=== PATIENT | female | born 1990 | race Caucasian/White ===

== ENCOUNTER 2019-09-22 15:37 | Outpatient (CLI) | payer MEDICARE, MEDICAID, SELFPAY ==
--- NOTE | ~2019-09-22 | XR_ITS ---
XR lumbar spine 2-3V, XR sacrum coccyx 1V 09/22/2019 16:30 (accession [id number]), 09/22/2019 16:29 (accession [id number]) Indication: Low back pain. History of epilepsy. Procedure: 5 views of the lumbar spine and 3 views of the sacrum/coccyx Comparison: No prior studies for comparison. Findings: There are bilateral renal stones. Lumbar vertebral heights are maintained. No fracture or t raumatic malalignment. No significant disc narrowing. Sacral foramen are symmetric. There is an IUD p resent. No acute abnormality of the sacrum/coccyx. Impression: 1: No acute abnormality of the lumbar spine or sacrum/coccyx. 2: Bilateral nephrolithiasis. Reviewed, dictated and finalized at location A. N RESOURCES OPERATIONS DIRECTOR Impression: 1: No acute abnormality of the lumbar spine or sacrum/coccyx. 2: Bilateral nephrolithiasis. Impression: 1: No acute abnormality of the lumbar spine or sacrum/coccyx. 2: Bilateral nephrolithiasis.
--- NOTE | ~2019-09-22 | XR_ITS ---
XR_CERV2-3V_CR, XR thoracic spine 2V 09/22/2019 16:30 Indication: Neck pain. Seizures. Procedure: 4 view cervical spine and 2 views thoracic spine Comparison: No prior studies for comparison. Findings: There are age-indeterminate superior endplate compression fractures of T2, T3 and T4. Mild levocurvature of the thoracic spine. Small bone island in L1. No prevertebral soft tissue swelling. C ervical spine alignment is normal. Odontoid process is normal. Lung apices are normal. Impression: 1: Age-indeterminate superior endplate compression fractures of T2, T3 and T4. Reviewed, dictated and finalized at location A. CRITICAL CARE Impression: 1: Age-indeterminate superior endplate compression fractures of T2, T3 and T4. Impression: 1: Age-indeterminate superior endplate compression fractures of T2, T3 and T4.
== END 2019-09-22 15:38 | disposition home or self-care (01) ==
LOC: ANHIMG 15:41
PROVIDERS: PCP Internal Medicine; Visit Provider Nurse Practitioner
DX: M54.9 Dorsalgia, unspecified (principal); N20.0 Calculus of kidney; M48.54XA Collapsed vertebra, not elsewhere classified, thoracic region, initial encounter for fracture
CPT/HCPCS: 72040; 72070; 72100; 72220

== ENCOUNTER 2019-10-12 12:48 | Outpatient (CLI) | payer MEDICARE, MEDICAID, SELFPAY ==
--- NOTE | ~2019-10-12 | MR_ITS ---
EXAMINATION: MR thoracic spine wo con EXAM DATE: 10/12/2019 13:35 INDICATION: Abnormal x-ray, superior endplate compression fractures T2, T3, T4. Age indeterminate. TECHNIQUE: Multi-sequential, multiplanar MR images of the thoracic spine were obtained without contra st. Sagittal T1, T2, T2 fat saturation, axial T2 weighted images reviewed. Correlation is made to 09/22/2019. FINDINGS: There are multiple mild to moderate chronic compression fractures extending from T2-T6. Mor e specifically, mild to moderate loss of height at T2 and T3, moderate at C4, mild at T5 and T6. This is causing some thoracic kyphosis. Several small endplate Schmorl's nodes. There is mild thoracic di sc disease. The spinal cord signal intensity and intrinsic morphology is normal. The vertebral bodies are aligned in the AP dimension. Thoracic neural foramina and central canal widely patent. Minimal t horacic facet arthropathy. IMPRESSION: 1. Chronic upper thoracic compression fractures. 2. Mild spondylosis. Reviewed, dictated and finalized at location B. T CARE PROVIDER
== END 2019-10-12 12:49 | disposition home or self-care (01) ==
PROVIDERS: PCP Internal Medicine; Visit Provider Nurse Practitioner Adult Health
DX: S22.029A Unspecified fracture of second thoracic vertebra, initial encounter for closed fracture (principal); S22.039A Unspecified fracture of third thoracic vertebra, initial encounter for closed fracture; S22.049A Unspecified fracture of fourth thoracic vertebra, initial encounter for closed fracture; W19.XXXA Unspecified fall, initial encounter; M47.814 Spondylosis without myelopathy or radiculopathy, thoracic region
CPT/HCPCS: 72146

== ENCOUNTER 2020-03-30 10:00 | Outpatient (CLI) | payer MEDICARE, MEDICAID, SELFPAY ==
--- NOTE | 2020-04-03 11:11 | WPDHOLTEREM ---
Holter/Event Monitor Holter/Event Monitor Date of procedure: 03/30/20 Procedure Type: 48 hour holter monitor Indications: Syncope Conclusion: 1. 48 hour holter monitor on 03/30/20. 2. Underlying rhythm is sinus rhythm. HR range 52-136 bpm; average HR 70 bpm. 3. There are 5 premature supraventricular complexes. No supraventricular tachycardia. 4. No premature ventricular complex. No ventricular tachycardia. 5. No sinoatrial or atrioventricular blocks. No significant pauses greater than 2 seconds. 6. Patient reports falling on floor and falling backwards which demonstrate sinus rhythm, HR range 75-105 bpm.
== END 2020-03-30 10:01 | disposition home or self-care (01) ==
PROVIDERS: PCP Internal Medicine; Visit Provider Nurse Practitioner
DX: R55 Syncope and collapse (principal)
CPT/HCPCS: 93225; 93226

== ENCOUNTER 2020-04-13 15:05 | Emergency (ER) | payer MEDICARE, MEDICAID, SELFPAY ==
--- NOTE | ~2020-04-13 | CT_ITS ---
EXAMINATION: CT brain wo con DATE: 04/13/2020 15:58 INDICATION: Seizure. Head injury. TECHNIQUE: Computed tomography (CT) of the head was performed without intravenous contrast. The mA wa s adjusted according to patient size. Iterative reconstruction technique was employed. The dose-lengt h product was 605.33 mGy-cm. COMPARISON: Head CT 11/10/2014 FINDINGS: There is no intracranial hemorrhage, acute infarction, or abnormal intracranial mass lesion . The ventricles are normal in size. There is mucosal thickening in the right ethmoid sinuses. The or bits are normal. There are changes of right mastoidectomy. IMPRESSION: 1. Normal brain. Reviewed, dictated and finalized at location A. IMPRESSION: 1. Normal brain.
--- NOTE | 2020-04-13 15:10 | ECG_ITS ---
Measurements Intervals [place] Rate: 76 P: 26 AL: 176 QRS: 76 QRSD: 80 T: 52 QT: 384 QTc: 433 Interpretive Statements SINUS RHYTHM MINIMAL Q WAVES- INFERIOR LEADS NONSPECIFIC T-WAVE ABNORMALITY- ANTERIOR LEADS BASELINE ARTIFACT- I, AVR, V4-V5 BORDERLINE ECG Electronically Signed On 04-13-2020 16:33:52 CDT by Reymundo Martínez D.O.
[2020-04-13 15:13] VITALS: BP 116/73; PULSE 75; RESP 17; TEMP 36.8; O2SAT 100
[2020-04-13 15:17] VITALS: PULSE 79
[2020-04-13 15:39] LABS: Basophils Percent Auto 0.7 % (0.2-1.2); Eosinophils Absolute Auto 0.1 K/mm3 (0-0.3); Eosinophils Percent Auto 1.7 % (0-4.4); Hemoglobin 12.5 g/dL (12.0-15.0); Immature Granulocyte Absolute 0.02 K/mm3 (0.00-0.031); Immature Granulocyte Percent A 0.3 % (0-0.5); Lymphocytes Absolute Auto 2.06 K/mm3 (0.9-3.2); Lymphocytes Percent Auto 34.6 % (18.3-44.2); Mean Corpuscular HGB Conc 33.8 g/dl (32-36); Mean Corpuscular Hemoglobin 32.1 pg (26-34); Mean Corpuscular Volume 94.9 fl (80-100); Monocytes Absolute Auto 0.5 K/mm3 (0.1-0.6); Monocytes Percent Auto 8.2 % (2.6-8.5); Neutrophils Absolute Auto 3.3 K/mm3 (1.3-6.7); Neutrophils Percent Auto 54.5 % (45.5-73.1); Platelet Count Result 290 k/mm3 (150-375); Red Cell Distribution Width 11.5 % (11.5-14.5)
[2020-04-13 15:46] VITALS: BP 102/64; PULSE 84; RESP 17; O2SAT 98
[2020-04-13 15:50] LABS: Alanine Aminotransferase 126 U/L (4-35); Albumin Level 4.4 g/dL (3.5-5.1); Alkaline Phosphatase 171 U/L (38-126); Anion Gap 11.6 mmol/L (7-16); Aspartate Amino Transferase 67 U/L (14-36); Bilirubin,Total 0.4 mg/dL (0.2-1.3); Blood Urea Nitrogen 12 mg/dL (7-17); Carbon Dioxide 23 mmol/L (22-30); Chloride 110 mmol/L (98-107); Estimated CRCL calculation 102 ml/min; Estimated Glomerular Filt Rate > 60; Glucose 94 mg/dL (65-105); Potassium 3.6 mmol/L (3.4-5.0); Sodium 141 mmol/L (137-145)
[2020-04-13 16:29] VITALS: BP 107/77; PULSE 77; RESP 17; O2SAT 98
[2020-04-13] MEDS: levETIRAcetam 1000MG/NACL100ML 1,000 MG/100 ML BAG 400 MG IVPB (17:08)
--- NOTE | 2020-04-13 17:18 | ED.GENADULT ---
HPI - General Adult General Chief complaint: Seizure Stated complaint: seizure, hit head Time Seen by Provider: 04/13/20 16:57 Source: patient and family History of Present Illness HPI narrative: Patient reported a seizure like activity, similar to her previous seizure, unwitnessed lasted for 1 to 2 seconds at home. Afternoon had another 1, dropped her phone on the floor then went down on the ground for 1 to 2-second. Hit her head on the ground. Patient denies any loss of consciousness, report having similar symptoms for the last months, was evaluated at [facility], currently on Topamax 300 mg every morning, 400 mg every afternoon. Patient also on Keppra 1500 twice daily. Currently patient complaining of headache, no other injuries MD complaint: Seizure Related Data Home Medications Medication Instructions Recorded Confirmed buspirone 30 mg tablet 30 mg PO DAILY tablet 09/21/19 09/22/19 levetiracetam 1,000 mg tablet 1,000 mg PO Q12H 09/21/19 09/22/19 levetiracetam 750 mg tablet 750 mg PO Q12H 09/21/19 09/22/19 naproxen sodium 220 mg capsule 440 mg PO BID PRN cap 09/21/19 09/22/19 olanzapine 15 mg tablet 5 mg PO DAILY tablet 03/23/20 topiramate 100 mg tablet 300 mg PO BID tablet 03/23/20 Allergies Allergy/AdvReac Type Severity Reaction Status Date / Time No Known Allergies Allergy Verified 04/13/20 15:19 Review of Systems Review of Systems: Narrative: CONSTITUTIONAL: Denies fever, chills, or sweats. EYES: Denies visual changes, redness, or discharge. ENT: Denies rhinorrhea, congestion, sore throat, or otalgia. CARDIOVASCULAR: Denies chest pain, palpitations, or edema. RESPIRATORY: Denies cough or dyspnea. GASTROINTESTINAL: Denies abdominal pain, nausea, vomiting, or diarrhea. GENITOURINARY: Denies dysuria or hematuria. SKIN: Denies rash or itching. MUSCULOSKELETAL: Denies back pain, joint pain, or myalgia. NEUROLOGIC: Denies headache, numbness, or weakness. PSYCHIATRIC: Denies anxiety or depression. [facility] Surgical History Surgical History S/P middle ear reconstruction Family History Family History Mother Depression Family history of cataracts Social History Social History Smoking status: Never smoker Second hand tobacco smoke exposure: No Alcohol intake: never Exam Narrative: Exam Narrative: General appearance: Well-developed, well-nourished Skin: Normal color Head: Normocephalic, nontraumatic Eyes: Clear conjunctiva ENT: Oropharynx normal, ears normal, nose normal Neck: Supple, nontender Chest and respiratory: Airway patent, no respiratory distress, no accessory muscle use Heart: Regular rate/rhythm Abdomen: Soft, nontender, no organomegaly, quiet bowel sounds Vascular: Normal peripheral pulses, normal capillary refill. Musculoskeletal: Normal range of motion, nontender back Neurologic: Alert and oriented ?3, MACHINE FASTENER is normal as tested, no gross motor deficit Course Course Emergency Course: Patient looks comfortable, Consultations Consultation #1: Dr. Bustillo. Call office for appointment Date: 04/13/20 Time: 17:37 Vital Signs Vital signs: Vital Signs Temperature 36.8 C 04/13/20 15:13 Pulse Rate 75 04/13/20 15:13 Respiratory Rate 17 04/13/20 15:13 Blood Pressure 116/73 04/13/20 15:13 Pulse Oximetry 100 04/13/20 15:13 Temperature 36.8 C 04/13/20 15:13 Pulse Rate 77 04/13/20 16:29 Respiratory Rate 17 04/13/20 16:29 Blood Pressure 107/77 07
[2020-04-17 21:31] LABS: Topiramate 25.6 mcg/mL (***)
[2020-04-18 10:00] LABS: Levetiracetam Keppra 43.1 mcg/mL (12.0-46.0)
== END 2020-04-13 18:33 | disposition home or self-care (01) ==
PROVIDERS: Emergency Provider Emergency Medicine; PCP Internal Medicine
DX: G40.909 Epilepsy, unspecified, not intractable, without status epilepticus (principal); R94.31 Abnormal electrocardiogram [ECG] [EKG]
CPT/HCPCS: 36415; 70450; 80053; 80177; 80201; 85025; 93005; 96365; 99284; J1953

== ENCOUNTER 2020-11-08 15:22 | Inpatient (IN) | payer MEDICARE, MEDICAID, SELFPAY ==
[2020-11-08] VITALS (40 sets, daily range): BP systolic 93–118; BP diastolic 58–85; PULSE 80–102; RESP 16–18; TEMP 36.2–36.4; O2SAT 99–100; BMI 26.4
--- NOTE | ~2020-11-08 | NM_ITS ---
EXAMINATION: NM hepatobiliary w pharm DATE: 11/09/2020 15:24 INDICATION: Gallbladder sludge and cholelithiasis. Elevated liver enzymes. COMPARISON: None. TECHNIQUE: 4.5 mCi Tc-99m mebrofenin (Choletec) was administered intravenously. Scintigraphic images of the abdomen were obtained for one hour. 3 mcg sincalide (Kinevac) was administered by slow intrav enous infusion, and imaging was continued for 30 minutes. Gallbladder ejection fraction was calculate d by the technologist. FINDINGS: There is normal clearance of radiotracer from the blood pool. There is homogeneous tracer uptake by t he liver. Activity progresses to the gallbladder and bowel although this appears somewhat delayed wi th activity first seen in the region of the common bile duct at 40 minutes, at the bowel at 15 minute s and at the gallbladder at 1 hour and 30 minutes. During the post-Kinevac imaging to assess for gall bladder ejection fraction the activity within the common bile duct changes significantly and on some images is greater than the activity seen in the immediately adjacent gallbladder. This precludes an a ccurate quantitative assessment of the gallbladder ejection fraction. Subjectively there is minimal c hange in the gallbladder activity. IMPRESSION: 1. Prompt clearance of activity from the blood pool but with relatively delayed activity clearance f rom the liver and with delayed accumulation of activity in the common bile duct, bowel and gallbladde r suggests a partial biliary obstruction. 2. Subjectively low gallbladder ejection fraction as detailed above suggest possibility of gallbladde r dysfunction or chronic cholecystitis in the appropriate clinical setting. Reviewed, dictated and finalized at location A. STICS SUPERVISOR IMPRESSION: 1. Prompt clearance of activity from the blood pool but with relatively delaye d activity clearance from the liver and with delayed accumulation of activity i n the common bile duct, bowel and gallbladder suggests a partial biliary obstru ction. 2. Subjectively low gallbladder ejection fraction as detailed above suggest pos sibility of gallbladder dysfunction or chronic cholecystitis in the appropriate clinical setting.
--- NOTE | ~2020-11-08 | NM_ITS ---
EXAMINATION: NM hepatobiliary wo pharm DATE: 11/14/2020 13:44 INDICATION: Bile leak. COMPARISON: Hepatobiliary scintigraphy 11/09/2020, MRCP 11/09/2020 TECHNIQUE: 5 mCi Tc-99m mebrofenin (Choletec) was administered intravenously. Scintigraphic images o f the abdomen were obtained for one hour. A final image was obtained at 1 hour and 15 minutes. FINDINGS: There is delayed clearance of radiotracer from the blood pool, consistent with hepatocellul ar dysfunction. There is homogeneous tracer uptake by the liver. Activity progresses to the bowel. IMPRESSION: 1. No bile leak. 2. Delayed clearance of radiotracer from the blood pool, consistent with hepatocellular dysfunction. Reviewed, dictated and finalized at location A. COMMUNICATIONS SALES REPRESENTATIVE IMPRESSION: 1. No bile leak. 2. Delayed clearance of radiotracer from the blood pool, consistent with hepato cellular dysfunction.
--- NOTE | ~2020-11-08 | US_ITS ---
US abdomen limited DATE: 11/08/2020 17:13 INDICATION: Elevated liver function tests TECHNIQUE: Real-time imaging of liver pancreas and gallbladder COMPARISON: 11/20/2015 Limited abdominal ultrasound FINDINGS: No hepatic or pancreatic space-occupying mass lesion. Normal hepatopedal portal venous flow direction. There is a prominent amount of sludge and multiple small nodular filling defects in the gallbladder l umen suggesting possible gallstones. Gallbladder wall thickening is within upper limits of normal. No bile duct dilatation. The common joanna e duct measures 3.9 mm, within normal limits. IMPRESSION: Sludge and probable stones in the gallbladder Reviewed, dictated and finalized at Location A. Reviewed, dictated and finalized at location A. FIC ASSISTANT
--- NOTE | ~2020-11-08 | MR_ITS ---
EXAMINATION: MR MRCP wo/w con/w 3D wo ind DATE: 11/09/2020 18:33 INDICATION: Abnormal liver function tests. Nausea and vomiting. TECHNIQUE: Magnetic resonance imaging (MRI) of the abdomen was performed without and with MultiHance intravenous contrast. Sequences included coronal T2-weighted FS FSE, coronal T2-weighted FSE, axial T 1-weighted LAVA, coronal FS FIESTA, axial dual-echo T1-weighted SPGR, coronal lava-FLEX, sagittal T2- weighted FSE, axial T2-weighted FSE, and axial DWI. Thick-slab T2-weighted FSE images were obtained f or magnetic resonance cholangiopancreatography (MRCP). Maximum intensity projection 3-D reconstructio ns of the volumetric data were created by the technologist. Postcontrast sequences included coronal L GABI-flex and time course of axial T1-weighted LAVA. COMPARISON: None. FINDINGS: ABDOMEN MRI: There is diffuse hepatic steatosis. The spleen, pancreas, and adrenal glands are normal. The gallbladder is normal in size and contains gallstones. There are cysts in the kidneys measuring up to 8 mm on the right. There are no dilated loops of bowel. There are no pathologically enlarged ly mph nodes. There is no free intraperitoneal fluid. ABDOMEN MRCP: The common duct is normal and measures 6 mm. No choledocholithiasis. IMPRESSION: 1. Diffuse hepatic steatosis. 2. Cholelithiasis. No evidence of acute cholecystitis. Reviewed, dictated and finalized at location A. H DOCTOR
--- NOTE | ~2020-11-08 | XR_ITS ---
EXAMINATION: XR chest 1V portable DATE: 11/08/2020 17:01 INDICATION: Cough. Nausea and vomiting. TECHNIQUE: A single frontal view of the chest was obtained. COMPARISON: Chest 2 views 07/28/2009 FINDINGS: The chest demonstrates clear lungs without pneumonia, pleural effusion, or pneumothorax. Th e heart size is normal. IMPRESSION: 1. No acute cardiopulmonary disease. Reviewed, dictated and finalized at location A. ER SLICING MACHINE OPERATOR
[2020-11-08 16:35] LABS: Basophils Percent Auto 1.1 % (0.2-1.2); Eosinophils Percent Auto 0.8 % (0-4.4); Hematocrit 36.9 % (37.0-47.0); Hemoglobin 12.9 g/dL (12.0-15.0); Lymphocytes Absolute Auto 0.75 K/mm3 (0.9-3.2); Lymphocytes Percent Auto 20.5 % (18.3-44.2); Mean Corpuscular Hemoglobin 34.3 pg (26-34); Mean Corpuscular Volume 98.1 fl (80-100); Mean Platelet Volume 10.2 fl (7.4-10.4); Monocytes Absolute Auto 0.4 K/mm3 (0.1-0.6); Monocytes Percent Auto 11.5 % (2.6-8.5); Neutrophils Absolute Auto 2.4 K/mm3 (1.3-6.7); Neutrophils Percent Auto 66.1 % (45.5-73.1); Platelet Count Result 275 k/mm3 (150-375); Red Blood Count 3.76 M/mm3 (4.2-5.4); Red Cell Distribution Width 14.6 % (11.5-14.5); White Blood Count 3.7 K/mm3 (4.5-10.0)
[2020-11-08] MEDS: PROCHLORPERAZINE EDISYLATE 10 MG/2 ML VIAL IV PUSH (16:36)
[2020-11-08] MEDS: LACTATED RINGERS 1,000 ML 999 ML IV CONT ×3 (16:36→18:56)
[2020-11-08 16:45] LABS: Add Urine Microscopic? YES; Amorphous Sediment Urine Few; Appearance Urine Cloudy (Clear); Bacteria Urine 2+ /hpf; Bilirubin Urine 2+ (Negative); Blood Urine 1+ (Negative); Color Urine Amber (Yellow); Glucose Urine UA Negative (Negative); Hyaline Casts Urine 30-49 /lpf; Ketones Urine 2+ mg/dL (Negative); Leukocyte Esterase Ur Trace LEU/UL (Negative); Mucus Urine Heavy /lpf; Nitrate Urine Negative (Negative); Protein Urine 2+ mg/dL (Negative); Specific Grav Ur 1.024 (1.001-1.035); Squamous Epithelial Cell Urine Many /hpf (Few); WBC Urine 31-50 /hpf
[2020-11-08 16:46] LABS: Alanine Aminotransferase 72 U/L (4-35); Albumin Level 4.1 g/dL (3.5-5.1); Alkaline Phosphatase 98 U/L (38-126); Anion Gap 15 mmol/L (8-16); Aspartate Amino Transferase 111 U/L (14-36); Bilirubin,Total 1.8 mg/dL (0.2-1.3); Blood Urea Nitrogen 7 mg/dL (7-17); Calcium 9.1 mg/dL (8.4-10.2); Carbon Dioxide 16 mmol/L (22-30); Chloride 113 mmol/L (98-107); Estimated CRCL calculation 141 ml/min; Estimated Glomerular Filt Rate > 60; Glucose 119 mg/dL (65-105); Lipase 98 U/L (23-300); Sodium 144 mmol/L (137-145)
--- NOTE | 2020-11-08 17:03 | PC.NURSE ---
Pt in radiology at this time, will medicate per provider order upon return.
[2020-11-08] MEDS: POTASSIUM CHLORIDE 20 MEQ TABLET 40 MEQ PO (17:14)
--- NOTE | 2020-11-08 17:34 | ED.GENADULT ---
HPI - General Adult General Chief complaint: Abdominal Pain Stated complaint: abd pain- sent from GI Time Seen by Provider: 11/08/20 15:57 Source: patient and family Mode of arrival: ambulatory Limitations: no limitations History of Present Illness HPI narrative: This is a 30 year old female patient who presents for evaluation of nausea, vomiting and dehydration. Her mother is at bedside helping with history . She states patient started having intractable nausea and vomiting 15 days ago. She has multiple episodes days. She is unable to keep water or food down. She denies associated fever, chills, abdominal pain or diarrhea. She was evaluated at [facility] on 10/24/[address] abdomenn/pelvis. Her CT showed signs of colitis/inflammatory bowel disease. She was discharged after IV hydration with GI referral and zofran. She has been taking zofran without relief of her symptoms. She was evaluated by GI today and it was recommended that she come to ER for IVF. She denies dizziness, chest pain or abdominal pain. She reports mild cough. Related Data Home Medications Medication Instructions Recorded Confirmed levetiracetam 1,000 mg tablet 2,000 mg PO BID tablet 07/24/20 11/08/20 topiramate 100 mg tablet 300 mg PO BID tablet 07/24/20 11/08/20 Allergies Allergy/AdvReac Type Severity Reaction Status Date / Time No Known Allergies Allergy Verified 11/08/20 21:18 Review of Systems Review of Systems: All systems reviewed & are unremarkable except as noted in HPI and below PMFSH Past Medical History Medical History (Updated 11/09/20 @ 00:16 by Simran Julio MD) Epilepsy H/O thyroid cyst That was excised Irritable bowel syndrome (IBS) Left wrist fracture Mentally disabled Nausea and vomiting Seizures Surgical History Surgical History S/P middle ear reconstruction Family History Family History (Updated 11/08/20 @ 22:25 by Ching Chávez NP) Mother Depression Family history of cataracts Hypertension Father Hypertension Social History Social History (Updated 11/08/20 @ 22:29 by Ching Chávez NP) Social History: The patient lives with her parents. She has a fiance whom she has not seen in 1 year. She used to live in a snf but lives with her parents now. She has never smoked are use drugs. She does not use alcohol. Her mother is her guardian. She is a full code. Smoking status: Never smoker Second hand tobacco smoke exposure: No Alcohol intake: never Substance use: never Living arrangements: with family Occupation/Education: other Gender identity (if verbalized by the patient): Female Spiritual care concerns: No Exam Narrative: Exam Narrative: GENERAL: no acute distress, appears to not feel . HEAD: Normocephalic, atraumatic EYES: PERRLA and EOMI, conjunctiva clear without discharge EARS: TM's clear bilaterally without erythema or dullness NOSE: Nares clear, no rhinorrhea or epistaxis THROAT:dry lips, dry mucous membrane NECK: Supple, without lymphadenopathy or mass RESPIRATORY: No respiratory distress, Airway patent, Respirations non-labored, Clear to auscultation without rales, rhonchi or wheeze HEART: Regular rate and rhythm. No murmur heard. Normal peripheral pulses. ABDOMEN: Soft, nontender, nondistended, normal active bowel sounds. No masses. No rebound or guarding, No organomegaly. EXTREMITIES: No edema, normal strength with full range of motion. SKIN: Warm, dry, normal color without rash NEURO: Alert and oriented x3. CN 2-12 grossly intact. No focal deficits. PSYCH: Normal mood and affect. Course Reevaluation(s) Reevaluation #1: Patient is not able to eat or drink . She is agreeable to observation for IV hydration and EGD. colonoscopy tomorrow Date: 11/08/20 Time: 19:00 Consultations Consultation #1: I discussed case with Dr. Holloway and he is agreeable to con
[2020-11-08 19:02] LABS: Monoscreen Negative (Negative); Negative Monotest Control Negative (Negative); Positive Monotest Control Positive (Positive)
[2020-11-08 19:13] LABS: Hepatitis B Surface Antigen Negative (Negative)
[2020-11-08 19:18] LABS: HAV RESULT Negative (Negative); Hepatitis B Core IgM Result Negative (Negative)
[2020-11-08 19:30] LABS: Hepatitis C Virus Antibody Negative (Negative)
[2020-11-08] MEDS: BISACODYL 5 MG TABLET EC 20 MG PO (20:04)
--- NOTE | 2020-11-08 21:03 | ADMGEN ---
This patient, Leah Andrade, was admitted to Medical Room 340-01. Patient/family oriented to hospital policies and general routines including ID bracelet, bed and alarms, visiting hours, pain management, procedures, bathroom and other care routines, personal items, smoking policy, room service/diet, and visiting hours. Information on how to activate the Rapid Response Team has been discussed. Patient/Family are encouraged to report perceived risks to care and to ask questions if they do not understand what they are told or what they should do.
[2020-11-08] MEDS: LACTATED RINGERS 1,000 ML 125 ML IV CONT (21:10)
--- NOTE | 2020-11-08 22:06 | PM.IMHP ---
H&P: HPI History of Present Illness Date/Time: 11/08/20 22:06 Chief Complaint: nausea and vomiting Narrative: Leah Andrade is a 30 year old female who came to the emergency room for evaluation of nausea vomiting and dehydration is. The patient had been seen at [facility] on the of this month for the same thing. The patient was also seen again after that just for hydration. This is the 3rd time that she has been seen for the same thing. The patient still the nurse practitioner for Dr. Holloway office today and they sent her here at [facility]. Potassium was 3.0 and it was replaced. Patient's urine was cloudy with 2+ protein and 2+ ketones. WBCs were 31-50. 2+ urine bacteria. Though it does have many squamous epithelials cells. Could possibly be a contaminant however the patient was started on Rocephin. She only had a trace of leukocyte esterase. The patient is being admitted to observation. Date of service 11/08/2020 Dr. Holloway was consulted. Review of Systems Review of Systems: All systems reviewed & are unremarkable except as noted in HPI and below Constitutional: Constitutional: Reports as per HPI and Reports no additional constitutional complaints Eyes: Eyes: Reports as per HPI and Reports no additional eye complaints ENT: Reports system reviewed and no additional complaints, except as documented and Reports Normal hearing present Cardiovascular: Cardiovascular: Reports no additional cardiovascular complaints Respiratory: Respiratory: Reports no additional respiratory complaints and Reports no additional respiratory complaints Gastrointestinal: Gastrointestinal: Reports as per HPI and Reports no additional gastrointestinal complaints Musculoskeletal: Musculoskeletal: Reports no additional musculoskeletal complaints Integumentary/Breasts: Skin/Breast: Reports system reviewed and no additional complaints, except as docu and Reports as per HPI Neurologic: Reports system reviewed and no additional complaints, except as documented, Reports as per HPI and Reports Normal hearing present Psychiatric: Psychiatric: Reports no additional psychiatric complaints and Reports as per HPI Endocrine: Endocrine: Reports no additional endocrine complaints Hematologic/Lymphatic: Hematologic/Lymphatic: Reports no additional hematologic/lymphatic complaints Allergic/Immunologic: Allergic/Immunologic: Reports no additional allergic/immunologic complaints [facility] Past Medical History Medical History (Updated 11/08/20 @ 22:40 by Ching Chávez NP) Epilepsy H/O thyroid cyst That was excised Irritable bowel syndrome (IBS) Left wrist fracture Mentally disabled Nausea and vomiting Seizures Surgical History Surgical History S/P middle ear reconstruction Family History Family History (Updated 11/08/20 @ 22:25 by Ching Chávez NP) Mother Depression Family history of cataracts Hypertension Father Hypertension Social History Social History (Updated 11/08/20 @ 22:29 by Ching Chávez NP) Social History: The patient lives with her parents. She has a fiance whom she has not seen in 1 year. She used to live in a senior living but lives with her parents now. She has never smoked are use drugs. She does not use alcohol. Her mother is her guardian. She is a full code. Smoking status: Never smoker Second hand tobacco smoke exposure: No Alcohol intake: never Substance use: never Living arrangements: with family Occupation/Education: other Gender identity (if verbalized by the patient): Female Spiritual care concerns: No Meds Home Medications and Allergies Home Medications Medication Instructions Recorded Confirmed Type levetiracetam 1,000 mg tablet 2,000 mg PO BID tablet 07/24/20 11/08/20 History topiramate 100 mg tablet 300 mg PO BID tablet 07/24/20 11/08/20 History dicyclomine 10 mg capsule 10 m
[2020-11-08 23:51] LABS: Anion Gap 10 mmol/L (8-16); Blood Urea Nitrogen 3 mg/dL (7-17); Calcium 7.7 mg/dL (8.4-10.2); Carbon Dioxide 17 mmol/L (22-30); Chloride 111 mmol/L (98-107); Estimated CRCL calculation 173 ml/min; Estimated Glomerular Filt Rate > 60; Glucose 120 mg/dL (65-105); Potassium 3.1 mmol/L (3.4-5.0); Sodium 138 mmol/L (137-145)
[2020-11-09 05:52] LABS: Anion Gap 8 mmol/L (8-16); Blood Urea Nitrogen 3 mg/dL (7-17); Calcium 7.9 mg/dL (8.4-10.2); Carbon Dioxide 19 mmol/L (22-30); Chloride 110 mmol/L (98-107); Estimated CRCL calculation 136 ml/min; Estimated Glomerular Filt Rate > 60; Glucose 106 mg/dL (65-105); Magnesium 1.5 mg/dL (1.6-2.3); Sodium 137 mmol/L (137-145)
[2020-11-09 06:00] VITALS: BP 123/72; PULSE 98; RESP 17; TEMP 36.6; O2SAT 100
[2020-11-09] MEDS: LACTATED RINGERS 1,000 ML 125 ML IV CONT ×2 (06:20→22:15)
[2020-11-09 07:26] LABS: Alanine Aminotransferase 146 U/L (4-35); Albumin Level 2.9 g/dL (3.5-5.1); Alkaline Phosphatase 74 U/L (38-126); Aspartate Amino Transferase 298 U/L (14-36); Bilirubin Direct 0.3 mg/dL (0-0.3)
[2020-11-09] MEDS: levETIRAcetam IV 2,000 MG in DEXTROSE 5% 100 ML 460 MG IVPB (08:04)
[2020-11-09] MEDS: FAMOTIDINE 20 MG/2 ML VIAL IV PUSH ×2 (08:10→20:17)
[2020-11-09] MEDS: MAGNESIUM SULF 2 GM/WATER 50ML 2 GM/50 ML BAG IVPB (08:19)
--- NOTE | 2020-11-09 13:10 | PC.NURSE ---
Patient to radiology via hospital wheelchair.
--- NOTE | 2020-11-09 13:38 | WPDGICN ---
Assessment and Plan Assessment and plan (1) Intractable nausea and vomiting: Code(s): R11.2 - Nausea with vomiting, unspecified Status: Acute Assessment and Plan: for few weeks and recent hospitalization at [facility], here with dehydration but also noted elevated liver enzymes (higher than baseline), ultrasound with sludge and HIDA scan is pending. Will order MRCP to assess if choledocholithiasis and also pending on results (if GB disease) may need surgery evaluation she is still not feeling like eating if studies unrevealing, then we can proceed with EGD on Thursday (never had one) (2) Elevated liver enzymes: Code(s): R74.8 - Abnormal levels of other serum enzymes Status: Acute Assessment and Plan: MRCP ordered today, need to assess biliary system and more recommendations to follow (3) Sludge in gallbladder: Code(s): K82.8 - Other specified diseases of gallbladder Status: Acute Assessment and Plan: hida scan pending (4) Acute dehydration: Code(s): E86.0 - Dehydration Status: Acute Assessment and Plan: treated, still poor appetite (5) Acute hypokalemia: Code(s): E87.6 - Hypokalemia Status: Acute Assessment and Plan: replacing K, supportive care (6) Mentally disabled: Code(s): F79 - Unspecified intellectual disabilities Status: Acute (7) Seizures: Code(s): R56.9 - Unspecified convulsions Status: Chronic Assessment and Plan: on meds (8) Abnormal CT scan, colon: Code(s): R93.3 - Abnormal findings on diagnostic imaging of other parts of digestive tract Status: Acute Assessment and Plan: noted possible colitis in CT scan at [facility], mother denies much of abdominal pain or diarrhea if work up negative, also will need colonoscopy GI Consult Note Consult date/time: 11/09/20 13:38 Reason for consult: intractable nausea and vomiting HPI: Leah Andrade is a 30 year old female who came to our office yesterday because ongoing N/V since October 24. She has mild mental retardation but highly functional and seizures (on meds, mother says that last time had seizures Oct 26) and her mother is given most of the history (she is her guardian). She had intermittent nausea and vomiting, sometimes up to 5-6 times daily, she has not been eating much and dry heaving because she is not able to eat or drink anything. She went to [place] [facility] for same symptoms, she was dehydrated and given 4 bags of fluids and keep over night for observation, discharged with zofran. Reviewed records, she had CT scan showed mild bowel wall thickening in ascending/sigmoid/rectum colon. Ct scan of brain was unremarkable. Since she was still symptomatic, we recommended to go to ER and further work up showed potassium 3.0, signs of dehydration and admitted to hospital. Also ultrasound reviewed and showed sludge probable stones in the gallbladder, noted elevated bili 1.8 and transaminases 110-70 (50's in the past), hepatitis panel negative. No abdominal pain. Mother says that she had a colonoscopy about 5 years ago because IBS . Review of Systems Constitutional: Constitutional: Denies chills Eyes: Eyes: Reports no additional eye complaints ENT: Reports system reviewed and no additional complaints, except as documented Cardiovascular: Cardiovascular: Reports no additional cardiovascular complaints Respiratory: Respiratory: Reports no additional respiratory complaints Gastrointestinal: Gastrointestinal: Reports nausea and Reports vomiting Genitourinary: Genitourinary: Denies hematuria Musculoskeletal: Musculoskeletal: Denies neck pain Integumentary/Breasts: Skin/Breast: Denies dry skin Neurologic: Reports system reviewed and no additional complaints, except as documented Psychiatric: Comments: mild mental retardation PMFSH Past Medical History Medical History (Updated 11/09/20 @ 13:52 by Krzysztof Lundberg
--- NOTE | 2020-11-09 14:14 | PM.IMPN ---
Progress Note: A&P Assessment and Plan (1) Intractable nausea and vomiting: Code(s): R11.2 - Nausea with vomiting, unspecified Status: Acute Assessment and Plan: Etiology unclear at this time but consideration includes esophagitis, gastritis, or gallbladder dysfunction. Lipase is normal. RUQ US demonstrates gallbladder sludge and possible cholelithiasis. Colitis is another consideration but seems less likely at this time. Viral gastroenteritis is possible as well. TSH is normal. Appreciate GI input HIDA and MRCP ordered for evaluation of gallbladder EGD anticipated for Thursday and possible colonoscopy as well if workup is unrevealing Follow labs Advance diet as tolerated. She is on clear liquids but did not feel like eating today. Continue IV fluids Continue zofran as needed for nausea or vomiting Continue pepcid Trend labs and will check ESR/CRP (2) Sludge in gallbladder: Code(s): K82.8 - Other specified diseases of gallbladder Status: Acute Assessment and Plan: RUQ US demonstrated sludge and probable stones in the gallbladder. She has mild RUQ tenderness and does report pain, nausea, and vomiting after eating. Total bilirubin is elevated but direct bilirubin is normal. LFTs were elevated and have increased with AST 298, ALT 146, ALP 74. HIDA and MRCP ordered and pending Consider general surgery consultation based on those results (3) Epilepsy: Code(s): G40.909 - Epilepsy, unspecified, not intractable, without status epilepticus Status: Chronic Assessment and Plan: Chronic with no acute issues. She had a CT brain at [facility] on 11/04/20 which was unremarkable. Continue home regimen of levetiracetam and tipiramate Continue outpatient neurology follow-up (4) UTI (urinary tract infection): Code(s): N39.0 - Urinary tract infection, site not specified Status: Acute Assessment and Plan: Urinalysis demonstrated trace leukocyte esterase, 2+ bacteria, and 31-50 WBC however there were many squamous cells suggesting possible contamination. She does have nausea and vomiting but this is felt more likely related to a GI source as opposed to UTI. Urine culture is pending. Will discontinue IV ceftriaxone as she has no urinary complaints and follow cultures (5) Intellectual disability: Code(s): F79 - Unspecified intellectual disabilities Status: Chronic Assessment and Plan: No acute issues and high functioning. She does get a bit anxious when her mom is not here and does better with her ADLs in the hospital when her mom is present per nursing reports. (6) Abnormal CT scan, colon: Code(s): R93.3 - Abnormal findings on diagnostic imaging of other parts of digestive tract Status: Acute Assessment and Plan: CT abd/pelvis from [facility] demonstrated colitis. She had a few loose stools today but does not complain of significant diarrhea previously and denies melena and hematochezia. Appreciate GI input. She will need colonoscopy for further evaluation if other workup is negative. Do not feel antibiotics are indicated at this time Continue to monitor bowel patterns (7) Acute hypokalemia: Code(s): E87.6 - Hypokalemia Status: Acute Assessment and Plan: Likely secondary to GI loss and poor oral intake. Potassium was 3.0 today. Magnesium is also low and being supplemented. She received IV KCl today Continue to monitor with BMP daily (8) Acute dehydration: Code(s): E86.0 - Dehydration Status: Acute Assessment and Plan: Secondary to poor oral intake and vomiting. Continue IV fluids Monitor intake and output closely (9) Hypomagnesemia: Code(s): E83.42 - Hypomagnesemia Status: Acute Assessment and Plan: Likely secondary to GI loss and poor oral intake. Magnesium was 1.5 today. S
--- NOTE | 2020-11-09 15:19 | PC.NURSE ---
Patient back from radiology via hospital wheelchair.
[2020-11-09 19:35] VITALS: BP 102/67; PULSE 81; RESP 14; TEMP 36.7; O2SAT 100
[2020-11-09] MEDS: levETIRAcetam 500 MG TABLET 1500 MG PO (20:17)
[2020-11-09] MEDS: TOPIRAMATE 100 MG TABLET 400 MG PO (20:18)
[2020-11-09 21:15] VITALS: O2SAT 99
[2020-11-10 06:00] VITALS: BP 112/63; PULSE 68; RESP 14; TEMP 36.7; O2SAT 100
[2020-11-10] MEDS: LACTATED RINGERS 1,000 ML 125 ML IV CONT (06:15)
[2020-11-10 06:17] LABS: Hematocrit 29.3 % (37.0-47.0); Hemoglobin 10.2 g/dL (12.0-15.0); Mean Corpuscular HGB Conc 34.8 g/dl (32-36); Mean Corpuscular Hemoglobin 34.1 pg (26-34); Mean Platelet Volume 10.5 fl (7.4-10.4); Platelet Count Result 214 k/mm3 (150-375); Red Blood Count 2.99 M/mm3 (4.2-5.4); Red Cell Distribution Width 14.5 % (11.5-14.5); White Blood Count 2.7 K/mm3 (4.5-10.0)
[2020-11-10 06:33] LABS: Alanine Aminotransferase 168 U/L (4-35); Albumin Level 2.7 g/dL (3.5-5.1); Alkaline Phosphatase 71 U/L (38-126); Anion Gap 8 mmol/L (8-16); Aspartate Amino Transferase 237 U/L (14-36); Bilirubin,Total 1.9 mg/dL (0.2-1.3); CRP 0.5 mg/dL (<1.0); Calcium 7.9 mg/dL (8.4-10.2); Carbon Dioxide 18 mmol/L (22-30); Chloride 110 mmol/L (98-107); Estimated CRCL calculation 173 ml/min; Estimated Glomerular Filt Rate > 60; Glucose 87 mg/dL (65-105); Potassium 3.1 mmol/L (3.4-5.0); Sodium 136 mmol/L (137-145)
[2020-11-10 06:57] LABS: Erythrocyte Sedimentation Rate 15 mm/hr (0-20)
[2020-11-10 07:42] LABS: Blood Urea Nitrogen < 2 mg/dL (7-17)
[2020-11-10 08:00] VITALS: PULSE 74; RESP 18; O2SAT 100
[2020-11-10] MEDS: POTASSIUM CHLORIDE 20 MEQ TABLET 40 MEQ PO (08:48)
[2020-11-10] MEDS: ONDANSETRON INJ 4 MG/2 ML VIAL IV PUSH (08:52)
[2020-11-10] MEDS: FAMOTIDINE 20 MG/2 ML VIAL IV PUSH ×2 (08:55→20:26)
--- NOTE | 2020-11-10 11:05 | WPDGIPROGNO ---
Progress Note: A&P Additional Plan GI [facility] for [facility]el 10 Nov 2020 Continues with N/V. No AP. Not tolerating clears VSS soft/NT Hct 37->29. WBC 3. TBili 1.9, A/P 71, AST 237, ALT 168 U/S 2-25 GS/sludge CT A/P ([facility]) ? colitis HIDA 2-26 decreased GB EF and ? of partial biliary obstruction MRCP 2-26 Hepatic Steatosis, Gall stones, CBD 6 mm. No CBD stone A/P A. Intractable nausea and vomiting with abnormal LFT's and abnormal imaging-liver and biliary: - Case discussed at length with Dr. Larry Kamara - We believe situation is most c/w UTI superimposed on chronic cholecystitis/biliary dyskinesia - Less likely related to UTI on Hepatic Steatosis - Continue ABx and supportive care - If patient fails to respond would favor CCx - EGD unlikely to be helpful - Patient will not tolerate colonoscopy prep - Odds of improvement with CCx likely 50-75% - If patient fails to improve then would proceed to EGD B. Abnormal imaging-digestive: - colitis on CT at [facility] - More likely under-filling thatn actual colitis - Consider repeat CT vs colonoscopy when stable C. Hepatic Steatosis: follow LFT's as OP Thanks, will follow. [facility] [phone] Subjective Date/time seen: 11/10/20 11:05 Objective Data Vital Signs Vital Signs: Vital Signs - 24 hr 11/09/20 19:35 11/09/20 21:15 11/10/20 06:00 Temperature 36.7 C 36.7 C Pulse Rate 81 68 Respiratory Rate 14 14 Blood Pressure 102/67 112/63 Pulse Oximetry 100 99 100 Intake/Output Intake/Output: Intake & Output 11/07/20 11/08/20 11/09/20 11/10/20 23:59 23:59 23:59 23:59 Intake Total 3265 2970 1200 Output Total 1025 Balance 3265 1945 1200 Meds/Results Medications: Active Medications Generic Name Dose Route Start Last Admin Trade Name Freq PRN Reason Stop Dose Admin Famotidine 20 mg 11/09/20 09:00 11/10/20 08:55 Famotidine 20 Mg/2 Ml Vial IV PUSH 20 mg Q12HR ANTHONY Administration Lactated Ringer's 1,000 mls @ 75 mls/hr 11/08/20 19:05 11/10/20 06:15 Lr - Lactated Ringers Iv IV CONT 125 mls/hr .[id number] ANTHONY Administration Levetiracetam 2,000 mg 11/10/20 09:00 Levetiracetam 500 Mg Tablet PO QAM ANTHONY Levetiracetam 1,500 mg 11/09/20 21:00 11/09/20 20:17 Levetiracetam 500 Mg Tablet PO 1,500 mg HS ANTHONY Administration Ondansetron HCl 4 mg 11/08/20 19:03 11/10/20 08:52 Ondansetron Inj 4 Mg/2 Ml Vial IV PUSH 4 mg Q4H PRN Administration Nausea Topiramate 300 mg 11/10/20 09:00 Topiramate 100 Mg Tablet PO QAM ANTHONY Topiramate 400 mg 11/09/20 21:00 11/09/20 20:18 Topiramate 100 Mg Tablet PO 400 mg HS ANTHONY Administration Radiology Results: ITS Impressions Chest X-Ray 11/08/20 17:03 IMPRESSION: 1. No acute cardiopulmonary disease. Abdomen Ultrasound 11/08/20 17:16 IMPRESSION: Sludge and probable stones in the gallbladder Hepatobiliary Scan Nuclear Medicine 11/09/20 15:28 IMPRESSION: 1. Prompt clearance of activity from the blood pool but with relatively delayed activity clearance from the liver and with delayed accumulation of activity in the common bile duct, bowel and gallbladder suggests a partial biliary obstruction. 2. Subjectively low gallbladder ejection fraction as detailed above suggest possibility of gallbladder dysfunction or chronic cholecystitis in the appropriate clinical setting. MRCP 11/09/20 18:50 IMPRESSION: 1. Diffuse hepatic steatosis. 2. Cholelithiasis. No evidence of acute cholecystitis. Labs Labs: Laboratory Results - last 24 hr 11/10/20 11/10/20 05:39 05:39 WBC 2.7 L RBC 2.99 L Hgb 10.2 L Hct 29.3 L MCV 98.0 MCH 34.1 H MCHC 34.8 RDW 14.5 Plt Count 214 MPV 10.5 H ESR 15 Sodium 136 L Potassium 3.1 L Chloride 110 H Carbon Dioxide 18 L Anion Gap 8 BUN < 2 L Creatinine 0.30 L Estim Creat Clear Calc 173 Estimated GFR > 60 Glucose 87 Calcium 7.9 L Magnesium 2.0 To
--- NOTE | 2020-11-10 11:44 | PM.CNGS ---
Assessment and Plan Assessment and plan (1) Dyskinesia of gallbladder: Code(s): K82.8 - Other specified diseases of gallbladder Status: Acute Assessment and Plan: symptoms vague but likely due to GB dysfunction, long d/w pt mother and agree to proceed c cholecystectomy (2) Intractable nausea and vomiting: Code(s): R11.2 - Nausea with vomiting, unspecified Status: Acute Assessment and Plan: see above (3) Intellectual disability: Code(s): F79 - Unspecified intellectual disabilities Status: Chronic Assessment and Plan: d/w pt and mother and agree c proceed c cholecystectomy on 11/12 History of Present Illness Consult details Consult date: 11/10/20 Reason for consult: abdominal pain Requesting physician: Dora Gruber PA-C Narrative: Pt is a 30 y/o F c h/o mild MR presenting c intractable N/V, decreased appetite over last 2-3 wks. Pt c some vague upper abd discomfort although not severe. Pt has had extensive workup, including imaging, c/w GB dysfunction. Pt c strong FH of biliary dz. Review of Systems Constitutional: Constitutional: Reports anorexia, Denies body ache(s), Denies chills, Reports fatigue, Denies fever(s), Denies increased appetite, Reports lethargy, Denies malaise, Reports poor appetite, Reports weakness, Denies weight gain and Reports weight loss Eyes: Eyes: Reports no additional eye complaints ENT: Reports system reviewed and no additional complaints, except as documented Cardiovascular: Cardiovascular: Reports no additional cardiovascular complaints Respiratory: Respiratory: Reports no additional respiratory complaints Gastrointestinal: Gastrointestinal: Reports abdominal pain, Reports bloating, Denies GI cramping, Reports early satiety, Reports nausea and Reports vomiting Genitourinary: Genitourinary: Reports no additional female genitourinary complaints Musculoskeletal: Musculoskeletal: Reports no additional musculoskeletal complaints Integumentary/Breasts: Skin/Breast: Reports system reviewed and no additional complaints, except as docu Neurologic: Reports system reviewed and no additional complaints, except as documented Psychiatric: Psychiatric: Reports no additional psychiatric complaints [facility] Past Medical History Medical History Abnormal CT scan, colon Epilepsy H/O thyroid cyst That was excised Intractable nausea and vomiting Irritable bowel syndrome (IBS) Left wrist fracture Mentally disabled Nausea and vomiting Seizures Sludge in gallbladder Surgical History Surgical History S/P middle ear reconstruction Family History Family History Mother Depression Family history of cataracts Hypertension Father Hypertension Social History Social History Social History: The patient lives with her parents. She has a fiance whom she has not seen in 1 year. She used to live in a fci but lives with her parents now. She has never smoked are use drugs. She does not use alcohol. Her mother is her guardian. She is a full code. Smoking status: Never smoker Second hand tobacco smoke exposure: No Alcohol intake: never Substance use: never Living arrangements: with family Occupation/Education: other Gender identity (if verbalized by the patient): Female Spiritual care concerns: No Meds Home Medications and Allergies Home Medications Medication Instructions Recorded Confirmed Type levetiracetam 1,000 mg tablet 2,000 mg PO BID tablet 07/24/20 11/08/20 History topiramate 100 mg tablet 300 mg PO BID tablet 07/24/20 11/08/20 History dicyclomine 10 mg capsule 10 mg PO BID #60 cap 10/26/20 11/08/20 Rx omeprazole 20 mg capsule,delayed 20 mg PO DAILY #30 cap 11/08/20 11/08/20 Rx release
[2020-11-10] MEDS: levETIRAcetam IV 2,000 MG in DEXTROSE 5% 100 ML 460 MG IVPB (12:13)
--- NOTE | 2020-11-10 13:43 | PM.IMPN ---
Progress Note: A&P Assessment and Plan (1) Intractable nausea and vomiting: Code(s): R11.2 - Nausea with vomiting, unspecified Status: Acute Assessment and Plan: Etiology unclear at this time but consideration includes esophagitis, gastritis, or gallbladder dysfunction. Lipase is normal. RUQ US demonstrates gallbladder sludge and possible cholelithiasis. Colitis is another consideration but seems less likely at this time. Viral gastroenteritis is possible as well. TSH is normal. Additional consideration includes keppra although she has been on this dose since Fall 2019 (exact date unclear) and symptoms had a rather acute onset Oct 24. Gallbladder seems to be the most likely cause at this time given workup thus far. General surgery consulted with plans for cholecystectomy 11/12 Appreciate GI input. Consider EGD if no improvement with cholecystectomy Advance diet as tolerated but she has not been tolerant to clear liquids today Continue IV fluids Given no improvement in nausea and vomiting with zofran, will switch to metoclopramide ACHS and promethazine Continue pepcid (2) Sludge in gallbladder: Code(s): K82.8 - Other specified diseases of gallbladder Status: Acute Assessment and Plan: RUQ US demonstrated sludge and probable stones in the gallbladder. She has mild RUQ tenderness and does report pain, nausea, and vomiting after eating. Total bilirubin is elevated but direct bilirubin is normal. LFTs were elevated and have increased with AST 298, ALT 146, ALP 74. HIDA demonstrated delayed clearance from liver with accumulation in the common bile duct, bowel, and gallbladder suggesting partial biliary obstruction and gallbladder dysfunction. MRCP showed no choledocholithiasis. General surgery consulted with plans for cholecystectomy 11/12 (3) Epilepsy: Code(s): G40.909 - Epilepsy, unspecified, not intractable, without status epilepticus Status: Chronic Assessment and Plan: Chronic with no acute issues. She had a CT brain at [facility] on 11/04/20 which was unremarkable. Continue home regimen of levetiracetam and tipiramate Discussed with the patient's mom who stated that Dr. Bustillo was weaning keppra due to concern it may be contributing to nausea and vomiting. Discussed with Dr. Bustillo who recommended to decrease keppra by 500mg so continue 2,000 mg in the morning and change evening dose to 1,000mg. He will also see her in consultation. (4) UTI (urinary tract infection): Code(s): N39.0 - Urinary tract infection, site not specified Status: Ruled-out Assessment and Plan: Ruled-out. Urinalysis demonstrated trace leukocyte esterase, 2+ bacteria, and 31-50 WBC however there were many squamous cells suggesting possible contamination. She does have nausea and vomiting but this is felt more likely related to a GI source as opposed to UTI. Urine culture demonstrated contamination. IV antibiotics were discontinued 11/09 since she was asymptomatic and UA was suspected to represent contamination as opposed to UTI. (5) Intellectual disability: Code(s): F79 - Unspecified intellectual disabilities Status: Chronic Assessment and Plan: No acute issues and high functioning. She does get a bit anxious when her mom is not here and does better with her ADLs in the hospital when her mom is present per nursing reports. (6) Abnormal CT scan, colon: Code(s): R93.3 - Abnormal findings on diagnostic imaging of other parts of digestive tract Status: Acute Assessment and Plan: CT abd/pelvis from [facility] demonstrated colitis. She had a few loose stools 11/09 but no diarrhea today and she does not complain of significant diarrhea previously. She denies melena and hematochezia. Appreciate GI input. She will need colonoscopy for further evaluation if other workup is negative. Do not feel antibiotics are indicated at
[2020-11-10 14:00] VITALS: BP 106/67; PULSE 74; RESP 18; TEMP 36.7; O2SAT 100
[2020-11-10] MEDS: METOCLOPRAMIDE HCL 5 MG TABLET PO ×2 (16:23→20:26)
[2020-11-10 19:26] VITALS: BP 108/59; PULSE 95; RESP 14; TEMP 36.1; O2SAT 100
[2020-11-10] MEDS: DEXTROSE 5%/0.9% SOD CHL 1,000 ML 75 ML IV CONT (20:18)
[2020-11-10 20:26] VITALS: O2SAT 99
[2020-11-10] MEDS: TOPIRAMATE 100 MG TABLET 400 MG PO (20:26)
[2020-11-10] MEDS: levETIRAcetam 1000MG/NACL100ML 1,000 MG/100 ML BAG 400.89 MG IVPB (21:17)
[2020-11-11] VITALS (7 sets, daily range): BP systolic 101–120; BP diastolic 60–71; PULSE 81–94; RESP 14–166; TEMP 36–36.8; O2SAT 97–100
[2020-11-11 05:56] LABS: Basophils Percent Auto 1.7 % (0.2-1.2); Eosinophils Absolute Auto 0.1 K/mm3 (0-0.3); Hematocrit 29.2 % (37.0-47.0); Hemoglobin 10.2 g/dL (12.0-15.0); Lymphocytes Absolute Auto 0.89 K/mm3 (0.9-3.2); Lymphocytes Percent Auto 51.1 % (18.3-44.2); Mean Corpuscular HGB Conc 34.9 g/dl (32-36); Mean Corpuscular Hemoglobin 33.9 pg (26-34); Mean Platelet Volume 10.3 fl (7.4-10.4); Monocytes Absolute Auto 0.2 K/mm3 (0.1-0.6); Monocytes Percent Auto 12.6 % (2.6-8.5); Neutrophils Absolute Auto 0.5 K/mm3 (1.3-6.7); Neutrophils Percent Auto 30.6 % (45.5-73.1); Platelet Count Result 206 k/mm3 (150-375); Red Blood Count 3.01 M/mm3 (4.2-5.4); Red Cell Distribution Width 14.2 % (11.5-14.5)
[2020-11-11 06:05] LABS: White Blood Count 1.7 K/mm3 (4.5-10.0)
[2020-11-11] MEDS: METOCLOPRAMIDE HCL 5 MG TABLET PO ×4 (06:11→20:14)
[2020-11-11 06:13] LABS: Alanine Aminotransferase 273 U/L (4-35); Albumin Level 2.5 g/dL (3.5-5.1); Alkaline Phosphatase 89 U/L (38-126); Anion Gap 6 mmol/L (8-16); Aspartate Amino Transferase 378 U/L (14-36); Bilirubin,Total 1.4 mg/dL (0.2-1.3); Calcium 7.6 mg/dL (8.4-10.2); Carbon Dioxide 19 mmol/L (22-30); Chloride 111 mmol/L (98-107); Estimated CRCL calculation 136 ml/min; Estimated Glomerular Filt Rate > 60; Glucose 118 mg/dL (65-105); Magnesium 1.9 mg/dL (1.6-2.3); Potassium 3.2 mmol/L (3.4-5.0); Sodium 136 mmol/L (137-145)
[2020-11-11 07:33] LABS: Blood Urea Nitrogen < 2 mg/dL (7-17)
[2020-11-11] MEDS: levETIRAcetam IV 2,000 MG in DEXTROSE 5% 100 ML 460 MG IVPB (07:55)
[2020-11-11] MEDS: TOPIRAMATE 100 MG TABLET 300 MG PO (08:33)
[2020-11-11] MEDS: FAMOTIDINE 20 MG/2 ML VIAL IV PUSH ×2 (08:33→20:15)
--- NOTE | 2020-11-11 09:27 | PM.PNGS ---
Progress Note: A&P Assessment and Plan (1) Dyskinesia of gallbladder: Code(s): K82.8 - Other specified diseases of gallbladder Status: Acute Assessment and Plan: cont low fat diet, plan for cholecystectomy tomorrow (2) Nausea and vomiting: Code(s): R11.2 - Nausea with vomiting, unspecified Status: Acute Assessment and Plan: improved, cont low fat diet for now Subjective Subjective Date/Time Seen: 11/11/20 09:27 feels much better today, able to cordelia food/pills s pain, N/V Review of Systems Review of Systems: All systems reviewed & are unremarkable except as noted in HPI and below Exam Const: General: cooperative, comfortable and no acute distress Resp: Effort & Inspection: normal respiratory effort Auscultation: clear to auscultation bilaterally Cardio: Rate: regular rate Rhythm: regular rhythm GI: Inspection: normal to inspection and non-distended GI Palp: No abdominal tenderness, Yes Soft to palpation, No Tenderness to palpation present (GI) and No Guarding due to palpation present (GI) Other: soft, sl dist, NT, +bs Objective Data Vital Signs Vital Signs: Vital Signs - 24 hr 11/10/20 14:00 11/10/20 19:26 11/10/20 20:26 Temperature 36.7 C 36.1 C L Pulse Rate 74 95 Respiratory Rate 18 14 Blood Pressure 106/67 108/59 L Pulse Oximetry 100 100 99 11/11/20 06:00 11/11/20 07:50 11/11/20 08:00 Temperature 36.8 C Pulse Rate 94 88 88 Respiratory Rate 14 16 16 Blood Pressure 120/71 Pulse Oximetry 100 97 97 Intake/Output Intake/Output: Intake & Output 11/08/20 11/09/20 11/10/20 11/11/20 23:59 23:59 23:59 23:59 Intake Total 3265 2970 2765 Output Total 1025 Balance 3265 4319 2765 Meds/Results Medications: Active Medications Generic Name Dose Route Start Last Admin Trade Name Freq PRN Reason Stop Dose Admin Famotidine 20 mg 11/09/20 09:00 11/11/20 08:33 Famotidine 20 Mg/2 Ml Vial IV PUSH 20 mg Q12HR ANTHONY Administration Levetiracetam 2,000 mg/ 120 mls @ 460 mls/hr 11/10/20 11:55 11/11/20 07:55 Dextrose IVPB 460 mls/hr QAM ANTHONY Administration Levetiracetam 1,000 mg in 100 mls @ 400.891 mls/hr 11/10/20 21:00 11/10/20 21:35 Keppra Iv IVPB Infused HS ANTHONY Infusion Dextrose/Sodium Chloride 1,000 mls @ 75 mls/hr 11/10/20 16:15 11/10/20 20:18 Dextrose 5% Sodium Chloride 0.9% IV CONT 75 mls/hr .[id number] ANTHONY Administration Potassium Chloride 500 mls @ 125 mls/hr 11/11/20 08:00 11/11/20 08:33 Kcl 40 Meq/D5w 500 Ml Peripheral IVPB 11/11/20 11:59 125 mls/hr ONCE ONE Administration Metoclopramide HCl 5 mg 11/10/20 16:30 11/11/20 06:11 Metoclopramide Hcl 5 Mg Tablet PO 5 mg ACHS ANTHONY Administration Promethazine HCl 12.5 mg 11/10/20 15:50 Promethazine Hcl 25 Mg/Ml Ampul IV PUSH Q4H PRN Nausea And Vomiting Topiramate 300 mg 11/10/20 09:00 11/11/20 08:33 Topiramate 100 Mg Tablet PO 300 mg QAM ANTHONY Administration Topiramate 400 mg 11/09/20 21:00 11/10/20 20:26 Topiramate 100 Mg Tablet PO 400 mg HS ANTHONY Administration Radiology Results: ITS Impressions Chest X-Ray 11/08/20 17:03 IMPRESSION: 1. No acute cardiopulmonary disease. Abdomen Ultrasound 11/08/20 17:16 IMPRESSION: Sludge and probable stones in the gallbladder Hepatobiliary Scan Nuclear Medicine 11/09/20 15:28 IMPRESSION: 1. Prompt clearance of activity from the blood pool but with relatively delayed activity clearance from the liver and with delayed accumulation of activity in the common bile duct, bowel and gallbladder suggests a partial biliary obstruction. 2. Subjectively low gallbladder ejection fraction as detailed above suggest possibility of gallbladder dysfunction or chronic cholecystitis in the appropriate clinical setting. MRCP 11/09/20 18:50 IMPRESSION: 1. Diffuse hepatic steatosis. 2. Cholelithiasis. No evidence of acute cholecystitis. [place]
[2020-11-11] MEDS: DEXTROSE 5%/0.9% SOD CHL 1,000 ML 75 ML IV CONT (10:13)
--- NOTE | 2020-11-11 10:23 | PM.IMPN ---
Progress Note: A&P Assessment and Plan (1) Intractable nausea and vomiting: Code(s): R11.2 - Nausea with vomiting, unspecified Status: Acute Assessment and Plan: Etiology unclear at this time but consideration includes esophagitis, gastritis, or gallbladder dysfunction. Additional consideration includes viral infection, liver dysfunction, and adverse med reaction. Lipase is normal. RUQ US demonstrates gallbladder sludge and possible cholelithiasis. Colitis is another consideration but seems less likely at this time. Viral gastroenteritis is possible as well. TSH is normal. Additional consideration includes keppra although she has been on this dose since Fall 2019 (exact date unclear) and symptoms had a rather acute onset Oct 24. Gallbladder seems to be the most likely cause at this time given workup thus far. General surgery consulted with plans for cholecystectomy 11/12 Appreciate GI input. Consider EGD if no improvement with cholecystectomy Advance diet as tolerated but she has not been tolerant to clear liquids today Will stop IV fluid since she is tolerating oral intake now Given no improvement in nausea and vomiting with zofran, will switch to metoclopramide ACHS and promethazine Continue pepcid Neurology consulted given concern regarding possible contribution for epilepsy meds (2) Dyskinesia of gallbladder: Code(s): K82.8 - Other specified diseases of gallbladder Status: Acute Assessment and Plan: RUQ US demonstrated sludge and probable stones in the gallbladder. She has mild RUQ tenderness and does report pain, nausea, and vomiting after eating. Total bilirubin is elevated but direct bilirubin is normal. LFTs were elevated and have increased with AST 298, ALT 146, ALP 74. HIDA demonstrated delayed clearance from liver with accumulation in the common bile duct, bowel, and gallbladder suggesting partial biliary obstruction and gallbladder dysfunction. MRCP showed no choledocholithiasis. General surgery consulted with plans for cholecystectomy 11/12 (3) Hepatic steatosis: Code(s): K76.0 - Fatty (change of) liver, not elsewhere classified Status: Acute Assessment and Plan: LFTs elevated and this does not appear to be an acute issue but LFTs are worse. MRCP shows hepatic steatosis. Hepatitis panel negative. May be secondary to antiepileptic medication vs nonalcoholic steatohepatitis. CRP and ESR normal. GI following, await additional input Check ceruloplasmin and copper level Trend LFTs (4) Increased ammonia level: Code(s): R79.89 - Other specified abnormal findings of blood chemistry Status: Acute Assessment and Plan: Ammonia level is elevated at 50. She has a hx of elevated ammonia levels in the past when she was on Depakote. She is not encephalopathic. GI following,await recommendations Repeat level tomorrow (5) Leukopenia: Code(s): D72.819 - Decreased white blood cell count, unspecified Status: Acute Assessment and Plan: WBC low on admission at 3,700 with low lymphocytes and has decreased to 1,700 today. Neutrophils also low with absolute neutrophils 0.5 on labs today. Monospot negative. Hepatitis panel negative. ESR and CRP normal. Possibly secondary to GI disorder given current symptoms vs poor nutrition. Does not appear to be a chronic issue. Repeat CBC tomorrow Check HIV, influenza and COVID test, stool cultures Check vitamin B12 and folate Consider peripheral smear pending other tests (6) Epilepsy: Code(s): G40.909 - Epilepsy, unspecified, not intractable, without status epilepticus Status: Chronic Assessment and Plan: Chronic. She had a CT brain at [facility] on 11/04/20 which was unremarkable. Discussed with the patient's mom who stated that Dr. Bustillo was weaning keppra due to concern it may be contributing to nausea and vomiting. Discussed with Dr. Bustillo on
[2020-11-11 11:12] LABS: Ammonia 50 umol/L (9-30)
--- NOTE | 2020-11-11 13:35 | PC.NURSE ---
This patient, Leah Andrade, was transferred to room 310 third med surg on 11/11/20 at 1335. Personal belongings sent with patient. Report given to [ ]. Appropriate documentation sent with patient.
--- NOTE | 2020-11-11 13:43 | WPDGIPROGNO ---
Progress Note: A&P Additional Plan GI [facility] for [facility]el 11 Nov 2020 Feels a bit better but had N/V this am. No AP. Took a bit of clears VSS soft/NT Hct 37->29. WBC 3->1.7. TBili 1.9->1.4, A/P 71->89, AST 237->378, ALT 168->273. NH3 50 U/S 2-25 GS/sludge CT A/P ([facility]) ? colitis HIDA 2- decreased GB EF and ? of partial biliary obstruction MRCP 2- Hepatic Steatosis, Gall stones, CBD 6 mm. No CBD stone A/P A. Intractable nausea and vomiting with abnormal LFT's and abnormal imaging-liver and biliary: - Case discussed at length with Dr. Larry Kamara yesterday - We believe situation is most c/w UTI superimposed on chronic cholecystitis/biliary dyskinesia - Less likely related to UTI on Hepatic Steatosis - Continue ABx and supportive care - If patient fails to respond would favor CCx - EGD unlikely to be helpful - Patient will not tolerate colonoscopy prep - Odds of improvement with CCx likely 50-75% - If patient fails to improve then would proceed to EGD B. Abnormal imaging-digestive: - colitis on CT at [facility] - More likely under-filling than actual colitis - Consider repeat CT vs colonoscopy when stable C. Hepatic Steatosis: follow LFT's as OP Case reviewed with Dr. Holloway who will resume care 11-12-2020. Thanks, will follow. [facility] [phone] Subjective Date/time seen: 11/11/20 13:43 Objective Data Vital Signs Vital Signs: Vital Signs - 24 hr 11/10/20 14:00 11/10/20 19:26 11/10/20 20:26 Temperature 36.7 C 36.1 C L Pulse Rate 74 95 Respiratory Rate 18 14 Blood Pressure 106/67 108/59 L Pulse Oximetry 100 100 99 11/11/20 06:00 11/11/20 07:50 11/11/20 08:00 Temperature 36.8 C Pulse Rate 94 88 88 Respiratory Rate 14 16 16 Blood Pressure 120/71 Pulse Oximetry 100 97 97 Intake/Output Intake/Output: Intake & Output 11/08/20 11/09/20 11/10/20 11/11/20 23:59 23:59 23:59 23:59 Intake Total 3265 2970 2765 1240 Output Total 1025 Balance 3265 1945 2765 1240 Meds/Results Medications: Active Medications Generic Name Dose Route Start Last Admin Trade Name Freq PRN Reason Stop Dose Admin Famotidine 20 mg 11/09/20 09:00 11/11/20 08:33 Famotidine 20 Mg/2 Ml Vial IV PUSH 20 mg Q12HR ANTHONY Administration Levetiracetam 2,000 mg/ 120 mls @ 460 mls/hr 11/10/20 11:55 11/11/20 07:55 Dextrose IVPB 460 mls/hr QAM ANTHONY Administration Levetiracetam 1,000 mg in 100 mls @ 400.891 mls/hr 11/10/20 21:00 11/10/20 21:35 Keppra Iv IVPB Infused HS ANTHONY Infusion Metoclopramide HCl 5 mg 11/10/20 16:30 11/11/20 11:08 Metoclopramide Hcl 5 Mg Tablet PO 5 mg ACHS ANTHONY Administration Promethazine HCl 12.5 mg 11/10/20 15:50 Promethazine Hcl 25 Mg/Ml Ampul IV PUSH Q4H PRN Nausea And Vomiting Topiramate 300 mg 11/10/20 09:00 11/11/20 08:33 Topiramate 100 Mg Tablet PO 300 mg QAM ANTHONY Administration Topiramate 400 mg 11/09/20 21:00 11/10/20 20:26 Topiramate 100 Mg Tablet PO 400 mg HS ANTHONY Administration Radiology Results: ITS Impressions Chest X-Ray 11/08/20 17:03 IMPRESSION: 1. No acute cardiopulmonary disease. Abdomen Ultrasound 11/08/20 17:16 IMPRESSION: Sludge and probable stones in the gallbladder Hepatobiliary Scan Nuclear Medicine 11/09/20 15:28 IMPRESSION: 1. Prompt clearance of activity from the blood pool but with relatively delayed activity clearance from the liver and with delayed accumulation of activity in the common bile duct, bowel and gallbladder suggests a partial biliary obstruction. 2. Subjectively low gallbladder ejection fraction as detailed above suggest possibility of gallbladder dysfunction or chronic cholecystitis in the appropriate clinical setting. MRCP 11/09/20 18:50 IMPRESSION: 1. Diffuse hepatic steatosis. 2. Cholelithiasis. No evidence of acute cholecystitis. Labs Labs: Laboratory Results - last 24 hr 11/11/20 11/11/20 11/11/20 05:30 05:30 10:56 WB
--- NOTE | 2020-11-11 14:05 | PC.NURSE ---
This patient, Leah Andrade, was received from [[facility]] on 11/11/20 at 1335. Patient/family oriented to unit policies and routines
--- NOTE | 2020-11-11 15:48 | WPDANESEPP ---
Anes - Eval Pre Procedure Procedure: Laparoscopic cholecystectomy Date/Time: 11/11/20 15:48 Surgeon: Dr. Kamara Preop Diagnosis: Gall Bladder Dyskinesia Pre Op Diagnosis: acute dehydration, hypokalemia Patient Data Age: 30 Gender: F Height: 5 ft 3 in Weight: 67.7 kg Last Vital Signs Temp 36.0 C L 11/11/20 14:00 Pulse 90 11/11/20 14:00 Resp 16 11/11/20 14:00 BP 103/64 11/11/20 14:00 Pulse Ox 98 11/11/20 14:00 Allergies Allergy/AdvReac Type Severity Reaction Status Date / Time No Known Allergies Allergy Verified 11/08/20 21:18 Home Medications Medication Instructions Recorded Confirmed Type levetiracetam 1,000 mg tablet 2,000 mg PO BID tablet 07/24/20 11/08/20 History topiramate 100 mg tablet 300 mg PO BID tablet 07/24/20 11/08/20 History dicyclomine 10 mg capsule 10 mg PO BID #60 cap 10/26/20 11/08/20 Rx omeprazole 20 mg capsule,delayed 20 mg PO DAILY #30 cap 11/08/20 11/08/20 Rx release prochlorperazine maleate 10 mg 10 mg PO Q6H PRN #30 tablet 11/08/20 11/08/20 Rx tablet Laboratory Tests 11/11/20 11/11/20 11/11/20 05:30 05:30 07:58 WBC 1.7 K/mm3 L* K/mm3 (4.5-10.0) RBC 3.01 M/mm3 L M/mm3 (4.2-5.4) Hgb 10.2 g/dL L g/dL (12.0-15.0) Hct 29.2 % L % (37.0-47.0) MCV 97.0 fl fl (80-100) MCH 33.9 pg pg (26-34) MCHC 34.9 g/dl g/dl (32-36) RDW 14.2 % % (11.5-14.5) Plt Count 206 k/mm3 k/mm3 (150-375) MPV 10.3 fl fl (7.4-10.4) Immature Gran % (Auto) 0.0 % % (0-0.5) Neut % (Auto) 30.6 % L % (45.5-73.1) Lymph % (Auto) 51.1 % H % (18.3-44.2) [place] % (Auto) 12.6 % H % (2.6-8.5) Eos % (Auto) 4.0 % % (0-4.4) Baso % (Auto) 1.7 % H % (0.2-1.2) Lymph # (Auto) 0.89 K/mm3 L K/mm3 (0.9-3.2) [place] # (Auto) 0.2 K/mm3 K/mm3 (0.1-0.6) Eos # (Auto) 0.1 K/mm3 K/mm3 (0-0.3) Baso # (Auto) 0.0 K/mm3 K/mm3 (0.0-0.1) Abs Immat Gran (auto) 0.00 K/mm3 K/mm3 (0.00-0.031) Absolute Neuts (auto) 0.5 K/mm3 L K/mm3 (1.3-6.7) Absolute Nucleated RBC 0.0 K/mm3 K/mm3 (0.0-0.012) Nucleated RBC % 0.0 % % (0.0-0.2) Sodium 136 mmol/L L mmol/L (137-145) Potassium 3.2 mmol/L L mmol/L (3.4-5.0) Chloride 111 mmol/L H mmol/L (98-107) Carbon Dioxide 19 mmol/L L mmol/L (22-30) Anion Gap 6 mmol/L L mmol/L (8-16) BUN < 2 mg/dL L mg/dL (7-17) Creatinine 0.40 mg/dL L mg/dL (0.7-1.0) Estim Creat Clear Calc 136 ml/min ml/min Estimated GFR > 60 (59 - ) Glucose 118 mg/dL H mg/dL (65-105) Calcium 7.6 mg/dL L mg/dL (8.4-10.2) Magnesium 1.9 mg/dL mg/dL (1.6-2.3) Total Bilirubin 1.4 mg/dL H mg/dL (0.2-1.3) AST 378 U/L H U/L (14-36) ALT 273 U/L H U/L (4-35) Alkaline Phosphatase 89 U/L U/L (38-126) Ammonia Total Protein 5.0 g/dL L g/dL (6.3-8.2) Albumin 2.5 g/dL L g/dL (3.5-5.1) Topiramate Pending Levetiracetam Pending SARS-CoV-2 RNA (RT-PCR) 11/11/20 11/11/20 10:56 12:02 WBC RBC Hgb Hct MCV MCH MCHC RDW Plt Count MPV Immature Gran % (Auto) Neut % (Auto) Lymph % (Auto) [place] % (Auto) Eos % (Auto) Baso % (Auto) Lymph # (Auto) [place] # (Auto) Eos # (Auto) Baso # (Auto) Abs Immat Gran (auto) Absolute Neuts (auto) Absolute Nucleated RBC Nucleated RBC % Sodium Potassium Chloride Carbon Dioxide Anion Gap BUN Creatinine E
[2020-11-11 17:13] LABS: Influenza Control Positive
[2020-11-11] MEDS: TOPIRAMATE 100 MG TABLET 400 MG PO (20:14)
[2020-11-11] MEDS: levETIRAcetam 500 MG TABLET 1000 MG PO (20:15)
[2020-11-12] VITALS (13 sets, daily range): BP systolic 99–118; BP diastolic 61–72; PULSE 72–110; RESP 16–20; TEMP 35.9–36.6; O2SAT 99–100
[2020-11-12] MEDS: METOCLOPRAMIDE HCL 5 MG TABLET PO ×3 (05:56→20:25)
[2020-11-12 06:11] LABS: Ammonia 53 umol/L (9-30); Eosinophils Absolute Auto 0.1 K/mm3 (0-0.3); Eosinophils Percent Auto 2.7 % (0-4.4); Hematocrit 31.6 % (37.0-47.0); Hemoglobin 11.1 g/dL (12.0-15.0); Lymphocytes Absolute Auto 1.13 K/mm3 (0.9-3.2); Lymphocytes Percent Auto 37.5 % (18.3-44.2); Mean Corpuscular HGB Conc 35.1 g/dl (32-36); Mean Corpuscular Hemoglobin 34.7 pg (26-34); Mean Corpuscular Volume 98.8 fl (80-100); Mean Platelet Volume 10.1 fl (7.4-10.4); Monocytes Absolute Auto 0.4 K/mm3 (0.1-0.6); Monocytes Percent Auto 13.6 % (2.6-8.5); Neutrophils Absolute Auto 1.4 K/mm3 (1.3-6.7); Neutrophils Percent Auto 45.2 % (45.5-73.1); Platelet Count Result 205 k/mm3 (150-375); Red Cell Distribution Width 14.4 % (11.5-14.5)
[2020-11-12 06:12] LABS: Alanine Aminotransferase 264 U/L (4-35); Albumin Level 2.8 g/dL (3.5-5.1); Alkaline Phosphatase 101 U/L (38-126); Anion Gap 4 mmol/L (8-16); Aspartate Amino Transferase 266 U/L (14-36); Bilirubin,Total 1.7 mg/dL (0.2-1.3); Calcium 8.2 mg/dL (8.4-10.2); Carbon Dioxide 18 mmol/L (22-30); Chloride 110 mmol/L (98-107); Estimated CRCL calculation 136 ml/min; Estimated Glomerular Filt Rate > 60; Glucose 98 mg/dL (65-105); Potassium 3.6 mmol/L (3.4-5.0); Sodium 132 mmol/L (137-145)
[2020-11-12 06:21] LABS: Blood Urea Nitrogen < 2 mg/dL (7-17)
[2020-11-12 06:53] LABS: HIV 1/2 Ab P24 Ag Result Negative (Negative)
--- NOTE | 2020-11-12 08:37 | WPDNEURCNPN ---
Assessment and Plan Assessment and plan (1) Intellectual disability: Code(s): F79 - Unspecified intellectual disabilities Status: Chronic (2) Seizure: Code(s): R56.9 - Unspecified convulsions Status: Acute Additional Plan History of intractable epilepsy for which patient has been taking 2 anticonvulsant at present though she has been on different medications in the past as per the personal conversation with the mother she does not want to rock the boat at this particular time if any changes in the medication necessary will talk to her in the office and further adjustment will be done for the time being will continue the medication as such Consult date: 11/12/20 Time Seen: 09:00 HPI: Leah Andrade is a 30 year old female admitted to the hospital for the complaints of nausea and vomiting with dehydration, has been seen by press tool maker, general surgeon, neurology consultation has been obtained in reference to the anticonvulsants, patient is receiving levetiracetam 3000 mg per day at present though she had been receiving more than that before additionally she is receiving topiramate 700 mg per day, patient is mentally challenged with ongoing diagnosis of seizure disorder, her HIV is negative psoas influenza type BB antigen and the SARS-CoV-2 id spent Review of Systems Review of Systems: All systems reviewed & are unremarkable except as noted in HPI and below PMFSH Past Medical History Medical History Abnormal CT scan, colon Epilepsy H/O thyroid cyst That was excised Intractable nausea and vomiting Irritable bowel syndrome (IBS) Left wrist fracture Mentally disabled Nausea and vomiting Seizures Sludge in gallbladder Surgical History Surgical History S/P middle ear reconstruction Family History Family History Mother Depression Family history of cataracts Hypertension Father Hypertension Social History Social History Social History: The patient lives with her parents. She has a fiance whom she has not seen in 1 year. She used to live in a prison but lives with her parents now. She has never smoked are use drugs. She does not use alcohol. Her mother is her guardian. She is a full code. Smoking status: Never smoker Second hand tobacco smoke exposure: No Alcohol intake: never Substance use: never Living arrangements: with family Occupation/Education: other Gender identity (if verbalized by the patient): Female Spiritual care concerns: No Meds Home Medications and Allergies Home Medications Medication Instructions Recorded Confirmed Type levetiracetam 1,000 mg tablet 2,000 mg PO BID tablet 07/24/20 11/08/20 History topiramate 100 mg tablet 300 mg PO BID tablet 07/24/20 11/08/20 History dicyclomine 10 mg capsule 10 mg PO BID #60 cap 10/26/20 11/08/20 Rx omeprazole 20 mg capsule,delayed 20 mg PO DAILY #30 cap 11/08/20 11/08/20 Rx release prochlorperazine maleate 10 mg 10 mg PO Q6H PRN #30 tablet 11/08/20 11/08/20 Rx tablet Allergies Allergy/AdvReac Type Severity Reaction Status Date / Time No Known Allergies Allergy Verified 11/08/20 21:18 Vital Signs Vital Signs - 24 hr 11/11/20 14:00 11/11/20 16:20 11/11/20 20:00 Temperature 36.0 C L 36.3 C L 36.7 C Pulse Rate 90 88 91 Respiratory Rate 16 18 20 Blood Pressure 103/64 112/71 101/70 Pulse Oximetry 98 100 100 11/12/20 00:00 11/12/20 04:00 Temperature 36.6 C 36.6 C Pulse Rate 86 72 Respiratory Rate 20 20 Blood Pressure 108/72 104/72 Pulse Oximetry 99 99 Exam Const: General: cooperative, comfortable, no acute distress, alert and awake Nutritional Appearance: average body habitus and thin Orientation/consciousness: patient oriented x3 HENMT: Head: normocephalic
[2020-11-12] MEDS: TOPIRAMATE 100 MG TABLET 300 MG PO (08:56)
[2020-11-12] MEDS: levETIRAcetam 500 MG TABLET 2000 MG PO (08:57)
[2020-11-12] MEDS: FAMOTIDINE 20 MG/2 ML VIAL IV PUSH ×2 (08:57→20:24)
--- NOTE | 2020-11-12 10:19 | WPDANESEPPF ---
Anes - Initial Pre Proc Eval Procedure: Operation Date: 11/12/20 12:30 Proposed Procedures p Laparoscopic Cholecystectomy - Andreia Kamara MD Date/Time: 11/12/20 10:20 Surgeon: Dora Gruber PA-C Pre Op Diagnosis: acute dehydration, hypokalemia Patient Data Age: 30 Gender: F Height: 1.6 m Weight: 67.7 kg Last Vital Signs Temp 36.5 C 11/12/20 08:00 Pulse 96 11/12/20 08:00 Resp 16 11/12/20 08:00 BP 118/65 11/12/20 08:00 Pulse Ox 100 11/12/20 08:00 Allergies Allergy/AdvReac Type Severity Reaction Status Date / Time No Known Allergies Allergy Verified 11/08/20 21:18 Home Medications Medication Instructions Recorded Confirmed Type levetiracetam 1,000 mg tablet 2,000 mg PO BID tablet 07/24/20 11/08/20 History topiramate 100 mg tablet 300 mg PO BID tablet 07/24/20 11/08/20 History dicyclomine 10 mg capsule 10 mg PO BID #60 cap 10/26/20 11/08/20 Rx omeprazole 20 mg capsule,delayed 20 mg PO DAILY #30 cap 11/08/20 11/08/20 Rx release prochlorperazine maleate 10 mg 10 mg PO Q6H PRN #30 tablet 11/08/20 11/08/20 Rx tablet Laboratory Tests 11/11/20 11/11/20 11/11/20 10:56 12:02 16:46 WBC RBC Hgb Hct MCV MCH MCHC RDW Plt Count MPV Immature Gran % (Auto) Neut % (Auto) Lymph % (Auto) [place] % (Auto) Eos % (Auto) Baso % (Auto) Lymph # (Auto) [place] # (Auto) Eos # (Auto) Baso # (Auto) Abs Immat Gran (auto) Absolute Neuts (auto) Absolute Nucleated RBC Nucleated RBC % Sodium Potassium Chloride Carbon Dioxide Anion Gap BUN Creatinine Estim Creat Clear Calc Estimated GFR Glucose Calcium Copper Total Bilirubin AST ALT Alkaline Phosphatase Ammonia 50 umol/L H umol/L (9-30) Total Protein Albumin Ceruloplasmin HIV 1&2 Ab/P24 Ag 4thGn Influenza Types A,B Ag Negative (Negative) SARS-CoV-2 RNA (RT-PCR) Pending 11/12/20 11/12/20 11/12/20 05:50 05:51 05:51 WBC RBC Hgb Hct MCV MCH MCHC RDW Plt Count MPV Immature Gran % (Auto) Neut % (Auto) Lymph % (Auto) [place] % (Auto) Eos % (Auto) Baso % (Auto) Lymph # (Auto) [place] # (Auto) Eos # (Auto) Baso # (Auto) Abs Immat Gran (auto) Absolute Neuts (auto) Absolute Nucleated RBC Nucleated RBC % Sodium Potassium Chloride Carbon Dioxide Anion Gap BUN Creatinine Estim Creat Clear Calc Estimated GFR Glucose Calcium Copper Pending Total Bilirubin AST ALT Alkaline Phosphatase Ammonia Total Protein Albumin Ceruloplasmin Pending HIV 1&2 Ab/P24 Ag 4thGn Negative (Negative) Influenza Types A,B Ag SARS-CoV-2 RNA (RT-PCR) 11/12/20 11/12/20 11/12/20 05:51 05:51 05:51 WBC 3.0 K/mm3 L K/mm3 (4.5-10.0) RBC 3.20 M/mm3 L M/mm3 (4.2-5.4) Hgb 11.1 g/dL L g/dL (12.0-15.0) Hct 31.6 % L % (37.0-47.0) MCV 98.8 fl fl (80-100) MCH 34.7 pg H pg (26-34)
--- NOTE | 2020-11-12 12:42 | PM.IMPN ---
Progress Note: A&P Assessment and Plan (1) Intractable nausea and vomiting: Code(s): R11.2 - Nausea with vomiting, unspecified Status: Acute Assessment and Plan: Etiology unclear at this time but consideration includes esophagitis, gastritis, or gallbladder dysfunction. Additional consideration includes viral infection, liver dysfunction, and adverse med reaction. Lipase is normal. RUQ US demonstrates gallbladder sludge and possible cholelithiasis. Colitis is another consideration but seems less likely at this time. Viral gastroenteritis is possible as well. TSH is normal. Additional consideration includes keppra although she has been on this dose since Fall 2019 (exact date unclear) and symptoms had a rather acute onset Oct 24. Gallbladder seems to be the most likely cause at this time given workup thus far. General surgery consulted with plans for cholecystectomy 11/12 Appreciate GI input. Consider EGD if no improvement with cholecystectomy She is NPO in anticipation of surgery today Given no improvement in nausea and vomiting with zofran, metoclopramide ACHS and promethazine PRN were initiated Continue pepcid Neurology consulted given concern regarding possible contribution for epilepsy meds and she will need neurology follow-up for possible medication adjustment if symptoms do not improve following cholecystectomy (2) Dyskinesia of gallbladder: Code(s): K82.8 - Other specified diseases of gallbladder Status: Acute Assessment and Plan: RUQ US demonstrated sludge and probable stones in the gallbladder. She has mild RUQ tenderness and does report pain, nausea, and vomiting after eating. Total bilirubin is elevated but direct bilirubin is normal. LFTs were elevated and have increased with AST 298, ALT 146, ALP 74. HIDA demonstrated delayed clearance from liver with accumulation in the common bile duct, bowel, and gallbladder suggesting partial biliary obstruction and gallbladder dysfunction. MRCP showed no choledocholithiasis. General surgery consulted with plans for cholecystectomy today (3) Hepatic steatosis: Code(s): K76.0 - Fatty (change of) liver, not elsewhere classified Status: Acute Assessment and Plan: LFTs elevated and this does not appear to be an acute issue but LFTs are worse. MRCP shows hepatic steatosis. Hepatitis panel negative. May be secondary to antiepileptic medication vs nonalcoholic steatohepatitis. CRP and ESR normal. GI following, await additional input Ceruloplasmin and copper level ordered and pending Trend LFTs (4) Increased ammonia level: Code(s): R79.89 - Other specified abnormal findings of blood chemistry Status: Acute Assessment and Plan: Ammonia level is elevated. She has a hx of elevated ammonia levels in the past when she was on Depakote. She is not encephalopathic. This may be secondary to her seizure medications. GI following, appreciate recommendations She is not encephalopathic so I do not know that this must be treated as she has a hx of elevated ammonia in the past Will request ammonia levels from [facility] (5) Leukopenia: Code(s): D72.819 - Decreased white blood cell count, unspecified Status: Acute Assessment and Plan: WBC low on admission at 3,700 with low lymphocytes and has decreased to 1,700 11/12. Monospot negative. Hepatitis panel negative. ESR and CRP normal. Possibly secondary to GI disorder given current symptoms, poor nutrition, or dilution. Does not appear to be a chronic issue. HIV negative. Influenza negative. SARS-CoV-2 test pending. WBC improved 3,000 today. Trend CBC daily COVID test and stool cultures pending Check vitamin B12 and folate Consider peripheral smear pending other tests (6) Epilepsy: Code(s): G40.909 - Epilepsy, unspecified, not intractable, without status epilepticus Status: Chronic Assessment and Plan:
--- NOTE | 2020-11-12 13:04 | WPDHPUPDATE1 ---
History and Physical Update Update Date/Time: 11/12/20 13:04 History and Physical has been reviewed, including an updated exam of the patient. There are NO changes in the patient's condition. Risks, benefits, and alternatives have been discussed and questions answered. Patient agrees to proceed with procedure.
[2020-11-12] MEDS: BUPIVACAINE/EPINEPHRINE 0.5% 30 ML VIAL INFILTRATE (13:35)
[2020-11-12] MEDS: ceFAZolin SODIUM 1 GM VIAL 2 GM IV PUSH (13:49)
[2020-11-12] MEDS: LACTATED RINGERS 1,000 ML 30 ML IV CONT (14:27)
--- NOTE | 2020-11-12 14:32 | P.OP_ITS ---
Procedure Note - Detailed Date of procedure: 11/12/20 Pre-op diagnosis: acute dehydration, hypokalemia biliary dyskinesia Post-op diagnosis: same Procedure performed: laparoscopic cholecystectomy Description of procedure: The patient was taken to the operating room placed in the supine position. After adequate induction of general anesthesia, the patient was prepped and draped in normal sterile fashion. A time-out was then performed to verify the patient's identity as well as the procedure being performed. I then made a 5 mm incision in the infraumbilical region. Through this, a Veress needle was placed into the peritoneal cavity and CO2 gas was then insufflated. After adequate pneumoperitoneum was achieved, the Veress needle was removed and a 5 mm trocar was placed through this incision. I then placed the laparoscope through this trocar site and under direct visualization placed a further 12 mm subxiphoid port as well as 2 additional 5 mm ports in the right upper abdomen. The gallbladder was then identified and was noted to be slightly inflamed. I was able to place a grasper at the dome of the gallbladder and this was retracted anterior and cephalad up over the liver. A 2nd retractor was then placed at the infundibulum and retracted laterally, this allowed visualization of the triangle of Calot. I then was able to visualize the cystic duct in its entirety from its proximal insertion into the gallbladder, to its distal junction with the common hepatic/common bile duct junction. At this point, I carefully skeletonized the proximal cystic duct with the [place] dissector. I then clipped and transected the proximal cystic duct. Next I visualized the cystic artery. Again the artery was skeletonized, clipped, and transected. I then used the Bovie cautery to take down the peritoneal attachments of the gallbladder off the liver bed. Once the gallbladder specimen was completely detached, an endo-pouch was placed through the 12 mm port site. I then placed the gallbladder specimen into the Endo pouch and removed the endo-pouch from the 12 mm port site. The specimen will now be sent to pathology for further review. I then copiously irrigated the right upper quadrant. There was some slight oozing at the edge of the liver bed and this was controlled with the electrocautery. Once hemostasis was noted in the liver bed, I placed some hemostatic powder in the fossa. I then checked the clips, which were noted to be in good position on both the cystic duct stump and the cystic artery stump. No other pathology was noted in the right upper quadrant. I then moved the l aparoscope to the subxiphoid port. No iatrogenic injury or other pathology was noted in the lower abdomen. At this point, the abdomen was desufflated and all ports removed. The fascia of the 12 mm subxiphoid port was closed with a 0 Vicryl figure of 8 suture. All port sites were then closed with 4.O Monocryl subcuticular sutures. Dermabond was placed on each incision. The patient tolerated the procedure well, was extubated in the operating room postoperative and will be transferred to the recovery room in stable condition. Implants: none Anesthesia: GETA Surgeon: Andreia Kamara MD Estimated blood loss (mL): 20 Drains: No Packing: No Pathology: yes Complications: No immediate complications Condition: stable Disposition: PACU Findings: mild chronic cholecystitis
[2020-11-12] MEDS: fentaNYL CITRATE INJ (*CRX) 100 MCG/2 ML VIAL 25 MCG IV PUSH (15:06)
--- NOTE | 2020-11-12 16:27 | WPDGIPROGNO ---
Progress Note: A&P Assessment and Plan (1) Dyskinesia of gallbladder: Code(s): K82.8 - Other specified diseases of gallbladder Status: Acute Assessment and Plan: lap christin today anticipate that probably will feel better continue to monitor (2) Intractable nausea and vomiting: Code(s): R11.2 - Nausea with vomiting, unspecified Status: Acute Assessment and Plan: medical management (3) Epilepsy: Code(s): G40.909 - Epilepsy, unspecified, not intractable, without status epilepticus Status: Chronic (4) Hepatic steatosis: Code(s): K76.0 - Fatty (change of) liver, not elsewhere classified Status: Acute (5) Increased ammonia level: Code(s): R79.89 - Other specified abnormal findings of blood chemistry Status: Acute Assessment and Plan: reviewed records and also mildly elevated in the past I wonder if could be related to her seizure meds imaging showed fatty liver no encephalopathy (6) Transaminitis: Code(s): R74.01 - Elevation of levels of liver transaminase levels Status: Acute Assessment and Plan: could be combination from fatty liver, meds, etc mrcp was reviewed, no choledocholithiasis Subjective Date/time seen: 11/12/20 16:27 Interval history: she just had lap christin, family is at bedside Review of Systems Review of Systems: All systems reviewed & are unremarkable except as noted in HPI and below Exam Const: General: comfortable and no acute distress HENMT: General nose exam: Normal nares present Eyes: General: appearance normal, both eyes and all related structures Neck: Neck: supple Resp: Auscultation: clear to auscultation bilaterally Cardio: Rate: regular rate GI: GI Palp: Yes Soft to palpation Auscultation: bowels sounds not normal Other: minimal discomfort but recent lap christin Skin: General skin exam: normal color Neuro: Speech: normal speech Extrem: General: normal to inspection Psych: Affect: Anxious affect present Objective Data Vital Signs Vital Signs: Vital Signs - 24 hr 11/11/20 20:00 11/12/20 00:00 11/12/20 04:00 Temperature 98.1 F 97.9 F 97.8 F Pulse Rate 91 86 72 Respiratory Rate 20 20 20 Blood Pressure 101/70 108/72 104/72 Pulse Oximetry 100 99 99 11/12/20 08:00 11/12/20 14:27 11/12/20 14:30 Temperature 97.7 F 96.6 F L Pulse Rate 96 110 H 96 Respiratory Rate 16 16 16 Blood Pressure 118/65 111/69 106/63 Pulse Oximetry 100 100 100 11/12/20 14:45 11/12/20 15:00 11/12/20 15:15 Temperature Pulse Rate 86 83 87 Respiratory Rate 16 16 16 Blood Pressure 106/61 108/64 108/61 Pulse Oximetry 100 99 99 11/12/20 15:20 Temperature Pulse Rate 81 Respiratory Rate 16 Blood Pressure 105/62 Pulse Oximetry 99 Intake/Output Intake/Output: Intake & Output 11/09/20 11/10/20 11/11/20 11/12/20 23:59 23:59 23:59 23:59 Intake Total 2970 2765 2040 550 Output Total 1025 Balance 1945 2765 2040 550 Meds/Results Medications: Active Medications Generic Name Dose Route Start Last Admin Trade Name Freq PRN Reason Stop Dose Admin Hydrocodone Bitart/Acetaminophen 1 tab 11/12/20 14:30 Hydrocodone/Acetaminophen (*Crx) 5-325 Mg Tablet PO Q6H PRN Pain Rated 4-6 Famotidine 20 mg 11/09/20 09:00 11/12/20 08:57 Famotidine 20 Mg/2 Ml Vial IV PUSH 20 mg Q12HR ANTHONY Administration Levetiracetam 2,000 mg 11/12/20 09:00 11/12/20 08:57 Levetiracetam 500 Mg Tablet PO 2,000 mg QAM ANTHONY Administration Levetiracetam 1,000 mg 11/11/20 21:00 11/11/20 20:15 Levetiracetam 500 Mg Tablet PO 1,000 mg HS ANTHONY Administration Metoclopramide HCl 5 mg 11/10/20 16:30 11/12/20 10:30 Metoclopramide Hcl 5 Mg Tablet PO Not Given ACHS ANTHONY Promethazine HCl 12.5 mg 11/10/20 15:50 Promethazine Hcl 25 Mg/Ml Ampul IV PUSH Q4H PRN Nausea And Vomiting Topiramate 300 mg 11/10/20 09:00 11/12/20 08:56 Topiramate 1
[2020-11-12] MEDS: HYDROcodone/acetaminophen (*CRX) 5-325 MG TABLET 1 TAB PO ×2 (17:07→23:49)
[2020-11-12 18:21] LABS: SARS-CoV-2 RNA PCR Negative
[2020-11-12] MEDS: levETIRAcetam 500 MG TABLET 1000 MG PO (20:24)
[2020-11-12] MEDS: TOPIRAMATE 100 MG TABLET 400 MG PO (20:24)
--- NOTE | 2020-11-12 22:45 | PC.NURSE ---
1999 Talked with patient, patient states she has been drinking water and feels well. patient ate jello and requested crackers. Patient tolerating diet.
[2020-11-13] VITALS: BP 106/67; PULSE 98; RESP 20; TEMP 36.7; O2SAT 98
[2020-11-13 05:28] VITALS: BP 108/69; PULSE 100; RESP 20; TEMP 36.4; O2SAT 97
[2020-11-13] MEDS: METOCLOPRAMIDE HCL 5 MG TABLET PO ×4 (06:09→20:22)
[2020-11-13 06:25] LABS: Basophils Percent Auto 0.7 % (0.2-1.2); Eosinophils Absolute Auto 0.1 K/mm3 (0-0.3); Eosinophils Percent Auto 1.2 % (0-4.4); Hematocrit 30.1 % (37.0-47.0); Hemoglobin 10.5 g/dL (12.0-15.0); Immature Granulocyte Absolute 0.01 K/mm3 (0.00-0.031); Immature Granulocyte Percent A 0.2 % (0-0.5); Lymphocytes Percent Auto 41.5 % (18.3-44.2); Mean Corpuscular HGB Conc 34.9 g/dl (32-36); Mean Corpuscular Volume 97.4 fl (80-100); Mean Platelet Volume 10.1 fl (7.4-10.4); Monocytes Absolute Auto 0.6 K/mm3 (0.1-0.6); Monocytes Percent Auto 14.6 % (2.6-8.5); Neutrophils Absolute Auto 1.7 K/mm3 (1.3-6.7); Neutrophils Percent Auto 41.8 % (45.5-73.1); Platelet Count Result 213 k/mm3 (150-375); Red Blood Count 3.09 M/mm3 (4.2-5.4); Red Cell Distribution Width 14.1 % (11.5-14.5); White Blood Count 4.1 K/mm3 (4.5-10.0)
[2020-11-13 06:37] LABS: Alanine Aminotransferase 249 U/L (4-35); Albumin Level 2.8 g/dL (3.5-5.1); Alkaline Phosphatase 110 U/L (38-126); Anion Gap 9 mmol/L (8-16); Aspartate Amino Transferase 303 U/L (14-36); Bilirubin,Total 2.3 mg/dL (0.2-1.3); Blood Urea Nitrogen 3 mg/dL (7-17); Calcium 8.5 mg/dL (8.4-10.2); Carbon Dioxide 19 mmol/L (22-30); Chloride 108 mmol/L (98-107); Estimated CRCL calculation 136 ml/min; Estimated Glomerular Filt Rate > 60; Glucose 92 mg/dL (65-105); Magnesium 1.8 mg/dL (1.6-2.3); Potassium 3.4 mmol/L (3.4-5.0); Sodium 136 mmol/L (137-145)
[2020-11-13 07:44] LABS: Folic Acid 1.8 ng/mL (2.76->20); Vitamin B12 > 1000.0 pg/mL (239-931)
--- NOTE | 2020-11-13 08:07 | WPDANESPN ---
Anes - Prog Note Post-Op Date/Time: 11/13/20 08:07 Cardiovascular status: normal Respiratory status: normal Airway patency: baseline Mental status: baseline Post-Op hydration status: normal Vital Signs: Last Vital Signs Temp 36.4 C 11/13/20 05:28 Pulse 100 11/13/20 05:28 Resp 20 11/13/20 05:28 BP 108/69 11/13/20 05:28 Pulse Ox 97 11/13/20 05:28 Pain Score (VAS): 3 I/O: Intake & Output 11/12/20 11/13/20 11/13/20 23:59 07:59 15:59 Intake Total 240 1000 Output Total 100 650 Balance 140 350 Laboratory Tests 11/13/20 05:50 11/13/20 05:50 11/11/20 11/13/20 11/13/20 12:02 05:50 05:50 WBC 4.1 L RBC 3.09 L Hgb 10.5 L Hct 30.1 L MCV 97.4 MCH 34.0 MCHC 34.9 RDW 14.1 Plt Count 213 MPV 10.1 Immature Gran % (Auto) 0.2 Neut % (Auto) 41.8 L Lymph % (Auto) 41.5 [place] % (Auto) 14.6 H Eos % (Auto) 1.2 Baso % (Auto) 0.7 Lymph # (Auto) 1.70 [place] # (Auto) 0.6 Eos # (Auto) 0.1 Baso # (Auto) 0.0 Abs Immat Gran (auto) 0.01 Absolute Neuts (auto) 1.7 Absolute Nucleated RBC 0.0 Nucleated RBC % 0.0 Sodium 136 L Potassium 3.4 Chloride 108 H Carbon Dioxide 19 L Anion Gap 9 BUN 3 L Creatinine 0.40 L Estim Creat Clear Calc 136 Estimated GFR > 60 Glucose 92 Calcium 8.5 Magnesium 1.8 Total Bilirubin 2.3 H AST 303 H ALT 249 H Alkaline Phosphatase 110 Total Protein 6.0 L Albumin 2.8 L Vitamin B12 > 1000.0 H Folate 1.8 L SARS-CoV-2 RNA (RT-PCR) Negative Post-procedural complaints: none Patient Feedback: Patient satisfied with anesthetic care.
[2020-11-13] MEDS: FAMOTIDINE 20 MG/2 ML VIAL IV PUSH ×2 (09:37→20:23)
[2020-11-13] MEDS: levETIRAcetam 500 MG TABLET 2000 MG PO (09:37)
[2020-11-13] MEDS: TOPIRAMATE 100 MG TABLET 300 MG PO (09:37)
[2020-11-13] MEDS: FOLIC ACID 1 MG TABLET PO (09:38)
--- NOTE | 2020-11-13 10:52 | PM.PNGS ---
Progress Note: A&P Assessment and Plan (1) Dyskinesia of gallbladder: Code(s): K82.8 - Other specified diseases of gallbladder Status: Acute Assessment and Plan: doing well, ADAT, home when cordelia diet c po analgesia, f/u 2 wks Subjective Subjective Date/Time Seen: 11/13/20 10:52 doing well, reports she feels much better, cordelia clears, pain controlled Review of Systems Review of Systems: All systems reviewed & are unremarkable except as noted in HPI and below Exam Chest: Chest palpation & inspection: normal inspection of the chest Resp: Auscultation: clear to auscultation bilaterally Cardio: Rate: regular rate Rhythm: regular rhythm GI: Inspection: normal to inspection, distended and incision GI Palp: Yes Soft to palpation and Yes Tenderness to palpation present (GI) Other: soft, sl dist, kasia TTP, incisions C/D/I Objective Data Vital Signs Vital Signs: Vital Signs - 24 hr 11/12/20 14:27 11/12/20 14:30 11/12/20 14:45 Temperature 35.9 C L Pulse Rate 110 H 96 86 Respiratory Rate 16 16 16 Blood Pressure 111/69 106/63 106/61 Pulse Oximetry 100 100 100 11/12/20 15:00 11/12/20 15:15 11/12/20 15:20 Temperature Pulse Rate 83 87 81 Respiratory Rate 16 16 16 Blood Pressure 108/64 108/61 105/62 Pulse Oximetry 99 99 99 11/12/20 15:45 11/12/20 16:15 11/12/20 20:00 Temperature 36.6 C 36.6 C 36.4 C Pulse Rate 84 87 91 Respiratory Rate 16 16 20 Blood Pressure 105/66 110/70 99/65 L Pulse Oximetry 100 100 99 11/12/20 22:00 11/13/20 00:00 11/13/20 05:28 Temperature 36.1 C L 36.7 C 36.4 C Pulse Rate 91 98 100 Respiratory Rate 20 20 20 Blood Pressure 99/65 L 106/67 108/69 Pulse Oximetry 99 98 97 Intake/Output Intake/Output: Intake & Output 11/10/20 11/11/20 11/12/20 11/13/20 23:59 23:59 23:59 23:59 Intake Total 5 0 790 1000 Output Total 100 650 Balance 2764 2039 690 350 Meds/Results Medications: Active Medications Generic Name Dose Route Start Last Admin Trade Name Freq PRN Reason Stop Dose Admin Hydrocodone Bitart/Acetaminophen 1 tab 11/12/20 14:30 11/12/20 23:49 Hydrocodone/Acetaminophen (*Crx) 5-325 Mg Tablet PO 1 tab Q6H PRN Administration Pain Rated 4-6 Famotidine 20 mg 11/09/20 09:00 11/13/20 09:37 Famotidine 20 Mg/2 Ml Vial IV PUSH 20 mg Q12HR ANTHONY Administration Folic Acid 1 mg 11/13/20 09:00 11/13/20 09:38 Folic Acid 1 Mg Tablet PO 1 mg DAILY ANTHONY Administration Levetiracetam 2,000 mg 11/12/20 09:00 11/13/20 09:37 Levetiracetam 500 Mg Tablet PO 2,000 mg QAM ANTHONY Administration Levetiracetam 1,000 mg 11/11/20 21:00 11/12/20 20:24 Levetiracetam 500 Mg Tablet PO 1,000 mg HS ANTHONY Administration Metoclopramide HCl 5 mg 11/10/20 16:30 11/13/20 06:09 Metoclopramide Hcl 5 Mg Tablet PO 5 mg ACHS ANTHONY Administration Promethazine HCl 12.5 mg 11/10/20 15:50 Promethazine Hcl 25 Mg/Ml Ampul IV PUSH Q4H PRN Nausea And Vomiting Topiramate 300 mg 11/10/20 09:00 11/13/20 09:37 Topiramate 100 Mg Tablet PO 300 mg QAM ANTHONY Administration Topiramate 400 mg 11/09/20 21:00 11/12/20 20:24 Topiramate 100 Mg Tablet PO 400 mg HS ANTHONY Administration Radiology Results: ITS Impressions Chest X-Ray 11/08/20 17:03 IMPRESSION: 1. No acute cardiopulmonary disease. Abdomen Ultrasound 11/08/20 17:16 IMPRESSION: Sludge and probable stones in the gallbladder Hepatobiliary Scan Nuclear Medicine 11/09/20 15:28 IMPRESSION: 1. Prompt clearance of activity from the blood pool but with relatively delayed activity clearance from the liver and with delayed accumulation of activity in the common bile duct, bowel and gallbladder suggests a partial biliary obstruction. 2. Subjectively low gallbladder ejection fraction as detailed above suggest possibility of gallbladder dysfunction or chronic cholecystitis in the appropriate clinical setting. MRCP 11/09/20
--- NOTE | 2020-11-13 12:18 | PM.IMPN ---
Progress Note: A&P Assessment and Plan (1) Dyskinesia of gallbladder: Code(s): K82.8 - Other specified diseases of gallbladder Status: Acute Assessment and Plan: RUQ US demonstrated sludge and probable stones in the gallbladder. Total bilirubin elevated but direct bilirubin is normal. LFTs elevated. HIDA demonstrated delayed clearance from liver with accumulation in the common bile duct, bowel, and gallbladder suggesting partial biliary obstruction and gallbladder dysfunction. MRCP showed no choledocholithiasis. She is s/p laparoscopic cholecystectomy by Dr. Kamara on 11/12/2020. Appreciate general surgery input Advanced diet as tolerated. She has not been tolerating clears well and had emesis today, therefore will slowly and cautiously advance diet. Analgesics and antiemetics as needed for pain. She will need outpatient general surgery follow up in 2 weeks. (2) Intractable nausea and vomiting: Code(s): R11.2 - Nausea with vomiting, unspecified Status: Acute Assessment and Plan: Ongoing for several weeks with rather acute onset on 10/24/20. Initially differential was broad, including esophagitis, gastritis, or gallbladder dysfunction. Additional consideration includes viral infection, liver dysfunction, and adverse medication reaction, including her high dose of Keppra. Lipase was normal. Colitis is another consideration but seems less likely at this time. TSH is normal. Gallbladder dysfunction felt to be most likely etiology. She is still having some emesis and difficulty tolerating clear diet, but this may be due to recent procedure/anesthesia. Gastroenterology and general surgery following. Input is appreciated. Advanced diet slowly. Consider EGD if no improvement or inability to tolerate clear liquids Continue Reglan ACHS. Phenergan available as needed Continue Pepcid IV b.i.d. (3) Hepatic steatosis: Code(s): K76.0 - Fatty (change of) liver, not elsewhere classified Status: Acute Assessment and Plan: LFTs elevated upon arrival, and on review of prior labs this seems to be a chronic issue. MRCP shows hepatic steatosis. Hepatitis panel negative. May be secondary to antiepileptic medication vs nonalcoholic steatohepatitis. CRP and ESR normal. Appreciate GI recommendations Ceruloplasmin and copper level ordered and pending Trend LFTs (4) Increased ammonia level: Code(s): R79.89 - Other specified abnormal findings of blood chemistry Status: Acute Assessment and Plan: Ammonia level is elevated. She has a hx of elevated ammonia levels in the past when she was on Depakote. She is not encephalopathic. This may be secondary to her seizure medications. GI following, appreciate recommendations At this time, do not feel that treatment is required as she is not encephalopathic. Will monitor clinically. Ammonia levels from prior hospitalization at [facility] have been requested. (5) Leukopenia: Code(s): D72.819 - Decreased white blood cell count, unspecified Status: Acute Assessment and Plan: WBC low on admission at 3,700 with low lymphocytes and decreased to 1,700 11/12. Monospot negative. Hepatitis panel negative. ESR and CRP normal. Possibly secondary to GI disorder given current symptoms, poor nutrition, or dilution. Does not appear to be a chronic issue. HIV negative. Influenza negative. COVID negative. WBC improved to 4,100 today Trend CBC daily (6) Epilepsy: Code(s): G40.909 - Epilepsy, unspecified, not intractable, without status epilepticus Status: Chronic Assessment and Plan: Chronic. She had a CT brain at [facility] on 11/04/20 which was unremarkable. Discussed with the patient's mom who stated that Dr. Bustillo (her primary neurologist) was weaning keppra due to concern it may be contributing to nausea and vomiting. Case discussed with neurology on 11/10. Recommended ad
[2020-11-13 14:00] VITALS: BP 117/72; PULSE 90; RESP 20; TEMP 36.3; O2SAT 100
[2020-11-13] MEDS: POTASSIUM CHLORIDE 20 MEQ PACKET (FOR LIQUID) PO (15:29)
--- NOTE | 2020-11-13 16:01 | WPDGIPROGNO ---
Progress Note: A&P Assessment and Plan (1) Dyskinesia of gallbladder: Code(s): K82.8 - Other specified diseases of gallbladder Status: Acute Assessment and Plan: s/p lap christin diet as tolerated, by surgery continue to monitor if persistent nausea then can follow up in office in few more weeks for consideration of egd (2) Intractable nausea and vomiting: Code(s): R11.2 - Nausea with vomiting, unspecified Status: Acute Assessment and Plan: medical management (3) Epilepsy: Code(s): G40.909 - Epilepsy, unspecified, not intractable, without status epilepticus Status: Chronic Assessment and Plan: by neurology (4) Hepatic steatosis: Code(s): K76.0 - Fatty (change of) liver, not elsewhere classified Status: Acute (5) Increased ammonia level: Code(s): R79.89 - Other specified abnormal findings of blood chemistry Status: Acute Assessment and Plan: reviewed records and also mildly elevated in the past I wonder if could be related to her seizure meds imaging showed fatty liver no encephalopathy (6) Transaminitis: Code(s): R74.01 - Elevation of levels of liver transaminase levels Status: Acute Assessment and Plan: could be combination from fatty liver, meds, etc mrcp was reviewed, no choledocholithiasis we can monitor as outpatient Subjective Date/time seen: 11/13/20 16:01 Interval history: some emesis but then had chicken nuggest and feeling ok, denies pain. Mother is at bedside Review of Systems Review of Systems: All systems reviewed & are unremarkable except as noted in HPI and below Exam Const: General: no acute distress HENMT: General nose exam: Normal nares present Eyes: General: appearance normal, both eyes and all related structures Neck: Neck: supple Chest: Chest palpation & inspection: normal inspection of the chest Resp: Auscultation: clear to auscultation bilaterally Cardio: Rate: regular rate Rhythm: regular rhythm GI: Inspection: normal to inspection, distended and incision GI Palp: Yes Soft to palpation and Yes Tenderness to palpation present (GI) Auscultation: normal bowel sounds Other: soft, sl dist, kasia TTP, incisions C/D/I Skin: General skin exam: normal color Neuro: Speech: normal speech Extrem: General: normal to inspection Psych: Speech and movement: Clear speech present Objective Data Vital Signs Vital Signs: Vital Signs - 24 hr 11/12/20 16:15 11/12/20 20:00 11/12/20 22:00 Temperature 97.8 F 97.6 F 97.0 F L Pulse Rate 87 91 91 Respiratory Rate 16 20 20 Blood Pressure 110/70 99/65 L 99/65 L Pulse Oximetry 100 99 99 11/13/20 00:00 11/13/20 05:28 11/13/20 14:00 Temperature 98.0 F 97.6 F 97.4 F L Pulse Rate 98 100 90 Respiratory Rate 20 20 20 Blood Pressure 106/67 108/69 117/72 Pulse Oximetry 98 97 100 Intake/Output Intake/Output: Intake & Output 11/10/20 11/11/20 11/12/20 11/13/20 23:59 23:59 23:59 23:59 Intake Total 2765 2040 790 1000 Output Total 100 650 Balance 2765 2040 690 350 Meds/Results Medications: Active Medications Generic Name Dose Route Start Last Admin Trade Name Freq PRN Reason Stop Dose Admin Hydrocodone Bitart/Acetaminophen 1 tab 11/12/20 14:30 11/12/20 23:49 Hydrocodone/Acetaminophen (*Crx) 5-325 Mg Tablet PO 1 tab Q6H PRN Administration Pain Rated 4-6 Famotidine 20 mg 11/09/20 09:00 11/13/20 09:37 Famotidine 20 Mg/2 Ml Vial IV PUSH 20 mg Q12HR ANTHONY Administration Folic Acid 1 mg 11/13/20 09:00 11/13/20 09:38 Folic Acid 1 Mg Tablet PO 1 mg DAILY ANTHONY Administration Levetiracetam 2,000 mg 11/12/20 09:00 11/13/20 09:37 Levetiracetam 500 Mg Tablet PO 2,000 mg QAM ANTHONY Administration Levetiracetam 1,000 mg 11/11/20 21:00 11/12/20 20:24 Levetiracetam 500 Mg Tablet PO 1,000 mg HS ANTHONY Administration Metoclopramide HCl 5 mg 11/10/20 16:30 11/13/20 12:08
[2020-11-13] MEDS: TOPIRAMATE 100 MG TABLET 400 MG PO (20:22)
[2020-11-13] MEDS: levETIRAcetam 500 MG TABLET 1000 MG PO (20:23)
[2020-11-13 22:00] VITALS: BP 109/73; PULSE 96; RESP 18; TEMP 36.7; O2SAT 100
[2020-11-14] VITALS (7 sets, daily range): BP systolic 101–120; BP diastolic 64–73; PULSE 80–93; RESP 16–20; TEMP 36.4–36.7; O2SAT 99–100
[2020-11-14] MEDS: PROMETHAZINE HCL 25 MG/ML AMPUL 12.5 MG IV PUSH ×2 (05:51→14:05)
[2020-11-14 06:33] LABS: Hemoglobin 11.2 g/dL (12.0-15.0); Mean Corpuscular HGB Conc 33.9 g/dl (32-36); Mean Corpuscular Hemoglobin 33.7 pg (26-34); Mean Corpuscular Volume 99.4 fl (80-100); Mean Platelet Volume 10.4 fl (7.4-10.4); Platelet Count Result 218 k/mm3 (150-375); Red Blood Count 3.32 M/mm3 (4.2-5.4); Red Cell Distribution Width 14.3 % (11.5-14.5); White Blood Count 4.7 K/mm3 (4.5-10.0)
[2020-11-14 07:02] LABS: Alanine Aminotransferase 287 U/L (4-35); Albumin Level 3.3 g/dL (3.5-5.1); Alkaline Phosphatase 164 U/L (38-126); Anion Gap 9 mmol/L (8-16); Aspartate Amino Transferase 365 U/L (14-36); Bilirubin,Total 3.6 mg/dL (0.2-1.3); Blood Urea Nitrogen 9 mg/dL (7-17); Calcium 8.7 mg/dL (8.4-10.2); Carbon Dioxide 18 mmol/L (22-30); Chloride 108 mmol/L (98-107); Estimated CRCL calculation 136 ml/min; Estimated Glomerular Filt Rate > 60; Glucose 117 mg/dL (65-105); Potassium 3.4 mmol/L (3.4-5.0); Sodium 135 mmol/L (137-145)
--- NOTE | 2020-11-14 08:52 | PM.PNGS ---
Progress Note: A&P Assessment and Plan (1) Dyskinesia of gallbladder: Code(s): K82.8 - Other specified diseases of gallbladder Status: Acute Assessment and Plan: slowly elevating LFTs, will get HIDA to r/o leak, obstruction, cont to encourage diet Subjective Subjective Date/Time Seen: 11/14/20 08:52 still c N/V yesterday, better this am, also poor appetite Review of Systems Review of Systems: All systems reviewed & are unremarkable except as noted in HPI and below Exam Const: General: cooperative, comfortable and no acute distress Resp: Effort & Inspection: normal respiratory effort Auscultation: clear to auscultation bilaterally Cardio: Rate: regular rate Rhythm: regular rhythm GI: Inspection: normal to inspection, non-distended and incision GI Palp: Yes Soft to palpation and No Tenderness to palpation present (GI) Other: soft, sl dist, kasia TTP Objective Data Vital Signs Vital Signs: Vital Signs - 24 hr 11/13/20 14:00 11/13/20 22:00 11/14/20 04:56 Temperature 36.3 C L 36.7 C Pulse Rate 90 96 Respiratory Rate 20 18 Blood Pressure 117/72 109/73 Pulse Oximetry 100 100 99 11/14/20 05:45 Temperature 36.7 C Pulse Rate 93 Respiratory Rate 18 Blood Pressure 111/73 Pulse Oximetry 99 Intake/Output Intake/Output: Intake & Output 11/11/20 11/12/20 11/13/20 11/14/20 23:59 23:59 23:59 23:59 Intake Total 2040 790 1220 100 Output Total 100 1050 600 Balance 2040 690 170 -500 Meds/Results Medications: Active Medications Generic Name Dose Route Start Last Admin Trade Name Freq PRN Reason Stop Dose Admin Hydrocodone Bitart/Acetaminophen 1 tab 11/12/20 14:30 11/12/20 23:49 Hydrocodone/Acetaminophen (*Crx) 5-325 Mg Tablet PO 1 tab Q6H PRN Administration Pain Rated 4-6 Famotidine 20 mg 11/09/20 09:00 11/13/20 20:23 Famotidine 20 Mg/2 Ml Vial IV PUSH 20 mg Q12HR ANTHONY Administration Folic Acid 1 mg 11/13/20 09:00 11/13/20 09:38 Folic Acid 1 Mg Tablet PO 1 mg DAILY ANTHONY Administration Levetiracetam 2,000 mg 11/12/20 09:00 11/13/20 09:37 Levetiracetam 500 Mg Tablet PO 2,000 mg QAM ANTHONY Administration Levetiracetam 1,000 mg 11/11/20 21:00 11/13/20 20:23 Levetiracetam 500 Mg Tablet PO 1,000 mg HS ANTHONY Administration Metoclopramide HCl 5 mg 11/10/20 16:30 11/14/20 05:51 Metoclopramide Hcl 5 Mg Tablet PO Not Given ACHS ANTHONY Promethazine HCl 12.5 mg 11/10/20 15:50 11/14/20 05:51 Promethazine Hcl 25 Mg/Ml Ampul IV PUSH 12.5 mg Q4H PRN Administration Nausea And Vomiting Topiramate 300 mg 11/10/20 09:00 11/13/20 09:37 Topiramate 100 Mg Tablet PO 300 mg QAM ANTHONY Administration Topiramate 400 mg 11/09/20 21:00 11/13/20 20:22 Topiramate 100 Mg Tablet PO 400 mg HS ANTHONY Administration Radiology Results: ITS Impressions Chest X-Ray 11/08/20 17:03 IMPRESSION: 1. No acute cardiopulmonary disease. Abdomen Ultrasound 11/08/20 17:16 IMPRESSION: Sludge and probable stones in the gallbladder Hepatobiliary Scan Nuclear Medicine 11/09/20 15:28 IMPRESSION: 1. Prompt clearance of activity from the blood pool but with relatively delayed activity clearance from the liver and with delayed accumulation of activity in the common bile duct, bowel and gallbladder suggests a partial biliary obstruction. 2. Subjectively low gallbladder ejection fraction as detailed above suggest possibility of gallbladder dysfunction or chronic cholecystitis in the appropriate clinical setting. MRCP 11/09/20 18:50 IMPRESSION: 1. Diffuse hepatic steatosis. 2. Cholelithiasis. No evidence of acute cholecystitis. Labs Labs: Laboratory Results - last 24 hr 11/14/20 11/14/20 06:00 06:00 WBC 4.7 RBC 3.32 L Hgb 11.2 L Hct 33.0 L MCV 99.4 MCH 33.7 MCHC 33.9 RDW 14.3 Plt Count 218 MPV 10.4 Sodium 135 L Potassium 3.4 Chloride 108 H Carbon Dioxid
[2020-11-14] MEDS: SODIUM CHLORIDE 0.9% IV 1,000 ML 75 ML IV CONT ×2 (10:35→23:42)
[2020-11-14] MEDS: FAMOTIDINE 20 MG/2 ML VIAL IV PUSH ×2 (10:39→20:13)
--- NOTE | 2020-11-14 12:29 | WPDGIPROGNO ---
Progress Note: A&P Assessment and Plan (1) Intractable nausea and vomiting: Code(s): R11.2 - Nausea with vomiting, unspecified Status: Acute Assessment and Plan: more nauseous than yesterday, also noted increase liver enzymes. Surgery ordered hida scan (assess if leak or obstruction)- if negative then will proceed with egd tomorrow because still symptomatic (2) Dyskinesia of gallbladder: Code(s): K82.8 - Other specified diseases of gallbladder Status: Acute Assessment and Plan: recent lap christin (3) Transaminitis: Code(s): R74.01 - Elevation of levels of liver transaminase levels Status: Acute Assessment and Plan: pending imaging, also could be from fatty liver, medicines, anorexia, etc (4) Intellectual disability: Code(s): F79 - Unspecified intellectual disabilities Status: Chronic (5) Seizures: Code(s): R56.9 - Unspecified convulsions Status: Chronic Assessment and Plan: on iv keppra for now since she is not eating much Subjective Date/time seen: 11/14/20 12:29 Interval history: still nauseous and anorexia, mother is at bedside Review of Systems Review of Systems: All systems reviewed & are unremarkable except as noted in HPI and below Exam Const: General: no acute distress HENMT: General nose exam: Normal nares present Eyes: General: appearance normal, both eyes and all related structures Neck: Neck: supple Chest: Chest palpation & inspection: normal inspection of the chest Resp: Auscultation: clear to auscultation bilaterally Cardio: Rate: regular rate Rhythm: regular rhythm GI: Inspection: normal to inspection and incision GI Palp: Yes Soft to palpation, Yes Tenderness to palpation present (GI) and No Guarding due to palpation present (GI) Auscultation: normal bowel sounds Other: soft, minimal TTP, incisions C/D/I Skin: General skin exam: normal color Neuro: Speech: normal speech Extrem: General: normal to inspection Psych: Speech and movement: Clear speech present Objective Data Vital Signs Vital Signs: Vital Signs - 24 hr 11/13/20 14:00 11/13/20 22:00 11/14/20 04:56 Temperature 97.4 F L 98.1 F Pulse Rate 90 96 Respiratory Rate 20 18 Blood Pressure 117/72 109/73 Pulse Oximetry 100 100 99 11/14/20 05:45 11/14/20 08:00 Temperature 98.1 F Pulse Rate 93 93 Respiratory Rate 18 18 Blood Pressure 111/73 Pulse Oximetry 99 99 Intake/Output Intake/Output: Intake & Output 11/11/20 11/12/20 11/13/20 11/14/20 23:59 23:59 23:59 23:59 Intake Total 2040 790 1220 100 Output Total 100 1050 600 Balance 2040 690 170 -500 Meds/Results Medications: Active Medications Generic Name Dose Route Start Last Admin Trade Name Freq PRN Reason Stop Dose Admin Hydrocodone Bitart/Acetaminophen 1 tab 11/12/20 14:30 11/12/20 23:49 Hydrocodone/Acetaminophen (*Crx) 5-325 Mg Tablet PO 1 tab Q6H PRN Administration Pain Rated 4-6 Famotidine 20 mg 11/09/20 09:00 11/14/20 10:39 Famotidine 20 Mg/2 Ml Vial IV PUSH 20 mg Q12HR ANTHONY Administration Folic Acid 1 mg 11/13/20 09:00 11/14/20 10:32 Folic Acid 1 Mg Tablet PO Not Given DAILY ANTHONY Sodium Chloride 1,000 mls @ 75 mls/hr 11/14/20 09:30 11/14/20 10:35 Normal Saline Iv IV CONT 75 mls/hr .[id number] ANTHONY Administration Levetiracetam 2,000 mg/ Sodium 270 mls @ 1,080 mls/hr 11/14/20 09:00 11/14/20 10:32 Chloride IVPB 1,080 mls/hr DAILY ANTHONY Administration Levetiracetam 1,000 mg in 100 mls @ 400 mls/hr 11/14/20 21:00 Keppra Iv IVPB HS ANTHONY Levetiracetam 2,000 mg 11/12/20 09:00 11/14/20 10:33 Levetiracetam 500 Mg Tablet PO Not Given QAM ANTHONY Levetiracetam 1,000 mg 11/11/20 21:00 11/13/20 20:23 Levetiracetam 500 Mg Tablet PO 1,000 mg HS ANTHONY Administration Metoclopramide HCl 5 mg 11/10/20 16:30 11/14/20 05:51 Metoclopramide Hcl 5 Mg Tablet PO Not Given A
--- NOTE | 2020-11-14 12:32 | PM.IMPN ---
Progress Note: A&P Assessment and Plan (1) Dyskinesia of gallbladder: Code(s): K82.8 - Other specified diseases of gallbladder Status: Acute Assessment and Plan: RUQ US demonstrated sludge and probable stones in the gallbladder. Total bilirubin elevated but direct bilirubin is normal. LFTs elevated. HIDA demonstrated delayed clearance from liver with accumulation in the common bile duct, bowel, and gallbladder suggesting partial biliary obstruction and gallbladder dysfunction. MRCP showed no choledocholithiasis. She is s/p laparoscopic cholecystectomy by Dr. Kamara on 11/12/2020. She is having persistent nausea and vomiting. LFTs and total bili has increased. Appreciate general surgery input Hepatobiliary scan has been ordered to rule out bile leak vs obstruction she is currently NPO. She is not tolerating clear liquids Analgesics and antiemetics as needed for pain. (2) Intractable nausea and vomiting: Code(s): R11.2 - Nausea with vomiting, unspecified Status: Acute Assessment and Plan: Ongoing for several weeks with rather acute onset on 10/24/20. Initially differential was broad, including esophagitis, gastritis, or gallbladder dysfunction. Additional consideration includes viral infection, liver dysfunction, and adverse medication reaction, given her high dose of Keppra. Lipase was normal. Colitis is another consideration but seems less likely at this time. TSH is normal. Gallbladder dysfunction felt to be most likely etiology. She has persistent nausea/vomiting worsened after cholecystectomy so now concerns for obstruction vs bile leak. Gastroenterology and general surgery following. Input is appreciated. NPO diet at this time. EGD being considered. Proceed tomorrow if negative hepatobiliary scan. Antiemetics prn. Continue Pepcid IV b.i.d. (3) Hepatic steatosis: Code(s): K76.0 - Fatty (change of) liver, not elsewhere classified Status: Acute Assessment and Plan: LFTs elevated upon arrival, and on review of prior labs this seems to be a chronic issue. MRCP shows hepatic steatosis. Hepatitis panel negative. May be secondary to antiepileptic medication vs nonalcoholic steatohepatitis. CRP and ESR normal. LFTs with further increase today but this may be related to cholecystectomy. Appreciate GI recommendations Ceruloplasmin and copper level ordered and pending Trend LFTs (4) Increased ammonia level: Code(s): R79.89 - Other specified abnormal findings of blood chemistry Status: Acute Assessment and Plan: Ammonia level is elevated. She has a hx of elevated ammonia levels in the past when she was on Depakote. She is not encephalopathic. This may be secondary to her seizure medications. GI following, appreciate recommendations At this time, do not feel that treatment is required as she is not encephalopathic. Will monitor clinically. Ammonia levels from prior hospitalization at [facility] have been requested. (5) Leukopenia: Code(s): D72.819 - Decreased white blood cell count, unspecified Status: Acute Assessment and Plan: WBC low on admission at 3,700 with low lymphocytes and decreased to 1,700 11/12. Monospot negative. Hepatitis panel negative. ESR and CRP normal. Possibly secondary to GI disorder given current symptoms, poor nutrition, or dilution. Does not appear to be a chronic issue. HIV negative. Influenza negative. COVID negative. WBC within normal limits today. Trend CBC daily (6) Epilepsy: Code(s): G40.909 - Epilepsy, unspecified, not intractable, without status epilepticus Status: Chronic Assessment and Plan: Chronic. She had a CT brain at [facility] on 11/04/20 which was unremarkable. Discussed with the patient's mom who stated that Dr. Bustillo (her primary neurologist) was weaning keppra due to concern it may be contributing to nausea and vomiting. Case dis
--- NOTE | 2020-11-14 12:37 | PC.NURSE ---
Patient down to nuclear medicine for diagnostic test at 1235. Pharmacy called for 1130 reglan at 1150 and has still not arrived before patient went down for test.
[2020-11-14] MEDS: diazePAM INJ (*CRX) 10 MG/2 ML SYRINGE 5 MG IV PUSH (17:05)
[2020-11-15] VITALS (8 sets, daily range): BP systolic 102–109; BP diastolic 60–74; PULSE 81–99; RESP 16–24; TEMP 36.2–36.9; O2SAT 97–100; BMI 26.4
[2020-11-15 06:29] LABS: Hematocrit 28.4 % (37.0-47.0); Hemoglobin 9.7 g/dL (12.0-15.0); Mean Corpuscular HGB Conc 34.2 g/dl (32-36); Mean Corpuscular Hemoglobin 34.3 pg (26-34); Mean Corpuscular Volume 100.4 fl (80-100); Mean Platelet Volume 9.9 fl (7.4-10.4); Platelet Count Result 189 k/mm3 (150-375); Red Blood Count 2.83 M/mm3 (4.2-5.4); Red Cell Distribution Width 14.4 % (11.5-14.5); White Blood Count 4.1 K/mm3 (4.5-10.0)
[2020-11-15 06:45] LABS: Alanine Aminotransferase 266 U/L (4-35); Albumin Level 2.7 g/dL (3.5-5.1); Alkaline Phosphatase 187 U/L (38-126); Anion Gap 5 mmol/L (8-16); Aspartate Amino Transferase 386 U/L (14-36); Bilirubin,Total 3.1 mg/dL (0.2-1.3); Blood Urea Nitrogen 8 mg/dL (7-17); Calcium 8.1 mg/dL (8.4-10.2); Carbon Dioxide 22 mmol/L (22-30); Chloride 111 mmol/L (98-107); Estimated CRCL calculation 136 ml/min; Estimated Glomerular Filt Rate > 60; Glucose 94 mg/dL (65-105); Potassium 3.2 mmol/L (3.4-5.0); Sodium 138 mmol/L (137-145)
[2020-11-15] MEDS: FOLIC ACID 1 MG TABLET PO (09:01)
[2020-11-15] MEDS: FAMOTIDINE 20 MG/2 ML VIAL IV PUSH (09:02)
[2020-11-15 10:30] LABS: Ceruloplasmin 20 mg/dL (18-53)
[2020-11-15] MEDS: LACTATED RINGERS 1,000 ML 150 ML IV CONT (10:59)
--- NOTE | 2020-11-15 11:09 | WPDANESEPPF ---
Anes - Initial Pre Proc Eval Procedure: Operation Date: 11/12/20 12:30 Proposed Procedures p Laparoscopic Cholecystectomy - Andreia Kamara MD Operation Date: 11/15/20 14:15 Proposed Procedures p Esophagogastroduodenoscopy - Krzysztof Mazariegos MD Date/Time: 11/15/20 11:09 Surgeon: Brigitte Clark PA-C Pre Op Diagnosis: acute dehydration, hypokalemia Patient Data Age: 30 Gender: F Height: 5 ft 3 in Weight: 67.7 kg Last Vital Signs Temp 97.1 F L 11/15/20 10:52 Pulse 92 11/15/20 10:52 Resp 16 11/15/20 10:52 BP 103/62 11/15/20 10:52 Pulse Ox 100 11/15/20 10:52 Allergies Allergy/AdvReac Type Severity Reaction Status Date / Time No Known Allergies Allergy Verified 11/08/20 21:18 Home Medications Medication Instructions Recorded Confirmed Type levetiracetam 1,000 mg tablet 2,000 mg PO BID tablet 07/24/20 11/08/20 History topiramate 100 mg tablet 300 mg PO BID tablet 07/24/20 11/08/20 History dicyclomine 10 mg capsule 10 mg PO BID #60 cap 10/26/20 11/08/20 Rx omeprazole 20 mg capsule,delayed 20 mg PO DAILY #30 cap 11/08/20 11/08/20 Rx release prochlorperazine maleate 10 mg 10 mg PO Q6H PRN #30 tablet 11/08/20 11/08/20 Rx tablet Laboratory Tests 11/12/20 11/12/20 11/15/20 05:51 05:51 06:08 WBC 4.1 K/mm3 L K/mm3 (4.5-10.0) RBC 2.83 M/mm3 L M/mm3 (4.2-5.4) Hgb 9.7 g/dL L g/dL (12.0-15.0) Hct 28.4 % L % (37.0-47.0) MCV 100.4 fl H fl (80-100) MCH 34.3 pg H pg (26-34) MCHC 34.2 g/dl g/dl (32-36) RDW 14.4 % % (11.5-14.5) Plt Count 189 k/mm3 k/mm3 (150-375) MPV 9.9 fl fl (7.4-10.4) Sodium Potassium Chloride Carbon Dioxide Anion Gap BUN Creatinine Estim Creat Clear Calc Estimated GFR Glucose Calcium Magnesium Copper 60 mcg/dL L mcg/dL (70-175) Total Bilirubin AST ALT Alkaline Phosphatase Total Protein Albumin Ceruloplasmin 20 mg/dL mg/dL (18-53) 11/15/20 06:08 WBC RBC Hgb Hct MCV MCH MCHC RDW Plt Count MPV Sodium 138 mmol/L mmol/L (137-145) Potassium 3.2 mmol/L L mmol/L (3.4-5.0) Chloride 111 mmol/L H mmol/L (98-107) Carbon Dioxide 22 mmol/L mmol/L (22-30) Anion Gap 5 mmol/L L mmol/L (8-16) BUN 8 mg/dL mg/dL (7-17) Creatinine 0.40 mg/dL L mg/dL (0.7-1.0) Estim Creat Clear Calc 136 ml/min ml/min Estimated GFR > 60 (59 - ) Glucose 94 mg/dL mg/dL (65-105) Calcium 8.1 mg/dL L mg/dL (8.4-10.2) Magnesium 2.0 mg/dL mg/dL (1.6-2.3) Copper Total Bilirubin 3.1 mg/dL H mg/dL (0.2-1.3) AST 386 U/L H U/L (14-36) ALT 266 U/L H U/L (4-35) Alkaline Phosphatase 187 U/L H U/L (38-126) Total Protein 6.0 g/dL L g/dL (6.3-8.2) Albumin 2.7 g/dL L g/dL (3.5-5.1) Ceruloplasmin HCG: negative (urine prenancy test negative on 11/08/20) Patient hx anesthesia problems: none Family hx anesthesia problems: none PMFSH Past Medical History Medical History (Updated 11/12/20 @ 10:22 by Andrea Corley MD) Abnormal CT scan, colon Bipolar affective disorder Epilepsy H/O thyroid cyst That was excised Intractable nausea and vomiting Irritable bowel syndrome (IBS) Left wrist fracture Mentally disabled Nausea and vomiting Seizures Sludge in gallbladder Surgical History Surgical History (Updated 11/12/20 @ 15:34 by Davis King DO) S/P cholecystectomy S/P middle ear reconstruction Family History Family History Mother Depression Family history of cataracts Hypertension Fat
[2020-11-15 12:30] LABS: Topiramate 10.2 mcg/mL (***)
[2020-11-15 12:54] LABS: Levetiracetam Keppra 13.3 mcg/mL (12.0-46.0)
[2020-11-15] MEDS: METOCLOPRAMIDE HCL 5 MG TABLET PO ×3 (13:12→21:38)
--- NOTE | 2020-11-15 13:24 | PM.PNGS ---
Progress Note: A&P Assessment and Plan (1) Dyskinesia of gallbladder: Code(s): K82.8 - Other specified diseases of gallbladder Status: Acute Assessment and Plan: still c persistent N/V, EGD normal today, ADAT, antiemetics, no further surgical recs, will sign off, call c ?s, issues Subjective Subjective Date/Time Seen: 11/15/20 13:24 pt seen and examined, still drowsy from anesthesia Review of Systems Review of Systems: ROS unobtainable: Yes unobtainable due to mental status Exam Resp: Effort & Inspection: normal respiratory effort Auscultation: clear to auscultation bilaterally Cardio: Rate: regular rate Rhythm: regular rhythm GI: Inspection: normal to inspection, distended and incision GI Palp: Yes Soft to palpation and No Tenderness to palpation present (GI) Other: soft, sl dist, kasia TTP, incision C/D/I Objective Data Vital Signs Vital Signs: Vital Signs - 24 hr 11/14/20 14:00 11/14/20 14:22 11/14/20 16:56 Temperature 36.7 C 36.4 C 36.7 C Pulse Rate 85 92 80 Respiratory Rate 16 19 17 Blood Pressure 120/71 117/64 103/71 Pulse Oximetry 100 100 99 11/14/20 22:00 11/15/20 06:00 11/15/20 10:38 Temperature 36.5 C 36.4 C Pulse Rate 89 87 87 Respiratory Rate 20 20 Blood Pressure 101/67 102/60 Pulse Oximetry 100 97 98 11/15/20 10:52 11/15/20 11:57 11/15/20 12:07 Temperature 36.2 C L Pulse Rate 92 89 86 Respiratory Rate 16 24 H 18 Blood Pressure 103/62 104/65 106/66 Pulse Oximetry 100 100 100 11/15/20 12:17 Temperature Pulse Rate 83 Respiratory Rate 17 Blood Pressure 109/74 Pulse Oximetry 100 Intake/Output Intake/Output: Intake & Output 11/12/20 11/13/20 11/14/20 11/15/20 23:59 23:59 23:59 23:59 Intake Total 790 1220 1370 470 Output Total 100 1050 600 375 Balance 690 170 770 95 Meds/Results Medications: Active Medications Generic Name Dose Route Start Last Admin Trade Name Freq PRN Reason Stop Dose Admin Hydrocodone Bitart/Acetaminophen 1 tab 11/12/20 14:30 11/12/20 23:49 Hydrocodone/Acetaminophen (*Crx) 5-325 Mg Tablet PO 1 tab Q6H PRN Administration Pain Rated 4-6 Artificial Tears 1 drop 11/14/20 13:15 Artificial Tears Op Soln 15 Ml Bottle EACH EYE QID PRN Dry Eye(s) Famotidine 20 mg 11/09/20 09:00 11/15/20 09:02 Famotidine 20 Mg/2 Ml Vial IV PUSH 20 mg Q12HR ANTHONY Administration Folic Acid 1 mg 11/13/20 09:00 11/15/20 09:01 Folic Acid 1 Mg Tablet PO 1 mg DAILY ANTHONY Administration Sodium Chloride 1,000 mls @ 75 mls/hr 11/14/20 09:30 11/14/20 23:42 Normal Saline Iv IV CONT 75 mls/hr .[id number] ANTHONY Administration Levetiracetam 2,000 mg/ Sodium 270 mls @ 540 mls/hr 11/14/20 21:00 11/15/20 09:30 Chloride IVPB Infused Q12HR ANTHONY Infusion Levetiracetam 2,000 mg 11/12/20 09:00 11/14/20 10:33 Levetiracetam 500 Mg Tablet PO Not Given QAM ANTHONY Levetiracetam 1,000 mg 11/11/20 21:00 11/13/20 20:23 Levetiracetam 500 Mg Tablet PO 1,000 mg HS ANTHONY Administration Metoclopramide HCl 5 mg 11/10/20 16:30 11/15/20 13:12 Metoclopramide Hcl 5 Mg Tablet PO 5 mg ACHS ANTHONY Administration Promethazine HCl 12.5 mg 11/10/20 15:50 11/14/20 14:05 Promethazine Hcl 25 Mg/Ml Ampul IV PUSH 12.5 mg Q4H PRN Administration Nausea And Vomiting Topiramate 300 mg 11/10/20 09:00 11/14/20 10:33 Topiramate 100 Mg Tablet PO Not Given QAM ANTHONY Topiramate 400 mg 11/09/20 21:00 11/13/20 20:22 Topiramate 100 Mg Tablet PO 400 mg HS ANTHONY Administration Radiology Results: ITS Impressions Chest X-Ray 11/08/20 17:03 IMPRESSION: 1. No acute cardiopulmonary disease. Abdomen Ultrasound 11/08/20 17:16 IMPRESSION: Sludge and probable stones in the gallbladder MRCP 11/09/20 18:50 IMPRESSION: 1. Diffuse hepatic steatosis. 2. Cholelithiasis. No evidence of acute cholecystitis. Hepatobiliary Scan Nuclear Medicine 11/14/20
--- NOTE | 2020-11-15 15:31 | PM.IMPN ---
Progress Note: A&P Assessment and Plan (1) Dyskinesia of gallbladder: Code(s): K82.8 - Other specified diseases of gallbladder Status: Acute Assessment and Plan: RUQ US demonstrated sludge and probable stones in the gallbladder. Total bilirubin elevated but direct bilirubin is normal. LFTs elevated. HIDA demonstrated delayed clearance from liver with accumulation in the common bile duct, bowel, and gallbladder suggesting partial biliary obstruction and gallbladder dysfunction. MRCP showed no choledocholithiasis. She is s/p laparoscopic cholecystectomy by Dr. Kamara on 11/12/2020. HIDA scan negative for bile leak. LFTs and bilirubin still elevated, however improved from yesterday. She is tolerating clear liquids at this time. Appreciate general surgery input Continue clear liquids. Advance to full liquids for dinner time. Continue to advance diet as tolerated up to low-fat diet. Analgesics and antiemetics as needed for pain. (2) Intractable nausea and vomiting: Code(s): R11.2 - Nausea with vomiting, unspecified Status: Acute Assessment and Plan: Ongoing for several weeks with rather acute onset on 10/24/20. Initially differential was broad, including esophagitis, gastritis, or gallbladder dysfunction. Additional consideration includes viral infection, liver dysfunction, and adverse medication reaction, given her high dose of Keppra. Lipase was normal. TSH is normal. Gallbladder dysfunction felt to be etiology. No nausea or vomiting today. She underwent EGD today with no findings to explain symptoms. Gastroenterology and general surgery following. Input is appreciated. Advanced diet as tolerated Antiemetics prn. Continue Pepcid IV b.i.d. (3) Hepatic steatosis: Code(s): K76.0 - Fatty (change of) liver, not elsewhere classified Status: Acute Assessment and Plan: LFTs elevated upon arrival, and on review of prior labs this seems to be a chronic issue. MRCP shows hepatic steatosis. Hepatitis panel negative. May be secondary to antiepileptic medication vs nonalcoholic steatohepatitis. CRP and ESR normal. Copper and ceruloplasmin levels within normal limits. LFTs slightly improved today. HIDA scan did show evidence of hepatocellular dysfunction Appreciate GI recommendations. She will need to continue with outpatient GI follow-up for further monitoring with imaging and labs Trend LFTs (4) Increased ammonia level: Code(s): R79.89 - Other specified abnormal findings of blood chemistry Status: Acute Assessment and Plan: Ammonia level is elevated. She has a hx of elevated ammonia levels in the past when she was on Depakote. She is not encephalopathic. This may be secondary to her seizure medications. GI following, appreciate recommendations At this time, do not feel that treatment is required as she is not encephalopathic. Will monitor clinically. (5) Leukopenia: Code(s): D72.819 - Decreased white blood cell count, unspecified Status: Acute Assessment and Plan: WBC low on admission at 3,700 with low lymphocytes and decreased to 1,700 11/12. Monospot negative. Hepatitis panel negative. ESR and CRP normal. Possibly secondary to GI disorder given current symptoms, poor nutrition, or dilution. Does not appear to be a chronic issue. HIV negative. Influenza negative. COVID negative. WBC 4.1 today Trend CBC daily (6) Epilepsy: Code(s): G40.909 - Epilepsy, unspecified, not intractable, without status epilepticus Status: Chronic Assessment and Plan: Chronic. She had a CT brain at [facility] on 11/04/20 which was unremarkable. Discussed with the patient's mom who stated that Dr. Bustillo (her primary neurologist) was weaning keppra due to concern it may be contributing to nausea and vomiting. She did have 2 episodes with seizure-like activity on 11/14/2020. This was likely due to having to hold her Topamax as
[2020-11-15] MEDS: POTASSIUM CHLORIDE 20 MEQ TABLET 40 MEQ PO (16:39)
[2020-11-15] MEDS: levETIRAcetam 500 MG TABLET 1000 MG PO (21:37)
[2020-11-15] MEDS: TOPIRAMATE 100 MG TABLET 400 MG PO (21:38)
[2020-11-16 05:39] VITALS: BP 106/69; PULSE 88; RESP 16; TEMP 36.1; O2SAT 100
[2020-11-16] MEDS: METOCLOPRAMIDE HCL 5 MG TABLET PO ×2 (06:00→12:45)
[2020-11-16 06:18] LABS: Hematocrit 29.4 % (37.0-47.0); Hemoglobin 10.1 g/dL (12.0-15.0); Mean Corpuscular HGB Conc 34.4 g/dl (32-36); Mean Corpuscular Hemoglobin 34.8 pg (26-34); Mean Corpuscular Volume 101.4 fl (80-100); Mean Platelet Volume 11.2 fl (7.4-10.4); Platelet Count Result 202 k/mm3 (150-375); White Blood Count 4.1 K/mm3 (4.5-10.0)
[2020-11-16 06:35] LABS: Anion Gap 5 mmol/L (8-16); Blood Urea Nitrogen 5 mg/dL (7-17); Calcium 8.4 mg/dL (8.4-10.2); Carbon Dioxide 21 mmol/L (22-30); Chloride 108 mmol/L (98-107); Estimated CRCL calculation 173 ml/min; Estimated Glomerular Filt Rate > 60; Glucose 99 mg/dL (65-105); Magnesium 1.9 mg/dL (1.6-2.3); Potassium 3.6 mmol/L (3.4-5.0); Sodium 134 mmol/L (137-145)
[2020-11-16 08:00] VITALS: O2SAT 94
[2020-11-16] MEDS: FAMOTIDINE 20 MG TABLET PO (08:29)
[2020-11-16] MEDS: FOLIC ACID 1 MG TABLET PO (08:29)
--- NOTE | 2020-11-16 09:37 | WPDANESPN ---
Anes - Prog Note Post-Op Date/Time: 11/16/20 09:37 Cardiovascular status: normal Respiratory status: normal Airway patency: baseline Mental status: baseline Post-Op hydration status: normal Vital Signs: Last Vital Signs Temp 36.1 C L 11/16/20 05:39 Pulse 88 11/16/20 05:39 Resp 16 11/16/20 05:39 BP 106/69 11/16/20 05:39 Pulse Ox 100 11/16/20 05:39 Pain Score (VAS): 0 I/O: Intake & Output 11/15/20 11/16/20 11/16/20 23:59 07:59 15:59 Intake Total 440 50 Output Total 650 Balance -210 50 Laboratory Tests 11/16/20 05:39 11/16/20 05:39 11/11/20 11/12/20 11/16/20 07:58 05:51 05:39 WBC 4.1 L RBC 2.90 L Hgb 10.1 L Hct 29.4 L MCV 101.4 H MCH 34.8 H MCHC 34.4 RDW 14.0 Plt Count 202 MPV 11.2 H Sodium Potassium Chloride Carbon Dioxide Anion Gap BUN Creatinine Estim Creat Clear Calc Estimated GFR Glucose Calcium Magnesium Ceruloplasmin 20 Topiramate 10.2 Levetiracetam 13.3 11/16/20 05:39 WBC RBC Hgb Hct MCV MCH MCHC RDW Plt Count MPV Sodium 134 L Potassium 3.6 Chloride 108 H Carbon Dioxide 21 L Anion Gap 5 L BUN 5 L Creatinine 0.30 L Estim Creat Clear Calc 173 Estimated GFR > 60 Glucose 99 Calcium 8.4 Magnesium 1.9 Ceruloplasmin Topiramate Levetiracetam Post-procedural complaints: none Patient Feedback: Patient satisfied with anesthetic care.
--- NOTE | 2020-11-16 12:04 | PM.DS ---
DS: Admitting Diagnosis Admitting Diagnosis Admitting Diagnosis: Nausea and vomiting DS: Discharge Diagnosis Discharge Diagnosis (1) Dyskinesia of gallbladder: Code(s): K82.8 - Other specified diseases of gallbladder Status: Acute Assessment and Plan: RUQ US demonstrated sludge and probable stones in the gallbladder. Total bilirubin elevated but direct bilirubin is normal. LFTs elevated. HIDA demonstrated delayed clearance from liver with accumulation in the common bile duct, bowel, and gallbladder suggesting partial biliary obstruction and gallbladder dysfunction. MRCP showed no choledocholithiasis. She is s/p laparoscopic cholecystectomy by Dr. Kamara on 11/12/2020. LFTs and total bilirubin increased following surgery, therefore HIDA scan evaluated which was negative for bile leak. she was eventually able to tolerate clear liquids and diet was advanced to low-fat, which she was able to tolerate. She will need to follow-up with Dr. Kamara in 2 weeks (2) Intractable nausea and vomiting: Code(s): R11.2 - Nausea with vomiting, unspecified Status: Acute Assessment and Plan: Ongoing for several weeks with rather acute onset on 10/24/20. Initially differential was broad, including esophagitis, gastritis, or gallbladder dysfunction. Additional consideration includes viral infection, liver dysfunction, and adverse medication reaction, given her high dose of Keppra. Lipase was normal. TSH is normal. Gallbladder dysfunction felt to be etiology. She underwent EGD on 11/15/[address] Holloway with no findings to explain symptoms. diet was able to be advanced and nausea and vomiting resolved. Continue antiemetics p.r.n. and daily omeprazole. (3) Hepatic steatosis: Code(s): K76.0 - Fatty (change of) liver, not elsewhere classified Status: Acute Assessment and Plan: LFTs elevated upon arrival, and on review of prior labs this seems to be a chronic issue. MRCP showed hepatic steatosis. Hepatitis panel negative. May be secondary to antiepileptic medication vs nonalcoholic steatohepatitis. CRP and ESR normal. Copper and ceruloplasmin levels within normal limits. HIDA scan did show evidence of hepatocellular dysfunction. She will need to continue with outpatient GI follow-up for further monitoring with imaging and labs (4) Increased ammonia level: Code(s): R79.89 - Other specified abnormal findings of blood chemistry Status: Acute Assessment and Plan: Ammonia level is elevated. She has a hx of elevated ammonia levels in the past when she was on Depakote. She is not encephalopathic. This may be secondary to her seizure medications. No treatment felt to be required as she is not encephalopathic. Monitor clinically and continue with GI follow up (5) Leukopenia: Code(s): D72.819 - Decreased white blood cell count, unspecified Status: Acute Assessment and Plan: WBC low on admission at 3,700 with low lymphocytes and decreased to 1,700 on 11/12. Monospot negative. Hepatitis panel negative. ESR and CRP normal. Possibly secondary to GI disorder given current symptoms, poor nutrition, or dilution. Does not appear to be a chronic issue. HIV negative. Influenza negative. COVID negative. White count improved. (6) Epilepsy: Code(s): G40.909 - Epilepsy, unspecified, not intractable, without status epilepticus Status: Chronic Assessment and Plan: Chronic. She had a CT brain at [facility] on 11/04/20 which was unremarkable. Discussed with the patient's mom who stated that Dr. Bustillo (her primary neurologist) was weaning keppra due to concern it may be contributing to nausea and vomiting. She did have 2 episodes with seizure-like activity on 11/14/2020. This was likely due to having to hold her Topamax as she was not tolerating any oral intake at that time. She was evaluated by Dr. Bustillo during her admission who recommended adjustment in Keppra dos
--- NOTE | 2020-11-16 14:52 | PC.NURSE ---
Pt was discharged with parents. Pt had no IV access to remove. Pt's discharge instructions were reviewed with her mom, who exhibited good understanding of discharge instructions. Pt assisted to her family car for discharge.
== END 2020-11-16 14:52 | disposition home or self-care (01) | DRG 419 ==
LOC: ANHED 17:38 → ANH3MED 20:06 → ANH3MEDSUR 11-11 11:41
PROVIDERS: Internal Medicine Gastroenterology; Nurse Practitioner; Physician Assistant; Surgery; Admitting Provider Family Medicine; Emergency Provider General Practice; PCP Internal Medicine; Visit Provider Physician Assistant
PROC: 0FT44ZZ Resection of Gallbladder, Percutaneous Endoscopic Approach (ICD-10-PCS; CPT 47562; principal; 2020-11-12 12:30)
PROC: 0DJ08ZZ Inspection of Upper Intestinal Tract, Via Natural or Artificial Opening Endoscopic (ICD-10-PCS; CPT 43235; principal; 2020-11-15 14:15)
DX: K81.1 Chronic cholecystitis (principal); Z20.822 Contact with and (suspected) exposure to COVID-19; K82.8 Other specified diseases of gallbladder; R11.2 Nausea with vomiting, unspecified; K76.0 Fatty (change of) liver, not elsewhere classified; R79.89 Other specified abnormal findings of blood chemistry; D72.819 Decreased white blood cell count, unspecified; G40.909 Epilepsy, unspecified, not intractable, without status epilepticus; R93.3 Abnormal findings on diagnostic imaging of other parts of digestive tract; E87.6 Hypokalemia; E86.0 Dehydration; E83.42 Hypomagnesemia; F79 Unspecified intellectual disabilities; R74.01 Elevation of levels of liver transaminase levels; F31.9 Bipolar disorder, unspecified; K58.9 Irritable bowel syndrome, unspecified; Z28.21 Immunization not carried out because of patient refusal; Z79.1 Long term (current) use of non-steroidal anti-inflammatories (NSAID); Z79.899 Other long term (current) drug therapy; Z83.79 Family history of other diseases of the digestive system
CPT/HCPCS: 36415; 71045; 74183; 76376; 76705; 78226; 78227; 80048; 80053; 80074; 80076; 80177; 80201; 81001; 81025; 82140; 82390; 82525; 82607; 82746; 83690; 83735; 84443; 85025; 85027; 85652; 86140; 86308; 86703; 87040; 87086; 87804; 88304; 88305; 96361; 96365; 96366; 96367; 96375; 96376; 99285; A9270; A9537; A9577; C9803; G0378; G0432; J0131; J0330; J0690; J0696; J0780; J1100; J1953; J2250; J2405; J2550; J2704; J2710; J2805; J3010; J3360; J3475; J3480; J7030; J7042; J7050; J7120; U0003; U0005

== ENCOUNTER 2020-11-20 08:54 | Emergency (ER) | payer MEDICARE, MEDICAID, SELFPAY ==
--- NOTE | ~2020-11-20 | CT_ITS ---
EXAMINATION: CT abdomen pelvis w con DATE: 11/20/2020 11:31 INDICATION: Abdominal pain. Nausea and vomiting. TECHNIQUE: Computed tomography (CT) of the abdomen and pelvis was performed with 100 mL Omnipaque 350 intravenous contrast. Automated exposure control and iterative reconstruction technique were employe d. The dose-length product was 376.56 mGy-cm. COMPARISON: CT abdomen and pelvis 08/09/2012, hepatobiliary scintigraphy 11/14/2020 FINDINGS: The visualized portions of the lung bases are clear without pneumonia or pleural effusion. The heart size is normal. No pericardial effusion. The liver and spleen are normal. In the gallbladde r fossa, there is a 1.8 x 0.9 x 0.6 cm rim enhancing fluid collection. There are surgical clips from cholecystectomy. The pancreas and adrenal glands are normal. There are cysts in the kidneys measuring up to 8 mm on the right. There is a 4 mm stone in right kidney. There are 3 stones in left kidney me asuring up to 1.1 cm. There is an intrauterine device in expected position. There are no dilated loop s of bowel. The appendix is normal. There are no pathologically enlarged lymph nodes. There is trace pelvic ascites. There are foci of free intraperitoneal gas, consistent with recent surgery. There is mild thoracolumbar spondylosis. IMPRESSION: 1. 1.8 x 0.9 x 0.6 cm rim-enhancing fluid collection in the gallbladder fossa, likely subacute hemato ma. 2. Bilateral nonobstructing kidney stones. Reviewed, dictated and finalized at location A. OSIVE ORDNANCE MANAGER IMPRESSION: 1. 1.8 x 0.9 x 0.6 cm rim-enhancing fluid collection in the gallbladder fossa, likely subacute hematoma. 2. Bilateral nonobstructing kidney stones.
[2020-11-20 09:04] VITALS: BP 121/84; PULSE 101; RESP 18; O2SAT 99
--- NOTE | 2020-11-20 09:17 | PC.NURSE ---
Attempts x2 for IV unsuccessful per this RN. Preparing to contact vascular algebra teacher.
[2020-11-20 09:19] VITALS: BP 121/84; PULSE 103; RESP 18; TEMP 36.2; O2SAT 100
--- NOTE | 2020-11-20 09:50 | ECG_ITS ---
Measurements Intervals [place] Rate: 100 P: 46 AK: 147 QRS: 74 QRSD: 83 T: -17 QT: 362 QTc: 468 Interpretive Statements SINUS TACHYCARDIA MINIMAL Q WAVES- ANTEROLAT/INF LEADS ST-T WAVE ABNORMALITY IN ANT/INF LEADS- CONSIDER ISCHEMIA ABNORMAL ECG Electronically Signed On 11-20-2020 12:00:21 BATTERY CHECKER by Reymundo Martínez D.O.
[2020-11-20 09:57] VITALS: BP 118/78; PULSE 111; RESP 18; O2SAT 97
--- NOTE | 2020-11-20 10:03 | ED.GENADULT ---
HPI - General Adult General Chief complaint: Nausea/Vomiting/Diarrhea Stated complaint: vomiting Time Seen by Provider: 11/20/20 09:40 Source: patient History of Present Illness HPI narrative: Patient is a 30 y/o female complaining nausea and vomiting for several days since she was discharged following lap christin. She vomits greenish liquid. She has 3-4 episodes of vomiting daily. Eating and drinking makes it worse. She was seen by her PCP today and she was directed to ED to be evaluated for dehydration. She has no abdominal pain, fever or chills. Mother states that she vomited her seizure meds shortly after taking those meds and she concerned about possible seizure. Related Data Home Medications Medication Instructions Recorded Confirmed promethazine 25 mg tablet 25 mg PO Q6H PRN 11/20/20 11/20/20 Allergies Allergy/AdvReac Type Severity Reaction Status Date / Time No Known Allergies Allergy Verified 11/20/20 09:25 Review of Systems Constitutional: Constitutional: Denies chills, Denies fever(s), Denies headache(s) and Denies weakness Eyes: Eyes: Denies blurry vision ENT: Denies headache(s) and Denies neck pain Cardiovascular: Cardiovascular: Denies chest pain and Denies dyspnea Respiratory: Respiratory: Denies cough and Denies dyspnea Gastrointestinal: Gastrointestinal: Denies abdominal pain, Denies diarrhea, Reports nausea and Reports vomiting Genitourinary: Genitourinary: Denies hematuria and Denies dysuria Musculoskeletal: Musculoskeletal: Denies back pain and Denies neck pain Neurologic: Denies headache(s) and Denies weakness [facility] Past Medical History Medical History Abnormal CT scan, colon Bipolar affective disorder Epilepsy H/O thyroid cyst That was excised Intractable nausea and vomiting Irritable bowel syndrome (IBS) Left wrist fracture Mentally disabled Nausea and vomiting Seizures Sludge in gallbladder Surgical History Surgical History S/P cholecystectomy S/P middle ear reconstruction Family History Family History Mother Depression Family history of cataracts Hypertension Father Hypertension Social History Social History Social History: The patient lives with her parents. She has a fiance whom she has not seen in 1 year. She used to live in a [facility] but lives with her parents now. She has never smoked are use drugs. She does not use alcohol. Her mother is her guardian. She is a full code. Smoking status: Never smoker Second hand tobacco smoke exposure: No Alcohol intake: never Substance use: never Gender identity (if verbalized by the patient): Female Spiritual care concerns: No Exam Const: General: no acute distress and well developed Orientation/consciousness: oriented to person, oriented to place, oriented to time and patient oriented x3 HENMT: Head: normocephalic Ears: external ears normal General nose exam: Normal external nose present Eyes: General: appearance normal, both eyes and all related structures Conjunctivae: conjunctivae normal Neck: Neck: normal visual inspection and full ROM Chest: Chest palpation & inspection: normal inspection of the chest and no tenderness Resp: Effort & Inspection: normal respiratory effort Auscultation: clear to auscultation bilaterally Cardio: Rate: regular rate Rhythm: regular rhythm GI: GI Palp: No abdominal tenderness and Yes Soft to palpation Skin: General skin exam: normal color and turgor normal Wounds: wounds noted (surgical sites on abdomen clean and intact) Neuro: General: oriented to person, oriented to place, oriented to time and patient oriented x3 Cognition (Neuro): normal cognition Extrem: General: normal to inspection, full ROM and no pedal edema Psych: Appearance: kierra
--- NOTE | 2020-11-20 10:15 | PC.NURSE ---
Shirin Martino, Vascular customer acquisition manager, at bedside to attempt IV initiated and lab draw.
[2020-11-20 10:29] LABS: Basophils Absolute Auto 0.1 K/mm3 (0.0-0.1); Basophils Percent Auto 1.1 % (0.2-1.2); Eosinophils Percent Auto 0.9 % (0-4.4); Hematocrit 32.9 % (37.0-47.0); Hemoglobin 11.4 g/dL (12.0-15.0); Immature Granulocyte Absolute 0.02 K/mm3 (0.00-0.031); Immature Granulocyte Percent A 0.5 % (0-0.5); Lymphocytes Absolute Auto 0.88 K/mm3 (0.9-3.2); Mean Corpuscular HGB Conc 34.7 g/dl (32-36); Mean Corpuscular Hemoglobin 34.8 pg (26-34); Mean Corpuscular Volume 100.3 fl (80-100); Mean Platelet Volume 9.4 fl (7.4-10.4); Monocytes Absolute Auto 0.4 K/mm3 (0.1-0.6); Monocytes Percent Auto 8.4 % (2.6-8.5); Neutrophils Percent Auto 69.1 % (45.5-73.1); Platelet Count Result 274 k/mm3 (150-375); Red Blood Count 3.28 M/mm3 (4.2-5.4); Red Cell Distribution Width 14.5 % (11.5-14.5); White Blood Count 4.4 K/mm3 (4.5-10.0)
[2020-11-20] MEDS: SODIUM CHLORIDE 0.9% IV 1,000 ML 999 ML IV CONT (10:29)
[2020-11-20] MEDS: METOCLOPRAMIDE HCL INJ 10 MG/2 ML VIAL (10:29)
[2020-11-20 10:37] LABS: INR 1.2; Prothrombin Time 15.7 Seconds (11.1-14.7)
[2020-11-20 10:38] LABS: Partial Thromboplastin Time 27.5 SECONDS (22.3-36.8)
[2020-11-20 10:40] LABS: Alanine Aminotransferase 268 U/L (4-35); Alkaline Phosphatase 290 U/L (38-126); Anion Gap 14 mmol/L (8-16); Aspartate Amino Transferase 192 U/L (14-36); Bilirubin,Total 2.3 mg/dL (0.2-1.3); Blood Urea Nitrogen 7 mg/dL (7-17); Calcium 9.1 mg/dL (8.4-10.2); Carbon Dioxide 21 mmol/L (22-30); Chloride 105 mmol/L (98-107); Estimated CRCL calculation 111 ml/min; Estimated Glomerular Filt Rate > 60; Glucose 97 mg/dL (65-105); Lipase 560 U/L (23-300); Potassium 3.3 mmol/L (3.4-5.0); Sodium 140 mmol/L (137-145)
[2020-11-20 10:41] LABS: Add Urine Microscopic? YES; Appearance Urine Clear (Clear); Bacteria Urine Trace /hpf; Bilirubin Urine 1+ (Negative); Blood Urine Negative (Negative); Color Urine Amber (Yellow); Glucose Urine UA Negative (Negative); Ketones Urine 2+ mg/dL (Negative); Leukocyte Esterase Ur Trace LEU/UL (Negative); Mucus Urine Heavy /lpf; Nitrate Urine Negative (Negative); Protein Urine 1+ mg/dL (Negative); Specific Grav Ur 1.023 (1.001-1.035); Squamous Epithelial Cell Urine Many /hpf (Few); WBC Urine 16-20 /hpf
[2020-11-20] MEDS: levETIRAcetam 500 MG TABLET 2000 MG PO (11:25)
--- NOTE | 2020-11-20 11:26 | PC.NURSE ---
Pt given keppra and home dose of topamax po after nausea relieved with reglan IVP. Pt had doses this am but had emesis of meds after taking. Pt to CT via stretcher.
[2020-11-20 11:32] VITALS: BP 121/84; PULSE 100; RESP 18; O2SAT 96
== END 2020-11-20 12:50 | disposition home or self-care (01) ==
PROVIDERS: Emergency Provider Emergency Medicine; PCP Internal Medicine
DX: R11.2 Nausea with vomiting, unspecified (principal); R00.0 Tachycardia, unspecified; R94.31 Abnormal electrocardiogram [ECG] [EKG]; G40.909 Epilepsy, unspecified, not intractable, without status epilepticus; K58.9 Irritable bowel syndrome, unspecified
CPT/HCPCS: 36415; 74177; 80053; 81001; 81025; 83690; 85025; 85610; 85730; 87086; 87088; 93005; 96361; 96374; 99284; A9270; J2765; J7030; Q9967

== ENCOUNTER 2020-11-23 07:48 | Inpatient (IN) | payer MEDICARE, MEDICAID, SELFPAY ==
[2020-11-23] VITALS (10 sets, daily range): BP systolic 100–125; BP diastolic 66–86; PULSE 88–143; RESP 14–18; TEMP 36.3–37.3; O2SAT 99–100; BMI 24.0; BMI 24.4
--- NOTE | ~2020-11-23 | US_ITS ---
EXAMINATION: US right upper quadrant DATE: 11/24/2020 13:38 INDICATION: Nausea. TECHNIQUE: Multiple grayscale and Doppler ultrasound images of the abdomen were obtained. COMPARISON: CT abdomen and pelvis 11/20/2020 FINDINGS: The visualized portions of the head and body of the pancreas are normal. The liver is juilana l without focal lesion. No liver surface nodularity. There is normal flow in main portal vein. There is a 1.6 x 1.0 x 1.2 cm hypoechoic mass in the gallbladder fossa. The gallbladder is absent. The comm on duct is normal and measures 4 mm. IMPRESSION: 1. Stable small mass in the gallbladder fossa, likely subacute hematoma. Reviewed, dictated and finalized at location A. ERTY CUSTODIAN
--- NOTE | ~2020-11-23 | CT_ITS ---
EXAMINATION: CT abdomen pelvis wo con DATE: 11/24/2020 13:45 INDICATION: Nausea and vomiting. Elevated lipase. TECHNIQUE: Computed tomography (CT) of the abdomen and pelvis was performed without intravenous contr ast. Automated exposure control and iterative reconstruction technique were employed. The dose-length product was 249.80 mGy-cm. COMPARISON: CT abdomen and pelvis 11/20/2020 FINDINGS: The visualized portions of the lung bases demonstrate minimal atelectasis on the right. No pleural effusion. The heart size is normal. No pericardial effusion. The liver is normal. There are c hanges of cholecystectomy. There is a 1.6 cm mass in the gallbladder fossa, likely hematoma. The sple en, pancreas, and adrenal glands are normal. There is a 4 mm stone in right kidney. There are 3 stone s in left kidney measuring up to 11 mm. There is an intrauterine device in expected position. There a re no dilated loops of bowel. The appendix is normal. There are no pathologically enlarged lymph node s. There is trace pelvic ascites. There are Schmorl's nodes of the superior endplates of T11 and L2. IMPRESSION: 1. Normal pancreas. 2. 1.6 cm mass in the gallbladder fossa, likely subacute hematoma. Reviewed, dictated and finalized at location A. K ASSEMBLER
--- NOTE | 2020-11-23 08:36 | ED.NAVMDI ---
HPI - Nausea/Vomiting/Diarrhea General Chief complaint: Nausea/Vomiting/Diarrhea Stated complaint: n/v Time Seen by Provider: 11/23/20 07:55 Source: patient and family Mode of arrival: ambulatory History of Present Illness HPI Narrative: This is a 30 year old female who presents for evaluation of nausea and vomiting. She has had multiple ER visits for intractable nausea and vomiting. She was discharged from [facility] after a week stay and having a cholecystectomy. She continued to have nausea and vomiting after discharge and she returned to ER on 11/20/20. She was discharged home with Reglan. Initially she felt better but she developed nausea and vomiting on her return home. Her mother states she has been unable to tolerate anything by mouth since Thursday. She denies abdominal pain, fever, or diarrhea. She denies lightheadedness or dizziness. She has a history of seizures and she has seizures every few weeks. Her last seizure was during her last hospitalization. Related Data Allergies Allergy/AdvReac Type Severity Reaction Status Date / Time No Known Allergies Allergy Verified 11/23/20 08:12 Review of Systems Review of Systems: All systems reviewed & are unremarkable except as noted in HPI and below Constitutional: Constitutional: Denies chills and Denies fever(s) ENT: Reports otalgia Cardiovascular: Cardiovascular: Denies chest pain Respiratory: Respiratory: Denies cough and Denies dyspnea Gastrointestinal: Gastrointestinal: Denies abdominal pain, Denies diarrhea, Reports nausea and Reports vomiting PMFSH Past Medical History Medical History (Updated 11/23/20 @ 18:14 by Simran Julio MD) Abnormal CT scan, colon Bipolar affective disorder Epilepsy H/O thyroid cyst That was excised Intractable nausea and vomiting Irritable bowel syndrome (IBS) Left wrist fracture Mentally disabled Nausea and vomiting Seizures Sludge in gallbladder Surgical History Surgical History S/P cholecystectomy 11/12/20 S/P middle ear reconstruction Family History Family History Mother Depression Family history of cataracts Hypertension Father Hypertension Social History Social History Social History: The patient lives with her parents. She has a fiance whom she has not seen in 1 year. She used to live in a prison but lives with her parents now. She has never smoked are use drugs. She does not use alcohol. Her mother is her guardian. She is a full code. Smoking status: Never smoker Second hand tobacco smoke exposure: No Alcohol intake: never Substance use: never Gender identity (if verbalized by the patient): Female Spiritual care concerns: No Exam Const: General: alert Orientation/consciousness: patient oriented x3 HENMT: Mouth: Yes dry mucous membranes Eyes: EOM: EOMs intact bilaterally Chest: Chest palpation & inspection: normal inspection of the chest Resp: Effort & Inspection: normal respiratory effort and no retractions Auscultation: clear to auscultation bilaterally Cardio: Rate: regular rate Rhythm: regular rhythm Heart sounds: no murmurs GI: GI Palp: Yes Soft to palpation, No Tenderness to palpation present (GI) and No Guarding due to palpation present (GI) Auscultation: normal bowel sounds Neuro: General: patient oriented x3 and moves all extremities Course Reevaluation(s) Reevaluation #1: Patient appears dehydrated with dry mucous membranes . She has an increase in her lipase but no abdominal tenderness. HEr LFTS are elevated but they have decreased compared to last set of labs. She had CT scan performed on the last ED visit so will hold off on repeat. Date: 11/23/20 Time: 11:30 Consultations Consultation #1: I discussed case with DR. Shad robertson who accepts to
--- NOTE | 2020-11-23 08:40 | PC.NURSE ---
Attempt at lab draw unsuccessful per this RN.
[2020-11-23] MEDS: ONDANSETRON HCL ODT 4 MG TABLET 8 MG PO (08:53)
[2020-11-23] MEDS: SODIUM CHLORIDE 0.9% IV 2,000 ML 999 ML IV CONT (08:53)
--- NOTE | 2020-11-23 09:05 | PC.NURSE ---
voice intercept technician unable to collect lab specimans, charge accounts audit clerk aware and contacting phlebotomy.
--- NOTE | 2020-11-23 09:05 | PC.NURSE ---
called signs sales representative to draw pt's blood. Unable per Juan KEMP x 3 sticks by multiple staff.
--- NOTE | 2020-11-23 09:09 | PC.NURSE ---
Service Desk Agent here for lab draw.
[2020-11-23 09:12] LABS: Add Urine Microscopic? YES; Appearance Urine Cloudy (Clear); Bilirubin Urine 1+ (Negative); Blood Urine 1+ (Negative); Color Urine Amber (Yellow); Glucose Urine UA 1+ mg/dL (Negative); Ketones Urine 2+ mg/dL (Negative); Leukocyte Esterase Ur 2+ LEU/UL (Negative); Mucus Urine Rare /lpf; Nitrate Urine Negative (Negative); Protein Urine 2+ mg/dL (Negative); Specific Grav Ur 1.024 (1.001-1.035); Squamous Epithelial Cell Urine Occasional /hpf (Few); WBC Urine 0-3 /hpf
[2020-11-23 09:30] LABS: Basophils Absolute Auto 0.1 K/mm3 (0.0-0.1); Eosinophils Percent Auto 0.3 % (0-4.4); Hematocrit 32.8 % (37.0-47.0); Hemoglobin 11.5 g/dL (12.0-15.0); Immature Granulocyte Absolute 0.02 K/mm3 (0.00-0.031); Immature Granulocyte Percent A 0.6 % (0-0.5); Lymphocytes Absolute Auto 0.18 K/mm3 (0.9-3.2); Lymphocytes Percent Auto 5.2 % (18.3-44.2); Mean Corpuscular HGB Conc 35.1 g/dl (32-36); Mean Corpuscular Hemoglobin 34.8 pg (26-34); Mean Corpuscular Volume 99.4 fl (80-100); Mean Platelet Volume 9.4 fl (7.4-10.4); Monocytes Absolute Auto 0.3 K/mm3 (0.1-0.6); Monocytes Percent Auto 9.5 % (2.6-8.5); Neutrophils Absolute Auto 2.9 K/mm3 (1.3-6.7); Neutrophils Percent Auto 82.4 % (45.5-73.1); Platelet Count Result 290 k/mm3 (150-375); Red Cell Distribution Width 15.3 % (11.5-14.5); White Blood Count 3.5 K/mm3 (4.5-10.0)
[2020-11-23] MEDS: METOCLOPRAMIDE HCL INJ 10 MG/2 ML VIAL IV PUSH (09:42)
[2020-11-23 09:44] LABS: Alanine Aminotransferase 120 U/L (4-35); Alkaline Phosphatase 211 U/L (38-126); Anion Gap 14 mmol/L (8-16); Aspartate Amino Transferase 59 U/L (14-36); Bilirubin,Total 1.8 mg/dL (0.2-1.3); Blood Urea Nitrogen 4 mg/dL (7-17); Calcium 8.6 mg/dL (8.4-10.2); Carbon Dioxide 16 mmol/L (22-30); Chloride 114 mmol/L (98-107); Estimated CRCL calculation 111 ml/min; Estimated Glomerular Filt Rate > 60; Glucose 144 mg/dL (65-105); Lipase 718 U/L (23-300); Potassium 3.3 mmol/L (3.4-5.0); Sodium 144 mmol/L (137-145)
--- NOTE | 2020-11-23 11:13 | PC.NURSE ---
Report to VIRIDIANA Garnett, to continue care. Pt states nausea is gone and is feeling better. Sip of water given po. Pt ambulatory to bathroom to void.
--- NOTE | 2020-11-23 12:47 | PC.NURSE ---
This patient, Leah Andrade, was admitted to Medical Room 346-01. Patient/family oriented to hospital policies and general routines including ID bracelet, bed and alarms, visiting hours, pain management, procedures, bathroom and other care routines, personal items, smoking policy, room service/diet, and visiting hours. Information on how to activate the Rapid Response Team has been discussed. Patient/Family are encouraged to report perceived risks to care and to ask questions if they do not understand what they are told or what they should do.
[2020-11-23] MEDS: LACTATED RINGERS 1,000 ML 125 ML IV CONT (13:31)
[2020-11-23] MEDS: levETIRAcetam 1000MG/NACL100ML 1,000 MG/100 ML BAG 400 MG IVPB ×2 (13:51→22:25)
[2020-11-23] MEDS: ONDANSETRON INJ 4 MG/2 ML VIAL IV PUSH (17:42)
--- NOTE | 2020-11-23 18:46 | PM.IMHP ---
H&P: HPI History of Present Illness Date/Time: 11/23/20 18:46 this is a 30-year-old female patient who was discharged from here on 11/16/2020. The patient had dyskinesia of the gallbladder and had a laparoscopic cholecystectomy by Dr. Cavazos on 11/12/2020. Her LFTs and total bilirubin were elevated but are now starting to come down. The patient was able to tolerate clear liquid diet and was discharged to home and was to follow-up with Dr. Kamara in 2 weeks. She had intractable nausea and vomiting. Patient underwent an EGD on 11/15/[address] Holloway because and there was no findings to explain symptoms. She has a history of seizure disorder and is on high doses of Keppra. Patient had some adjustments with her seizure medicine at that time. The patient did follow-up with Dr. Kamara on 11/21/2020. The patient continues to experience intractable nausea and vomiting since her surgery. She also went to the ER on 11/21/[address] or and had a CT scan performed which shows a 1.8 x 0.9 x 0.6 cm rim enhancing fluid collection in the gallbladder fossa, likely subacute hematoma bilaterally nonobstructive kidney stones. She was given Reglan which she med to help her. The patient has lost approximately 50 lb since her symptoms started in October. The patient came back to the emergency room today for evaluation of nausea and vomiting. She has multiple hospitalizations and ER visits for evaluation of nausea and vomiting. Dr. Holloway had been consulted. H&H 11.5 and 32.8. Potassium 3.3. AST 59 come and ALT 120 and alkaline phosphatase 211. Lipase 718. The patient was given Zofran, IV fluids, and Reglan. The patient initially was NPO but then she received an order for clear liquids. Patient vomited shortly after being given water. I returned her back to the NPO status. Patient is being admitted to observation status on the date of service of 11/24/2019. Chief Complaint: Intractable nausea vomiting Review of Systems Review of Systems: All systems reviewed & are unremarkable except as noted in HPI and below Constitutional: Constitutional: Reports as per HPI and Reports no additional constitutional complaints Eyes: Eyes: Reports as per HPI and Reports no additional eye complaints ENT: Reports system reviewed and no additional complaints, except as documented and Reports Normal hearing present Cardiovascular: Cardiovascular: Reports no additional cardiovascular complaints Respiratory: Respiratory: Reports no additional respiratory complaints and Reports no additional respiratory complaints Gastrointestinal: Gastrointestinal: Reports as per HPI and Reports no additional gastrointestinal complaints Musculoskeletal: Musculoskeletal: Reports no additional musculoskeletal complaints Integumentary/Breasts: Skin/Breast: Reports system reviewed and no additional complaints, except as docu and Reports as per HPI Neurologic: Reports system reviewed and no additional complaints, except as documented, Reports as per HPI and Reports Normal hearing present Psychiatric: Psychiatric: Reports no additional psychiatric complaints and Reports as per HPI Endocrine: Endocrine: Reports no additional endocrine complaints Hematologic/Lymphatic: Hematologic/Lymphatic: Reports no additional hematologic/lymphatic complaints Allergic/Immunologic: Allergic/Immunologic: Reports no additional allergic/immunologic complaints COUNT INCLUDES THE [facility] Past Medical History Medical History (Updated 11/23/20 @ 19:08 by Ching Chávez NP) Abnormal CT scan, colon Bipolar affective disorder Epilepsy H/O thyroid cyst That was excised Intractable nausea and vomiting Irritable bowel syndrome (IBS) Left wrist fracture Mentally disabled Nausea and vomiting Seizures Sludge in gallbladder Dysfunctional gallbladder Surgical History Surgical History S/P cholecystectomy 11/12/20 S/P middle ear reconstruction Family History Family History
[2020-11-23 20:27] LABS: Ammonia 62 umol/L (9-30); Magnesium 1.6 mg/dL (1.6-2.3)
[2020-11-23] MEDS: TOPIRAMATE 100 MG TABLET 400 MG PO (20:32)
[2020-11-23] MEDS: FAMOTIDINE 20 MG/2 ML VIAL IV PUSH (22:15)
[2020-11-24] MEDS: LACTATED RINGERS 1,000 ML 125 ML IV CONT ×3 (00:33→23:12)
[2020-11-24] MEDS: levETIRAcetam 1000MG/NACL100ML 1,000 MG/100 ML BAG 400 MG IVPB ×3 (05:42→21:22)
[2020-11-24 06:08] LABS: Basophils Percent Auto 1.8 % (0.2-1.2); Eosinophils Absolute Auto 0.1 K/mm3 (0-0.3); Eosinophils Percent Auto 3.2 % (0-4.4); Hematocrit 26.8 % (37.0-47.0); Hemoglobin 9.2 g/dL (12.0-15.0); Immature Granulocyte Absolute 0.01 K/mm3 (0.00-0.031); Immature Granulocyte Percent A 0.5 % (0-0.5); Lymphocytes Absolute Auto 0.81 K/mm3 (0.9-3.2); Lymphocytes Percent Auto 36.7 % (18.3-44.2); Mean Corpuscular HGB Conc 34.3 g/dl (32-36); Mean Corpuscular Hemoglobin 33.6 pg (26-34); Mean Corpuscular Volume 97.8 fl (80-100); Mean Platelet Volume 9.2 fl (7.4-10.4); Monocytes Absolute Auto 0.5 K/mm3 (0.1-0.6); Monocytes Percent Auto 20.4 % (2.6-8.5); Neutrophils Absolute Auto 0.8 K/mm3 (1.3-6.7); Neutrophils Percent Auto 37.4 % (45.5-73.1); Platelet Count Result 227 k/mm3 (150-375); Red Blood Count 2.74 M/mm3 (4.2-5.4); Red Cell Distribution Width 15.5 % (11.5-14.5); White Blood Count 2.2 K/mm3 (4.5-10.0)
[2020-11-24 06:16] VITALS: BP 123/71; PULSE 103; RESP 12; TEMP 36.5; O2SAT 100
[2020-11-24 06:21] LABS: Alanine Aminotransferase 88 U/L (4-35); Albumin Level 2.9 g/dL (3.5-5.1); Alkaline Phosphatase 158 U/L (38-126); Anion Gap 8 mmol/L (8-16); Aspartate Amino Transferase 64 U/L (14-36); Bilirubin,Total 1.1 mg/dL (0.2-1.3); Carbon Dioxide 18 mmol/L (22-30); Chloride 109 mmol/L (98-107); Estimated CRCL calculation 173 ml/min; Estimated Glomerular Filt Rate > 60; Glucose 106 mg/dL (65-105); Lipase 1294 U/L (23-300); Potassium 2.9 mmol/L (3.4-5.0); Sodium 135 mmol/L (137-145)
[2020-11-24 06:29] LABS: Blood Urea Nitrogen < 2 mg/dL (7-17)
[2020-11-24 08:00] VITALS: PULSE 103; RESP 12; O2SAT 100
[2020-11-24 08:12] VITALS: O2SAT 100
[2020-11-24] MEDS: TOPIRAMATE 100 MG TABLET 300 MG PO (08:20)
[2020-11-24] MEDS: FAMOTIDINE 20 MG/2 ML VIAL IV PUSH ×2 (09:14→21:23)
--- NOTE | 2020-11-24 12:33 | WPDGICN ---
Assessment and Plan Assessment and plan (1) Intractable vomiting with nausea: Code(s): R11.2 - Nausea with vomiting, unspecified Status: Acute Assessment and Plan: continue with antiemetics egd recently normal, had lap christin noted recent CT scan, possible subacute hematoma at GB fossa- will get ruq ultrasound to assess may need gastric emptying study if was not done before (2) Pancreatitis: Code(s): K85.90 - Acute pancreatitis without necrosis or infection, unspecified Status: Acute Assessment and Plan: possible pancreatitis, elevated lipase but liver enzymes improved no abdominal pain, liquid diet for now (3) Chronic cholecystitis without calculus: Code(s): K81.1 - Chronic cholecystitis Status: Acute Assessment and Plan: recent lap christin hida scan after surgery no bile leak (4) Dehydration: Code(s): E86.0 - Dehydration Status: Acute (5) Hypokalemia: Code(s): E87.6 - Hypokalemia Status: Acute Assessment and Plan: replacing, monitor (6) Mentally disabled: Code(s): F79 - Unspecified intellectual disabilities Status: Acute (7) Seizures: Code(s): R56.9 - Unspecified convulsions Status: Chronic Assessment and Plan: on meds (8) Transaminitis: Code(s): R74.01 - Elevation of levels of liver transaminase levels Status: Acute Assessment and Plan: multifactorial (recent surgeries, on seizure meds) but improving GI Consult Note Consult date/time: 11/24/20 12:33 Reason for consult: n/v, pancreatitis HPI: Leah Andrade is a 30 year old female who is well known to me from a recent hospitalization after ongoing N/V since October 24 for which she was in other hospital, also has mild mental retardation but highly functional and seizures. She finally was admitted here recently and diagnosed with dyskinesia of the gallbladder and had a laparoscopic cholecystectomy by Dr. Kamara on 11/12/2020, also EGD by me that was unremarkable. I talked to her mother few days ago because persistent nausea, given new antiemetics but she returned to ER 11/20 and given reglan but had to come back again because persistent nausea and vomiting. Labs in ER showed Hb 11.5, Potassium 3.3, AST 59, ALT 120 and alkaline phosphatase 211, normal bili today, Lipase 718 then 1200. She also had CT a/p on 11/20 when she came to ER that was reviewed and showed 1.8 x 0.9 x 0.6 cm rim-enhancing fluid collection in the gallbladder fossa, likely subacute hematoma. Her mother is not here today, she says that is feeling better, denies abdominal pain. Review of Systems Constitutional: Constitutional: Denies chills Eyes: Eyes: Reports no additional eye complaints ENT: Reports system reviewed and no additional complaints, except as documented Cardiovascular: Cardiovascular: Reports no additional cardiovascular complaints Respiratory: Respiratory: Reports no additional respiratory complaints Gastrointestinal: Gastrointestinal: Reports nausea and Reports vomiting Genitourinary: Genitourinary: Denies hematuria Musculoskeletal: Musculoskeletal: Reports no additional musculoskeletal complaints Integumentary/Breasts: Skin/Breast: Denies dry skin Neurologic: Comments: h/o seizures on meds Psychiatric: Psychiatric: Reports anxiety [facility] Past Medical History Medical History Abnormal CT scan, colon Bipolar affective disorder Epilepsy H/O thyroid cyst That was excised Intractable nausea and vomiting Irritable bowel syndrome (IBS) Left wrist fracture Mentally disabled Nausea and vomiting Seizures Sludge in gallbladder Dysfunctional gallbladder Surgical History Surgical History S/P cholecystectomy 11/12/20 S/P middle ear reconstruction Family History Family History
[2020-11-24] MEDS: MAGNESIUM SULF 2 GM/WATER 50ML 2 GM/50 ML BAG IVPB (13:01)
[2020-11-24 13:54] VITALS: BP 114/80; PULSE 87; RESP 18; TEMP 36.5; O2SAT 100
--- NOTE | 2020-11-24 14:29 | WPDURCON ---
Assessment and Plan Assessment and plan (1) Kidney stone: Code(s): N20.0 - Calculus of kidney Status: Acute Assessment and Plan: Reviewed today's CT results with patient and her mother. She has bilateral nonobstructing renal stones L>R. There is no hydro/obstruction. Had recent urine cx showing mixed jillian and no active infection. No flank pain and normal renal function. These nonobstructing stones were present on outside CTs from over a month ago. I explained that these nonobstructing stones are very unlikely to be the source of her recent nausea/vomiting. Agree with GI consult re: elevated lipase and hematoma in GB fossa. I recommended outpatient f/u with Dr. Alatorre or Jessica to discuss possible ESWL of the 11 mm L renal stone. Her mother states she has their contact info and will make Leah an appt in clinic. Please call with questions. Urology Consult Note HPI Date Seen: 11/24/20 Requesting Physician: Fred Hill MD Primary Care Provider: Davis King DO Consult Narrative Narrative: Leah Andrade is a 30 year old female being seen at the request of Dr. Hill for kidney stones. Pt is admitted with intractable nausea and vomiting after recent cholecystectomy. Is being evaluated by GI for elevated lipase. As part of her evaluation over the last few months, she has had several CTs, last of which was performed today. She has a small nonobstructing R renal stone and several nonobstructing left renal stones, largest of which is 11 mm. There is no hydro. She denies dysuria or hematuria. Has FH of father with stones who has been followed by Drs. Richter. Pt states she is feeling much better today and is holding down liquids with no nausea. Review of Systems Constitutional: Constitutional: Reports anorexia, Reports fatigue and Reports poor appetite Eyes: Eyes: Reports no additional eye complaints ENT: Reports system reviewed and no additional complaints, except as documented Cardiovascular: Cardiovascular: Reports no additional cardiovascular complaints Respiratory: Respiratory: Reports no additional respiratory complaints Gastrointestinal: Gastrointestinal: Reports nausea and Reports vomiting Genitourinary: Genitourinary: Reports no additional female genitourinary complaints Musculoskeletal: Musculoskeletal: Reports no additional musculoskeletal complaints Neurologic: Reports system reviewed and no additional complaints, except as documented [facility] Past Medical History Medical History (Updated 11/24/20 @ 12:42 by Krzysztof Mazariegos MD) Abnormal CT scan, colon Bipolar affective disorder Dehydration Epilepsy H/O thyroid cyst That was excised Intractable nausea and vomiting Irritable bowel syndrome (IBS) Left wrist fracture Mentally disabled Nausea and vomiting Pancreatitis Seizures Sludge in gallbladder Dysfunctional gallbladder Surgical History Surgical History S/P cholecystectomy 11/12/20 S/P middle ear reconstruction Family History Family History Mother Depression Family history of cataracts Hypertension Father Hypertension Social History Social History Social History: The patient lives with her parents. She has a fiance whom she has not seen in 1 year. She used to live in a chcf but lives with her parents now. She has never smoked are use drugs. She does not use alcohol. Her mother is her guardian. She is a full code. Smoking status: Never smoker Second hand tobacco smoke exposure: No Alcohol intake: never Substance use: never Gender identity (if verbalized by the patient): Female Spiritual care concerns: No Meds Home Medications and Allergies Home Medications Medication Instructions Recorded Confirmed Type levetiracetam [Keppra] 1,000
--- NOTE | 2020-11-24 15:44 | PM.IMPN ---
Progress Note: A&P Assessment and Plan (1) Intractable vomiting with nausea: Code(s): R11.2 - Nausea with vomiting, unspecified Status: Acute Assessment and Plan: unclear etiology. elevaetd lipase noted,which is increasing. s/o acute pancreatitis. will get ct abdomen and pelvis for evaluation. GI consutled as well. recent ct form showeing small GB fossa hematoma, will reevaluate htis area as well. no signs of uti on ua. recently s/p cholecystectomy. possible related to antiseizure medicaitons however she has been off some of the previous medications. eGD recently with no abnormality noted. clear liquid diet, advance slowly as tolerated. contineu ivf for acute pancreatitis (2) Acute dehydration: Code(s): E86.0 - Dehydration Status: Acute Assessment and Plan: Continue with IV fluids. (3) Kidney stone: Code(s): N20.0 - Calculus of kidney Status: Acute Assessment and Plan: Continue with IV fluids and we can strain her urine. Urology consulted as requested. (4) Transaminitis: Code(s): R74.01 - Elevation of levels of liver transaminase levels Status: Acute Assessment and Plan: . The patient recently had a cholecystectomy. (5) Epilepsy: Code(s): G40.909 - Epilepsy, unspecified, not intractable, without status epilepticus Status: Chronic Assessment and Plan: Neurology has been consulted. I changed her to IV Keppra will attempt to get p.o. Topamax down. Further recommendations per Neurology (6) Acute pancreatitis: Code(s): K85.90 - Acute pancreatitis without necrosis or infection, unspecified Status: Acute (7) Electrolyte imbalance: Code(s): E87.8 - Other disorders of electrolyte and fluid balance, not elsewhere classified Status: Acute Assessment and Plan: replace, monitor (8) Leukopenia: Code(s): D72.819 - Decreased white blood cell count, unspecified Status: Acute Assessment and Plan: monitor counts Subjective Date/time seen: 11/24/20 15:44 Interval history: feels better today. wants to try orange popsicle. no abdominal jaron. had multipole episodes of nausea vomitig. no dairrhea. Review of Systems Constitutional: Constitutional: Denies body ache(s), Denies fatigue and Denies lethargy Eyes: Eyes: Denies blurry vision and Denies photophobia ENT: Denies Normal hearing present and Denies tinnitus Cardiovascular: Cardiovascular: Denies lightheadedness and Denies palpitations Respiratory: Respiratory: Denies dyspnea and Denies dyspnea on exertion Gastrointestinal: Gastrointestinal: Denies abdominal pain, Denies constipation, Denies diarrhea, Reports nausea and Reports vomiting Genitourinary: Genitourinary: Denies hematuria and Denies flank pain Musculoskeletal: Musculoskeletal: Denies back pain and Denies neck pain Integumentary/Breasts: Skin/Breast: Denies dry skin and Denies unusual bruising Neurologic: Denies headache(s) and Denies numbness Psychiatric: Psychiatric: Denies confusion and Denies depression Exam Const: General: cooperative, healthy appearing, comfortable, no acute distress, well developed, alert, awake and Physically active Nutritional Appearance: average body habitus Orientation/consciousness: oriented to person, oriented to place, oriented to time and patient oriented x3 Limitations: other limitations (Mentally challenged) HENMT: Head: normal to inspection, No palpable skull fracture present, normocephalic and atraumatic Ears: hearing grossly normal bilaterally and external ears normal General nose exam: Normal external nose present Eyes: General: appearance normal, both eyes and all related structures Alignment and Position: alignment normal Periorbital: periorbital findings normal Eyelids: eyelids normal Conjunctivae: conjunctivae normal Sclera: sclerae normal Cornea: corneas normal Pupils: Equal, round and reactive pupils present and
[2020-11-24 16:57] LABS: Potassium 3.3 mmol/L (3.4-5.0)
[2020-11-24 20:14] VITALS: BP 118/83; PULSE 94; RESP 14; TEMP 36.8; O2SAT 100
[2020-11-24] MEDS: TOPIRAMATE 100 MG TABLET 400 MG PO (21:23)
--- NOTE | 2020-11-25 03:22 | PC.NURSE ---
Daylight Savings Time For Daylight Savings Time Ending in the Fall - Clocks are moved back. For Daylight Savings Time Beginning in the Spring - Clocks are moved ahead. For [facility], the time of change occurs at 0200 hrs. Time is taken from the sql server developer. This entry on the patient's chart recognizes the change in time reflected during documentation. Example: 2 entries for vital signs may be charted for 0200 hrs.
[2020-11-25] MEDS: levETIRAcetam 1000MG/NACL100ML 1,000 MG/100 ML BAG 400 MG IVPB ×3 (05:18→21:40)
[2020-11-25 05:50] LABS: Basophils Percent Auto 1.4 % (0.2-1.2); Eosinophils Absolute Auto 0.1 K/mm3 (0-0.3); Eosinophils Percent Auto 3.6 % (0-4.4); Hematocrit 29.7 % (37.0-47.0); Hemoglobin 10.5 g/dL (12.0-15.0); Immature Granulocyte Absolute 0.02 K/mm3 (0.00-0.031); Immature Granulocyte Percent A 0.7 % (0-0.5); Lymphocytes Absolute Auto 1.12 K/mm3 (0.9-3.2); Lymphocytes Percent Auto 39.9 % (18.3-44.2); Mean Corpuscular HGB Conc 35.4 g/dl (32-36); Mean Corpuscular Hemoglobin 34.1 pg (26-34); Mean Corpuscular Volume 96.4 fl (80-100); Mean Platelet Volume 9.6 fl (7.4-10.4); Monocytes Absolute Auto 0.4 K/mm3 (0.1-0.6); Monocytes Percent Auto 13.2 % (2.6-8.5); Neutrophils Absolute Auto 1.2 K/mm3 (1.3-6.7); Neutrophils Percent Auto 41.2 % (45.5-73.1); Platelet Count Result 246 k/mm3 (150-375); Red Blood Count 3.08 M/mm3 (4.2-5.4); Red Cell Distribution Width 14.9 % (11.5-14.5); White Blood Count 2.8 K/mm3 (4.5-10.0)
[2020-11-25 05:54] VITALS: BP 109/71; PULSE 80; RESP 12; TEMP 36.4; O2SAT 100
[2020-11-25 06:38] LABS: Alanine Aminotransferase 92 U/L (4-35); Albumin Level 3.3 g/dL (3.5-5.1); Alkaline Phosphatase 155 U/L (38-126); Anion Gap 7 mmol/L (8-16); Aspartate Amino Transferase 80 U/L (14-36); Bilirubin,Total 1.1 mg/dL (0.2-1.3); Calcium 8.2 mg/dL (8.4-10.2); Carbon Dioxide 18 mmol/L (22-30); Chloride 110 mmol/L (98-107); Estimated CRCL calculation 173 ml/min; Estimated Glomerular Filt Rate > 60; Glucose 108 mg/dL (65-105); Magnesium 2.1 mg/dL (1.6-2.3); Potassium 3.3 mmol/L (3.4-5.0); Sodium 135 mmol/L (137-145)
[2020-11-25 06:48] LABS: Blood Urea Nitrogen < 2 mg/dL (7-17); Lipase 2069 U/L (23-300)
[2020-11-25 08:00] VITALS: PULSE 80; RESP 12; O2SAT 100
[2020-11-25] MEDS: TOPIRAMATE 100 MG TABLET 300 MG PO (08:46)
[2020-11-25] MEDS: FAMOTIDINE 20 MG/2 ML VIAL IV PUSH ×3 (08:46→20:18)
[2020-11-25] MEDS: LACTATED RINGERS 1,000 ML 125 ML IV CONT ×2 (08:53→17:04)
--- NOTE | 2020-11-25 12:47 | WPDGIPROGNO ---
Progress Note: A&P Assessment and Plan (1) Intractable vomiting with nausea: Code(s): R11.2 - Nausea with vomiting, unspecified Status: Acute Assessment and Plan: advance diet as tolerated, she is not feeling like eating much will add protein shakes, continue with antiemetics prn (2) Acute pancreatitis: Code(s): K85.90 - Acute pancreatitis without necrosis or infection, unspecified Status: Acute Assessment and Plan: CT Scan reviewed, no obvious pancreatitis, also noted 1.6 cm mass in the gallbladder fossa, likely subacute hematoma (recent cholecystectomy). (3) Elevated lipase: Code(s): R74.8 - Abnormal levels of other serum enzymes Status: Acute Assessment and Plan: ct scan no obvious pancreatitis but elevated lipase liquid diet and advance as tolerated (4) Abnormal CT of the abdomen: Code(s): R93.5 - Abnormal findings on diagnostic imaging of other abdominal regions, including retroperitoneum Status: Acute (5) Dehydration: Code(s): E86.0 - Dehydration Status: Acute (6) Mentally disabled: Code(s): F79 - Unspecified intellectual disabilities Status: Acute (7) Seizures: Code(s): R56.9 - Unspecified convulsions Status: Chronic (8) Transaminitis: Code(s): R74.01 - Elevation of levels of liver transaminase levels Status: Acute Assessment and Plan: relatively stable, MRCP in the past recovering from lap christin, also on different meds Subjective Date/time seen: 11/25/20 12:47 Interval history: she is complaining of mid abdominal pain but exam is benign, not eating much. No report of vomiting Review of Systems Review of Systems: All systems reviewed & are unremarkable except as noted in HPI and below Exam Const: General: no acute distress HENMT: General nose exam: Normal nares present Eyes: General: appearance normal, both eyes and all related structures Neck: Neck: supple Resp: Auscultation: clear to auscultation bilaterally Cardio: Rate: regular rate GI: GI Palp: Yes Soft to palpation and No Firmness to palpation present (GI) Auscultation: normal bowel sounds Skin: General skin exam: normal color Neuro: Speech: normal speech Extrem: General: no edema Psych: Other: alert and oriented, flat affect Objective Data Vital Signs Vital Signs: Vital Signs - 24 hr 11/24/20 13:54 11/24/20 20:14 11/25/20 05:54 Temperature 97.7 F 98.3 F 97.5 F L Pulse Rate 87 94 80 Respiratory Rate 18 14 12 Blood Pressure 114/80 118/83 109/71 Pulse Oximetry 100 100 100 11/25/20 08:00 Temperature Pulse Rate 80 Respiratory Rate 12 Blood Pressure Pulse Oximetry 100 Intake/Output Intake/Output: Intake & Output 11/22/20 11/23/20 11/24/20 11/26/20 23:59 23:59 23:59 00:59 Intake Total 3460 3350 1100 Output Total 725 1100 1450 Balance 2735 2250 -350 Meds/Results Medications: Active Medications Generic Name Dose Route Start Last Admin Trade Name Freq PRN Reason Stop Dose Admin Famotidine 20 mg 11/23/20 21:00 11/25/20 08:46 Famotidine 20 Mg/2 Ml Vial IV PUSH 20 mg Q12HR ANTHONY Administration Lactated Ringer's 1,000 mls @ 125 mls/hr 11/23/20 11:55 11/25/20 08:53 Lr - Lactated Ringers Iv IV CONT 125 mls/hr .Q8H ANTHONY Administration Levetiracetam 1,000 mg in 100 mls @ 400 mls/hr 11/23/20 22:00 11/25/20 05:33 Keppra Iv IVPB Infused Q8HR ANTHONY Infusion Lorazepam 1 mg 11/23/20 17:37 Lorazepam Inj (*Crx) 2 Mg/Ml Vial IV PUSH Q6H PRN Anxiety Lorazepam 1 mg 11/23/20 19:08 Lorazepam Inj (*Crx) 2 Mg/Ml Vial IV PUSH Q6H PRN Anxiety Ondansetron HCl 4 mg 11/23/20 11:51 11/23/20 17:42 Ondansetron Inj 4 Mg/2 Ml Vial IV PUSH 4 mg Q4H PRN Administration Nausea Topiramate 300 mg 11/24/20 09:00 11/25/20 08:46 Topiramate 100 Mg Tablet PO 300 mg QAM ANTHONY Administration Topiramate 400 mg 11/23/20
[2020-11-25 14:00] VITALS: BP 119/75; PULSE 91; RESP 16; TEMP 36.5; O2SAT 100
--- NOTE | 2020-11-25 16:33 | PM.IMPN ---
Progress Note: A&P Assessment and Plan (1) Intractable vomiting with nausea: Code(s): R11.2 - Nausea with vomiting, unspecified Status: Acute Assessment and Plan: Improved Advancing diet as tolerated (2) Acute dehydration: Code(s): E86.0 - Dehydration Status: Acute Assessment and Plan: Resolved We have discontinued iv fluids (3) Chronic cholecystitis without calculus: Code(s): K81.1 - Chronic cholecystitis Status: Acute Assessment and Plan: S/p cholecystectomy (4) Bipolar affective disorder: Code(s): F31.9 - Bipolar disorder, unspecified Status: Acute Assessment and Plan: Stable Continue home meds (5) Hepatic steatosis: Code(s): K76.0 - Fatty (change of) liver, not elsewhere classified Status: Acute Assessment and Plan: Likely secondary to diet Lifestyle and diet modifications. (6) Dyskinesia of gallbladder: Code(s): K82.8 - Other specified diseases of gallbladder Status: Acute Assessment and Plan: S/p surgical removal (7) Hypomagnesemia: Code(s): E83.42 - Hypomagnesemia Status: Resolved Assessment and Plan: Replace as needed (8) Intellectual disability: Code(s): F79 - Unspecified intellectual disabilities Status: Chronic Assessment and Plan: Supportive care Lives at home with parents Subjective Date/time seen: 11/25/20 16:33 States that she feels fine Review of Systems Review of Systems: Narrative: abdominal pain across the epigastric area Constitutional: Comments: denies any other issues. Exam Narrative: Exam Narrative: lying in bed. Const: General: comfortable, no acute distress, alert, awake and Physically active Nutritional Appearance: well nourished Orientation/consciousness: patient oriented x3 HENMT: Head: normal to inspection and normocephalic Ears: hearing grossly normal bilaterally General nose exam: Normal external nose present Face and sinus: normal facial exam Eyes: General: appearance normal, both eyes and all related structures Pupils: Equal, round and reactive pupils present EOM: EOMs intact bilaterally Neck: Neck: no lymphadenopathy, supple and no JVD Resp: Effort & Inspection: able to speak in complete sentences Auscultation: clear to auscultation bilaterally Cardio: Jugular venous distension: no JVD Rate: regular rate Rhythm: regular rhythm GI: GI Palp: Yes Soft to palpation and Yes No hepatosplenomegaly present Skin: Wounds: wounds noted (puncture wounds from laparoscopic surgery) Neuro: General: patient oriented x3 and CN's II-XI intact bilaterally Cranial nerves: Yes CN's II-XII intact bilaterally and Yes Equal, round and reactive pupils present Cognition (Neuro): normal cognition Speech: normal speech Motor exam (neuro): 5/5 motor strength present throughout Extrem: General: no pedal edema Objective Data Vital Signs Vital Signs: Vital Signs - 24 hr 11/24/20 20:14 11/25/20 05:54 11/25/20 08:00 Temperature 98.3 F 97.5 F L Pulse Rate 94 80 80 Respiratory Rate 14 12 12 Blood Pressure 118/83 109/71 Pulse Oximetry 100 100 100 11/25/20 14:00 Temperature 97.7 F Pulse Rate 91 Respiratory Rate 16 Blood Pressure 119/75 Pulse Oximetry 100 Intake/Output Intake/Output: Intake & Output 11/22/20 11/23/20 11/24/20 11/26/20 23:59 23:59 23:59 00:59 Intake Total 3460 3350 1100 Output Total 725 1100 1850 Balance 2735 2250 -750 Meds/Results Medications: Active Medications Generic Name Dose Route Start Last Admin Trade Name Freq PRN Reason Stop Dose Admin Famotidine 20 mg 11/23/20 21:00 11/25/20 08:46 Famotidine 20 Mg/2 Ml Vial IV PUSH 20 mg Q12HR ANTHONY Administration Lactated Ringer's 1,000 mls @ 125 mls/hr 11/23/20 11:55 11/25/20 08:53 Lr - Lactated Ringers Iv IV CONT 125 mls/hr .Q8H ANTHONY Administration Levetiracetam 1,000 mg in 100 mls @ 400 mls/hr 11/12
[2020-11-25 19:32] VITALS: BP 111/66; PULSE 88; RESP 16; TEMP 36.4; O2SAT 100
[2020-11-25] MEDS: TOPIRAMATE 100 MG TABLET 400 MG PO (20:17)
[2020-11-26] MEDS: LACTATED RINGERS 1,000 ML 125 ML IV CONT ×2 (01:22→10:26)
[2020-11-26 05:00] VITALS: BP 110/69; PULSE 79; RESP 16; TEMP 36.2; O2SAT 100
[2020-11-26] MEDS: levETIRAcetam 1000MG/NACL100ML 1,000 MG/100 ML BAG 400 MG IVPB ×3 (05:00→21:18)
[2020-11-26] MEDS: FAMOTIDINE 20 MG/2 ML VIAL IV PUSH ×2 (08:46→20:30)
[2020-11-26] MEDS: TOPIRAMATE 100 MG TABLET 300 MG PO (08:46)
[2020-11-26 14:00] VITALS: BP 120/81; PULSE 90; RESP 18; TEMP 36.7; O2SAT 100
--- NOTE | 2020-11-26 14:03 | PCDIET ---
Nutrition Follow-Up Complete: Inadequate Oral Intake as related to Nausea/Vomiting as evidenced by NPO Meet estimated nutritional needs Goal: Approaching goal. Continue goal. Pt current nutrition is Regular Nutrition recommendation: agree as tolerated Last recorded weight is 61.5 kg, down from 62.5kg on Thursday Bowel Motility:11/25 last BM Labs Reviewed:80/92 AST/ALT, Lipase 9, Glucose 108, K 3.3 Meds Noted: ELLIE's, Nicole swan Additional Notes: Pt on a regular diet. Denies pain with eating at this point. PO intake is 25, 10. and 40%. Gallbladder out November 12. Explained menu offerings and future need for digestive enzymes if pancreatitis reoccurs. Pt also had questions regarding wt loss. Discussed BMI and being in a good weight range at this time. We will continue to monitor for adequate intake every 5 days.
--- NOTE | 2020-11-26 16:50 | PM.IMPN ---
Progress Note: A&P Assessment and Plan (1) Chronic cholecystitis without calculus: Code(s): K81.1 - Chronic cholecystitis Status: Acute Assessment and Plan: S/p laparoscopic removal (2) Intractable vomiting with nausea: Code(s): R11.2 - Nausea with vomiting, unspecified Status: Acute Assessment and Plan: Resolved Tolerating po Advance diet as needed (3) Abnormal CT of the abdomen: Code(s): R93.5 - Abnormal findings on diagnostic imaging of other abdominal regions, including retroperitoneum Status: Acute Assessment and Plan: Hematoma present in the gall bladder fossa likely trauma during surgery. Stable RUQ US reviewed as well. (4) Electrolyte imbalance: Code(s): E87.8 - Other disorders of electrolyte and fluid balance, not elsewhere classified Status: Acute Assessment and Plan: Replace as needed (5) Acute pancreatitis: Code(s): K85.90 - Acute pancreatitis without necrosis or infection, unspecified Status: Acute Assessment and Plan: Lipase was elevated likely secondary to n/v Stable (6) Acute dehydration: Code(s): E86.0 - Dehydration Status: Acute Assessment and Plan: Resolved iv fluids have been discontinued (7) Bipolar affective disorder: Code(s): F31.9 - Bipolar disorder, unspecified Status: Acute Assessment and Plan: Stable (8) Hepatic steatosis: Code(s): K76.0 - Fatty (change of) liver, not elsewhere classified Status: Acute Assessment and Plan: Likely secondary to diet Lifestyle and diet modifications. Subjective Date/time seen: 11/26/20 16:50 States that she feels well. Review of Systems Review of Systems: Narrative: Denies any issues. Exam Narrative: Exam Narrative: Lying in bed. Const: General: comfortable and no acute distress Nutritional Appearance: average body habitus HENMT: Head: normal to inspection and normocephalic Ears: hearing grossly normal bilaterally General nose exam: Normal external nose present Face and sinus: normal facial exam Eyes: General: appearance normal, both eyes and all related structures Pupils: Equal, round and reactive pupils present EOM: EOMs intact bilaterally Neck: Neck: no lymphadenopathy, supple and no JVD Resp: Effort & Inspection: normal respiratory effort and able to speak in complete sentences Auscultation: clear to auscultation bilaterally Cardio: Rate: regular rate Rhythm: regular rhythm GI: GI Palp: Yes Soft to palpation and Yes No hepatosplenomegaly present Skin: Rashes: no rashes Neuro: General: patient oriented x3 and CN's II-XI intact bilaterally Cranial nerves: Yes CN's II-XII intact bilaterally and Yes Equal, round and reactive pupils present Cognition (Neuro): normal cognition Motor exam (neuro): 5/5 motor strength present throughout Extrem: General: no pedal edema Objective Data Vital Signs Vital Signs: Vital Signs - 24 hr 11/25/20 19:32 11/26/20 05:00 11/26/20 14:00 Temperature 97.6 F 97.2 F L 98.0 F Pulse Rate 88 79 90 Respiratory Rate 16 16 18 Blood Pressure 111/66 110/69 120/81 Pulse Oximetry 100 100 100 Intake/Output Intake/Output: Intake & Output 11/23/20 11/24/20 11/25/20 11/26/20 22:59 22:59 23:59 23:59 Intake Total 2965 Output Total 500 Balance 2465 Meds/Results Medications: Active Medications Generic Name Dose Route Start Last Admin Trade Name Freq PRN Reason Stop Dose Admin Famotidine 20 mg 11/23/20 21:00 11/26/20 08:46 Famotidine 20 Mg/2 Ml Vial IV PUSH 20 mg Q12HR ANTHONY Administration Levetiracetam 1,000 mg in 100 mls @ 400 mls/hr 11/23/20 22:00 11/26/20 13:21 Keppra Iv IVPB Infused Q8HR ANTHONY Infusion Lorazepam 1 mg 11/23/20 17:37 Lorazepam Inj (*Crx) 2 Mg/Ml Vial IV PUSH Q6H PRN Anxiety Lorazepam 1 mg 11/23/20 19:08 Lorazepam Inj (*Crx) 2 Mg/Ml Vial IV PUSH Q6H PRN
--- NOTE | 2020-11-26 16:53 | WPDGIPROGNO ---
Progress Note: A&P Assessment and Plan (1) Intractable vomiting with nausea: Code(s): R11.2 - Nausea with vomiting, unspecified Status: Acute Assessment and Plan: feeling better today, encourage to keep eating continue with antiemetics prn (2) Acute pancreatitis: Code(s): K85.90 - Acute pancreatitis without necrosis or infection, unspecified Status: Acute Assessment and Plan: CT Scan reviewed, no obvious pancreatitis, also noted 1.6 cm mass in the gallbladder fossa, likely subacute hematoma (recent cholecystectomy). (3) Elevated lipase: Code(s): R74.8 - Abnormal levels of other serum enzymes Status: Acute Assessment and Plan: ct scan no obvious pancreatitis but elevated lipase diet as tolerated (4) Abnormal CT of the abdomen: Code(s): R93.5 - Abnormal findings on diagnostic imaging of other abdominal regions, including retroperitoneum Status: Acute (5) Dehydration: Code(s): E86.0 - Dehydration Status: Acute (6) Mentally disabled: Code(s): F79 - Unspecified intellectual disabilities Status: Acute (7) Seizures: Code(s): R56.9 - Unspecified convulsions Status: Chronic Assessment and Plan: on meds, stable (8) Transaminitis: Code(s): R74.01 - Elevation of levels of liver transaminase levels Status: Acute Assessment and Plan: relatively stable, MRCP in the past recovering from lap christin, also on different meds Subjective Date/time seen: 11/26/20 16:53 Interval history: she is feeling better today and eating more, mother is at bedside, patient denies pain Review of Systems Review of Systems: All systems reviewed & are unremarkable except as noted in HPI and below Exam Const: General: no acute distress HENMT: General nose exam: Normal nares present Eyes: General: appearance normal, both eyes and all related structures Neck: Neck: supple Resp: Auscultation: clear to auscultation bilaterally Cardio: Rate: regular rate GI: GI Palp: Yes Soft to palpation and No Firmness to palpation present (GI) Auscultation: normal bowel sounds Skin: General skin exam: normal color Neuro: Speech: normal speech Extrem: General: no edema Psych: Other: alert and oriented, flat affect Objective Data Vital Signs Vital Signs: Vital Signs - 24 hr 11/25/20 19:32 11/26/20 05:00 11/26/20 14:00 Temperature 97.6 F 97.2 F L 98.0 F Pulse Rate 88 79 90 Respiratory Rate 16 16 18 Blood Pressure 111/66 110/69 120/81 Pulse Oximetry 100 100 100 Intake/Output Intake/Output: Intake & Output 11/23/20 11/24/20 11/25/20 11/26/20 22:59 22:59 23:59 23:59 Intake Total 2965 Output Total 500 Balance 2465 Meds/Results Medications: Active Medications Generic Name Dose Route Start Last Admin Trade Name Freq PRN Reason Stop Dose Admin Famotidine 20 mg 11/23/20 21:00 11/26/20 08:46 Famotidine 20 Mg/2 Ml Vial IV PUSH 20 mg Q12HR ANTHONY Administration Levetiracetam 1,000 mg in 100 mls @ 400 mls/hr 11/23/20 22:00 11/26/20 13:21 Keppra Iv IVPB Infused Q8HR ANTHONY Infusion Lorazepam 1 mg 11/23/20 17:37 Lorazepam Inj (*Crx) 2 Mg/Ml Vial IV PUSH Q6H PRN Anxiety Lorazepam 1 mg 11/23/20 19:08 Lorazepam Inj (*Crx) 2 Mg/Ml Vial IV PUSH Q6H PRN Anxiety Ondansetron HCl 4 mg 11/23/20 11:51 11/23/20 17:42 Ondansetron Inj 4 Mg/2 Ml Vial IV PUSH 4 mg Q4H PRN Administration Nausea Topiramate 300 mg 11/24/20 09:00 11/26/20 08:46 Topiramate 100 Mg Tablet PO 300 mg QAM ANTHONY Administration Topiramate 400 mg 11/23/20 21:00 11/25/20 20:17 Topiramate 100 Mg Tablet PO 400 mg HS ANTHONY Administration Radiology Results: ITS Impressions Upper Quadrant Ultrasound 11/24/20 13:39 IMPRESSION: 1. Stable small mass in the gallbladder fossa, likely subacute hematoma. Abdomen/Pelvis CT 11/24/20 13:50 IMPR
[2020-11-26 19:20] VITALS: BP 122/81; PULSE 100; RESP 18; TEMP 36.4; O2SAT 100
[2020-11-26] MEDS: TOPIRAMATE 100 MG TABLET 400 MG PO (20:32)
[2020-11-27 04:57] VITALS: BP 116/74; PULSE 87; RESP 18; TEMP 36.1; O2SAT 100
[2020-11-27] MEDS: levETIRAcetam 1000MG/NACL100ML 1,000 MG/100 ML BAG 400 MG IVPB (05:40)
[2020-11-27 05:49] LABS: Hematocrit 32.4 % (37.0-47.0); Hemoglobin 11.5 g/dL (12.0-15.0); Mean Corpuscular HGB Conc 35.5 g/dl (32-36); Mean Corpuscular Hemoglobin 34.7 pg (26-34); Mean Corpuscular Volume 97.9 fl (80-100); Mean Platelet Volume 9.6 fl (7.4-10.4); Platelet Count Result 229 k/mm3 (150-375); Red Blood Count 3.31 M/mm3 (4.2-5.4); White Blood Count 2.7 K/mm3 (4.5-10.0)
[2020-11-27 06:12] LABS: Anion Gap 10 mmol/L (8-16); Calcium 8.4 mg/dL (8.4-10.2); Carbon Dioxide 17 mmol/L (22-30); Chloride 110 mmol/L (98-107); Estimated CRCL calculation 173 ml/min; Estimated Glomerular Filt Rate > 60; Glucose 99 mg/dL (65-105); Potassium 2.9 mmol/L (3.4-5.0); Sodium 137 mmol/L (137-145)
[2020-11-27 07:12] LABS: Blood Urea Nitrogen < 2 mg/dL (7-17)
[2020-11-27] MEDS: FAMOTIDINE 20 MG/2 ML VIAL IV PUSH (09:02)
[2020-11-27] MEDS: TOPIRAMATE 100 MG TABLET 300 MG PO (09:03)
--- NOTE | 2020-11-27 12:23 | PM.DS ---
DS: Admitting Diagnosis Admitting Diagnosis Admitting Diagnosis: (1) Intractable vomiting with nausea: (2) Acute dehydration: . (3) Kidney stone: (4) Transaminitis: (5) Epilepsy: DS: Discharge Diagnosis Discharge Diagnosis (1) Acute pancreatitis: Code(s): K85.90 - Acute pancreatitis without necrosis or infection, unspecified Status: Acute Assessment and Plan: Elevated Lipase was probably secondary to intractable nausea and vomiting. (2) Electrolyte imbalance: Code(s): E87.8 - Other disorders of electrolyte and fluid balance, not elsewhere classified Status: Acute Assessment and Plan: Replaced as needed (3) Dehydration: Code(s): E86.0 - Dehydration Status: Acute Assessment and Plan: Resolved (4) Pancreatitis: Code(s): K85.90 - Acute pancreatitis without necrosis or infection, unspecified Status: Acute Assessment and Plan: S/p laparoscopic cholecystectomy (5) Acute dehydration: Code(s): E86.0 - Dehydration Status: Acute Assessment and Plan: Resolved. (6) Intractable vomiting with nausea: Code(s): R11.2 - Nausea with vomiting, unspecified Status: Acute Assessment and Plan: Resolved Tolerating po (7) Elevated lipase: Code(s): R74.8 - Abnormal levels of other serum enzymes Status: Acute Assessment and Plan: Resolved (8) Chronic cholecystitis without calculus: Code(s): K81.1 - Chronic cholecystitis Status: Acute Assessment and Plan: S/p laparoscopic cholecystectomy (9) Bipolar affective disorder: Code(s): F31.9 - Bipolar disorder, unspecified Status: Acute Assessment and Plan: Continue home meds (10) Hepatic steatosis: Code(s): K76.0 - Fatty (change of) liver, not elsewhere classified Status: Acute Assessment and Plan: Likely to be MEDINA (11) Transaminitis: Code(s): R74.01 - Elevation of levels of liver transaminase levels Status: Acute Assessment and Plan: Monitor in the outpatient setting Chronic (12) Dyskinesia of gallbladder: Code(s): K82.8 - Other specified diseases of gallbladder Status: Acute Assessment and Plan: S/p cholecystectomy. (13) Intellectual disability: Code(s): F79 - Unspecified intellectual disabilities Status: Chronic Assessment and Plan: Supportive care Community resources (14) Acute hypokalemia: Code(s): E87.6 - Hypokalemia Status: Acute Assessment and Plan: Resolved (15) Seizures: Code(s): R56.9 - Unspecified convulsions Status: Chronic Assessment and Plan: Stable Continue home meds (16) Nonalcoholic steatohepatitis (MEDINA): Code(s): K75.81 - Nonalcoholic steatohepatitis (MEDINA) Status: Acute Assessment and Plan: Unchanged Also family history of hemochromatosis DS: Summary Hospital Course Reason for hospitalization: Nausea and vomiting. Hospital Course: this is a 30-year-old female patient who was discharged from [facility] on 11/16/2020. The patient had dyskinesia of the gallbladder and had a laparoscopic cholecystectomy by Dr. Cavazos on 11/12/2020. Her LFTs and total bilirubin were elevated but are now trending down. The patient was able to tolerate clear liquid diet and was discharged to home and was to follow-up with Dr. Kamara in 2 weeks. She had intractable nausea and vomiting. Patient underwent an EGD on 11/15/[address] Holloway and there was no findings to explain symptoms. She has a history of seizure disorder and is on high doses of Keppra. Patient had some adjustments with her antiseizure meds. The patient did follow-up with Dr. Kamara on 11/21/2020. The patient continues to experience intractable nausea and vomiting since her surgery. She also went to the ER on 11/21/[address] a CT scan performed which shows a 1
--- NOTE | 2020-11-27 13:17 | PC.NURSE ---
Observed care provided by ROBERTA Finley [phone]
== END 2020-11-27 14:00 | disposition home or self-care (01) | DRG 392 ==
LOC: ANHED 08:00 → ANH3MED 12:07
PROVIDERS: Internal Medicine; Internal Medicine Gastroenterology; Nurse Practitioner; Admitting Provider Family Medicine; Emergency Provider General Practice; PCP Internal Medicine; Visit Provider Internal Medicine
DX: R11.2 Nausea with vomiting, unspecified (principal); K91.870 Postprocedural hematoma of a digestive system organ or structure following a digestive system procedure; N20.0 Calculus of kidney; K75.81 Nonalcoholic steatohepatitis (NASH); E87.6 Hypokalemia; E87.8 Other disorders of electrolyte and fluid balance, not elsewhere classified; E86.0 Dehydration; F31.9 Bipolar disorder, unspecified; G40.909 Epilepsy, unspecified, not intractable, without status epilepticus; K58.9 Irritable bowel syndrome, unspecified; F70 Mild intellectual disabilities; D72.819 Decreased white blood cell count, unspecified; Z90.49 Acquired absence of other specified parts of digestive tract
CPT/HCPCS: 36415; 74176; 76705; 80048; 80053; 81001; 81025; 82140; 83690; 83735; 84132; 85025; 85027; 96361; 96365; 96375; 96376; 99285; A9270; G0378; J1953; J2405; J2765; J3475; J3480; J7030; J7060; J7120

== ENCOUNTER 2020-12-07 08:29 | Inpatient (IN) | payer MEDICARE, MEDICAID, SELFPAY ==
[2020-12-07] VITALS (27 sets, daily range): BP systolic 100–121; BP diastolic 67–87; PULSE 83–100; RESP 14–21; TEMP 36.3–36.9; O2SAT 98–100; BMI 23.8
--- NOTE | ~2020-12-07 | XR_ITS ---
EXAMINATION: XR chest 1V portable EXAM DATE: 12/22/2020 12:55 INDICATION: Shortness of breath. TECHNIQUE: Portable AP frontal chest x-ray was obtained. Comparison is made to prior examination from 12/07/2020. FINDINGS: The lungs are clear. There are no pleural effusions. The cardiomediastinal silhouette is within normal limits. There is no pneumothorax suspected. There are cholecystectomy clips. There a re no osseous abnormalities identified. Moderate amount of gaseous distention of the transverse colon. IMPRESSION: No acute cardiopulmonary findings. Reviewed, dictated and finalized at location A.
--- NOTE | ~2020-12-07 | MR_ITS ---
EXAMINATION: MR brain/brain stem wo con DATE: 12/18/2020 13:04 INDICATION: Decreased motor skills. TECHNIQUE: Magnetic resonance imaging (MRI) of the brain and brainstem was performed without intraven ous contrast. Sequences included sagittal and axial T1-weighted FSE, axial diffusion-weighted FS EPI, axial T2*-weighted GRE, axial T2-weighted FLAIR Propeller, and axial T2-weighted Propeller. Apparent diffusion coefficient (ADC) maps were created. COMPARISON: Brain MRI 04/06/2018 FINDINGS: There is no intracranial hemorrhage, acute infarction, or abnormal intracranial mass lesion . The ventricles are normal in size. There is mild mucosal thickening in the ethmoid sinuses. The orb its are normal. The mastoid air cells are normal. IMPRESSION: 1. Normal brain. Reviewed, dictated and finalized at location A. IMPRESSION: 1. Normal brain.
--- NOTE | ~2020-12-07 | US_ITS ---
EXAMINATION: US abdomen limited DATE: 12/09/2020 12:06 INDICATION: Right upper quadrant pain, abnormal liver function tests TECHNIQUE: Multiple grayscale and Doppler ultrasound images of the abdomen were obtained. COMPARISON: CT and ultrasound dated 11/24/2020 FINDINGS: Bowel gas obscures visualization of the pancreas. The visualized portions of the pancreas a re unremarkable. The liver is normal with normal echogenicity and echotexture. No surface nodularity. Normal hepatopetal flow in the main portal vein. The gallbladder is surgically absent. A 10 mm hypoe choic area is seen in the gallbladder fossa which is decreased in size since the comparison examinati on, previously measuring 16 mm The normal common bile duct measures 4 mm. IMPRESSION: 1. Slight decrease in size of a previously described mass of the gallbladder fossa, likely resolving hematoma. Reviewed, dictated and finalized at location A. IMPRESSION: 1. Slight decrease in size of a previously described mass of the gallbladder fo ssa, likely resolving hematoma.
--- NOTE | ~2020-12-07 | XR_ITS ---
EXAMINATION: XR chest 1V portable EXAM DATE: 12/23/2020 11:45 INDICATION: Tachycardic, stupor, labored breathing. TECHNIQUE: Portable AP frontal chest x-ray was obtained. There is no prior study for comparison. FINDINGS: There is no focal air space disease. There are no pleural effusions. The cardiothymic jolly houette is normal. There is no pneumothorax. There are no osseous or soft tissue abnormalities in t his skeletally immature patient. Lungs have normal volume. IMPRESSION: No acute cardiopulmonary findings. Reviewed, dictated and finalized at location A.
--- NOTE | ~2020-12-07 | XR_ITS ---
EXAMINATION: XR lumbar puncture diagnostic EXAM DATE: 12/23/2020 10:10 INDICATION: Seizures. History of epilepsy. Abnormal neuro exam. TECHNIQUE: Procedure performed and completed on 12/23/2020 10:10. Informed consent was obtained by a kathyaher clinician from patient's mother for doing this procedure. I explained the procedure and reason for doing it with the patient who was cooperative. The DAP for this procedure was 0.08 Gycm2. Pulsed dose reduction fluoroscopy was used with fluoroscopic time of 0.1 minutes. A total of 2 images obtai sonia for the exam. A timeout procedure was performed. The back was prepped in standard sterile fashion with Betadine. L4-5 entry site was chosen under fluoroscopic guidance and infiltrated with 1% lidocaine. The thecal sac was then accessed from a right paracentral approach using a 3.5 22G needle. Opening pressure determined to be 12 mmHg, normal. A total of 15 mL of clear cerebral spinal fluid w ere then drained and placed in 4 consecutive vials which were labeled and sent to lab for analysis. There were no immediate complications. IMPRESSION: Status post fluoroscopic guided lumbar puncture. Reviewed, dictated and finalized at location A.
--- NOTE | ~2020-12-07 | MR_ITS ---
EXAMINATION: MR cervical spine wo con EXAM DATE: 12/22/2020 14:36 INDICATION: Epilepsy. Seizures. Abnormal neuro exam. TECHNIQUE: Multi-sequential, multiplanar MR images of the cervical spine were obtained without contra st. Axial T2, axial T2 MERGE sequence. Sagittal T1, T2, T2 fat saturation images also obtained. Th ere is no prior study for comparison. FINDINGS: Study is limited due to patient motion. The spinal cord signal intensity and intrinsic mor phology is normal. Cervicomedullary junction is normal in appearance. The vertebral bodies are aligne d in the AP dimension. Vertebral cervical body and disc heights are well-maintained. Mild chronic los s of T2 and T3 vertebral body heights at their superior endplates. Paraspinal soft tissue is unremark able. Evidence of mild cervical arthropathy, without appreciable neural foraminal stenosis. IMPRESSION: 1. Normal cervical cord signal. No canal stenosis. 2. Mild arthropathy. Reviewed, dictated and finalized at location A.
--- NOTE | ~2020-12-07 | NM_ITS ---
EXAM: NM gastric emptying study DATE: 12/13/2020 10:47 INDICATION: Nausea and vomiting TECHNIQUE: A gastric emptying study was performed using the methodology of Bennie SHORT, et al. J Nucl Med 2007; 48:568-572. The patient was given a meal consisting of 2 scrambled eggs labeled with 0.996 mCi Tc-99m sulfur colloid, 2 slices of toast, two packages of jam, and approximately 120 mL of water . The patient began vomiting after the first bite and the study was terminated without obtaining imag es. COMPARISON: None. FINDINGS/IMPRESSION: Incomplete study with no images recorded due to patient vomiting after taking the first bite of the r adiotracer labeled meal. Reviewed, dictated and finalized at location A.
--- NOTE | ~2020-12-07 | NM_ITS ---
EXAM: NM gastric emptying study DATE: 12/11/2020 08:35 INDICATION: Nausea and vomiting TECHNIQUE: A gastric emptying study was performed using the methodology of Bennie SHORT, et al. J Nucl Med 2007; 48:568-572. The patient was given a meal consisting of 2 scrambled eggs labeled with 1 mCi Tc-99m sulfur colloid, 2 slices of toast, two packages of jam, and approximately 120 mL of water. Ata fam vomited after taking 2 bites of food and study was terminated without obtaining images. COMPARISON: None. FINDINGS/IMPRESSION: Incomplete study with no images recorded due to patient vomiting after taking a couple bites of the r adiotracer labeled meal. Reviewed, dictated and finalized at location A.
--- NOTE | ~2020-12-07 | XR_ITS ---
EXAMINATION: XR chest 1V portable 12/07/2020 10:27 INDICATION: Cough and seizure PROCEDURE: AP portable chest COMPARISON: No prior studies for comparison. FINDINGS: The lungs are clear. The cardiomediastinal silhouette is within normal limits. There are no pleural effusions. There is no pneumothorax suspected. IMPRESSION: 1: NO ACUTE CARDIOPULMONARY DISEASE. Reviewed, dictated and finalized at location B.
--- NOTE | 2020-12-07 08:42 | ECG_ITS ---
Measurements Intervals [place] Rate: 91 P: 45 CA: 154 QRS: 82 QRSD: 81 T: 13 QT: 384 QTc: 473 Interpretive Statements SINUS RHYTHM MINIMAL Q WAVES- ANTEROLAT/INF LEADS ST-T WAVE ABNORMALITY IN ANT/INF LEADS- CONSIDER ISCHEMIA BASELINE ARTIFACT- I, II, AVR, AVL, AVF ABNORMAL ECG Electronically Signed On 12-07-2020 9:09:55 CDT by Reymundo Martínez D.O.
--- NOTE | 2020-12-07 08:47 | ED.SEIZURE ---
HPI - Seizure General Chief Complaint: Seizure Stated Complaint: seizure Time Seen by Provider: 12/07/20 08:33 Source: RN notes reviewed History of Present Illness HPI Narrative: Patient presents to emergency department from home for seizures. Patient has a seizure disorder for which she is followed by Dr. Schulz. Per the patient's significant other patient had 3 tonic-clonic seizures this morning both lasting approximately 30 seconds to a minute patient would have her eyes rolled back in her head and her arms will become clenched patient then had an episode of emesis following this she was unable to take her morning medications which she was able to keep down. Per the patient and significant other the patient had her gallbladder taken out the beginning of November and since that time has had difficulty with p.o. intake she has been weak at home denies any fevers or chills chest pain shortness of breath abdominal pain or any other symptom patient's father states that she has not been eating and drinking well she has been having increased weakness and has been taking the family both him and his still pick the patient up to move around Related Data Home Medications Medication Instructions Recorded Confirmed omeprazole 40 mg PO BID 12/07/20 12/07/20 Allergies Allergy/AdvReac Type Severity Reaction Status Date / Time No Known Allergies Allergy Verified 12/07/20 15:28 Review of Systems Review of Systems: Narrative: Gen.: Denies fevers or chills ENT: Denies congestion Respiratory: Denies shortness of breath or cough CV: Denies chest pain or palpitations GI: Denies abdominal pain or diarrhea. Reports nausea vomiting x1 denies burning, urgency, frequency or hematuria Musculoskeletal: Denies back pain or muscle pain Neuro: Reports seizures and weakness Skin: Denies rash Except as documented, all other systems reviewed and negative [facility] Past Medical History Medical History Abnormal CT of the abdomen Abnormal CT scan, colon Bipolar affective disorder Dehydration Epilepsy H/O thyroid cyst That was excised Intractable nausea and vomiting Irritable bowel syndrome (IBS) Left wrist fracture Mentally disabled Nausea and vomiting Pancreatitis Seizures Sludge in gallbladder Dysfunctional gallbladder Surgical History Surgical History S/P cholecystectomy 11/12/20 S/P middle ear reconstruction Family History Family History Mother Depression Family history of cataracts Hypertension Father Hypertension Social History Social History Social History: The patient lives with her parents. She has a fiance whom she has not seen in 1 year. She used to live in a correction but lives with her parents now. She has never smoked are use drugs. She does not use alcohol. Her mother is her guardian. She is a full code. Smoking status: Never smoker Second hand tobacco smoke exposure: No Alcohol intake: never Substance use: never Gender identity (if verbalized by the patient): Female Sexual Orientation (if Verbalized by the Patient): Straight or Heterosexual Spiritual care concerns: No Exam Narrative: Exam Narrative: APPEARANCE: No acute distress, nontoxic, resting in bed EYES: EOMI HEENT: Normocephalic, atraumatic, OMM RESPIRATORY: No respiratory distress Clear to auscultation bilaterally with no rhonchi wheezing or rales. CARDIOVASCULAR: Regular rate and rhythm without murmurs rubs or gallops. ABDOMINAL: Soft, nontender, nondistended, no rebound or guarding MUSCULOSKELETAl: Moves all extremities. No clubbing, cyanosis or edema. NEURO: Awake and alert x 4 Following commands, speech normal, no focal deficits SKIN:: Warm, dry. No rashes lesions or abrasions PSYCHIATRIC: Normal affect/moo
[2020-12-07] MEDS: SODIUM CHLORIDE 0.9% IV 1,000 ML 999 ML IV CONT (09:07)
[2020-12-07 09:19] LABS: Add Urine Microscopic? YES; Appearance Urine Cloudy (Clear); Bacteria Urine Trace /hpf; Bilirubin Urine 1+ (Negative); Blood Urine Negative (Negative); Color Urine Amber (Yellow); Glucose Urine UA Negative (Negative); Ketones Urine Trace mg/dL (Negative); Leukocyte Esterase Ur Trace LEU/UL (Negative); Mucus Urine Rare /lpf; Nitrate Urine Negative (Negative); Protein Urine 1+ mg/dL (Negative); RBC Urine 0-2 /hpf (0-2); Specific Grav Ur 1.026 (1.001-1.035); Squamous Epithelial Cell Urine Many /hpf (Few)
[2020-12-07 09:33] LABS: Basophils Absolute Auto 0.1 K/mm3 (0.0-0.1); Basophils Percent Auto 1.5 % (0.2-1.2); Eosinophils Percent Auto 0.8 % (0-4.4); Hematocrit 36.3 % (37.0-47.0); Hemoglobin 12.3 g/dL (12.0-15.0); Immature Granulocyte Absolute 0.01 K/mm3 (0.00-0.031); Immature Granulocyte Percent A 0.3 % (0-0.5); Lymphocytes Absolute Auto 0.59 K/mm3 (0.9-3.2); Lymphocytes Percent Auto 14.9 % (18.3-44.2); Mean Corpuscular HGB Conc 33.9 g/dl (32-36); Mean Corpuscular Hemoglobin 34.4 pg (26-34); Mean Corpuscular Volume 101.4 fl (80-100); Mean Platelet Volume 9.8 fl (7.4-10.4); Monocytes Absolute Auto 0.4 K/mm3 (0.1-0.6); Monocytes Percent Auto 9.6 % (2.6-8.5); Neutrophils Absolute Auto 2.9 K/mm3 (1.3-6.7); Neutrophils Percent Auto 72.9 % (45.5-73.1); Platelet Count Result 222 k/mm3 (150-375); Red Blood Count 3.58 M/mm3 (4.2-5.4); Red Cell Distribution Width 14.6 % (11.5-14.5)
[2020-12-07 09:42] LABS: INR 1.1; Partial Thromboplastin Time 25.8 SECONDS (22.3-36.8); Prothrombin Time 14.8 Seconds (11.1-14.7)
[2020-12-07 09:46] LABS: Lipase 551 U/L (23-300)
[2020-12-07 09:47] LABS: Ammonia 18 umol/L (9-30)
[2020-12-07 10:22] LABS: Alanine Aminotransferase 55 U/L (4-35); Albumin Level 3.6 g/dL (3.5-5.1); Alkaline Phosphatase 166 U/L (38-126); Anion Gap 7 mmol/L (8-16); Aspartate Amino Transferase 78 U/L (14-36); Bilirubin,Total 1.8 mg/dL (0.2-1.3); Blood Urea Nitrogen 11 mg/dL (7-17); Calcium 8.4 mg/dL (8.4-10.2); Carbon Dioxide 25 mmol/L (22-30); Chloride 107 mmol/L (98-107); Estimated CRCL calculation 95 ml/min; Estimated Glomerular Filt Rate > 60; Glucose 114 mg/dL (65-105); Potassium 3.1 mmol/L (3.4-5.0); Sodium 139 mmol/L (137-145)
[2020-12-07] MEDS: POTASSIUM CHLORIDE 20 MEQ PACKET (FOR LIQUID) 40 MEQ PO (10:44)
[2020-12-07] MEDS: ONDANSETRON INJ 4 MG/2 ML VIAL IV PUSH (10:51)
--- NOTE | 2020-12-07 15:05 | ADMGEN ---
This patient, Leah Andrade, was admitted to 3 [facility] [place] Surg Room 320-01. Patient/family oriented to hospital policies and general routines including ID bracelet, bed and alarms, visiting hours, pain management, procedures, bathroom and other care routines, personal items, smoking policy, room service/diet, and visiting hours. Information on how to activate the Rapid Response Team has been discussed. Patient/Family are encouraged to report perceived risks to care and to ask questions if they do not understand what they are told or what they should do.
--- NOTE | 2020-12-07 15:13 | PCCCNOTE ---
Spoke at length with dad (Marcus) at bedside and with mom (Shavon [phone]) on the phone regarding patient's history and their concerns. Patient has some intellectual difficulties and has deferred care decisions to her parents who have guardianship. In addition to difficulties assisting with patient's mobility and physical needs, both parents expressed concern for patient's overall health and mobility decline. Spoke regarding admission and potential for rehab placement at discharge. Mom and dad would prefer somewhere in [place], [place] or [place]. Spoke with Dev at [place] and the facility does not take [facility]. Spoke with Courtney at [facility] and faxed clinicals and facesheet/ID/guardianship papers to [place]. PT/OT eval and treat, and SarsCoV2 orders placed in anticipation of placement.
[2020-12-07] MEDS: SODIUM CHLORIDE 0.9% IV 1,000 ML 125 ML IV CONT ×2 (15:35→23:50)
--- NOTE | 2020-12-07 17:17 | PCCCNOTE ---
Clinicals have been sent to [facility] and to [facility] per mother's request in addition to [facility] earlier today
--- NOTE | 2020-12-07 17:43 | PM.IMHP ---
H&P: HPI History of Present Illness Date/Time: 12/07/20 17:43 this is a 28 to her old female patient who has had multiple admissions this year. On 11/27/2020. With the patient was here with acute dehydration, kidney stone, transaminitis it, and epilepsy. The patient also had pancreatitis. However the patient recently had her gallbladder removed due to dyskinesia gallbladder patient had laparoscopic cholecystectomy on 11/12/2020. The patient had been seeing Dr. Holloway for intractable vomiting with nausea. Last admission she had a CT of the abdomen which showed no obvious pancreatitis, noted a 1.6 cm masslike gallbladder fossa likely subacute hematoma recent cholecystectomy. The patient has had stable elevated liver enzymes which have been relatively stable, she has had MRCP in the past. Also recovering from laparoscopic cholecystectomy. To the emergency room from home due to seizures. Her neurologist is Dr. Bustillo and he was contacted from the emergency department today. There was no change in her seizure medicine today. According to the notes the patient had 3 tonic-clonic seizures this morning lasting approximately 30 seconds. Was noted that her eyes rolled back in her head and her arms became clenched. Patient then had an episode of emesis following this. She was unable to take any of her medications are keep him down this morning. She has been seeing Dr. Holloway however the family would prefer different GI specialist at this time. Also the family members are requesting that they be notified when there any decisions to be made. Leah's mother is her guardian. As the patient is mentally challenged. The patient feels very weak. She recently had a fall about 3 days ago where she has an abrasion to knee and her elbow. The patient is very afraid to walk down steps she is afraid that she will fall. Radiologist as no acute cardiopulmonary disease. Report was on 11/15/2020 where patient was found to have a normal EGD to the depth of insertion. And she was started on IV fluids. Her lipase was 551. For the last 2 weeks. The patient is being admitted for observation on the date of service of 12/07/2020. Chief Complaint: Seizure disorder Review of Systems Review of Systems: All systems reviewed & are unremarkable except as noted in HPI and below Constitutional: Constitutional: Reports as per HPI and Reports no additional constitutional complaints Eyes: Eyes: Reports as per HPI and Reports no additional eye complaints ENT: Reports system reviewed and no additional complaints, except as documented and Reports Normal hearing present Cardiovascular: Cardiovascular: Reports no additional cardiovascular complaints Respiratory: Respiratory: Reports no additional respiratory complaints and Reports no additional respiratory complaints Gastrointestinal: Gastrointestinal: Reports as per HPI and Reports no additional gastrointestinal complaints Musculoskeletal: Musculoskeletal: Reports no additional musculoskeletal complaints Integumentary/Breasts: Skin/Breast: Reports system reviewed and no additional complaints, except as docu and Reports as per HPI Neurologic: Reports system reviewed and no additional complaints, except as documented, Reports as per HPI and Reports Normal hearing present Psychiatric: Psychiatric: Reports no additional psychiatric complaints and Reports as per HPI Endocrine: Endocrine: Reports no additional endocrine complaints Hematologic/Lymphatic: Hematologic/Lymphatic: Reports no additional hematologic/lymphatic complaints Allergic/Immunologic: Allergic/Immunologic: Reports no additional allergic/immunologic complaints PMFSH Past Medical History Medical History Abnormal CT of the abdomen Abnormal CT scan, colon Bipolar affective disorder Dehydration Epilepsy H/O thyroid cyst That was excised Intractable nausea and vomiting Irritable bowel syndrome (IBS) Left
--- NOTE | 2020-12-07 18:20 | PCCCNOTE ---
Declined by [facility]. Mother updated
[2020-12-07 19:06] LABS: Magnesium 1.9 mg/dL (1.6-2.3)
[2020-12-07] MEDS: levETIRAcetam 500 MG TABLET 1000 MG PO (20:05)
[2020-12-07] MEDS: TOPIRAMATE 100 MG TABLET 400 MG PO (20:06)
[2020-12-07] MEDS: SUCRALFATE SUSP 100 MG/ML 10 ML UDC 1000 MG PO (20:06)
[2020-12-08 05:26] VITALS: BP 102/64; PULSE 88; RESP 20; TEMP 36.1; O2SAT 100
[2020-12-08 06:16] LABS: Basophils Absolute Auto 0.1 K/mm3 (0.0-0.1); Basophils Percent Auto 1.3 % (0.2-1.2); Eosinophils Absolute Auto 0.1 K/mm3 (0-0.3); Eosinophils Percent Auto 2.6 % (0-4.4); Hematocrit 32.8 % (37.0-47.0); Immature Granulocyte Absolute 0.01 K/mm3 (0.00-0.031); Immature Granulocyte Percent A 0.3 % (0-0.5); Mean Corpuscular HGB Conc 33.5 g/dl (32-36); Mean Corpuscular Hemoglobin 34.5 pg (26-34); Mean Corpuscular Volume 102.8 fl (80-100); Mean Platelet Volume 9.8 fl (7.4-10.4); Monocytes Absolute Auto 0.4 K/mm3 (0.1-0.6); Monocytes Percent Auto 11.3 % (2.6-8.5); Neutrophils Absolute Auto 1.3 K/mm3 (1.3-6.7); Neutrophils Percent Auto 34.5 % (45.5-73.1); Platelet Count Result 192 k/mm3 (150-375); Red Blood Count 3.19 M/mm3 (4.2-5.4); Red Cell Distribution Width 14.3 % (11.5-14.5); White Blood Count 3.8 K/mm3 (4.5-10.0)
[2020-12-08 06:40] LABS: Alanine Aminotransferase 45 U/L (4-35); Albumin Level 2.7 g/dL (3.5-5.1); Alkaline Phosphatase 119 U/L (38-126); Anion Gap 6 mmol/L (8-16); Aspartate Amino Transferase 64 U/L (14-36); Bilirubin,Total 1.4 mg/dL (0.2-1.3); Blood Urea Nitrogen 4 mg/dL (7-17); Calcium 7.8 mg/dL (8.4-10.2); Carbon Dioxide 18 mmol/L (22-30); Chloride 112 mmol/L (98-107); Estimated CRCL calculation 136 ml/min; Estimated Glomerular Filt Rate > 60; Glucose 90 mg/dL (65-105); Potassium 3.3 mmol/L (3.4-5.0); Sodium 136 mmol/L (137-145)
[2020-12-08] MEDS: PROMETHAZINE HCL 25 MG TABLET PO (06:55)
[2020-12-08 08:00] VITALS: PULSE 80; RESP 20; O2SAT 99
[2020-12-08] MEDS: SODIUM CHLORIDE 0.9% IV 1,000 ML 125 ML IV CONT (09:31)
[2020-12-08 09:32] VITALS: PULSE 80; O2SAT 99
[2020-12-08] MEDS: levETIRAcetam 500 MG TABLET 2000 MG PO (09:33)
[2020-12-08] MEDS: TOPIRAMATE 100 MG TABLET 300 MG PO (09:34)
[2020-12-08] MEDS: PANTOPRAZOLE 40 MG TABLET PO ×2 (09:34→17:12)
--- NOTE | 2020-12-08 10:54 | WPDNEURCNPN ---
Assessment and Plan Assessment and plan (1) Epilepsy: Code(s): G40.909 - Epilepsy, unspecified, not intractable, without status epilepticus Status: Chronic (2) Breakthrough seizure: Code(s): G40.919 - Epilepsy, unspecified, intractable, without status epilepticus Status: Acute Additional Plan will increase the levetiracetam that is Keppra [id number] Consult date: 12/08/20 Time Seen: 10:00 HPI: Leah Andrade is a 30 year old female admitted to the hospital for the recurrence of seizure patient is known to have intractable seizure disorder and has been recently evaluated by the conduit mechanic for intractable vomiting, present she is receiving Keppra 1000 mg in the morning and 2000 mg at night along with topiramate 300 mg every morning and 400 mg at night recently in the office her topiramate was decreased from 800 to 700 Review of Systems Review of Systems: All systems reviewed & are unremarkable except as noted in HPI and below PMFSH Past Medical History Medical History Abnormal CT of the abdomen Abnormal CT scan, colon Bipolar affective disorder Dehydration Epilepsy H/O thyroid cyst That was excised Intractable nausea and vomiting Irritable bowel syndrome (IBS) Left wrist fracture Mentally disabled Nausea and vomiting Pancreatitis Seizures Sludge in gallbladder Dysfunctional gallbladder Surgical History Surgical History S/P cholecystectomy 11/12/20 S/P middle ear reconstruction Family History Family History Mother Depression Family history of cataracts Hypertension Father Hypertension Social History Social History Social History: The patient lives with her parents. She has a fiance whom she has not seen in 1 year. She used to live in a care home but lives with her parents now. She has never smoked are use drugs. She does not use alcohol. Her mother is her guardian. She is a full code. Smoking status: Never smoker Second hand tobacco smoke exposure: No Alcohol intake: never Substance use: never Gender identity (if verbalized by the patient): Female Sexual Orientation (if Verbalized by the Patient): Straight or Heterosexual Spiritual care concerns: No Meds Home Medications and Allergies Home Medications Medication Instructions Recorded Confirmed Type levetiracetam [Keppra] 1,000 mg PO HS #30 tablet 11/16/20 12/07/20 Rx levetiracetam [Keppra] 2,000 mg PO QAM #30 tablet 11/16/20 12/07/20 Rx topiramate [Topamax] 300 mg PO QAM #30 tablet 11/16/20 12/07/20 Rx topiramate [Topamax] 400 mg PO HS #30 tablet 11/16/20 12/07/20 Rx promethazine 25 mg tablet 25 mg PO TID PRN #30 tablet 12/03/20 12/07/20 Rx omeprazole 40 mg PO BID 12/07/20 12/07/20 History Allergies Allergy/AdvReac Type Severity Reaction Status Date / Time No Known Allergies Allergy Verified 12/07/20 15:28 Vital Signs Vital Signs - 24 hr 12/07/20 11:00 12/07/20 11:15 12/07/20 11:32 Temperature Pulse Rate 92 99 96 Respiratory Rate 18 17 17 Blood Pressure Pulse Oximetry 100 99 100 12/07/20 11:49 12/07/20 13:00 12/07/20 13:01 Temperature Pulse Rate 90 93 91 Respiratory Rate 17 18 17 Blood Pressure 102/76 Pulse Oximetry 100 99 12/07/20 13:16 12/07/20 13:30 12/07/20 13:31 Temperature Pulse Rate 92 98 95 Respiratory Rate 18 16 21 H Blood Pressure 100/84 Pulse Oximetry 98 12/07/20 14:08 12/07/20 14:15 12/07/20 16:56 Temperature 36.7 C Pulse Rate 85 87 84 Respiratory Rate 21 H 21 H 18 Blood Pressure 105/67 Pulse Oximetry 98 100 12/07/20 20:00 12/07/20 21:30 12/08/20 05:26 Temperature 36.3 C L 36.1 C L Pulse Rate 90 90 88 Respiratory Rate 20 20 20 Blood Pressure 101/67 102/64 Pulse Oximetry 100 100 100 12/08/20 08:00 0
[2020-12-08] MEDS: SUCRALFATE SUSP 100 MG/ML 10 ML UDC 1000 MG PO ×3 (11:48→20:26)
--- NOTE | 2020-12-08 13:50 | PM.IMPN ---
Progress Note: A&P Assessment and Plan (1) Seizure: Code(s): R56.9 - Unspecified convulsions Status: Acute Assessment and Plan: Neurology has been consulted. The patient reportedly had 3 breakthrough seizures. Continue with patient's current home medications with Topamax and Keppra. The patient's mother is her guardian and would like to be notified of any changes or any evaluations. neurology icnreased keppra dose. (2) Weakness: Code(s): R53.1 - Weakness Status: Acute Assessment and Plan: PT And OT evaluation. mag normal. Covid 19 pending. medical records coordinator evaluation for possible rehab. I did a TRC evaluation as well. (3) Nausea and vomiting: Code(s): R11.2 - Nausea with vomiting, unspecified Status: Acute Assessment and Plan: Continue with patient's omeprazole. The patient recently had an EGD and recently had her gallbladder removed laparoscopically. The patient has a hematoma noted around the area where she had her gallbladder surgically removed. Continue with IV fluids. The patient is on promethazine as well. (4) Acute hypokalemia: Code(s): E87.6 - Hypokalemia Status: Acute Assessment and Plan: kcl 40 mdeq today. recheck in am. mg normal. (5) Gastritis: Code(s): K29.70 - Gastritis, unspecified, without bleeding Status: Acute Assessment and Plan: The patient was seen Dr. Holloway but the family requested a different GI specialist so I did consult Dr. Archibald. The patient has had a recent EGD. I did add Carafate. await GI consultation for her ongoing nausea issue. (6) Transaminitis: Code(s): R74.01 - Elevation of levels of liver transaminase levels Status: Acute Assessment and Plan: They have been stable for the last 2 weeks. She has seen GI in the past. Dr. Archibald has been consulted. The patient has had a recent abdominal ultrasound. lipase is lower than before as well. Additional Plan advance her diet. Subjective Date/time seen: 12/08/20 13:50 Interval history: feels well no further seizures. had some nausea earlier but not currently. she feels like eating mashed potatoes. no fever, chills, sob, chest pain. Review of Systems Constitutional: Constitutional: Denies excessive sweating, Denies fatigue, Denies headache(s) and Denies weakness ENT: Denies headache(s), Denies lip swelling, Denies epistaxis, Denies nasal congestion, Denies nasal discharge and Denies neck pain Cardiovascular: Cardiovascular: Denies chest pain, Denies diaphoresis, Denies lightheadedness, Denies palpitations, Denies dyspnea and Denies dyspnea on exertion Respiratory: Respiratory: Denies cough, Denies dyspnea and Denies dyspnea on exertion Gastrointestinal: Gastrointestinal: Denies abdominal pain, Denies constipation, Denies diarrhea, Denies nausea and Denies vomiting Genitourinary: Genitourinary: Denies nocturia, Denies dysuria and Denies flank pain Musculoskeletal: Musculoskeletal: Denies abnormal gait, Denies back pain and Denies neck pain Integumentary/Breasts: Skin/Breast: Denies dry skin and Denies rash Neurologic: Denies Abnormal speech present, Denies abnormal gait, Denies behavioral changes, Denies confusion, Denies headache(s) and Denies weakness Psychiatric: Psychiatric: Denies anxiety, Denies behavioral changes and Denies confusion Endocrine: Endocrine: Denies cold intolerance, Denies excessive sweating, Denies fatigue, Denies heat intolerance and Denies palpitations Hematologic/Lymphatic: Hematologic/Lymphatic: Denies easy bleeding and Denies lymphadenopathy Allergic/Immunologic: Allergic/Immunologic: Denies urticaria and Denies lip swelling Exam Const: General: cooperative, healthy appearing, comfortable, no acute distress, well developed, alert, awake and Physically active Nutritional Appearance: average body habitus and well nourished Orientation/consciousness: oriented to person, oriented to plac
[2020-12-08 14:00] VITALS: BP 109/69; PULSE 103; RESP 16; TEMP 37.1; O2SAT 99
[2020-12-08] MEDS: POTASSIUM CHLORIDE 20 MEQ PACKET (FOR LIQUID) 40 MEQ PO (14:17)
[2020-12-08] MEDS: SODIUM CHLORIDE 0.9% IV 1,000 ML 75 ML IV CONT (20:11)
[2020-12-08 20:23] LABS: SARS-CoV-2 RNA PCR Negative
[2020-12-08] MEDS: TOPIRAMATE 100 MG TABLET 400 MG PO (20:26)
[2020-12-08] MEDS: levETIRAcetam 500 MG TABLET 1000 MG PO (20:26)
[2020-12-08 22:00] VITALS: BP 98/65; PULSE 86; RESP 16; TEMP 36.1; O2SAT 100
[2020-12-09] MEDS: SUCRALFATE SUSP 100 MG/ML 10 ML UDC 1000 MG PO ×3 (05:42→21:08)
[2020-12-09 05:59] VITALS: BP 96/62; PULSE 88; RESP 18; TEMP 36.1; O2SAT 100
--- NOTE | 2020-12-09 06:14 | PC.NURSE ---
This morning almost immediately after I gave the patient her Carafate she called me into her room to say she got sick, she had a lot of vomit around her neck and on her chest, when I asked her what happened she was not sure, we had just done a bed change prior to the med pass so I am assuming she did too much too fast. I offered to get Zofran ordered for her since that worked in the past and she said she's not sick to her stomach anymore and did not want it, she has not gotten sick since. -AEW RN
[2020-12-09 06:27] LABS: Basophils Percent Auto 1.3 % (0.2-1.2); Eosinophils Absolute Auto 0.1 K/mm3 (0-0.3); Eosinophils Percent Auto 1.9 % (0-4.4); Hematocrit 31.8 % (37.0-47.0); Immature Granulocyte Absolute 0.01 K/mm3 (0.00-0.031); Immature Granulocyte Percent A 0.3 % (0-0.5); Lymphocytes Percent Auto 48.7 % (18.3-44.2); Mean Corpuscular HGB Conc 34.6 g/dl (32-36); Mean Corpuscular Hemoglobin 34.4 pg (26-34); Mean Corpuscular Volume 99.4 fl (80-100); Mean Platelet Volume 9.9 fl (7.4-10.4); Monocytes Absolute Auto 0.3 K/mm3 (0.1-0.6); Monocytes Percent Auto 10.1 % (2.6-8.5); Neutrophils Absolute Auto 1.2 K/mm3 (1.3-6.7); Neutrophils Percent Auto 37.7 % (45.5-73.1); Platelet Count Result 206 k/mm3 (150-375); Red Cell Distribution Width 13.6 % (11.5-14.5); White Blood Count 3.1 K/mm3 (4.5-10.0)
[2020-12-09 06:39] LABS: Alanine Aminotransferase 47 U/L (4-35); Albumin Level 2.8 g/dL (3.5-5.1); Alkaline Phosphatase 128 U/L (38-126); Anion Gap 4 mmol/L (8-16); Aspartate Amino Transferase 73 U/L (14-36); Bilirubin,Total 1.4 mg/dL (0.2-1.3); Calcium 7.9 mg/dL (8.4-10.2); Carbon Dioxide 16 mmol/L (22-30); Chloride 113 mmol/L (98-107); Estimated CRCL calculation 173 ml/min; Estimated Glomerular Filt Rate > 60; Glucose 98 mg/dL (65-105); Potassium 3.3 mmol/L (3.4-5.0); Sodium 133 mmol/L (137-145)
[2020-12-09 07:20] LABS: Blood Urea Nitrogen < 2 mg/dL (7-17)
[2020-12-09 08:00] VITALS: PULSE 88; RESP 18; O2SAT 100
[2020-12-09] MEDS: PROMETHAZINE HCL 25 MG TABLET PO (08:33)
[2020-12-09] MEDS: levETIRAcetam 500 MG TABLET 2000 MG PO (09:24)
[2020-12-09] MEDS: PANTOPRAZOLE 40 MG TABLET PO (09:25)
[2020-12-09] MEDS: TOPIRAMATE 100 MG TABLET 300 MG PO (09:25)
--- NOTE | 2020-12-09 10:47 | PM.IMPN ---
Progress Note: A&P Assessment and Plan (1) Seizure: Code(s): R56.9 - Unspecified convulsions Status: Acute Assessment and Plan: Neurology has been consulted. The patient reportedly had 3 breakthrough seizures at home. No new seizure activity noted overnight. Continue with patient's current home medications with Topamax and Keppra. The patient's mother is her guardian and would like to be notified of any changes or any evaluations. neurology icnreased keppra dose. (2) Weakness: Code(s): R53.1 - Weakness Status: Acute Assessment and Plan: PT And OT evaluation. mag normal. Covid 19 pending. wedding coordinator evaluation for possible rehab. I did a TRC evaluation as well. (3) Nausea and vomiting: Code(s): R11.2 - Nausea with vomiting, unspecified Status: Acute Assessment and Plan: Continue with patient's omeprazole. The patient recently had an EGD and recently had her gallbladder removed laparoscopically. The patient has a hematoma noted around the area where she had her gallbladder surgically removed. Continue with IV fluids. The patient is on promethazine as well. (4) Acute hypokalemia: Code(s): E87.6 - Hypokalemia Status: Acute Assessment and Plan: Will replace and monitor. (5) Gastritis: Code(s): K29.70 - Gastritis, unspecified, without bleeding Status: Acute Assessment and Plan: The patient was seen Dr. Holloway but the family requested a different GI specialist so I did consult Dr. Archibald. The patient has had a recent EGD. I did add Carafate. await GI consultation for her ongoing nausea issue. (6) Transaminitis: Code(s): R74.01 - Elevation of levels of liver transaminase levels Status: Acute Assessment and Plan: They have been stable for the last 2 weeks. She has seen GI in the past. Dr. Archibald has been consulted. The patient has had a recent abdominal ultrasound. lipase is lower than before as well. Additional Plan As patient has vomiting and mild nausea this morning. Will keep patient NPO. Will increase IV fluids and add potassium in it. Monitor electrolytes. Continue seizure medications. Subjective Date/time seen: 12/09/20 10:47 Interval history: Patient was seen during the morning rounds today. Patient complained of having nausea also stated that she had had vomiting this morning. No seizure episodes last night. No shortness of breath or chest pain. Mood stable. Review of Systems Review of Systems: All systems reviewed & are unremarkable except as noted in HPI and below Constitutional: Constitutional: Reports as per HPI, Reports no additional constitutional complaints, Denies excessive sweating, Denies fatigue, Denies headache(s) and Denies weakness Eyes: Eyes: Reports as per HPI and Reports no additional eye complaints ENT: Reports system reviewed and no additional complaints, except as documented, Reports Normal hearing present, Denies headache(s), Denies lip swelling, Denies epistaxis, Denies nasal congestion, Denies nasal discharge and Denies neck pain Cardiovascular: Cardiovascular: Reports no additional cardiovascular complaints, Denies chest pain, Denies diaphoresis, Denies lightheadedness, Denies palpitations, Denies dyspnea and Denies dyspnea on exertion Respiratory: Respiratory: Reports no additional respiratory complaints, Reports no additional respiratory complaints, Denies cough, Denies dyspnea and Denies dyspnea on exertion Gastrointestinal: Gastrointestinal: Reports as per HPI, Reports no additional gastrointestinal complaints, Denies abdominal pain, Denies constipation, Denies diarrhea, Denies nausea and Denies vomiting Genitourinary: Genitourinary: Denies nocturia, Denies dysuria and Denies flank pain Musculoskeletal: Musculoskeletal: Reports no additional musculoskeletal complaints, Denies abnormal gait, Denies back pain and Denies neck pain Integumentary/Breasts: Skin/Breast: R
[2020-12-09] MEDS: KCL 40 MEQ/D5/0.9% SOD CHL 1,000 ML 125 ML IV CONT ×2 (12:22→21:09)
[2020-12-09 14:00] VITALS: BP 100/70; PULSE 73; RESP 18; TEMP 36.2; O2SAT 100
[2020-12-09] MEDS: HEPARIN SODIUM 5,000 UNITS/ML VIAL 5000 UNITS SUB-Q (21:08)
[2020-12-09] MEDS: levETIRAcetam 500 MG TABLET 1000 MG PO (21:08)
[2020-12-09] MEDS: TOPIRAMATE 100 MG TABLET 400 MG PO (21:08)
[2020-12-09 21:50] VITALS: BP 114/79; PULSE 100; RESP 16; TEMP 36.2; O2SAT 88
[2020-12-10 05:22] VITALS: BP 117/77; PULSE 82; RESP 20; TEMP 36.3; O2SAT 100
[2020-12-10 06:13] LABS: Alanine Aminotransferase 45 U/L (4-35); Albumin Level 2.7 g/dL (3.5-5.1); Alkaline Phosphatase 114 U/L (38-126); Anion Gap 4 mmol/L (8-16); Aspartate Amino Transferase 73 U/L (14-36); Bilirubin,Total 1.2 mg/dL (0.2-1.3); Carbon Dioxide 17 mmol/L (22-30); Chloride 114 mmol/L (98-107); Estimated CRCL calculation 173 ml/min; Estimated Glomerular Filt Rate > 60; Glucose 116 mg/dL (65-105); Magnesium 1.6 mg/dL (1.6-2.3); Potassium 3.6 mmol/L (3.4-5.0); Sodium 135 mmol/L (137-145)
[2020-12-10 06:28] LABS: Hematocrit 33.2 % (37.0-47.0); Hemoglobin 11.3 g/dL (12.0-15.0); Mean Corpuscular Hemoglobin 34.8 pg (26-34); Mean Corpuscular Volume 102.2 fl (80-100); Mean Platelet Volume 10.2 fl (7.4-10.4); Platelet Count Result 189 k/mm3 (150-375); Red Blood Count 3.25 M/mm3 (4.2-5.4); Red Cell Distribution Width 13.8 % (11.5-14.5); White Blood Count 2.9 K/mm3 (4.5-10.0)
[2020-12-10 06:45] LABS: Blood Urea Nitrogen < 2 mg/dL (7-17)
[2020-12-10 08:00] VITALS: PULSE 82; RESP 20; O2SAT 100
[2020-12-10] MEDS: PROMETHAZINE HCL 25 MG TABLET PO (08:08)
[2020-12-10] MEDS: PANTOPRAZOLE SODIUM IV 40 MG VIAL IV PUSH (10:08)
[2020-12-10] MEDS: ONDANSETRON INJ 4 MG/2 ML VIAL IV PUSH (10:08)
[2020-12-10] MEDS: HEPARIN SODIUM 5,000 UNITS/ML VIAL 5000 UNITS SUB-Q ×2 (10:09→21:49)
[2020-12-10] MEDS: DEXTROSE 5%/0.9% SOD CHL 1,000 ML 125 ML IV CONT ×2 (10:14→21:49)
--- NOTE | 2020-12-10 12:57 | PCPTNOTE ---
Order clarification frequency increased to 5-7 days/week as pt has improved in medical status
--- NOTE | 2020-12-10 13:10 | PCNFU ---
Nutrition Follow-Up Complete: Inadequate oral intake related to nausea/vomiting/seizure as evidenced by clear liquid diet. Goal: Patient to meet estimated nutritional needs. Limited progress towards goal. We will continue current goal. Pt current nutrition is Clear liquids. Last recorded weight is 61.1 kg, no new weight to report. Labs Reviewed:Glu 116,Cr 0.6,BUN < 2, Na 135,Hct 33.2,Hgb 11.3 Meds Noted:Keppra,Heparin,Zofran,Protonix,Reglan. Additional Notes: Nutrition follow up. Patient had been on a regular diet, patient continues to have nausea and vomiting. She was then changed to a clear liquid diet continues to have nausea. Seizure meds has been changed to IV. Plans for Gastric Empting Study due to nausea and vomiting. GI has been consulted. Monitoring weight, labs, oral intake every 3 days.
--- NOTE | 2020-12-10 13:49 | PM.IMPN ---
Progress Note: A&P Assessment and Plan (1) Breakthrough seizure: Code(s): G40.919 - Epilepsy, unspecified, intractable, without status epilepticus Status: Acute Assessment and Plan: Likely secondary to nausea and vomiting unable to take her medications Has been seizure free for the last 24 hours Continue home meds (2) Acute hypokalemia: Code(s): E87.6 - Hypokalemia Status: Acute Assessment and Plan: Replace as needed (3) Nausea and vomiting: Code(s): R11.2 - Nausea with vomiting, unspecified Status: Acute Assessment and Plan: Supportive care Gastric emptying study in the morning status post a lap choly (4) Weakness: Code(s): R53.1 - Weakness Status: Acute Assessment and Plan: Likely secondary to lack of exercise PT OT consult (5) Nonalcoholic steatohepatitis (MEDINA): Code(s): K75.81 - Nonalcoholic steatohepatitis (MEDINA) Status: Acute Assessment and Plan: CONTINUE TO MONITOR Mildly elevated liver enzymes (6) Mentally disabled: Code(s): F79 - Unspecified intellectual disabilities Status: Acute Assessment and Plan: Continue home meds Supportive care Subjective Date/time seen: 12/10/20 13:49 I feel okay Review of Systems Review of Systems: Narrative: Patient with nausea and vomiting Exam Const: General: comfortable, no acute distress, well developed, alert and awake Nutritional Appearance: average body habitus Orientation/consciousness: oriented to person and oriented to place HENMT: Head: normal to inspection, normocephalic and atraumatic Ears: hearing grossly normal bilaterally Face and sinus: normal facial exam Eyes: General: appearance normal, both eyes and all related structures Pupils: Equal, round and reactive pupils present EOM: EOMs intact bilaterally Neck: Neck: full ROM, no lymphadenopathy and no JVD Thyroid: thyroid normal Lymphatic: no lymphadenopathy noted Resp: Effort & Inspection: normal respiratory effort and able to speak in complete sentences Auscultation: clear to auscultation bilaterally Cardio: Jugular venous distension: no JVD Rate: regular rate Rhythm: regular rhythm Heart sounds: S1 normal heart sound present and S2 normal heart sound present GI: GI Palp: Yes Soft to palpation and Yes No hepatosplenomegaly present : General: Yes deferred Skin: Rashes: no rashes Wounds: no wounds Neuro: General: oriented to person, oriented to place and CN's II-XI intact bilaterally Cranial nerves: Yes CN's II-XII intact bilaterally and Yes Equal, round and reactive pupils present Cognition (Neuro): normal cognition Speech: normal speech Gait exam (Neuro): Normal gait present Motor exam (neuro): 5/5 motor strength present throughout Extrem: General: normal to inspection, full ROM, no joint enlargement and no pedal edema Objective Data Vital Signs Vital Signs: Vital Signs - 24 hr 12/09/20 14:00 12/09/20 21:50 12/10/20 05:22 Temperature 97.2 F L 97.2 F L 97.4 F L Pulse Rate 73 100 82 Respiratory Rate 18 16 20 Blood Pressure 100/70 114/79 117/77 Pulse Oximetry 100 88 L 100 12/10/20 08:00 Temperature Pulse Rate 82 Respiratory Rate 20 Blood Pressure Pulse Oximetry 100 Intake/Output Intake/Output: Intake & Output 12/07/20 12/08/20 12/09/20 12/10/20 23:59 23:59 23:59 23:59 Intake Total 2360 3405 1650 100 Output Total 2100 2000 750 Balance 2360 1305 350 -650 Meds/Results Medications: Active Medications Generic Name Dose Route Start Last Admin Trade Name Freq PRN Reason Stop Dose Admin Heparin Sodium (Porcine) 5,000 units 12/09/20 21:00 12/10/20 10:09 Heparin Sodium 5,000 Units/Ml Vial SUB-Q 5,000 units Q12HR ANTHONY Administration Dextrose/Sodium Chloride 1,000 mls @ 125 mls/hr 12/10/20 11:00 12/10/20 10:14 Dextrose 5% Sodium Chloride 0.9% IV CONT 125 mls/hr .Q8H ANTHONY Administration Levetiracetam 1,000 mg
[2020-12-10 14:00] VITALS: BP 104/68; PULSE 93; RESP 20; TEMP 37; O2SAT 100
--- NOTE | 2020-12-10 17:36 | WPDGICN ---
Assessment and Plan Assessment and plan (1) Nausea and vomiting: Code(s): R11.2 - Nausea with vomiting, unspecified Status: Acute Assessment and Plan: will do gastric emptying study to assess if gastroparesis continue with reglan and other antiemetics had lap christin and egd, still symptomatic with poor appetite will start remeron at bedtime to see if will increase appetite no abdominal pain, recent ultrasound reviewed (2) Breakthrough seizure: Code(s): G40.919 - Epilepsy, unspecified, intractable, without status epilepticus Status: Acute Assessment and Plan: continue meds by neurology (3) Weakness: Code(s): R53.1 - Weakness Status: Acute Assessment and Plan: PT (4) Physical deconditioning: Code(s): R53.81 - Other malaise Status: Acute (5) Mentally disabled: Code(s): F79 - Unspecified intellectual disabilities Status: Acute (6) Epilepsy: Code(s): G40.909 - Epilepsy, unspecified, not intractable, without status epilepticus Status: Chronic (7) Elevated lipase: Code(s): R74.8 - Abnormal levels of other serum enzymes Status: Acute Assessment and Plan: lower than before, had mrcp and ct scan with normal pancreas (8) Transaminitis: Code(s): R74.01 - Elevation of levels of liver transaminase levels Status: Acute Assessment and Plan: stable, inflammatory markers normal, ceruloplasmin and hepatitis normal GI Consult Note Consult date/time: 12/10/20 17:36 Reason for consult: n/v, poor appetite HPI: Leah Andrade is a 30 year old female who is well known to me from recent hospitalizations because ongoing N/V, she also mild mental retardation and seizures. She was diagnosed with dyskinesia of the gallbladder and had a laparoscopic cholecystectomy by Dr. Kamara on 11/12/2020, also EGD by me that was unremarkable (only mild gastritis and mild esophagitis in bx). She is admitted again because ongoing nausea and dry heaves soon after put any food in her mouth, she has been taking antiemetics but she has poor appetite and not eating much. Mother says that they tried small portions at home and still poor appetite, denies abdominal pain. She was going to start physical therapy as outpatient. She had ultrasound that showed decrease in size of a previously described mass of the gallbladder fossa, likely resolving hematoma. Had mild elevated transaminases 50-60's like previously. Mother is at bedside. Imaging in the past showed normal pancreas. She was admitted after had 3 tonic-clonic seizures, apparently unable to take her meds and neurology evaluated patient. Review of Systems Constitutional: Constitutional: Reports fatigue Eyes: Eyes: Denies blurry vision ENT: Reports Normal hearing present Cardiovascular: Cardiovascular: Denies chest pain Respiratory: Respiratory: Denies dyspnea Gastrointestinal: Gastrointestinal: Denies abdominal pain, Reports nausea and Reports vomiting Genitourinary: Genitourinary: Denies hematuria Musculoskeletal: Musculoskeletal: Denies neck pain Integumentary/Breasts: Skin/Breast: Denies dry skin Neurologic: Comments: seizures Psychiatric: Psychiatric: Reports anxiety PMFSH Past Medical History Medical History Abnormal CT of the abdomen Abnormal CT scan, colon Bipolar affective disorder Dehydration Epilepsy H/O thyroid cyst That was excised Intractable nausea and vomiting Irritable bowel syndrome (IBS) Left wrist fracture Mentally disabled Nausea and vomiting Pancreatitis Seizures Sludge in gallbladder Dysfunctional gallbladder Surgical History Surgical History S/P cholecystectomy 11/12/20 S/P middle ear reconstruction Family History Family History Mother Depression Family history of cataracts Hyperte
[2020-12-10 20:00] VITALS: PULSE 89; RESP 16; O2SAT 100
[2020-12-10] MEDS: levETIRAcetam 1000MG/NACL100ML 1,000 MG/100 ML BAG 400 MG IVPB (21:49)
[2020-12-10 22:00] VITALS: BP 106/70; PULSE 89; RESP 16; TEMP 35.9; O2SAT 100
[2020-12-11 06:00] VITALS: BP 106/68; PULSE 92; RESP 16; TEMP 36.1; O2SAT 100
[2020-12-11] MEDS: DEXTROSE 5%/0.9% SOD CHL 1,000 ML 125 ML IV CONT ×2 (08:26→16:59)
[2020-12-11] MEDS: levETIRAcetam 1000MG/NACL100ML 1,000 MG/100 ML BAG 400 MG IVPB ×2 (08:28→21:29)
[2020-12-11] MEDS: HEPARIN SODIUM 5,000 UNITS/ML VIAL 5000 UNITS SUB-Q ×2 (11:12→21:45)
[2020-12-11] MEDS: PANTOPRAZOLE SODIUM IV 40 MG VIAL IV PUSH (11:12)
[2020-12-11] MEDS: METOCLOPRAMIDE HCL INJ 10 MG/2 ML VIAL IV PUSH (12:02)
--- NOTE | 2020-12-11 13:50 | PM.IMPN ---
Progress Note: A&P Assessment and Plan (1) Breakthrough seizure: Code(s): G40.919 - Epilepsy, unspecified, intractable, without status epilepticus Status: Acute Assessment and Plan: likely secondary to being unable to take her meds due to nausea and vomiting has been seizure-free anti seizure meds have been restarted (2) Nausea and vomiting: Code(s): R11.2 - Nausea with vomiting, unspecified Status: Acute Assessment and Plan: will have gastric emptying study tomorrow supportive care (3) Weakness: Code(s): R53.1 - Weakness Status: Acute Assessment and Plan: participating with PT OT in therapy session (4) Physical deconditioning: Code(s): R53.81 - Other malaise Status: Acute Assessment and Plan: likely secondary to lack of exercise PT OT (5) Nonalcoholic steatohepatitis (MEDINA): Code(s): K75.81 - Nonalcoholic steatohepatitis (MEDINA) Status: Acute Assessment and Plan: continue to monitor (6) Intractable vomiting with nausea: Code(s): R11.2 - Nausea with vomiting, unspecified Status: Acute Assessment and Plan: supportive care (7) Transaminitis: Code(s): R74.01 - Elevation of levels of liver transaminase levels Status: Acute Assessment and Plan: mild elevation of liver enzymes likely secondary to hepatic steatosis (8) Mentally disabled: Code(s): F79 - Unspecified intellectual disabilities Status: Acute Assessment and Plan: continue home med supportive care Subjective Date/time seen: 12/11/20 13:50 I FEEL OKAY Review of Systems Review of Systems: Narrative: patient with nausea and vomiting was unable to tolerate her test due to vomiting Exam Narrative: Exam Narrative: sitting by the edge of the bed Const: General: comfortable, no acute distress, well developed, alert and awake Nutritional Appearance: average body habitus Orientation/consciousness: oriented to person and oriented to place HENMT: Head: normal to inspection, normocephalic and atraumatic Ears: hearing grossly normal bilaterally Face and sinus: normal facial exam Eyes: General: appearance normal, both eyes and all related structures Pupils: Equal, round and reactive pupils present EOM: EOMs intact bilaterally Neck: Neck: full ROM, no lymphadenopathy and no JVD Thyroid: thyroid normal Lymphatic: no lymphadenopathy noted Resp: Effort & Inspection: normal respiratory effort and able to speak in complete sentences Auscultation: clear to auscultation bilaterally Cardio: Jugular venous distension: no JVD Rate: regular rate Rhythm: regular rhythm Heart sounds: S1 normal heart sound present and S2 normal heart sound present GI: GI Palp: Yes Soft to palpation and Yes No hepatosplenomegaly present : General: Yes deferred Skin: Rashes: no rashes Wounds: no wounds Neuro: General: oriented to person, oriented to place and CN's II-XI intact bilaterally Cranial nerves: Yes CN's II-XII intact bilaterally and Yes Equal, round and reactive pupils present Cognition (Neuro): normal cognition Speech: normal speech Gait exam (Neuro): Normal gait present Motor exam (neuro): 5/5 motor strength present throughout Extrem: General: normal to inspection, full ROM, no joint enlargement and no pedal edema Objective Data Vital Signs Vital Signs: Vital Signs - 24 hr 12/10/20 14:00 12/10/20 20:00 12/10/20 22:00 Temperature 98.6 F 96.7 F L Pulse Rate 93 89 89 Respiratory Rate 20 16 16 Blood Pressure 104/68 106/70 Pulse Oximetry 100 100 100 12/11/20 06:00 Temperature 96.9 F L Pulse Rate 92 Respiratory Rate 16 Blood Pressure 106/68 Pulse Oximetry 100 Intake/Output Intake/Output: Intake & Output 12/08/20 12/09/20 12/10/20 12/11/20 23:59 23:59 23:59 23:59 Intake Total 3405 1650 1800 1080 Output Total 2100 1999 750 850 Balance 1305 -350 1050 230 Meds/Results M
[2020-12-11 14:00] VITALS: BP 118/76; PULSE 94; RESP 18; TEMP 36.7; O2SAT 100
[2020-12-11] MEDS: SUCRALFATE SUSP 100 MG/ML 10 ML UDC 1000 MG PO ×2 (17:01→21:45)
--- NOTE | 2020-12-11 17:33 | WPDGIPROGNO ---
Progress Note: A&P Assessment and Plan (1) Nausea and vomiting: Code(s): R11.2 - Nausea with vomiting, unspecified Status: Acute Assessment and Plan: I had extensive conversation with mother and also her nurse, I wonder if part of symptoms could be supratentorial. She ate earlier cookies that mother brought and also pills but she gets nauseated with food a soon as she put it in mouth with dry heaves. I started remeron but also will see if can consult psychiatry. We even talked about tube feeding by DHT if she does not want to eat Patient is comfortable and no abdominal pain. (2) Anorexia: Code(s): R63.0 - Anorexia Status: Acute Assessment and Plan: she says that does not feel like eating and can not give us a good reason will attempt gastric emptying study again (3) Breakthrough seizure: Code(s): G40.919 - Epilepsy, unspecified, intractable, without status epilepticus Status: Acute Assessment and Plan: on meds mother also would like to talk to her neurologist, she says that in the past she lost weight with topamax and wonder if her meds affecting her appetite (4) Intellectual disability: Code(s): F79 - Unspecified intellectual disabilities Status: Chronic (5) Mentally disabled: Code(s): F79 - Unspecified intellectual disabilities Status: Acute (6) Depression: Code(s): F32.9 - Major depressive disorder, single episode, unspecified Status: Acute Assessment and Plan: probably she has depression mother says that lately she has been withdrawing from other activities and spending lot of time in bed, etc Subjective Date/time seen: 12/11/20 17:33 Interval history: she is not feeling like eating much. She did not complete gastric emptying study because spit out food Review of Systems Review of Systems: All systems reviewed & are unremarkable except as noted in HPI and below Exam Const: General: comfortable and no acute distress Other: flat affect HENMT: General nose exam: Normal nares present Eyes: Pupils: Equal, round and reactive pupils present Neck: Neck: no JVD Resp: Auscultation: clear to auscultation bilaterally Cardio: Rate: regular rate GI: GI Palp: Yes Soft to palpation and No Guarding due to palpation present (GI) Auscultation: normal bowel sounds Skin: General skin exam: normal color Neuro: Speech: normal speech Psych: Affect: Anxious affect present Other: flat affect Objective Data Vital Signs Vital Signs: Vital Signs - 24 hr 12/10/20 20:00 12/10/20 22:00 12/11/20 06:00 Temperature 96.7 F L 96.9 F L Pulse Rate 89 89 92 Respiratory Rate 16 16 16 Blood Pressure 106/70 106/68 Pulse Oximetry 100 100 100 12/11/20 14:00 Temperature 98.0 F Pulse Rate 94 Respiratory Rate 18 Blood Pressure 118/76 Pulse Oximetry 100 Intake/Output Intake/Output: Intake & Output 12/08/20 12/09/20 12/10/20 12/11/20 23:59 23:59 23:59 23:59 Intake Total 3405 1650 1800 2320 Output Total 2100 2000 750 2350 Balance 1305 -350 1050 -30 Meds/Results Medications: Active Medications Generic Name Dose Route Start Last Admin Trade Name Freq PRN Reason Stop Dose Admin Heparin Sodium (Porcine) 5,000 units 12/09/20 21:00 12/11/20 11:12 Heparin Sodium 5,000 Units/Ml Vial SUB-Q 5,000 units Q12HR ANTHONY Administration Dextrose/Sodium Chloride 1,000 mls @ 125 mls/hr 12/10/20 11:00 12/11/20 16:59 Dextrose 5% Sodium Chloride 0.9% IV CONT 125 mls/hr .Q8H ANTHONY Administration Levetiracetam 1,000 mg in 100 mls @ 400 mls/hr 12/10/20 21:00 12/11/20 08:28 Keppra Iv IVPB 400 mls/hr Q12HR ANTHONY Administration Metoclopramide HCl 10 mg 12/10/20 15:43 12/11/20 12:02 Metoclopramide Hcl Inj 10 Mg/2 Ml Vial IV PUSH 10 mg Q8HR PRN Administration Nausea And Vomiting Mirtazapine 15 mg 12/10/20 21:00 12/10/20 21:50 Mirtazapine 15 Mg Tablet PO Not Given HS ANTHONY Ondans
--- NOTE | 2020-12-11 18:51 | PC.NURSE ---
spoke with Dr. Lopez regarding consult with psychiatry per Dr. taylor, order to d/c she states she will reach out to pt psychaitrist that she is established with.
[2020-12-11] MEDS: ONDANSETRON INJ 4 MG/2 ML VIAL IV PUSH (21:28)
[2020-12-11] MEDS: TOPIRAMATE 100 MG TABLET 400 MG PO (21:45)
[2020-12-11] MEDS: MIRTAZAPINE 15 MG TABLET PO (21:45)
[2020-12-11 22:00] VITALS: BP 113/74; PULSE 96; RESP 16; TEMP 36.7; O2SAT 100
[2020-12-12] MEDS: DEXTROSE 5%/0.9% SOD CHL 1,000 ML 125 ML IV CONT ×3 (00:48→18:30)
[2020-12-12 06:00] VITALS: BP 108/75; PULSE 114; RESP 16; TEMP 36.8; O2SAT 100
[2020-12-12] MEDS: ONDANSETRON INJ 4 MG/2 ML VIAL IV PUSH ×2 (06:50→21:02)
[2020-12-12 07:20] LABS: Basophils Percent Auto 1.3 % (0.2-1.2); Eosinophils Percent Auto 1.7 % (0-4.4); Hematocrit 32.5 % (37.0-47.0); Lymphocytes Absolute Auto 1.47 K/mm3 (0.9-3.2); Mean Corpuscular HGB Conc 33.8 g/dl (32-36); Mean Corpuscular Volume 100.3 fl (80-100); Mean Platelet Volume 10.5 fl (7.4-10.4); Monocytes Absolute Auto 0.3 K/mm3 (0.1-0.6); Monocytes Percent Auto 12.2 % (2.6-8.5); Neutrophils Absolute Auto 0.5 K/mm3 (1.3-6.7); Neutrophils Percent Auto 22.8 % (45.5-73.1); Platelet Count Result 173 k/mm3 (150-375); Red Blood Count 3.24 M/mm3 (4.2-5.4); Red Cell Distribution Width 13.6 % (11.5-14.5); White Blood Count 2.4 K/mm3 (4.5-10.0)
[2020-12-12 07:34] LABS: Anion Gap 7 mmol/L (8-16); Calcium 7.8 mg/dL (8.4-10.2); Carbon Dioxide 19 mmol/L (22-30); Chloride 113 mmol/L (98-107); Estimated CRCL calculation 173 ml/min; Estimated Glomerular Filt Rate > 60; Glucose 130 mg/dL (65-105); Potassium 2.9 mmol/L (3.4-5.0); Sodium 139 mmol/L (137-145)
[2020-12-12 07:53] LABS: Blood Urea Nitrogen < 2 mg/dL (7-17)
[2020-12-12] MEDS: HEPARIN SODIUM 5,000 UNITS/ML VIAL 5000 UNITS SUB-Q ×2 (09:01→20:46)
[2020-12-12] MEDS: PANTOPRAZOLE SODIUM IV 40 MG VIAL IV PUSH (09:02)
[2020-12-12] MEDS: levETIRAcetam 1000MG/NACL100ML 1,000 MG/100 ML BAG 150 MG IVPB ×2 (09:02→20:46)
[2020-12-12] MEDS: TOPIRAMATE 100 MG TABLET 300 MG PO (09:03)
[2020-12-12 14:00] VITALS: BP 111/75; PULSE 83; RESP 16; TEMP 36.3; O2SAT 100
--- NOTE | 2020-12-12 16:41 | PM.IMPN ---
Progress Note: A&P Assessment and Plan (1) Intractable vomiting with nausea: Code(s): R11.2 - Nausea with vomiting, unspecified Status: Acute Assessment and Plan: Appreciate GI note Will try for gastric emptying studies in the morning Supportive care Patient with extensive workup done in the recent past Is status post lap choly Concerns for depression Started on Remeron (2) Breakthrough seizure: Code(s): G40.919 - Epilepsy, unspecified, intractable, without status epilepticus Status: Acute Assessment and Plan: Continue anticonvulsives Has been seizure-free since admission Continue to monitor Likely secondary to not being able to take her meds due to nausea and vomiting (3) Acute hypokalemia: Code(s): E87.6 - Hypokalemia Status: Acute Assessment and Plan: Likely secondary to nausea and vomiting Replace as needed (4) Physical deconditioning: Code(s): R53.81 - Other malaise Status: Acute Assessment and Plan: Participating with PT OT in therapies (5) Nonalcoholic steatohepatitis (MEDINA): Code(s): K75.81 - Nonalcoholic steatohepatitis (MEDINA) Status: Acute Assessment and Plan: Continue to monitor Subjective Date/time seen: 12/12/20 16:41 States that she feels fine Review of Systems Review of Systems: Narrative: Having nausea and vomiting with food ROS unobtainable: Yes unobtainable due to medical condition (Patient with impaired cognition) Exam Narrative: Exam Narrative: Sitting in chair Const: General: comfortable, no acute distress, well developed, alert, awake and other (Chronically ill looking) Nutritional Appearance: average body habitus Orientation/consciousness: oriented to person and oriented to place HENMT: Head: normal to inspection, normocephalic and atraumatic Ears: hearing grossly normal bilaterally Face and sinus: normal facial exam Eyes: General: appearance normal, both eyes and all related structures Pupils: Equal, round and reactive pupils present EOM: EOMs intact bilaterally Neck: Neck: full ROM, no lymphadenopathy and no JVD Thyroid: thyroid normal Lymphatic: no lymphadenopathy noted Resp: Effort & Inspection: normal respiratory effort and able to speak in complete sentences Auscultation: clear to auscultation bilaterally Cardio: Jugular venous distension: no JVD Rate: regular rate Rhythm: regular rhythm Heart sounds: S1 normal heart sound present and S2 normal heart sound present GI: GI Palp: Yes Soft to palpation and Yes No hepatosplenomegaly present : General: Yes deferred Skin: Rashes: no rashes Wounds: no wounds Neuro: General: oriented to person, oriented to place and CN's II-XI intact bilaterally Cranial nerves: Yes CN's II-XII intact bilaterally and Yes Equal, round and reactive pupils present Cognition (Neuro): abnormal cognition (Cognitive impairment) Speech: normal speech Gait exam (Neuro): Normal gait present Motor exam (neuro): 5/5 motor strength present throughout Extrem: General: normal to inspection, full ROM, no joint enlargement and no pedal edema Objective Data Vital Signs Vital Signs: Vital Signs - 24 hr 12/11/20 22:00 12/12/20 06:00 12/12/20 14:00 Temperature 98.0 F 98.3 F 97.4 F L Pulse Rate 96 114 H 83 Respiratory Rate 16 16 16 Blood Pressure 113/74 108/75 111/75 Pulse Oximetry 100 100 100 Intake/Output Intake/Output: Intake & Output 12/09/20 12/10/20 12/11/20 12/12/20 23:59 23:59 23:59 23:59 Intake Total 1650 1800 2520 2480 Output Total 2000 750 2350 600 Balance -350 6549 795 3387 Meds/Results Medications: Active Medications Generic Name Dose Route Start Last Admin Trade Name Freq PRN Reason Stop Dose Admin Heparin Sodium (Porcine) 5,000 units 12/09/20 21:00 12/12/20 09:01 Heparin Sodium 5,000 Units/Ml Vial SUB-Q 5,000 units Q12HR ANTHONY Administration Dextrose/Sodium Chloride 1,000 mls @ 125 mls/hr 12/10/20 11:00
[2020-12-12] MEDS: SUCRALFATE SUSP 100 MG/ML 10 ML UDC 1000 MG PO ×2 (17:24→20:47)
--- NOTE | 2020-12-12 18:05 | WPDGIPROGNO ---
Progress Note: A&P Assessment and Plan (1) Nausea and vomiting: Code(s): R11.2 - Nausea with vomiting, unspecified Status: Acute Assessment and Plan: I started remeron but may need psychiatry evaluation. tomorrow will repeat gastric emptying study We even talked about tube feeding by DHT if she does not want to eat Patient is comfortable and no abdominal pain. (2) Anorexia: Code(s): R63.0 - Anorexia Status: Acute Assessment and Plan: she says that does not feel like eating and can not give us a good reason will attempt gastric emptying study again (3) Breakthrough seizure: Code(s): G40.919 - Epilepsy, unspecified, intractable, without status epilepticus Status: Acute Assessment and Plan: on meds by neurology (4) Intellectual disability: Code(s): F79 - Unspecified intellectual disabilities Status: Chronic (5) Mentally disabled: Code(s): F79 - Unspecified intellectual disabilities Status: Acute (6) Depression: Code(s): F32.9 - Major depressive disorder, single episode, unspecified Status: Acute Assessment and Plan: probably she has depression mother says that lately she has been withdrawing from other activities and spending lot of time in bed, etc Subjective Date/time seen: 12/12/20 18:05 Interval history: she is having a better day today and eating more, still some nausea, no pain Review of Systems Review of Systems: All systems reviewed & are unremarkable except as noted in HPI and below Exam Const: General: comfortable and no acute distress Other: flat affect HENMT: General nose exam: Normal nares present Eyes: Pupils: Equal, round and reactive pupils present Neck: Neck: no JVD Resp: Auscultation: clear to auscultation bilaterally Cardio: Rate: regular rate GI: GI Palp: Yes Soft to palpation and No Guarding due to palpation present (GI) Auscultation: normal bowel sounds Skin: General skin exam: normal color Neuro: Speech: normal speech Psych: Affect: Anxious affect present Other: flat affect Objective Data Vital Signs Vital Signs: Vital Signs - 24 hr 12/11/20 22:00 12/12/20 06:00 12/12/20 14:00 Temperature 98.0 F 98.3 F 97.4 F L Pulse Rate 96 114 H 83 Respiratory Rate 16 16 16 Blood Pressure 113/74 108/75 111/75 Pulse Oximetry 100 100 100 Intake/Output Intake/Output: Intake & Output 12/09/20 12/10/20 12/11/20 12/12/20 23:59 23:59 23:59 23:59 Intake Total 1650 1800 2520 2580 Output Total 2000 750 2350 600 Balance -350 8641 517 0314 Meds/Results Medications: Active Medications Generic Name Dose Route Start Last Admin Trade Name Freq PRN Reason Stop Dose Admin Heparin Sodium (Porcine) 5,000 units 12/09/20 21:00 12/12/20 09:01 Heparin Sodium 5,000 Units/Ml Vial SUB-Q 5,000 units Q12HR ANTHONY Administration Dextrose/Sodium Chloride 1,000 mls @ 125 mls/hr 12/10/20 11:00 12/12/20 10:52 Dextrose 5% Sodium Chloride 0.9% IV CONT 125 mls/hr .Q8H ANTHONY Administration Levetiracetam 1,000 mg in 100 mls @ 400 mls/hr 12/10/20 21:00 12/12/20 09:02 Keppra Iv IVPB 150 mls/hr Q12HR ANTHONY Administration Metoclopramide HCl 10 mg 12/10/20 15:43 12/11/20 12:02 Metoclopramide Hcl Inj 10 Mg/2 Ml Vial IV PUSH 10 mg Q8HR PRN Administration Nausea And Vomiting Mirtazapine 15 mg 12/10/20 21:00 12/11/20 21:45 Mirtazapine 15 Mg Tablet PO 15 mg HS ANTHONY Administration Ondansetron HCl 4 mg 12/10/20 09:21 12/12/20 06:50 Ondansetron Inj 4 Mg/2 Ml Vial IV PUSH 4 mg Q6H PRN Administration Nausea And Vomiting Pantoprazole Sodium 40 mg 12/10/20 09:00 12/12/20 09:02 Pantoprazole Sodium Iv 40 Mg Vial IV PUSH 40 mg QAM ANTHONY Administration Sucralfate 1,000 mg 12/07/20 21:00 12/12/20 17:24 Sucralfate Susp 100 Mg/Ml 10 Ml Udc PO 1,000 mg ACHS ANTHONY Administration Topiramate 300 mg 12/08/20 09:00 12/12/20 09:03
[2020-12-12] MEDS: MIRTAZAPINE 15 MG TABLET PO (20:47)
[2020-12-12] MEDS: TOPIRAMATE 100 MG TABLET 400 MG PO (20:47)
[2020-12-12 22:00] VITALS: BP 104/72; PULSE 93; RESP 20; TEMP 36.7; O2SAT 100
[2020-12-13] MEDS: DEXTROSE 5%/0.9% SOD CHL 1,000 ML 125 ML IV CONT ×3 (02:15→18:41)
[2020-12-13 06:00] VITALS: BP 115/75; PULSE 107; RESP 20; TEMP 36.5; O2SAT 99
--- NOTE | 2020-12-13 06:59 | PC.NURSE ---
All assessment and meds passed from 189912/12/2020 by VIRIDIANA Elaine were passed by Taylor Washington.
[2020-12-13] MEDS: HEPARIN SODIUM 5,000 UNITS/ML VIAL 5000 UNITS SUB-Q ×2 (08:29→21:08)
[2020-12-13] MEDS: TOPIRAMATE 100 MG TABLET 300 MG PO (08:29)
[2020-12-13] MEDS: levETIRAcetam 1000MG/NACL100ML 1,000 MG/100 ML BAG 100 MG IVPB ×2 (08:30→21:14)
[2020-12-13] MEDS: PANTOPRAZOLE SODIUM IV 40 MG VIAL IV PUSH (08:31)
--- NOTE | 2020-12-13 09:49 | PC.NURSE ---
pt unable to to gastric emting study, vomited food, Dr. Butterfield notified
[2020-12-13] MEDS: SUCRALFATE SUSP 100 MG/ML 10 ML UDC 1000 MG PO ×3 (11:21→21:15)
--- NOTE | 2020-12-13 13:57 | PCNFU ---
Nutrition Follow-Up Complete: Inadequate oral intake related to nausea/vomiting/seizure as evidenced by clear liquid diet. Goal: Patient to meet estimated nutritional needs. Limited progress towards goal. We will continue current goal. Pt current nutrition is clear liquids x 7 days with orders to advance to full liquids. Last recorded weight is 61.1 kg,no new weight. Recommend re-weight. Bowel Motility:+BM reported 12/11 Labs Reviewed:Glu 130,Cr 0.3,K 2.9,Hct 32.5,Hgb 11.0 Meds Noted:Topamax,Keppra,Reglan,Heparin,Remeron. Additional Notes: Nutrition follow up. Patient had gastric emptying study today-vomited during testing, unable to complete testing. She was able to keep pills down this morning. Ate 5% of clear liquids for lunch. Once patient is able to tolerate clear liquids, she has orders to advance to full liquids. Patient was interested in ice cream. Would recommend: Frozen Nutritional Treat ice cream providing an additional 300 kcals and 9 gms protein. GI is following. Monitoring: Follow up in 3 days.
[2020-12-13 14:00] VITALS: BP 108/74; PULSE 106; RESP 16; TEMP 36.7; O2SAT 100
--- NOTE | 2020-12-13 16:20 | PM.IMPN ---
Progress Note: A&P Assessment and Plan (1) Intractable vomiting with nausea: Code(s): R11.2 - Nausea with vomiting, unspecified Status: Acute Assessment and Plan: patient again was unable to do into gastric emptying study today will liberalize her diet continue to monitor (2) Breakthrough seizure: Code(s): G40.919 - Epilepsy, unspecified, intractable, without status epilepticus Status: Acute Assessment and Plan: seizure-free since admission continue her home meds (3) Physical deconditioning: Code(s): R53.81 - Other malaise Status: Acute Assessment and Plan: PT OT (4) Nonalcoholic steatohepatitis (MEDINA): Code(s): K75.81 - Nonalcoholic steatohepatitis (MEDINA) Status: Acute Assessment and Plan: continue to monitor (5) Hepatic steatosis: Code(s): K76.0 - Fatty (change of) liver, not elsewhere classified Status: Acute Assessment and Plan: continue to monitor (6) Depression: Code(s): F32.9 - Major depressive disorder, single episode, unspecified Status: Acute Assessment and Plan: will restart Prozac (7) Bipolar affective disorder: Code(s): F31.9 - Bipolar disorder, unspecified Status: Acute Assessment and Plan: continue present meds (8) Mentally disabled: Code(s): F79 - Unspecified intellectual disabilities Status: Acute Assessment and Plan: supportive care Subjective Date/time seen: 12/13/20 16:20 and states that she threw up again Review of Systems Review of Systems: ROS unobtainable: Yes unobtainable due to medical condition ( cognitive impairment) Exam Narrative: Exam Narrative: laying in bed Const: General: comfortable, no acute distress, well developed, alert and awake Nutritional Appearance: average body habitus Orientation/consciousness: oriented to person and oriented to place HENMT: Head: normal to inspection, normocephalic and atraumatic Ears: hearing grossly normal bilaterally Face and sinus: normal facial exam Eyes: General: appearance normal, both eyes and all related structures Pupils: Equal, round and reactive pupils present EOM: EOMs intact bilaterally Neck: Neck: full ROM, no lymphadenopathy and no JVD Thyroid: thyroid normal Lymphatic: no lymphadenopathy noted Resp: Effort & Inspection: normal respiratory effort and able to speak in complete sentences Auscultation: clear to auscultation bilaterally Cardio: Jugular venous distension: no JVD Rate: regular rate Rhythm: regular rhythm Heart sounds: S1 normal heart sound present and S2 normal heart sound present GI: GI Palp: Yes Soft to palpation and Yes No hepatosplenomegaly present : General: Yes deferred Skin: Rashes: no rashes Wounds: no wounds Neuro: General: oriented to person, oriented to place and CN's II-XI intact bilaterally Cranial nerves: Yes CN's II-XII intact bilaterally and Yes Equal, round and reactive pupils present Cognition (Neuro): abnormal cognition ( cognitive impairment) Speech: normal speech Gait exam (Neuro): Normal gait present Motor exam (neuro): 5/5 motor strength present throughout Extrem: General: normal to inspection, full ROM, no joint enlargement and no pedal edema Objective Data Vital Signs Vital Signs: Vital Signs - 24 hr 12/12/20 22:00 12/13/20 06:00 12/13/20 14:00 Temperature 98.1 F 97.7 F 98.0 F Pulse Rate 93 107 H 106 H Respiratory Rate 20 20 16 Blood Pressure 104/72 115/75 108/74 Pulse Oximetry 100 99 100 Intake/Output Intake/Output: Intake & Output 12/10/20 12/11/20 12/12/20 12/13/20 23:59 23:59 23:59 23:59 Intake Total 1800 2520 3780 2560 Output Total 750 2350 600 1400 Balance 8972 874 5696 1160 Meds/Results Medications: Active Medications Generic Name Dose Route Start Last Admin Trade Name Freq PRN Reason Stop Dose Admin Heparin Sodium (Porcine) 5,000 units 12/09/20 21:00 12/13/20 0
--- NOTE | 2020-12-13 18:18 | WPDGIPROGNO ---
Progress Note: A&P Assessment and Plan (1) Nausea and vomiting: Code(s): R11.2 - Nausea with vomiting, unspecified Status: Acute Assessment and Plan: I started remeron but may need psychiatry evaluation. did not complete gastric emptying study agree to offer any kind of diet, encourage to eat ? supratentorial, depression, etc (2) Anorexia: Code(s): R63.0 - Anorexia Status: Acute Assessment and Plan: nutrition support (3) Breakthrough seizure: Code(s): G40.919 - Epilepsy, unspecified, intractable, without status epilepticus Status: Acute Assessment and Plan: on meds by neurology (4) Intellectual disability: Code(s): F79 - Unspecified intellectual disabilities Status: Chronic (5) Mentally disabled: Code(s): F79 - Unspecified intellectual disabilities Status: Acute (6) Depression: Code(s): F32.9 - Major depressive disorder, single episode, unspecified Status: Acute Assessment and Plan: probably she has depression mother says that lately she has been withdrawing from other activities and spending lot of time in bed, etc Subjective Date/time seen: 12/13/20 18:18 Interval history: did not complete gastric emptying study, mother at bedside Review of Systems Review of Systems: All systems reviewed & are unremarkable except as noted in HPI and below Exam Const: General: comfortable and no acute distress Other: flat affect HENMT: General nose exam: Normal nares present Eyes: Pupils: Equal, round and reactive pupils present Neck: Neck: no JVD Resp: Auscultation: clear to auscultation bilaterally Cardio: Rate: regular rate GI: GI Palp: Yes Soft to palpation and No Guarding due to palpation present (GI) Auscultation: normal bowel sounds Skin: General skin exam: normal color Neuro: Speech: normal speech Psych: Affect: Anxious affect present Other: flat affect Objective Data Vital Signs Vital Signs: Vital Signs - 24 hr 12/12/20 22:00 12/13/20 06:00 12/13/20 14:00 Temperature 98.1 F 97.7 F 98.0 F Pulse Rate 93 107 H 106 H Respiratory Rate 20 20 16 Blood Pressure 104/72 115/75 108/74 Pulse Oximetry 100 99 100 Intake/Output Intake/Output: Intake & Output 12/10/20 12/11/20 12/12/2012/13/21 23:59 23:59 23:59 23:59 Intake Total 1800 2520 3780 3110 Output Total 750 2350 600 2000 Balance 8552 067 0798 1110 Meds/Results Medications: Active Medications Generic Name Dose Route Start Last Admin Trade Name Freq PRN Reason Stop Dose Admin Fluoxetine HCl 20 mg 12/14/20 09:00 Fluoxetine Hcl 20 Mg Capsule PO DAILY ANTHONY Heparin Sodium (Porcine) 5,000 units 12/09/20 21:00 12/13/20 08:29 Heparin Sodium 5,000 Units/Ml Vial SUB-Q 5,000 units Q12HR ANTHONY Administration Dextrose/Sodium Chloride 1,000 mls @ 125 mls/hr 12/10/20 11:00 12/13/20 11:20 Dextrose 5% Sodium Chloride 0.9% IV CONT 125 mls/hr .Q8H ANTHONY Administration Levetiracetam 1,000 mg in 100 mls @ 400 mls/hr 12/10/20 21:00 12/13/20 08:30 Keppra Iv IVPB 100 mls/hr Q12HR ANTHONY Administration Metoclopramide HCl 10 mg 12/10/20 15:43 12/11/20 12:02 Metoclopramide Hcl Inj 10 Mg/2 Ml Vial IV PUSH 10 mg Q8HR PRN Administration Nausea And Vomiting Mirtazapine 15 mg 12/10/20 21:00 12/12/20 20:47 Mirtazapine 15 Mg Tablet PO 15 mg HS ANTHONY Administration Ondansetron HCl 4 mg 12/10/20 09:21 12/12/20 21:02 Ondansetron Inj 4 Mg/2 Ml Vial IV PUSH 4 mg Q6H PRN Administration Nausea And Vomiting Pantoprazole Sodium 40 mg 12/10/20 09:00 12/13/20 08:31 Pantoprazole Sodium Iv 40 Mg Vial IV PUSH 40 mg QAM ANTHONY Administration Sucralfate 1,000 mg 12/07/20 21:00 12/13/20 16:45 Sucralfate Susp 100 Mg/Ml 10 Ml Udc PO 1,000 mg ACHS ANTHONY Administration Topiramate 300 mg 12/08/20 09:00 12/13/20 08:29 Topiramate 100 Mg Tablet PO 300 mg QAM ANTHONY Admin
[2020-12-13] MEDS: ONDANSETRON INJ 4 MG/2 ML VIAL IV PUSH (21:05)
[2020-12-13] MEDS: TOPIRAMATE 100 MG TABLET 400 MG PO (21:08)
[2020-12-13] MEDS: MIRTAZAPINE 15 MG TABLET PO (21:15)
[2020-12-13 22:00] VITALS: BP 112/82; PULSE 103; RESP 20; TEMP 36.7; O2SAT 100
--- NOTE | 2020-12-13 22:34 | PC.NURSE ---
MD Lujan notified that the patient had a previous low potassium that was not yet treated and no new labs were drawn. stated that he would put orders in
[2020-12-13 22:37] LABS: Magnesium 1.2 mg/dL (1.6-2.3)
[2020-12-13 23:09] LABS: Anion Gap 9 mmol/L (8-16); Calcium 8.1 mg/dL (8.4-10.2); Carbon Dioxide 17 mmol/L (22-30); Chloride 110 mmol/L (98-107); Estimated CRCL calculation 173 ml/min; Estimated Glomerular Filt Rate > 60; Glucose 136 mg/dL (65-105); Potassium 2.5 mmol/L (3.4-5.0); Sodium 136 mmol/L (137-145)
[2020-12-13 23:28] LABS: Blood Urea Nitrogen < 2 mg/dL (7-17)
--- NOTE | 2020-12-14 02:05 | PC.NURSE ---
Pt having vomiting. Appears to have vomited the chocolate ice cream that she ate yesterday for dinner
[2020-12-14] MEDS: DEXTROSE 5%/0.9% SOD CHL 1,000 ML 125 ML IV CONT ×3 (03:04→23:51)
[2020-12-14] MEDS: MAGNESIUM SULF 2 GM/WATER 50ML 2 GM/50 ML BAG IVPB (04:01)
[2020-12-14 06:00] VITALS: BP 105/76; PULSE 107; RESP 20; TEMP 36.6; O2SAT 100
[2020-12-14 06:44] LABS: Magnesium 2.1 mg/dL (1.6-2.3)
[2020-12-14 06:57] LABS: Anion Gap 9 mmol/L (8-16); Blood Urea Nitrogen < 2 mg/dL (7-17); Calcium 7.9 mg/dL (8.4-10.2); Carbon Dioxide 14 mmol/L (22-30); Chloride 114 mmol/L (98-107); Estimated CRCL calculation 173 ml/min; Estimated Glomerular Filt Rate > 60; Glucose 152 mg/dL (65-105); Potassium 2.8 mmol/L (3.4-5.0); Sodium 137 mmol/L (137-145)
[2020-12-14 08:28] LABS: Basophils Percent Auto 1.1 % (0.2-1.2); Eosinophils Percent Auto 2.2 % (0-4.4); Hematocrit 30.7 % (37.0-47.0); Hemoglobin 10.6 g/dL (12.0-15.0); Lymphocytes Absolute Auto 0.91 K/mm3 (0.9-3.2); Lymphocytes Percent Auto 48.9 % (18.3-44.2); Mean Corpuscular HGB Conc 34.5 g/dl (32-36); Mean Corpuscular Hemoglobin 35.3 pg (26-34); Mean Corpuscular Volume 102.3 fl (80-100); Mean Platelet Volume 10.6 fl (7.4-10.4); Monocytes Absolute Auto 0.3 K/mm3 (0.1-0.6); Monocytes Percent Auto 14.5 % (2.6-8.5); Neutrophils Absolute Auto 0.6 K/mm3 (1.3-6.7); Neutrophils Percent Auto 33.3 % (45.5-73.1); Platelet Count Result 159 k/mm3 (150-375); Red Cell Distribution Width 14.1 % (11.5-14.5)
[2020-12-14 08:51] LABS: White Blood Count 1.9 K/mm3 (4.5-10.0)
[2020-12-14] MEDS: levETIRAcetam 1000MG/NACL100ML 1,000 MG/100 ML BAG 400 MG IVPB ×2 (08:56→20:24)
[2020-12-14] MEDS: FLUoxetine HCL 20 MG CAPSULE PO (08:56)
[2020-12-14] MEDS: HEPARIN SODIUM 5,000 UNITS/ML VIAL 5000 UNITS SUB-Q ×2 (08:56→20:25)
[2020-12-14] MEDS: PANTOPRAZOLE SODIUM IV 40 MG VIAL IV PUSH (08:56)
[2020-12-14] MEDS: TOPIRAMATE 100 MG TABLET 300 MG PO (08:57)
[2020-12-14] MEDS: POTASSIUM CHLORIDE INJ 40 MEQ in DEXTROSE 5% IN WATER 500 ML 130 MEQ IVPB (11:38)
--- NOTE | 2020-12-14 11:42 | PCNFU ---
Nutrition Follow-Up Complete: Inadequate oral intake related to nausea/vomiting/seizure as evidenced by clear liquid diet. Goal: Patient to meet estimated nutritional needs. Progressing towards goal. We will continue current goal. Pt current nutrition is Regular Last recorded weight is 61.1 kg, no new weight since admit. Called [employer] [facility] for new weight. Bowel Motility: +BM reported 12/11 Labs Reviewed:Cr 0.3,Alb 2.8 Meds Noted:Megace,Keppra,Protonix,Reglan,Heparin, Remeron, Zoloft. Additional Notes: Patient seen today for nutrition follow up. She states to eating sausage and drinking sprite for breakfast. She was able to keep her food and pills down. PO intake is encouraged. Agree with diet as tolerated. Monitoring: Follow up in 3 days.
[2020-12-14] MEDS: SUCRALFATE SUSP 100 MG/ML 10 ML UDC 1000 MG PO ×3 (11:43→20:25)
--- NOTE | 2020-12-14 11:50 | PCPTNOTE ---
Patient knees buckled during gait and required max assist to regain balance and assist to chair to prevent patient from falling. GALLEGOS, RN, and PA present and observed knee buckling and assist to chair. Patient assessed and reports no pain or dizziness. Patient reports legs felt weak and gave out. Betzy barclay used to transfer patient from chair to bed. Patient returned to bed and performed LE exercises in sitting and supine. Pain assesed again with RN in room and patient continues to report no pain.
[2020-12-14] MEDS: ONDANSETRON INJ 4 MG/2 ML VIAL IV PUSH (12:29)
[2020-12-14 14:00] VITALS: BP 116/82; PULSE 110; RESP 16; TEMP 37.2; O2SAT 100
[2020-12-14] MEDS: MEGESTROL ACETATE (*CHEMO) 40 MG TABLET PO ×2 (17:00→20:26)
--- NOTE | 2020-12-14 17:16 | PM.IMPN ---
Progress Note: A&P Assessment and Plan (1) Depression: Code(s): F32.9 - Major depressive disorder, single episode, unspecified Status: Acute Assessment and Plan: restarted Prozac continue to monitor supportive care (2) Breakthrough seizure: Code(s): G40.919 - Epilepsy, unspecified, intractable, without status epilepticus Status: Acute Assessment and Plan: has been seizure-free since admission continue to monitor continue anticonvulsive therapy (3) Acute hypokalemia: Code(s): E87.6 - Hypokalemia Status: Acute Assessment and Plan: replace as needed continue to monitor (4) Nausea and vomiting: Code(s): R11.2 - Nausea with vomiting, unspecified Status: Acute Assessment and Plan: still having some nausea and vomiting diet liberalized (5) Weakness: Code(s): R53.1 - Weakness Status: Acute Assessment and Plan: PT OT (6) Physical deconditioning: Code(s): R53.81 - Other malaise Status: Acute Assessment and Plan: likely secondary to lack of exercise PT OT (7) Nonalcoholic steatohepatitis (MEDINA): Code(s): K75.81 - Nonalcoholic steatohepatitis (MEDINA) Status: Acute Assessment and Plan: continue to monitor Subjective Date/time seen: 12/14/20 17:16 patient inquires when she is going home she had her so she should for breakfast Review of Systems Review of Systems: Narrative: denies any issues currently Exam Narrative: Exam Narrative: laying in bed Const: General: comfortable, no acute distress, well developed, alert and awake Nutritional Appearance: average body habitus Orientation/consciousness: patient oriented x3 HENMT: Head: normal to inspection, normocephalic and atraumatic Ears: hearing grossly normal bilaterally Face and sinus: normal facial exam Eyes: General: appearance normal, both eyes and all related structures Pupils: Equal, round and reactive pupils present EOM: EOMs intact bilaterally Neck: Neck: full ROM, no lymphadenopathy and no JVD Thyroid: thyroid normal Lymphatic: no lymphadenopathy noted Resp: Effort & Inspection: normal respiratory effort and able to speak in complete sentences Auscultation: clear to auscultation bilaterally Cardio: Jugular venous distension: no JVD Rate: regular rate Rhythm: regular rhythm Heart sounds: S1 normal heart sound present and S2 normal heart sound present GI: GI Palp: Yes Soft to palpation and Yes No hepatosplenomegaly present : General: Yes deferred Skin: Rashes: no rashes Wounds: no wounds Neuro: General: patient oriented x3 and CN's II-XI intact bilaterally Cranial nerves: Yes CN's II-XII intact bilaterally and Yes Equal, round and reactive pupils present Cognition (Neuro): abnormal cognition ( cognitive impairment) Speech: normal speech Gait exam (Neuro): Normal gait present Motor exam (neuro): 5/5 motor strength present throughout Extrem: General: normal to inspection, full ROM, no joint enlargement and no pedal edema Objective Data Vital Signs Vital Signs: Vital Signs - 24 hr 12/13/20 22:00 12/14/20 06:00 12/14/20 14:00 Temperature 98.1 F 97.8 F 98.9 F Pulse Rate 103 H 107 H 110 H Respiratory Rate 20 20 16 Blood Pressure 112/82 105/76 116/82 Pulse Oximetry 100 100 100 Intake/Output Intake/Output: Intake & Output 12/11/20 12/12/20 12/13/20 12/14/20 23:59 23:59 23:59 23:59 Intake Total 2520 3780 4400 3750 Output Total 2350 600 2000 600 Balance 170 3180 2400 3150 Meds/Results Medications: Active Medications Generic Name Dose Route Start Last Admin Trade Name Gopiq PRN Reason Stop Dose Admin Fluoxetine HCl 20 mg 12/14/20 09:00 12/14/20 08:56 Fluoxetine Hcl 20 Mg Capsule PO 20 mg DAILY ANTHONY Administration Heparin Sodium (Porcine) 5,000 units 12/09/20 21:00 12/14/20 08:56 Heparin Sodium 5,000 Units/Ml Vial SUB-Q 5,000 units Q12HR ANTHONY Admini
--- NOTE | 2020-12-14 17:54 | WPDGIPROGNO ---
Progress Note: A&P Assessment and Plan (1) Nausea and vomiting: Code(s): R11.2 - Nausea with vomiting, unspecified Status: Acute Assessment and Plan: Started on remeron and megace probably at some point will need psychiatry evaluation. did not complete gastric emptying study agree to offer any kind of diet, encourage to eat ? supratentorial, depression, etc (2) Anorexia: Code(s): R63.0 - Anorexia Status: Acute Assessment and Plan: nutrition support (3) Breakthrough seizure: Code(s): G40.919 - Epilepsy, unspecified, intractable, without status epilepticus Status: Acute Assessment and Plan: on meds by neurology (4) Intellectual disability: Code(s): F79 - Unspecified intellectual disabilities Status: Chronic (5) Mentally disabled: Code(s): F79 - Unspecified intellectual disabilities Status: Acute (6) Depression: Code(s): F32.9 - Major depressive disorder, single episode, unspecified Status: Acute Assessment and Plan: probably she has depression mother says that lately she has been withdrawing from other activities and spending lot of time in bed, etc Subjective Date/time seen: 12/14/20 17:54 Interval history: father said that was able to hold down a burger. Review of Systems Review of Systems: All systems reviewed & are unremarkable except as noted in HPI and below Exam Const: General: comfortable and no acute distress Other: flat affect HENMT: General nose exam: Normal nares present Eyes: Pupils: Equal, round and reactive pupils present Neck: Neck: no JVD Resp: Auscultation: clear to auscultation bilaterally Cardio: Rate: regular rate GI: GI Palp: Yes Soft to palpation and No Guarding due to palpation present (GI) Auscultation: normal bowel sounds Skin: General skin exam: normal color Neuro: Speech: normal speech Psych: Affect: Anxious affect present Other: flat affect Objective Data Vital Signs Vital Signs: Vital Signs - 24 hr 12/13/20 22:00 12/14/20 06:00 12/14/20 14:00 Temperature 98.1 F 97.8 F 98.9 F Pulse Rate 103 H 107 H 110 H Respiratory Rate 20 20 16 Blood Pressure 112/82 105/76 116/82 Pulse Oximetry 100 100 100 Intake/Output Intake/Output: Intake & Output 12/11/20 12/12/20 12/13/20 12/14/20 23:59 23:59 23:59 23:59 Intake Total 2520 3780 4400 3750 Output Total 2350 600 2000 600 Balance 170 3180 2400 3150 Meds/Results Medications: Active Medications Generic Name Dose Route Start Last Admin Trade Name Freq PRN Reason Stop Dose Admin Fluoxetine HCl 20 mg 12/14/20 09:00 12/14/20 08:56 Fluoxetine Hcl 20 Mg Capsule PO 20 mg DAILY ANHTONY Administration Heparin Sodium (Porcine) 5,000 units 12/09/20 21:00 12/14/20 08:56 Heparin Sodium 5,000 Units/Ml Vial SUB-Q 5,000 units Q12HR ANTHONY Administration Dextrose/Sodium Chloride 1,000 mls @ 125 mls/hr 12/10/20 11:00 12/14/20 11:38 Dextrose 5% Sodium Chloride 0.9% IV CONT 125 mls/hr .Q8H ANTHONY Administration Levetiracetam 1,000 mg in 100 mls @ 400 mls/hr 12/10/20 21:00 12/14/20 09:11 Keppra Iv IVPB Infused Q12HR ANTHONY Infusion Megestrol Acetate 40 mg 12/14/20 13:00 12/14/20 16:41 Megestrol Acetate (*Chemo) 40 Mg Tablet PO Not Given QID ANTHONY Metoclopramide HCl 10 mg 12/10/20 15:43 12/11/20 12:02 Metoclopramide Hcl Inj 10 Mg/2 Ml Vial IV PUSH 10 mg Q8HR PRN Administration Nausea And Vomiting Mirtazapine 15 mg 12/10/20 21:00 12/13/20 21:15 Mirtazapine 15 Mg Tablet PO 15 mg HS ANTHONY Administration Ondansetron HCl 4 mg 12/10/20 09:21 12/14/20 12:29 Ondansetron Inj 4 Mg/2 Ml Vial IV PUSH 4 mg Q6H PRN Administration Nausea And Vomiting Pantoprazole Sodium 40 mg 12/10/20 09:00 12/14/20 08:56 Pantoprazole Sodium Iv 40 Mg Vial IV PUSH 40 mg QAM ANTHONY Administration Sucralfate 1,000 mg 12/07/20 21:00 12/14/20 16:42 Sucralf
[2020-12-14 19:03] VITALS: BP 107/72; PULSE 122; O2SAT 100
[2020-12-14] MEDS: MIRTAZAPINE 15 MG TABLET PO (20:25)
[2020-12-14] MEDS: TOPIRAMATE 100 MG TABLET 400 MG PO (20:25)
[2020-12-14 21:44] VITALS: BP 125/75; PULSE 76; RESP 20; TEMP 37.1; O2SAT 100
[2020-12-15 05:50] VITALS: BP 118/81; PULSE 106; RESP 20; TEMP 36.3; O2SAT 99
[2020-12-15] MEDS: DEXTROSE 5%/0.9% SOD CHL 1,000 ML 125 ML IV CONT ×2 (07:16→20:02)
[2020-12-15] MEDS: MEGESTROL ACETATE (*CHEMO) 40 MG TABLET PO ×4 (08:44→20:00)
[2020-12-15] MEDS: PANTOPRAZOLE SODIUM IV 40 MG VIAL IV PUSH (08:44)
[2020-12-15] MEDS: HEPARIN SODIUM 5,000 UNITS/ML VIAL 5000 UNITS SUB-Q ×2 (08:44→20:00)
[2020-12-15] MEDS: levETIRAcetam 1000MG/NACL100ML 1,000 MG/100 ML BAG 400 MG IVPB ×2 (08:44→19:59)
[2020-12-15] MEDS: FLUoxetine HCL 20 MG CAPSULE PO (08:44)
[2020-12-15] MEDS: TOPIRAMATE 100 MG TABLET 300 MG PO (08:45)
[2020-12-15] MEDS: SUCRALFATE SUSP 100 MG/ML 10 ML UDC 1000 MG PO ×2 (11:18→16:32)
[2020-12-15 14:00] VITALS: BP 110/81; PULSE 109; RESP 18; TEMP 36.7; O2SAT 100
[2020-12-15 15:07] LABS: Add Urine Microscopic? YES; Appearance Urine Clear (Clear); Bilirubin Urine Negative (Negative); Blood Urine Negative (Negative); Color Urine Yellow (Yellow); Glucose Urine UA 1+ mg/dL (Negative); Ketones Urine Negative (Negative); Leukocyte Esterase Ur Negative LEU/UL (NEGATIVE); Mucus Urine Rare /lpf; Nitrate Urine Negative (Negative); Protein Urine Negative (Negative); RBC Urine 0-2 /hpf (0-2); Squamous Epithelial Cell Urine Occasional /hpf (Few); WBC Urine 0-3 /hpf (0-3)
[2020-12-15 15:09] LABS: Specific Grav Ur 1.004 (1.001-1.035)
--- NOTE | 2020-12-15 15:27 | PM.IMPN ---
Progress Note: A&P Assessment and Plan (1) Nausea and vomiting: Code(s): R11.2 - Nausea with vomiting, unspecified Status: Acute Assessment and Plan: diet has been liberalized patient has been eating continue Remeron and Megace restarted Prozac (2) Acute hypokalemia: Code(s): E87.6 - Hypokalemia Status: Acute Assessment and Plan: replace as needed (3) Physical deconditioning: Code(s): R53.81 - Other malaise Status: Acute Assessment and Plan: participating with PT OT in therapy sessions (4) Nonalcoholic steatohepatitis ([facility]): Code(s): K75.81 - Nonalcoholic steatohepatitis ([facility]) Status: Acute Assessment and Plan: continue to monitor (5) Urinary frequency: Code(s): R35.0 - Frequency of micturition Status: Acute Assessment and Plan: sent for urinalysis (6) Breakthrough seizure: Code(s): G40.919 - Epilepsy, unspecified, intractable, without status epilepticus Status: Acute Assessment and Plan: has been seizure-free since admission Subjective Date/time seen: 12/15/20 15:27 I feel fine Review of Systems Review of Systems: Narrative: denies any issues however patient being incontinent of urine and wanting to use the bathroom quite frequently. Exam Narrative: Exam Narrative: laying in bed Const: General: comfortable, no acute distress, well developed, alert and awake Nutritional Appearance: average body habitus Orientation/consciousness: oriented to person and oriented to place HENMT: Head: normal to inspection, normocephalic and atraumatic Ears: hearing grossly normal bilaterally Face and sinus: normal facial exam Eyes: General: appearance normal, both eyes and all related structures Pupils: Equal, round and reactive pupils present EOM: EOMs intact bilaterally Neck: Neck: full ROM, no lymphadenopathy and no JVD Thyroid: thyroid normal Lymphatic: no lymphadenopathy noted Resp: Effort & Inspection: normal respiratory effort and able to speak in complete sentences Auscultation: clear to auscultation bilaterally Cardio: Jugular venous distension: no JVD Rate: regular rate Rhythm: regular rhythm Heart sounds: S1 normal heart sound present and S2 normal heart sound present GI: GI Palp: Yes Soft to palpation and Yes No hepatosplenomegaly present : General: Yes deferred Skin: Rashes: no rashes Wounds: no wounds Neuro: General: oriented to person, oriented to place and CN's II-XI intact bilaterally Cranial nerves: Yes CN's II-XII intact bilaterally and Yes Equal, round and reactive pupils present Cognition (Neuro): abnormal cognition ( coronary impairment) Speech: normal speech Gait exam (Neuro): Normal gait present Motor exam (neuro): 5/5 motor strength present throughout Extrem: General: normal to inspection, full ROM, no joint enlargement and no pedal edema Objective Data Vital Signs Vital Signs: Vital Signs - 24 hr 12/14/20 19:03 12/14/20 21:44 12/15/20 05:50 Temperature 98.8 F 97.4 F L Pulse Rate 122 H 76 106 H Respiratory Rate 20 20 Blood Pressure 107/72 125/75 118/81 Pulse Oximetry 100 100 99 12/15/20 14:00 Temperature 98.1 F Pulse Rate 109 H Respiratory Rate 18 Blood Pressure 110/81 Pulse Oximetry 100 Intake/Output Intake/Output: Intake & Output 12/12/20 12/13/20 12/14/20 12/15/20 23:59 23:59 23:59 23:59 Intake Total 3780 4400 5730 1585 Output Total 600 2000 1550 1100 Balance 3180 2400 4180 485 Meds/Results Medications: Active Medications Generic Name Dose Route Start Last Admin Trade Name Gopiq PRN Reason Stop Dose Admin Fluoxetine HCl 20 mg 12/14/20 09:00 12/15/20 08:44 Fluoxetine Hcl 20 Mg Capsule PO 20 mg DAILY ANTHONY Administration Heparin Sodium (Porcine) 5,000 units 12/09/20 21:00 12/15/20 08:44 Heparin Sodium 5,000 Units/Ml Vial SUB-Q 5,000 units Q12HR ANTHONY Administration Dextrose/Sodium Chloride 1
[2020-12-15] MEDS: TOPIRAMATE 100 MG TABLET 400 MG PO (20:00)
[2020-12-15] MEDS: MIRTAZAPINE 15 MG TABLET PO (20:00)
[2020-12-15] MEDS: ONDANSETRON INJ 4 MG/2 ML VIAL IV PUSH (20:20)
--- NOTE | 2020-12-15 20:30 | PC.NURSE ---
Patient refused Carafate tonight due to it makes her sick she retched just in talking about it. Shortly after passing the rest of her medications she vomited 50ml of liquid. I got her cleaned up and gave her the PRN Nicole. -BERTRAND KEMP
[2020-12-15 21:20] LABS: Potassium 3.4 mmol/L (3.4-5.0)
[2020-12-15 21:30] VITALS: BP 124/81; PULSE 104; RESP 20; TEMP 36.9; O2SAT 100
--- NOTE | 2020-12-16 01:36 | PC.NURSE ---
Reminded patient again to try and not pick at her lips, they are cracked and bleeding at this time. She was given lip balm and she doesn't like it so won't use it. -BERTRAND RN
[2020-12-16] MEDS: DEXTROSE 5%/0.9% SOD CHL 1,000 ML 125 ML IV CONT ×2 (05:01→16:55)
[2020-12-16 05:31] VITALS: BP 118/85; PULSE 112; RESP 20; TEMP 36.4; O2SAT 97
--- NOTE | 2020-12-16 06:34 | PC.NURSE ---
Patient refused Carefate this AM with no explanation, she has not vomited since the evening meds. Will mention it to AM nurse to try with morning medications. -AEW RN
[2020-12-16] MEDS: levETIRAcetam 1000MG/NACL100ML 1,000 MG/100 ML BAG 100 MG IVPB (09:01)
[2020-12-16] MEDS: HEPARIN SODIUM 5,000 UNITS/ML VIAL 5000 UNITS SUB-Q ×2 (09:01→20:23)
[2020-12-16] MEDS: FLUoxetine HCL 20 MG CAPSULE PO (09:01)
[2020-12-16] MEDS: PANTOPRAZOLE SODIUM IV 40 MG VIAL IV PUSH (09:02)
[2020-12-16] MEDS: TOPIRAMATE 100 MG TABLET 300 MG PO (09:02)
[2020-12-16] MEDS: MEGESTROL ACETATE (*CHEMO) 40 MG TABLET PO ×4 (09:02→20:23)
[2020-12-16 12:08] LABS: Basophils Percent Auto 0.7 % (0.2-1.2); Eosinophils Percent Auto 0.5 % (0-4.4); Hematocrit 33.8 % (37.0-47.0); Hemoglobin 11.7 g/dL (12.0-15.0); Immature Granulocyte Absolute 0.01 K/mm3 (0.00-0.031); Immature Granulocyte Percent A 0.2 % (0-0.5); Lymphocytes Absolute Auto 0.81 K/mm3 (0.9-3.2); Lymphocytes Percent Auto 18.3 % (18.3-44.2); Mean Corpuscular HGB Conc 34.6 g/dl (32-36); Mean Corpuscular Hemoglobin 34.3 pg (26-34); Mean Corpuscular Volume 99.1 fl (80-100); Mean Platelet Volume 9.8 fl (7.4-10.4); Monocytes Absolute Auto 0.5 K/mm3 (0.1-0.6); Monocytes Percent Auto 10.4 % (2.6-8.5); Neutrophils Absolute Auto 3.1 K/mm3 (1.3-6.7); Neutrophils Percent Auto 69.9 % (45.5-73.1); Platelet Count Result 176 k/mm3 (150-375); Red Blood Count 3.41 M/mm3 (4.2-5.4); Red Cell Distribution Width 13.5 % (11.5-14.5); White Blood Count 4.4 K/mm3 (4.5-10.0)
[2020-12-16 13:00] LABS: Alanine Aminotransferase 235 U/L (4-35); Albumin Level 3.1 g/dL (3.5-5.1); Alkaline Phosphatase 184 U/L (38-126); Anion Gap 9 mmol/L (8-16); Aspartate Amino Transferase 316 U/L (14-36); Bilirubin,Total 3.3 mg/dL (0.2-1.3); Calcium 7.8 mg/dL (8.4-10.2); Carbon Dioxide 18 mmol/L (22-30); Chloride 106 mmol/L (98-107); Estimated CRCL calculation 173 ml/min; Estimated Glomerular Filt Rate > 60; Glucose 182 mg/dL (65-105); Potassium 3.2 mmol/L (3.4-5.0); Sodium 133 mmol/L (137-145)
[2020-12-16 13:30] LABS: Blood Urea Nitrogen < 2 mg/dL (7-17)
[2020-12-16 14:00] VITALS: BP 126/92; PULSE 118; RESP 18; TEMP 36.7; O2SAT 100
--- NOTE | 2020-12-16 15:03 | PC.NURSE ---
[address] 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
--- NOTE | 2020-12-16 15:20 | PM.IMPN ---
Progress Note: A&P Assessment and Plan (1) Ataxia: Code(s): R27.0 - Ataxia, unspecified Status: Acute Assessment and Plan: patient was noted to have some fine motor skills deficits today neurology has been reconsulted MRI of brain is awaiting will check anti seizure medication levels continue to monitor (2) Breakthrough seizure: Code(s): G40.919 - Epilepsy, unspecified, intractable, without status epilepticus Status: Acute Assessment and Plan: has been seizure-free since admission likely secondary to not been able to take his medication due to intractable nausea and vomiting (3) Nausea and vomiting: Code(s): R11.2 - Nausea with vomiting, unspecified Status: Acute Assessment and Plan: diet has been liberalized patient on Megace, Remeron and Prozac has been able to eat some but still having nausea and vomiting supportive care (4) Seizures: Code(s): R56.9 - Unspecified convulsions Status: Chronic Assessment and Plan: continue anticonvulsives (5) Acute hypokalemia: Code(s): E87.6 - Hypokalemia Status: Acute Assessment and Plan: replace as needed (6) Physical deconditioning: Code(s): R53.81 - Other malaise Status: Acute Assessment and Plan: PT OT (7) Nonalcoholic steatohepatitis ([facility]INA): Code(s): K75.81 - Nonalcoholic steatohepatitis (MEDINA) Status: Acute Assessment and Plan: continue to monitor alk phos ALT and AST elevated at patient's baseline (8) Mentally disabled: Code(s): F79 - Unspecified intellectual disabilities Status: Acute Assessment and Plan: supportive care (9) Urinary frequency: Code(s): R35.0 - Frequency of micturition Status: Acute Assessment and Plan: urinalysis is normal (10) Hyponatremia: Code(s): E87.1 - Hypo-osmolality and hyponatremia Status: Acute Assessment and Plan: could be secondary to either SIADH as patient is on psychotropics another possibility is GI losses due to nausea and vomiting will continue to monitor replace as needed Subjective Date/time seen: 12/16/20 15:20 I threw up my pills on to my breakfast Review of Systems Review of Systems: Narrative: patient states that she threw up her tabs and her breakfast which consisted of some peaches Exam Narrative: Exam Narrative: sitting in chair Const: General: comfortable, no acute distress, well developed, alert, awake, ill appearing and tired appearing Nutritional Appearance: thin Orientation/consciousness: oriented to person and oriented to place HENMT: Head: normal to inspection, normocephalic and atraumatic Ears: hearing grossly normal bilaterally Face and sinus: normal facial exam Eyes: General: appearance normal, both eyes and all related structures Pupils: Equal, round and reactive pupils present EOM: EOMs intact bilaterally Neck: Neck: full ROM, no lymphadenopathy and no JVD Thyroid: thyroid normal Lymphatic: no lymphadenopathy noted Resp: Effort & Inspection: normal respiratory effort and able to speak in complete sentences Auscultation: clear to auscultation bilaterally Cardio: Jugular venous distension: no JVD Rate: regular rate Rhythm: regular rhythm Heart sounds: S1 normal heart sound present and S2 normal heart sound present GI: GI Palp: Yes Soft to palpation and Yes No hepatosplenomegaly present : General: Yes deferred Skin: Rashes: no rashes Wounds: no wounds Neuro: General: patient oriented x3 and CN's II-XI intact bilaterally Cranial nerves: Yes CN's II-XII intact bilaterally and Yes Equal, round and reactive pupils present Cognition (Neuro): normal cognition Speech: normal speech Gait exam (Neuro): Normal gait present Motor exam (neuro): 5/5 motor strength present throughout Extrem: General: normal to inspection, full ROM, no joint enlargement and no pedal edema O
[2020-12-16] MEDS: levETIRAcetam 1000MG/NACL100ML 1,000 MG/100 ML BAG 400 MG IVPB (20:23)
[2020-12-16] MEDS: SUCRALFATE SUSP 100 MG/ML 10 ML UDC 1000 MG PO (20:24)
[2020-12-16] MEDS: TOPIRAMATE 100 MG TABLET 400 MG PO (20:24)
[2020-12-16] MEDS: MIRTAZAPINE 15 MG TABLET PO (20:25)
[2020-12-16] MEDS: ONDANSETRON INJ 4 MG/2 ML VIAL IV PUSH (20:27)
--- NOTE | 2020-12-16 21:00 | PC.NURSE ---
Patient's mother, Shavon called up to unit and asked to speak to the nurse for her daughter. This RN talked with mother and she stated that patient is not to be getting up out of bed at this time. Mother spoke to RN regarding patient's falls a few days prior and eeg scheduled for tomorrow. Staff will not get patient up over night per mother's request.
[2020-12-16 22:00] VITALS: BP 122/80; PULSE 118; RESP 20; TEMP 36.7; O2SAT 99
[2020-12-17] MEDS: DEXTROSE 5%/0.9% SOD CHL 1,000 ML 125 ML IV CONT ×4 (00:55→20:35)
[2020-12-17 06:00] VITALS: BP 119/87; PULSE 109; RESP 20; TEMP 37.2; O2SAT 99
[2020-12-17] MEDS: SUCRALFATE SUSP 100 MG/ML 10 ML UDC 1000 MG PO ×4 (06:43→20:31)
[2020-12-17] MEDS: levETIRAcetam 1000MG/NACL100ML 1,000 MG/100 ML BAG 400 MG IVPB ×2 (08:22→20:31)
[2020-12-17] MEDS: MEGESTROL ACETATE (*CHEMO) 40 MG TABLET PO ×4 (08:22→20:32)
[2020-12-17] MEDS: HEPARIN SODIUM 5,000 UNITS/ML VIAL 5000 UNITS SUB-Q ×2 (08:22→20:33)
[2020-12-17] MEDS: FLUoxetine HCL 20 MG CAPSULE PO (08:22)
[2020-12-17] MEDS: PANTOPRAZOLE SODIUM IV 40 MG VIAL IV PUSH (08:23)
[2020-12-17] MEDS: TOPIRAMATE 100 MG TABLET 300 MG PO (08:23)
--- NOTE | 2020-12-17 12:47 | WPDGIPROGNO ---
Progress Note: A&P Assessment and Plan (1) Nausea and vomiting: Code(s): R11.2 - Nausea with vomiting, unspecified Status: Acute Assessment and Plan: She is taking now remeron and megace probably at some point will need psychiatry evaluation. did not complete gastric emptying study it seems that she is having a bettet day today ? supratentorial, depression, etc (2) Anorexia: Code(s): R63.0 - Anorexia Status: Acute Assessment and Plan: nutrition support (3) Hypokalemia: Code(s): E87.6 - Hypokalemia Status: Acute Assessment and Plan: will add oral kcl daily, it has been running low (4) Breakthrough seizure: Code(s): G40.919 - Epilepsy, unspecified, intractable, without status epilepticus Status: Acute Assessment and Plan: on meds by neurology, they will reassess again- primary noted ataxia (5) Intellectual disability: Code(s): F79 - Unspecified intellectual disabilities Status: Chronic (6) Mentally disabled: Code(s): F79 - Unspecified intellectual disabilities Status: Acute (7) Depression: Code(s): F32.9 - Major depressive disorder, single episode, unspecified Status: Acute Assessment and Plan: probably she has depression on meds now Subjective Date/time seen: 12/17/20 12:47 Interval history: she was able to keep breakfast down and now is having popsicle Review of Systems Review of Systems: All systems reviewed & are unremarkable except as noted in HPI and below Exam Const: General: comfortable and no acute distress Other: flat affect HENMT: General nose exam: Normal nares present Eyes: Pupils: Equal, round and reactive pupils present Neck: Neck: no JVD Resp: Auscultation: clear to auscultation bilaterally Cardio: Rate: regular rate GI: GI Palp: Yes Soft to palpation and No Guarding due to palpation present (GI) Auscultation: normal bowel sounds Skin: General skin exam: normal color Neuro: Speech: normal speech Psych: Affect: Anxious affect present Other: flat affect Objective Data Vital Signs Vital Signs: Vital Signs - 24 hr 12/16/20 14:00 12/16/20 22:00 12/17/20 06:00 Temperature 98.1 F 98.1 F 99.0 F Pulse Rate 118 H 118 H 109 H Respiratory Rate 18 20 20 Blood Pressure 126/92 H 122/80 119/87 Pulse Oximetry 100 99 99 Intake/Output Intake/Output: Intake & Output 12/14/20 12/15/20 12/16/20 12/17/20 23:59 23:59 23:59 23:59 Intake Total 5730 2985 3650 2470 Output Total 1550 2950 2800 250 Balance 4180 35 850 2220 Meds/Results Medications: Active Medications Generic Name Dose Route Start Last Admin Trade Name Freq PRN Reason Stop Dose Admin Fluoxetine HCl 20 mg 12/14/20 09:00 12/17/20 08:22 Fluoxetine Hcl 20 Mg Capsule PO 20 mg DAILY ANTHONY Administration Heparin Sodium (Porcine) 5,000 units 12/09/20 21:00 12/17/20 08:22 Heparin Sodium 5,000 Units/Ml Vial SUB-Q 5,000 units Q12HR ANTHONY Administration Dextrose/Sodium Chloride 1,000 mls @ 125 mls/hr 12/10/20 11:00 12/17/20 06:42 Dextrose 5% Sodium Chloride 0.9% IV CONT 125 mls/hr .Q8H ANTHONY Administration Levetiracetam 1,000 mg in 100 mls @ 400 mls/hr 12/10/20 21:00 12/17/20 08:37 Keppra Iv IVPB Infused Q12HR ANTHONY Infusion Megestrol Acetate 40 mg 12/14/20 13:00 12/17/20 11:58 Megestrol Acetate (*Chemo) 40 Mg Tablet PO 40 mg QID ANTHONY Administration Metoclopramide HCl 10 mg 12/10/20 15:43 12/11/20 12:02 Metoclopramide Hcl Inj 10 Mg/2 Ml Vial IV PUSH 10 mg Q8HR PRN Administration Nausea And Vomiting Mirtazapine 15 mg 12/10/20 21:00 12/16/20 20:25 Mirtazapine 15 Mg Tablet PO 15 mg HS ANTHONY Administration Ondansetron HCl 4 mg 12/10/20 09:21 12/16/20 20:27 Ondansetron Inj 4 Mg/2 Ml Vial IV PUSH 4 mg Q6H PRN Administration Nausea And Vomiting Pantoprazole Sodium 40 mg 12/10/20 09:00 12/17/20 08:23 Pantopr
--- NOTE | 2020-12-17 13:29 | PM.IMPN ---
Progress Note: A&P Assessment and Plan (1) Hyponatremia: Code(s): E87.1 - Hypo-osmolality and hyponatremia Status: Acute Assessment and Plan: Patient is on IV fluids Continue to monitor (2) Ataxia: Code(s): R27.0 - Ataxia, unspecified Status: Acute Assessment and Plan: Today patient performed Romberg and did well and other maneuvers as well (3) Urinary frequency: Code(s): R35.0 - Frequency of micturition Status: Acute Assessment and Plan: Urinalysis is normal (4) Depression: Code(s): F32.9 - Major depressive disorder, single episode, unspecified Status: Acute Assessment and Plan: Started on Prozac (5) Breakthrough seizure: Code(s): G40.919 - Epilepsy, unspecified, intractable, without status epilepticus Status: Acute Assessment and Plan: Has been seizure-free Continue anti seizure medication (6) Acute hypokalemia: Code(s): E87.6 - Hypokalemia Status: Acute Assessment and Plan: Replace as needed (7) Nausea and vomiting: Code(s): R11.2 - Nausea with vomiting, unspecified Status: Acute Assessment and Plan: Diet has been liberalized On Megace and Remeron (8) Weakness: Code(s): R53.1 - Weakness Status: Acute Assessment and Plan: PT OT (9) Physical deconditioning: Code(s): R53.81 - Other malaise Status: Acute Assessment and Plan: Likely secondary to prolonged hospitalization (10) Nonalcoholic steatohepatitis ([facility]INA): Code(s): K75.81 - Nonalcoholic steatohepatitis ([facility]INA) Status: Acute Assessment and Plan: Continue to monitor Subjective Date/time seen: 12/17/20 13:29 I feel fine Review of Systems Review of Systems: Narrative: No nausea or vomiting today at time of visit Exam Narrative: Exam Narrative: Chronically ill looking. Const: General: comfortable, no acute distress, well developed, alert and awake Nutritional Appearance: average body habitus Orientation/consciousness: oriented to person and oriented to place HENMT: Head: normal to inspection, normocephalic and atraumatic Ears: hearing grossly normal bilaterally Face and sinus: normal facial exam Eyes: General: appearance normal, both eyes and all related structures Pupils: Equal, round and reactive pupils present EOM: EOMs intact bilaterally Neck: Neck: full ROM, no lymphadenopathy and no JVD Thyroid: thyroid normal Lymphatic: no lymphadenopathy noted Resp: Effort & Inspection: normal respiratory effort and able to speak in complete sentences Auscultation: clear to auscultation bilaterally Cardio: Jugular venous distension: no JVD Rate: regular rate Rhythm: regular rhythm Heart sounds: S1 normal heart sound present and S2 normal heart sound present GI: GI Palp: Yes Soft to palpation and Yes No hepatosplenomegaly present : General: Yes deferred Skin: Rashes: no rashes Wounds: no wounds Neuro: General: oriented to person, oriented to place, no focal motor deficits and CN's II-XI intact bilaterally Cranial nerves: Yes CN's II-XII intact bilaterally and Yes Equal, round and reactive pupils present Cognition (Neuro): normal cognition Speech: normal speech Gait exam (Neuro): Normal gait present Motor exam (neuro): 5/5 motor strength present throughout Extrem: General: normal to inspection, full ROM, no joint enlargement and no pedal edema Objective Data Vital Signs Vital Signs: Vital Signs - 24 hr 12/16/20 14:00 12/16/20 22:00 12/17/20 06:00 Temperature 98.1 F 98.1 F 99.0 F Pulse Rate 118 H 118 H 109 H Respiratory Rate 18 20 20 Blood Pressure 126/92 H 122/80 119/87 Pulse Oximetry 100 99 99 Intake/Output Intake/Output: Intake & Output 12/14/20 12/15/20 12/16/20 12/17/20 23:59 23:59 23:59 23:59 Intake Total 5730 2985 3650 2470 Output Total 1550 2950 2800 250 Balance 4180 35 850 2220 Meds/Results Medications: Active
--- NOTE | 2020-12-17 13:33 | PCPTNOTE ---
Attempted PT reeval. Pt having test done. Will try again at later time
[2020-12-17 14:00] VITALS: BP 114/84; PULSE 117; RESP 18; TEMP 36.1; O2SAT 100
--- NOTE | 2020-12-17 15:07 | PCDIET ---
Nutrition Follow-Up Complete: Inadequate oral intake related to nausea/vomiting/seizure as evidenced by clear liquid diet. Patient to meet estimated nutritional needs. Goal: Progressing towards goal. Continue current goal. Pt current nutrition is Regular diet + nutrition supplements Nutrition recommendation: agree Last recorded weight is 67.4 kg, up from assessed wt of 61.1kg Bowel Motility: No BM noted for last six days Labs Reviewed:glucose 182, Na 133, k+3.2, AST/ALT 316/235 Meds Noted:Megace, Reglan, Protonix Additional Notes: Pt has a 65% average intake and wt is up. No gastric emptying study performed. No BM for six days. Pt on prokinetic. Recommend providing magnesium citrate starting at 200mg, advancing to 800mg as needed to draw water into gut and promote motility. Recommend rule of SIBO and celiac disease related to constipation, n/v. Pt would also benefit from a trial of digestive enzymes with meals to help break down food. We will continue to monitor digestive function and adequate intake every five days.
[2020-12-17] MEDS: MIRTAZAPINE 15 MG TABLET PO (20:32)
[2020-12-17] MEDS: TOPIRAMATE 100 MG TABLET 400 MG PO (20:32)
[2020-12-17 21:23] VITALS: BP 115/80; PULSE 108; RESP 20; TEMP 37.4; O2SAT 100
[2020-12-18] MEDS: SUCRALFATE SUSP 100 MG/ML 10 ML UDC 1000 MG PO ×4 (05:51→21:52)
[2020-12-18 06:00] VITALS: BP 124/86; PULSE 84; RESP 20; TEMP 36.6; O2SAT 100
[2020-12-18] MEDS: MEGESTROL ACETATE (*CHEMO) 40 MG TABLET PO ×4 (09:48→21:52)
[2020-12-18] MEDS: FLUoxetine HCL 20 MG CAPSULE PO (09:49)
[2020-12-18] MEDS: TOPIRAMATE 100 MG TABLET 300 MG PO (09:49)
[2020-12-18] MEDS: HEPARIN SODIUM 5,000 UNITS/ML VIAL 5000 UNITS SUB-Q ×2 (09:49→21:51)
[2020-12-18] MEDS: DEXTROSE 5%/0.9% SOD CHL 1,000 ML 125 ML IV CONT ×2 (09:50→21:52)
[2020-12-18] MEDS: levETIRAcetam 1000MG/NACL100ML 1,000 MG/100 ML BAG 200 MG IVPB ×2 (09:51→21:51)
[2020-12-18] MEDS: PANTOPRAZOLE SODIUM IV 40 MG VIAL IV PUSH (09:54)
[2020-12-18] MEDS: METOCLOPRAMIDE HCL INJ 10 MG/2 ML VIAL IV PUSH (10:01)
--- NOTE | 2020-12-18 10:54 | WPDNEUROLOGY ---
Neurology EEG Report General Information Date of Study: 12/17/20 TEST eeg DIAGNOSIS decreased motor skills CONDITION OF RECORDING awake drowsy and sleep EEG NUMBER [id number] CLINICAL HISTORY patient reported that she is known epileptic but at present has been hospitalized for generalized weakness. EEG DESCRIPTION whole record consists of low to medium voltage 5 to 7 hertz per second theta activity admixed with 2 to 3 hertz per second low to medium voltage delta activity. Sleep spindles are seen on the right side. High-voltage spike and delta activity seen occasionally on the left side ,hyperventilation not done, photic stimulation not done. Paroxysmal. Focal. And lateralized. IMPRESSION Abnormal record due to presence of bihemispheric theta and delta activity with left hemispheric dominance and also absence of the normal sleep spindles on the left side ,along with the presence of intermittent low-voltage spike and slow wave transients over the left hemisphere. 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
--- NOTE | 2020-12-18 11:54 | PCOTNOTE ---
Attempted therapy session with patient, but patient stated they were taking her for a test at noon and to check back later.
--- NOTE | 2020-12-18 12:23 | PCDIET ---
Patient to MRI per stretcher.
--- NOTE | 2020-12-18 12:47 | PM.IMPN ---
Progress Note: A&P Assessment and Plan (1) Hyponatremia: Code(s): E87.1 - Hypo-osmolality and hyponatremia Status: Acute Assessment and Plan: Patient is on IV fluids, sodium is 133. (2) Ataxia: Code(s): R27.0 - Ataxia, unspecified Status: Acute Assessment and Plan: Legs are weak still as per physical theraphy. MRI is awaiting. (3) Urinary frequency: Code(s): R35.0 - Frequency of micturition Status: Acute Assessment and Plan: Urinalysis is normal (4) Depression: Code(s): F32.9 - Major depressive disorder, single episode, unspecified Status: Acute Assessment and Plan: Started on Prozac (5) Breakthrough seizure: Code(s): G40.919 - Epilepsy, unspecified, intractable, without status epilepticus Status: Acute Assessment and Plan: Continue anti seizure medication (6) Acute hypokalemia: Code(s): E87.6 - Hypokalemia Status: Acute Assessment and Plan: Replace as needed, potassium is 3.2 (7) Nausea and vomiting: Code(s): R11.2 - Nausea with vomiting, unspecified Status: Acute Assessment and Plan: Diet has been liberalized On Megace and Remeron (8) Weakness: Code(s): R53.1 - Weakness Status: Acute Assessment and Plan: PT OT (9) Physical deconditioning: Code(s): R53.81 - Other malaise Status: Acute Assessment and Plan: Likely secondary to prolonged hospitalization (10) Nonalcoholic steatohepatitis (MEDINA): Code(s): K75.81 - Nonalcoholic steatohepatitis (MEDINA) Status: Acute Assessment and Plan: Continue to monitor Subjective Date/time seen: 12/18/20 12:47 Interval history: Patient was seen during the morning rounds today. Pt legs are still weak, history of seizures. Pt is awaiting MRI today and is having ongoing PT/ OT Review of Systems Review of Systems: All systems reviewed & are unremarkable except as noted in HPI and below Exam Narrative: Exam Narrative: Chronically ill looking. Const: General: Physically active, ill appearing, tired appearing and other (Chronically ill looking) Nutritional Appearance: well nourished and thin Orientation/consciousness: oriented to person, oriented to place, oriented to time and No confusion Chest: Chest palpation & inspection: normal inspection of the chest Resp: Auscultation: clear to auscultation bilaterally Cardio: Rate: regular rate Rhythm: regular rhythm Heart sounds: S1 normal heart sound present and S2 normal heart sound present Peripheral pulses: Peripheral pulses 2+ throughout GI: Inspection: normal to inspection Auscultation: normal bowel sounds Neuro: General: oriented to person, oriented to place, oriented to time, no focal motor deficits, CN's II-XI intact bilaterally and No confusion Cranial nerves: Yes CN's II-XII intact bilaterally, Yes Equal, round and reactive pupils present and Yes Normal hearing present Cognition (Neuro): normal cognition and abnormal cognition ( coronary impairment) Speech: normal speech and No Abnormal speech present Gait exam (Neuro): Normal gait present Motor exam (neuro): 5/5 motor strength present throughout Sensory Exam: normal sensation Extrem: General: normal to inspection, full ROM, no joint enlargement and no pedal edema Right upper extremity: normal to inspection Left upper extremity: normal to inspection Right lower extremity: normal to inspection Left lower extremity: normal to inspection Psych: Appearance: grossly normal Mental Status: mental status grossly normal Speech and movement: Normal speech and movement present Affect: normal affect Attitude: cooperative Thought process: Normal thought process present Insight: Limited insight present (Psych) Judgement: Limited judgement present (Psych) Objective Data Vital Signs Vital Signs: Vital Signs - 24 hr 12/17/20 14:00 12/17/20 21:23 12/18/20 06:00
--- NOTE | 2020-12-18 13:26 | PC.NURSE ---
Patient returned from MRI.
[2020-12-18] MEDS: POTASSIUM CHLORIDE 10 MEQ TABLET.ER PO (13:33)
[2020-12-18 14:00] VITALS: BP 129/83; PULSE 100; RESP 20; TEMP 36.5; O2SAT 100
--- NOTE | 2020-12-18 15:21 | PCOTNOTE ---
Attempted to see patient for therapy session, but patient was asleep and patient's mother was present. Patient's mother stated she was waiting on the results of an MRI and to check back tomorrow.
--- NOTE | 2020-12-18 17:02 | WPDGIPROGNO ---
Progress Note: A&P Assessment and Plan (1) Nausea and vomiting: Code(s): R11.2 - Nausea with vomiting, unspecified Status: Acute Assessment and Plan: She is taking now remeron and megace probably at some point will need psychiatry evaluation. eating more with less nausea per mother (2) Anorexia: Code(s): R63.0 - Anorexia Status: Acute Assessment and Plan: nutrition support (3) Hypokalemia: Code(s): E87.6 - Hypokalemia Status: Acute Assessment and Plan: also on oral kcl daily, it has been running low (4) Breakthrough seizure: Code(s): G40.919 - Epilepsy, unspecified, intractable, without status epilepticus Status: Acute Assessment and Plan: on meds by neurology, had new EEG (5) Intellectual disability: Code(s): F79 - Unspecified intellectual disabilities Status: Chronic (6) Mentally disabled: Code(s): F79 - Unspecified intellectual disabilities Status: Acute (7) Depression: Code(s): F32.9 - Major depressive disorder, single episode, unspecified Status: Acute Assessment and Plan: probably she has depression on meds now will need more PT/rehab- generalized weakness and failure to thrive Subjective Date/time seen: 12/18/20 17:02 Interval history: mother says that she has been eating more and awaiting to get more therapy Review of Systems Review of Systems: All systems reviewed & are unremarkable except as noted in HPI and below Exam Const: General: comfortable, no acute distress and ill appearing chronically Other: flat affect HENMT: General nose exam: Normal nares present Eyes: Pupils: Equal, round and reactive pupils present Neck: Neck: no JVD Resp: Auscultation: clear to auscultation bilaterally Cardio: Rate: regular rate GI: GI Palp: Yes Soft to palpation and No Guarding due to palpation present (GI) Auscultation: normal bowel sounds Skin: General skin exam: normal color Neuro: Speech: normal speech Psych: Affect: Anxious affect present Other: flat affect Objective Data Vital Signs Vital Signs: Vital Signs - 24 hr 12/17/20 21:23 12/18/20 06:00 12/18/20 14:00 Temperature 99.3 F 98 F 97.7 F Pulse Rate 108 H 84 100 Respiratory Rate 20 20 20 Blood Pressure 115/80 124/86 129/83 Pulse Oximetry 100 100 100 Intake/Output Intake/Output: Intake & Output 12/15/20 12/16/20 12/17/20 12/18/20 23:59 23:59 23:59 23:59 Intake Total 2985 3650 5480 1100 Output Total 2950 2800 1000 700 Balance 35 850 4480 400 Meds/Results Medications: Active Medications Generic Name Dose Route Start Last Admin Trade Name Freq PRN Reason Stop Dose Admin Fluoxetine HCl 20 mg 12/14/20 09:00 12/18/20 09:49 Fluoxetine Hcl 20 Mg Capsule PO 20 mg DAILY ANTHONY Administration Heparin Sodium (Porcine) 5,000 units 12/09/20 21:00 12/18/20 09:49 Heparin Sodium 5,000 Units/Ml Vial SUB-Q 5,000 units Q12HR ANTHONY Administration Dextrose/Sodium Chloride 1,000 mls @ 125 mls/hr 12/10/20 11:00 12/18/20 12:07 Dextrose 5% Sodium Chloride 0.9% IV CONT 0 mls/hr .Q8H ANTHONY Infusion Levetiracetam 1,000 mg in 100 mls @ 400 mls/hr 12/10/20 21:00 12/18/20 09:51 Keppra Iv IVPB 200 mls/hr Q12HR ANTHONY Administration Megestrol Acetate 40 mg 12/14/20 13:00 12/18/20 13:33 Megestrol Acetate (*Chemo) 40 Mg Tablet PO 40 mg QID ANTHONY Administration Metoclopramide HCl 10 mg 12/10/20 15:43 12/18/20 10:01 Metoclopramide Hcl Inj 10 Mg/2 Ml Vial IV PUSH 10 mg Q8HR PRN Administration Nausea And Vomiting Mirtazapine 15 mg 12/10/20 21:00 12/17/20 20:32 Mirtazapine 15 Mg Tablet PO 15 mg HS ANTHONY Administration Ondansetron HCl 4 mg 12/10/20 09:21 12/16/20 20:27 Ondansetron Inj 4 Mg/2 Ml Vial IV PUSH 4 mg Q6H PRN Administration Nausea And Vomiting Pantoprazole Sodium 40 mg 12/10/20 09:00 12/18/20 09:54 Pantoprazole Sodium Iv
[2020-12-18 20:00] VITALS: PULSE 100; RESP 20; O2SAT 100
[2020-12-18] MEDS: MIRTAZAPINE 15 MG TABLET PO (21:52)
[2020-12-18] MEDS: TOPIRAMATE 100 MG TABLET 400 MG PO (21:52)
[2020-12-18 22:00] VITALS: BP 126/84; PULSE 100; RESP 20; TEMP 36.6; O2SAT 100
[2020-12-19] VITALS (7 sets, daily range): BP systolic 130–137; BP diastolic 76–89; PULSE 96–150; RESP 20; TEMP 36.4–37.1; O2SAT 99–100
[2020-12-19 06:37] LABS: Anion Gap 4 mmol/L (8-16); Blood Urea Nitrogen 3 mg/dL (7-17); Carbon Dioxide 18 mmol/L (22-30); Chloride 109 mmol/L (98-107); Estimated CRCL calculation 173 ml/min; Estimated Glomerular Filt Rate > 60; Glucose 137 mg/dL (65-105); Potassium 3.3 mmol/L (3.4-5.0); Sodium 131 mmol/L (137-145)
[2020-12-19] MEDS: POTASSIUM CHLORIDE 10 MEQ TABLET.ER PO (09:10)
[2020-12-19] MEDS: levETIRAcetam 500 MG TABLET PO ×2 (09:11→21:57)
[2020-12-19] MEDS: MEGESTROL ACETATE (*CHEMO) 40 MG TABLET PO ×2 (09:11→21:58)
[2020-12-19] MEDS: TOPIRAMATE 100 MG TABLET 300 MG PO (09:11)
[2020-12-19] MEDS: HEPARIN SODIUM 5,000 UNITS/ML VIAL 5000 UNITS SUB-Q ×2 (09:11→21:57)
[2020-12-19] MEDS: FLUoxetine HCL 20 MG CAPSULE PO (09:11)
[2020-12-19] MEDS: DEXTROSE 5%/0.9% SOD CHL 1,000 ML 125 ML IV CONT (09:13)
--- NOTE | 2020-12-19 09:53 | WPDNEUROPN ---
Progress Note: A&P Assessment and Plan (1) Weakness: Code(s): R53.1 - Weakness Status: Acute (2) Epilepsy: Code(s): G40.909 - Epilepsy, unspecified, not intractable, without status epilepticus Status: Chronic Additional Plan once a GI workup is completed will contact continue to follow her for the intractable epilepsy we will try the different anticonvulsant as she has been taking these 2 medication for long time Review of Systems Review of Systems: All systems reviewed & are unremarkable except as noted in HPI and below Exam Const: General: cooperative, comfortable, no acute distress, alert and anxious Nutritional Appearance: average body habitus Limitations: no limitations HENMT: Head: normocephalic Ears: hearing grossly normal bilaterally General nose exam: Normal external nose present Face and sinus: normal facial exam Mouth: Yes Normal oral and palatal mucosa present Eyes: General: appearance normal, both eyes and all related structures Neck: Neck: full ROM and no lymphadenopathy Resp: Effort & Inspection: normal respiratory effort Auscultation: clear to auscultation bilaterally GI: Auscultation: normal bowel sounds Skin: General skin exam: no rashes or lesions noted Neuro: General: oriented to person and oriented to place Cranial nerves: Yes CN's II-XII intact bilaterally Cognition (Neuro): abnormal cognition Speech: normal speech Gait exam (Neuro): Normal gait present Deep tendon reflexes (DTR's): Right triceps reflex intensity grade: 1+, Left triceps reflex intensity grade: 1+, Rt Biceps (C5, C6): 1+, Left biceps reflex intensity grade: 1+, Right brachioradialis reflex intensity grade: 1+, Left brachioradialis reflex intensity grade: 1+, Right patellar reflex intensity grade: 1+, Left patellar reflex intensity grade: 1+, Right ankle reflex intensity grade: 1+ and Left ankle reflex intensity grade: 1+ Plantar Reflex Responses: downgoing: bilateral Coordination: [id number] test normal Psych: Mental Status: other ( slow) Speech and movement: Normal speech and movement present Affect: Anxious affect present Attitude: cooperative Thought process: Tangential thought process present Thought content: Yes Normal thought content present Insight: Fair insight present (Psych) Judgement: Fair judgement present (Psych) Objective Data Vital Signs Vital Signs: Vital Signs - 24 hr 12/18/20 14:00 12/18/20 20:00 12/18/20 22:00 Temperature 36.5 C 36.6 C Pulse Rate 100 100 100 Respiratory Rate 20 20 20 Blood Pressure 129/83 126/84 Pulse Oximetry 100 100 100 12/19/20 05:51 Temperature 37.1 C Pulse Rate 96 Respiratory Rate 20 Blood Pressure 137/76 Pulse Oximetry 100 Intake/Output Intake/Output: Intake & Output 12/16/20 12/17/20 12/18/20 12/19/20 23:59 23:59 23:59 23:59 Intake Total 3650 5480 2300 1100 Output Total 2800 1000 850 300 Balance 850 4480 1450 800 Meds/Results Medications: Active Medications Generic Name Dose Route Start Last Admin Trade Name Freq PRN Reason Stop Dose Admin Fluoxetine HCl 20 mg 12/14/20 09:00 12/19/20 09:11 Fluoxetine Hcl 20 Mg Capsule PO 20 mg DAILY ANTHONY Administration Heparin Sodium (Porcine) 5,000 units 12/09/20 21:00 12/19/20 09:11 Heparin Sodium 5,000 Units/Ml Vial SUB-Q 5,000 units Q12HR ANTHONY Administration Dextrose/Sodium Chloride 1,000 mls @ 125 mls/hr 12/10/20 11:00 12/19/20 09:13 Dextrose 5% Sodium Chloride 0.9% IV CONT 125 mls/hr .Q8H ANTHONY Administration Levetiracetam 500 mg 12/19/20 09:00 12/19/20 09:11 Levetiracetam 500 Mg Tablet PO 500 mg Q12HR ANTHONY Administration Megestrol Acetate 40 mg 12/14/20 13:00 12/19/20 09:11 Megestrol Acetate (*Chemo) 40 Mg Tablet PO 40 mg QID ANTHONY Administration Metoclopramide HCl 10 mg 12/10/20 15:43 12/18/20 10:01 Metoclopramide Hcl Inj 10 Mg/2 Ml Vial IV PUSH 10 mg Q8HR PRN Administration Nausea And Vomiting Mirtazapine
[2020-12-19] MEDS: SUCRALFATE SUSP 100 MG/ML 10 ML UDC 1000 MG PO ×3 (12:17→20:27)
--- NOTE | 2020-12-19 12:44 | PM.IMPN ---
Progress Note: A&P Assessment and Plan (1) Hyponatremia: Code(s): E87.1 - Hypo-osmolality and hyponatremia Status: Acute Assessment and Plan: Patient is on IV fluids, sodium is 131. (2) Ataxia: Code(s): R27.0 - Ataxia, unspecified Status: Acute Assessment and Plan: Legs are weak still as per physical theraphy. MRI is normal. (3) Urinary frequency: Code(s): R35.0 - Frequency of micturition Status: Acute Assessment and Plan: Urinalysis is normal (4) Depression: Code(s): F32.9 - Major depressive disorder, single episode, unspecified Status: Acute Assessment and Plan: Started on Prozac (5) Breakthrough seizure: Code(s): G40.919 - Epilepsy, unspecified, intractable, without status epilepticus Status: Acute Assessment and Plan: Continue anti seizure medication (6) Acute hypokalemia: Code(s): E87.6 - Hypokalemia Status: Acute Assessment and Plan: Replace as needed, potassium is 3.3 (7) Nausea and vomiting: Code(s): R11.2 - Nausea with vomiting, unspecified Status: Acute Assessment and Plan: Diet has been liberalized On Megace and Remeron (8) Weakness: Code(s): R53.1 - Weakness Status: Acute Assessment and Plan: PT OT continue with Physical theraphy (9) Physical deconditioning: Code(s): R53.81 - Other malaise Status: Acute Assessment and Plan: Likely secondary to prolonged hospitalization, DC to swing bed when liver function is stable. (10) Nonalcoholic steatohepatitis (MEDINA): Code(s): K75.81 - Nonalcoholic steatohepatitis (MEDINA) Status: Acute Assessment and Plan: Continue to monitor, LFTs remain high continue to watch, GI is consulted. Subjective Date/time seen: 12/19/20 12:44 Interval history: Patient was seen during the morning rounds today. Pt legs are still weak, history of seizures. Pt has been seizure free since admission, pt is not eating much, states she feels depressed. Encouraged to move and walk with PT/OT. Pts LFTs are high pt had recent GB removed, I will follow her lfts. Transition to keppra, topamax and prozac orally. Pt has history of learning disability and seizures. Review of Systems Review of Systems: All systems reviewed & are unremarkable except as noted in HPI and below Exam Narrative: Exam Narrative: Chronically ill looking. Const: General: ill appearing and other (Chronically ill looking) Nutritional Appearance: thin Orientation/consciousness: oriented to person, oriented to place and oriented to time Cardio: Jugular venous distension: no JVD Palpation: normal PMI Rate: regular rate Rhythm: regular rhythm Heart sounds: S1 normal heart sound present and S2 normal heart sound present GI: Inspection: normal to inspection Auscultation: normal bowel sounds Skin: General skin exam: normal color Lesions: no lesions Rashes: no rashes Trauma: no lacerations or abrasions Wounds: no wounds Hair: normal Nails: normal Neuro: General: oriented to person, oriented to place, oriented to time, no focal motor deficits and CN's II-XI intact bilaterally Cranial nerves: Yes CN's II-XII intact bilaterally, Yes Equal, round and reactive pupils present and Yes Normal hearing present Cognition (Neuro): abnormal cognition ( coronary impairment) Speech: normal speech and No Abnormal speech present Sensory Exam: normal sensation Extrem: General: normal to inspection, full ROM, no joint enlargement and no pedal edema Right upper extremity: normal to inspection Left upper extremity: normal to inspection Right lower extremity: normal to inspection Left lower extremity: normal to inspection Psych: Appearance: grossly normal Mental Status: mental status grossly normal Speech and movement: Normal speech and movement present Affect: normal affect Attitude: cooperative Thought process: Normal thought pro
--- NOTE | 2020-12-19 17:03 | WPDGIPROGNO ---
Progress Note: A&P Assessment and Plan (1) Nausea and vomiting: Code(s): R11.2 - Nausea with vomiting, unspecified Status: Acute Assessment and Plan: Continue with remeron and megace probably at some point will need psychiatry evaluation. patient says that lately able to keep food down (2) Anorexia: Code(s): R63.0 - Anorexia Status: Acute Assessment and Plan: nutrition support (3) Hypokalemia: Code(s): E87.6 - Hypokalemia Status: Acute Assessment and Plan: also on oral kcl daily, it has been running low (4) Breakthrough seizure: Code(s): G40.919 - Epilepsy, unspecified, intractable, without status epilepticus Status: Acute Assessment and Plan: on meds by neurology, had new EEG (5) Intellectual disability: Code(s): F79 - Unspecified intellectual disabilities Status: Chronic (6) Mentally disabled: Code(s): F79 - Unspecified intellectual disabilities Status: Acute (7) Depression: Code(s): F32.9 - Major depressive disorder, single episode, unspecified Status: Acute Assessment and Plan: probably she has depression on meds now will need more PT/rehab- generalized weakness and failure to thrive (8) Transaminitis: Code(s): R74.01 - Elevation of levels of liver transaminase levels Status: Acute Assessment and Plan: it has been elevated for some time, MRCP in the past showed fatty liver then had cholecystectomy, also could be due to meds, anorexia, etc but relatively stable hepatitis panel negative Subjective Date/time seen: 12/19/20 17:03 Interval history: she is keep food down Review of Systems Review of Systems: All systems reviewed & are unremarkable except as noted in HPI and below Exam Const: General: comfortable, no acute distress and ill appearing chronically Other: flat affect HENMT: General nose exam: Normal nares present Eyes: Pupils: Equal, round and reactive pupils present Neck: Neck: no JVD Resp: Auscultation: clear to auscultation bilaterally Cardio: Rate: regular rate GI: GI Palp: Yes Soft to palpation and No Guarding due to palpation present (GI) Auscultation: normal bowel sounds Skin: General skin exam: normal color Neuro: Speech: normal speech Psych: Affect: Anxious affect present Other: flat affect Objective Data Vital Signs Vital Signs: Vital Signs - 24 hr 12/18/20 20:00 12/18/20 22:00 12/19/20 05:51 Temperature 97.9 F 98.8 F Pulse Rate 100 100 96 Respiratory Rate 20 20 20 Blood Pressure 126/84 137/76 Pulse Oximetry 100 100 100 12/19/20 08:00 12/19/20 14:00 12/19/20 14:55 Temperature 97.9 F Pulse Rate 96 130 H 150 H Respiratory Rate 20 20 Blood Pressure 130/88 Pulse Oximetry 100 99 Intake/Output Intake/Output: Intake & Output 12/16/20 12/17/20 12/18/20 12/19/20 23:59 23:59 23:59 23:59 Intake Total 3650 5480 2300 1460 Output Total 2800 1000 850 300 Balance 850 4480 1450 1160 Meds/Results Medications: Active Medications Generic Name Dose Route Start Last Admin Trade Name Freq PRN Reason Stop Dose Admin Fluoxetine HCl 20 mg 12/14/20 09:00 12/19/20 09:11 Fluoxetine Hcl 20 Mg Capsule PO 20 mg DAILY ANTHONY Administration Heparin Sodium (Porcine) 5,000 units 12/09/20 21:00 12/19/20 09:11 Heparin Sodium 5,000 Units/Ml Vial SUB-Q 5,000 units Q12HR ANTHONY Administration Levetiracetam 500 mg 12/19/20 09:00 12/19/20 09:11 Levetiracetam 500 Mg Tablet PO 500 mg Q12HR ANTHONY Administration Megestrol Acetate 40 mg 12/14/20 13:00 12/19/20 15:41 Megestrol Acetate (*Chemo) 40 Mg Tablet PO Not Given QID ANTHONY Metoclopramide HCl 10 mg 12/10/20 15:43 12/18/20 10:01 Metoclopramide Hcl Inj 10 Mg/2 Ml Vial IV PUSH 10 mg Q8HR PRN Administration Nausea And Vomiting Mirtazapine 15 mg 12/10/20 21:00 12/18/20 21:52 Mirtazapine 15 Mg Tablet PO 15 mg HS ANTHONY
[2020-12-19 17:07] LABS: SARS-CoV-2 RNA PCR Negative
[2020-12-19] MEDS: TOPIRAMATE 100 MG TABLET 400 MG PO (20:27)
[2020-12-19 20:49] LABS: Topiramate 10.8 mcg/mL (***)
[2020-12-19] MEDS: MIRTAZAPINE 15 MG TABLET PO (21:58)
[2020-12-19] MEDS: ONDANSETRON INJ 4 MG/2 ML VIAL IV PUSH (22:03)
[2020-12-20] VITALS (9 sets, daily range): BP systolic 114–131; BP diastolic 78–87; PULSE 11–128; RESP 16–20; TEMP 36.6–36.8; O2SAT 100
[2020-12-20] MEDS: SUCRALFATE SUSP 100 MG/ML 10 ML UDC 1000 MG PO ×4 (05:42→20:21)
[2020-12-20 06:51] LABS: Alanine Aminotransferase 132 U/L (4-35); Albumin Level 3.4 g/dL (3.5-5.1); Alkaline Phosphatase 230 U/L (38-126); Anion Gap 8 mmol/L (8-16); Aspartate Amino Transferase 165 U/L (14-36); Bilirubin,Total 2.5 mg/dL (0.2-1.3); Blood Urea Nitrogen 9 mg/dL (7-17); Calcium 8.9 mg/dL (8.4-10.2); Carbon Dioxide 18 mmol/L (22-30); Chloride 102 mmol/L (98-107); Estimated CRCL calculation 173 ml/min; Estimated Glomerular Filt Rate > 60; Glucose 131 mg/dL (65-105); Potassium 3.7 mmol/L (3.4-5.0); Sodium 128 mmol/L (137-145)
[2020-12-20] MEDS: MEGESTROL ACETATE (*CHEMO) 40 MG TABLET PO ×4 (08:18→20:23)
[2020-12-20] MEDS: levETIRAcetam 500 MG TABLET PO ×2 (08:19→20:23)
[2020-12-20] MEDS: POTASSIUM CHLORIDE 10 MEQ TABLET.ER PO (08:19)
[2020-12-20] MEDS: TOPIRAMATE 100 MG TABLET 300 MG PO (08:19)
[2020-12-20] MEDS: HEPARIN SODIUM 5,000 UNITS/ML VIAL 5000 UNITS SUB-Q ×2 (08:20→20:22)
[2020-12-20] MEDS: FLUoxetine HCL 20 MG CAPSULE PO (08:20)
--- NOTE | 2020-12-20 11:12 | PCNFU ---
Nutrition Follow-Up Complete: Inadequate oral intake related to nausea/vomiting/seizure as evidenced by clear liquid diet. Goal: Patient to meet estimated nutritional needs. Patient is progressing towards goal. We will continue current goal. Pt current nutrition is Regular. Last recorded weight is 67.4 kg, spoke with PREPLEATER today regarding new weight. Bowel Motility: +BM reported 12/19. Labs Reviewed:Na 128,Alb 3.4,AST 165,ALT 132 Meds Noted:Zofran,Heparin, Keppra,Reglan,Megace,Protonix,Prozac Additional Notes: Patent seen today for nutrition follow up. she was eating a popsicle at the time of my assessment with difficulty picking up the item. She has been getting assistance with meals and setup. We also discussed her diet supplements of Frozen Nutritional Treat-she is liking the chocolate, which is providing an additional 300 kcals and 9 gms protein. Nursing states she did have small amount of emesis today, but able to keep all her meds down. Agree with diet orders. Monitoring: Follow up in 5 days.
--- NOTE | 2020-12-20 12:56 | PM.IMPN ---
Progress Note: A&P Assessment and Plan (1) Hyponatremia: Code(s): E87.1 - Hypo-osmolality and hyponatremia Status: Acute Assessment and Plan: Continue iv fluids sodium is 128 (2) Ataxia: Code(s): R27.0 - Ataxia, unspecified Status: Acute Assessment and Plan: Legs are weak still as per physical theraphy. MRI is normal. (3) Urinary frequency: Code(s): R35.0 - Frequency of micturition Status: Acute Assessment and Plan: Urinalysis is normal (4) Depression: Code(s): F32.9 - Major depressive disorder, single episode, unspecified Status: Acute Assessment and Plan: Started on Prozac (5) Breakthrough seizure: Code(s): G40.919 - Epilepsy, unspecified, intractable, without status epilepticus Status: Acute Assessment and Plan: Continue anti seizure medication (6) Acute hypokalemia: Code(s): E87.6 - Hypokalemia Status: Acute Assessment and Plan: potassium is corrected (7) Nausea and vomiting: Code(s): R11.2 - Nausea with vomiting, unspecified Status: Acute Assessment and Plan: Diet has been liberalized On Megace and Remeron (8) Weakness: Code(s): R53.1 - Weakness Status: Acute Assessment and Plan: PT OT continue with Physical theraphy (9) Physical deconditioning: Code(s): R53.81 - Other malaise Status: Acute Assessment and Plan: Likely secondary to prolonged hospitalization, DC to swing bed when liver function is stable. (10) Nonalcoholic steatohepatitis (MEDINA): Code(s): K75.81 - Nonalcoholic steatohepatitis (MEDNIA) Status: Acute Assessment and Plan: Continue to monitor, LFTs remain high continue to watch, GI is consulted. likely secondary to MEDINA, medications or recent GB removal Subjective Date/time seen: 12/20/20 12:56 Interval history: Patient was seen during the morning rounds today. Pt legs are still weak, history of seizures. Pt has been seizure free since admission, pt is not eating much, states she feels depressed. Encouraged to move and walk with PT/OT. Pts LFTs are high pt had recent GB removed, I will follow her lfts. Transition to keppra, topamax and prozac orally. Pt has history of learning disability and seizures. Pts HR Is high, Continue fluids today and discharge tomorrow. Ddimer also ordered Review of Systems Review of Systems: All systems reviewed & are unremarkable except as noted in HPI and below Exam Narrative: Exam Narrative: Chronically ill looking. Const: General: ill appearing and other (Chronically ill looking) Nutritional Appearance: thin Orientation/consciousness: oriented to person, oriented to place and oriented to time HENMT: Head: normocephalic Resp: Auscultation: clear to auscultation bilaterally Cardio: Rhythm: regular rhythm Heart sounds: S1 normal heart sound present and S2 normal heart sound present Peripheral pulses: Peripheral pulses 2+ throughout GI: Inspection: normal to inspection Auscultation: normal bowel sounds Rectal Exam: deferred : General: Yes deferred Skin: General skin exam: normal color Lesions: no lesions Rashes: no rashes Trauma: no lacerations or abrasions Wounds: no wounds Hair: normal Nails: normal Neuro: General: oriented to person, oriented to place, oriented to time, no focal motor deficits and CN's II-XI intact bilaterally Cranial nerves: Yes CN's II-XII intact bilaterally, Yes Equal, round and reactive pupils present and Yes Normal hearing present Cognition (Neuro): abnormal cognition ( coronary impairment) Speech: normal speech and No Abnormal speech present Gait exam (Neuro): Normal gait present Motor exam (neuro): 5/5 motor strength present throughout Sensory Exam: normal sensation Extrem: General: normal to inspection, full ROM, no joint enlargement and no pedal edema Right upper extremity: normal to inspection Left upper extrem
[2020-12-20 13:25] LABS: D Dimer 0.27 ug/mL (<0.48)
[2020-12-20 13:43] LABS: Red Blood Cell Folate 340 ng/mL RBC (>280)
[2020-12-20] MEDS: SODIUM CHLORIDE 0.9% IV 1,000 ML 100 ML IV CONT (14:10)
[2020-12-20 14:18] LABS: Methylmalonic Acid <50 nmol/L (87-318)
--- NOTE | 2020-12-20 17:18 | WPDGIPROGNO ---
Progress Note: A&P Assessment and Plan (1) Nausea and vomiting: Code(s): R11.2 - Nausea with vomiting, unspecified Status: Acute Assessment and Plan: Continue with remeron and megace patient says that lately able to keep food down please call us if questions (2) Anorexia: Code(s): R63.0 - Anorexia Status: Acute Assessment and Plan: nutrition support (3) Hypokalemia: Code(s): E87.6 - Hypokalemia Status: Acute Assessment and Plan: also on oral kcl daily, it has been running low (4) Breakthrough seizure: Code(s): G40.919 - Epilepsy, unspecified, intractable, without status epilepticus Status: Acute Assessment and Plan: on meds by neurology, had new EEG (5) Intellectual disability: Code(s): F79 - Unspecified intellectual disabilities Status: Chronic (6) Mentally disabled: Code(s): F79 - Unspecified intellectual disabilities Status: Acute (7) Depression: Code(s): F32.9 - Major depressive disorder, single episode, unspecified Status: Acute Assessment and Plan: probably she has depression on meds now will need more PT/rehab- generalized weakness and failure to thrive (8) Transaminitis: Code(s): R74.01 - Elevation of levels of liver transaminase levels Status: Acute Assessment and Plan: it has been elevated for some time, MRCP in the past showed fatty liver then had cholecystectomy, also could be due to meds, anorexia, etc hepatitis panel negative liver enzymes stable (9) Ataxia: Code(s): R27.0 - Ataxia, unspecified Status: Acute Assessment and Plan: noted more problem using hands- neurology on board will need rehabilitation Subjective Date/time seen: 12/20/20 17:18 Interval history: she is eating and for the most part keeping food down but now more problems using her hands and noted more weakness Review of Systems Review of Systems: All systems reviewed & are unremarkable except as noted in HPI and below Exam Const: General: ill appearing chronically HENMT: General nose exam: Normal nares present Other: dry mouth Eyes: General: appearance normal, both eyes and all related structures Neck: Neck: supple Resp: Auscultation: clear to auscultation bilaterally Cardio: Rate: regular rate GI: GI Palp: Yes Soft to palpation, No Firmness to palpation present (GI) and No Guarding due to palpation present (GI) Auscultation: normal bowel sounds Skin: General skin exam: normal color Neuro: Cognition (Neuro): abnormal cognition (h/o mental dissability) Speech: normal speech Extrem: Other: having trouble using her hands, more generalized weakness Objective Data Vital Signs Vital Signs: Vital Signs - 24 hr 12/19/20 20:00 12/19/20 22:00 12/20/20 00:00 Temperature 97.6 F Pulse Rate 133 H 122 H 128 H Respiratory Rate 20 Blood Pressure 131/89 Pulse Oximetry 100 12/20/20 04:00 12/20/20 06:00 12/20/20 08:00 Temperature 98 F Pulse Rate 11 L 117 H 110 H Respiratory Rate 20 Blood Pressure 129/85 Pulse Oximetry 100 12/20/20 12:00 12/20/20 14:00 12/20/20 16:00 Temperature 98.3 F Pulse Rate 120 H 71 113 H Respiratory Rate 18 Blood Pressure 131/78 Pulse Oximetry 100 Intake/Output Intake/Output: Intake & Output 12/17/20 12/18/20 12/19/20 12/20/20 23:59 23:59 23:59 23:59 Intake Total 5480 2300 2050 415 Output Total 1000 423 390 2986 Balance 4480 1450 1750 -1135 Meds/Results Medications: Active Medications Generic Name Dose Route Start Last Admin Trade Name Freq PRN Reason Stop Dose Admin Fluoxetine HCl 20 mg 12/14/20 09:00 12/20/20 08:20 Fluoxetine Hcl 20 Mg Capsule PO 20 mg DAILY ANTHONY Administration Heparin Sodium (Porcine) 5,000 units 12/09/20 21:00 12/20/20 08:20 Heparin Sodium 5,000 Units/Ml Vial SUB-Q 5,000 units Q12HR ANTHONY Administration Sodium Chloride 1,000 mls @
--- NOTE | 2020-12-20 19:36 | PCCCNOTE ---
Spoke with father of patient at length about the plan of care. Father states he has been waiting all day to speak with someone from [facility] and no one has called him. States that he does not know the plan of care, does not have the address nor phone number of the rehab facility the patient is going to and does not know what the visitor policy is for the rehab facility. I printed a map from the facility's website, circled the facility on the map, printed the visitor policy and printed the facility's contact information and gave all of this to him. Patient's father wanted to know exactly how many physical therapy sessions she was going to have each day and what time those sessions would be. After reading the facility's visitor policy aloud to the father, he wanted to know if they would allow both parents to be there and, if not, how often they could switch out. Again explained that he would have to discuss the visitor policy and the exact details of the patient's therapy sessions with the rehab facility. Father is currently feeding the patient as he states she is unable to use either hand/arm and is concerned that no one is in the room to feed the patient. Discussed father's concerns with the patient's nurse who stated patient was able to use her hands earlier.
[2020-12-20] MEDS: TOPIRAMATE 100 MG TABLET 400 MG PO (20:21)
[2020-12-20] MEDS: MIRTAZAPINE 15 MG TABLET PO (20:24)
[2020-12-21] VITALS (9 sets, daily range): BP systolic 120–135; BP diastolic 84–90; PULSE 114–140; RESP 16–18; TEMP 36.2–36.9; O2SAT 96–100
[2020-12-21] MEDS: SODIUM CHLORIDE 0.9% IV 1,000 ML 100 ML IV CONT ×3 (00:20→23:28)
[2020-12-21 02:49] LABS: Levetiracetam Keppra 38.4 mcg/mL (12.0-46.0)
[2020-12-21] MEDS: SUCRALFATE SUSP 100 MG/ML 10 ML UDC 1000 MG PO ×4 (05:25→20:04)
[2020-12-21 06:14] LABS: Alanine Aminotransferase 101 U/L (4-35); Albumin Level 3.1 g/dL (3.5-5.1); Alkaline Phosphatase 197 U/L (38-126); Anion Gap 10 mmol/L (8-16); Aspartate Amino Transferase 126 U/L (14-36); Bilirubin,Total 1.7 mg/dL (0.2-1.3); Blood Urea Nitrogen 8 mg/dL (7-17); Calcium 8.5 mg/dL (8.4-10.2); Carbon Dioxide 18 mmol/L (22-30); Chloride 102 mmol/L (98-107); Estimated CRCL calculation 173 ml/min; Estimated Glomerular Filt Rate > 60; Glucose 133 mg/dL (65-105); Potassium 3.4 mmol/L (3.4-5.0); Sodium 130 mmol/L (137-145)
[2020-12-21] MEDS: MEGESTROL ACETATE (*CHEMO) 40 MG TABLET PO ×4 (08:16→20:05)
[2020-12-21] MEDS: levETIRAcetam 500 MG TABLET PO ×2 (08:16→20:06)
[2020-12-21] MEDS: TOPIRAMATE 100 MG TABLET 300 MG PO (08:16)
[2020-12-21] MEDS: HEPARIN SODIUM 5,000 UNITS/ML VIAL 5000 UNITS SUB-Q ×2 (08:16→20:04)
[2020-12-21] MEDS: POTASSIUM CHLORIDE 10 MEQ TABLET.ER PO (08:17)
[2020-12-21] MEDS: FLUoxetine HCL 20 MG CAPSULE PO (08:17)
--- NOTE | 2020-12-21 11:57 | PM.IMPN ---
Progress Note: A&P Assessment and Plan (1) Hyponatremia: Code(s): E87.1 - Hypo-osmolality and hyponatremia Status: Acute Assessment and Plan: Continue iv fluids sodium is 130 (2) Ataxia: Code(s): R27.0 - Ataxia, unspecified Status: Acute Assessment and Plan: Legs are weak still as per physical theraphy. MRI is normal. (3) Urinary frequency: Code(s): R35.0 - Frequency of micturition Status: Acute Assessment and Plan: Urinalysis is normal (4) Depression: Code(s): F32.9 - Major depressive disorder, single episode, unspecified Status: Acute Assessment and Plan: Started on Prozac, pt feels depressed not SI (5) Breakthrough seizure: Code(s): G40.919 - Epilepsy, unspecified, intractable, without status epilepticus Status: Acute Assessment and Plan: Continue anti seizure medication (6) Acute hypokalemia: Code(s): E87.6 - Hypokalemia Status: Acute Assessment and Plan: potassium is corrected (7) Nausea and vomiting: Code(s): R11.2 - Nausea with vomiting, unspecified Status: Acute Assessment and Plan: Diet has been liberalized On Megace and Remeron (8) Weakness: Code(s): R53.1 - Weakness Status: Acute Assessment and Plan: PT OT continue with Physical theraphy (9) Physical deconditioning: Code(s): R53.81 - Other malaise Status: Acute Assessment and Plan: Likely secondary to prolonged hospitalization, DC to swing bed when liver function is stable. (10) Nonalcoholic steatohepatitis (MEDINA): Code(s): K75.81 - Nonalcoholic steatohepatitis (MEDINA) Status: Acute Assessment and Plan: Continue to monitor, LFTs remain high continue to watch, GI is consulted. likely secondary to MEDINA, medications or recent GB removal Additional Plan Pt is having some sinus tachycardiac no fever Bp stable will consult cardiology Subjective Date/time seen: 12/21/20 11:57 Interval history: Patient was seen during the morning rounds today. Pt legs are still weak, history of seizures. Pt has been seizure free since admission, pt is not eating much, states she feels depressed. Encouraged to move and walk with PT/OT. Pts LFTs are high pt had recent GB removed, I will follow her lfts. Transition to keppra, topamax and prozac orally. Pt has history of learning disability and seizures. Pts HR Is high, i will consult cardiology. Review of Systems Review of Systems: All systems reviewed & are unremarkable except as noted in HPI and below Exam Narrative: Exam Narrative: Chronically ill looking. Const: General: ill appearing and other (Chronically ill looking) Nutritional Appearance: thin Orientation/consciousness: oriented to person, oriented to place and oriented to time Chest: Chest palpation & inspection: normal inspection of the chest Resp: Effort & Inspection: normal respiratory effort and able to speak in complete sentences Auscultation: clear to auscultation bilaterally Percussion: percussion normal Cardio: Jugular venous distension: no JVD Palpation: normal PMI Rate: regular rate Rhythm: regular rhythm Heart sounds: S1 normal heart sound present and S2 normal heart sound present Peripheral pulses: Peripheral pulses 2+ throughout GI: Inspection: normal to inspection Skin: General skin exam: normal color Lesions: no lesions Rashes: no rashes Trauma: no lacerations or abrasions Wounds: no wounds Hair: normal Nails: normal Neuro: General: oriented to person, oriented to place, oriented to time, no focal motor deficits and CN's II-XI intact bilaterally Cranial nerves: Yes CN's II-XII intact bilaterally, Yes Equal, round and reactive pupils present and Yes Normal hearing present Cognition (Neuro): abnormal cognition ( coronary impairment) Speech: normal speech and No Abnormal speech present Sensory Exam: normal sensation Extrem: General:
[2020-12-21 13:23] LABS: Basophils Percent Auto 0.6 % (0.2-1.2); Eosinophils Percent Auto 0.5 % (0-4.4); Hematocrit 32.4 % (37.0-47.0); Hemoglobin 11.4 g/dL (12.0-15.0); Immature Granulocyte Absolute 0.03 K/mm3 (0.00-0.031); Immature Granulocyte Percent A 0.5 % (0-0.5); Lymphocytes Absolute Auto 1.06 K/mm3 (0.9-3.2); Lymphocytes Percent Auto 16.5 % (18.3-44.2); Mean Corpuscular HGB Conc 35.2 g/dl (32-36); Mean Corpuscular Hemoglobin 34.5 pg (26-34); Mean Corpuscular Volume 98.2 fl (80-100); Mean Platelet Volume 9.7 fl (7.4-10.4); Monocytes Absolute Auto 0.6 K/mm3 (0.1-0.6); Monocytes Percent Auto 9.8 % (2.6-8.5); Neutrophils Absolute Auto 4.7 K/mm3 (1.3-6.7); Neutrophils Percent Auto 72.1 % (45.5-73.1); Platelet Count Result 239 k/mm3 (150-375); Red Cell Distribution Width 13.1 % (11.5-14.5); White Blood Count 6.4 K/mm3 (4.5-10.0)
[2020-12-21 13:37] LABS: Alanine Aminotransferase 92 U/L (4-35); Albumin Level 3.2 g/dL (3.5-5.1); Alkaline Phosphatase 193 U/L (38-126); Anion Gap 8 mmol/L (8-16); Aspartate Amino Transferase 127 U/L (14-36); Bilirubin,Total 1.5 mg/dL (0.2-1.3); Blood Urea Nitrogen 10 mg/dL (7-17); Calcium 8.5 mg/dL (8.4-10.2); Carbon Dioxide 18 mmol/L (22-30); Chloride 104 mmol/L (98-107); Estimated CRCL calculation 136 ml/min; Estimated Glomerular Filt Rate > 60; Glucose 151 mg/dL (65-105); Potassium 3.4 mmol/L (3.4-5.0); Sodium 130 mmol/L (137-145)
[2020-12-21] MEDS: TOPIRAMATE 100 MG TABLET 400 MG PO (20:05)
[2020-12-21] MEDS: MIRTAZAPINE 15 MG TABLET PO (20:06)
[2020-12-21] MEDS: ONDANSETRON INJ 4 MG/2 ML VIAL IV PUSH (20:19)
[2020-12-21 20:25] LABS: Magnesium 1.8 mg/dL (1.6-2.3)
[2020-12-22] VITALS (9 sets, daily range): BP systolic 122–131; BP diastolic 78–90; PULSE 113–133; RESP 18–22; TEMP 36.2–36.7; O2SAT 98–100
[2020-12-22] MEDS: SUCRALFATE SUSP 100 MG/ML 10 ML UDC 1000 MG PO ×4 (06:45→20:06)
[2020-12-22] MEDS: ONDANSETRON INJ 4 MG/2 ML VIAL IV PUSH (06:49)
[2020-12-22 07:07] LABS: Alanine Aminotransferase 68 U/L (4-35); Albumin Level 2.8 g/dL (3.5-5.1); Alkaline Phosphatase 157 U/L (38-126); Anion Gap 8 mmol/L (8-16); Aspartate Amino Transferase 86 U/L (14-36); Bilirubin,Total 1.4 mg/dL (0.2-1.3); Blood Urea Nitrogen 14 mg/dL (7-17); Carbon Dioxide 17 mmol/L (22-30); Chloride 107 mmol/L (98-107); Estimated CRCL calculation 173 ml/min; Estimated Glomerular Filt Rate > 60; Glucose 126 mg/dL (65-105); Potassium 3.4 mmol/L (3.4-5.0); Sodium 132 mmol/L (137-145)
--- NOTE | 2020-12-22 08:42 | ECG_ITS ---
Measurements Intervals [place] Rate: 130 P: 50 MT: 142 QRS: 69 QRSD: 82 T: -9 QT: 310 QTc: 457 Interpretive Statements SINUS TACHYCARDIA MINIMAL Q WAVES- ANTEROLAT/INF LEADS ST-T WAVE ABNORMALITY IN ANTEROSEPTAL LEADS- CONSIDER ISCHEMIA BASELINE WANDER- V4 ABNORMAL ECG Electronically Signed On 12-22-2020 9:21:03 CDT by Reymundo Martínez D.O.
[2020-12-22] MEDS: levETIRAcetam 500 MG TABLET PO ×2 (09:36→20:06)
[2020-12-22] MEDS: MEGESTROL ACETATE (*CHEMO) 40 MG TABLET PO (09:36)
[2020-12-22] MEDS: TOPIRAMATE 100 MG TABLET 300 MG PO (09:36)
[2020-12-22] MEDS: FLUoxetine HCL 20 MG CAPSULE PO (09:36)
[2020-12-22] MEDS: HEPARIN SODIUM 5,000 UNITS/ML VIAL 5000 UNITS SUB-Q (09:36)
[2020-12-22] MEDS: POTASSIUM CHLORIDE 10 MEQ TABLET.ER PO (09:37)
--- NOTE | 2020-12-22 12:05 | PM.IMPN ---
Progress Note: A&P Assessment and Plan (1) Hyponatremia: Code(s): E87.1 - Hypo-osmolality and hyponatremia Status: Resolved Assessment and Plan: Stop Iv fluids sodium is 132 (2) Ataxia: Code(s): R27.0 - Ataxia, unspecified Status: Acute Assessment and Plan: Legs are weak still as per physical theraphy. MRI is normal. EEG is abnl (3) Urinary frequency: Code(s): R35.0 - Frequency of micturition Status: Acute Assessment and Plan: Urinalysis is normal (4) Depression: Code(s): F32.9 - Major depressive disorder, single episode, unspecified Status: Acute Assessment and Plan: Started on Prozac, pt feels depressed not SI (5) Breakthrough seizure: Code(s): G40.919 - Epilepsy, unspecified, intractable, without status epilepticus Status: Acute Assessment and Plan: Continue anti seizure medication (6) Acute hypokalemia: Code(s): E87.6 - Hypokalemia Status: Resolved Assessment and Plan: potassium is corrected (7) Nausea and vomiting: Code(s): R11.2 - Nausea with vomiting, unspecified Status: Acute Assessment and Plan: Diet has been liberalized On Megace and Remeron (8) Weakness: Code(s): R53.1 - Weakness Status: Acute Assessment and Plan: PT OT continue with Physical theraphy (9) Physical deconditioning: Code(s): R53.81 - Other malaise Status: Acute Assessment and Plan: Likely secondary to prolonged hospitalization, consider PT/ OT weak legs weak handgrips (10) Nonalcoholic steatohepatitis (MEDINA): Code(s): K75.81 - Nonalcoholic steatohepatitis (MEDINA) Status: Acute Assessment and Plan: Continue to monitor, LFTs remain high continue to watch, GI is consulted. likely secondary to MEDINA, medications or recent GB removal (11) Tachycardia: Code(s): R00.0 - Tachycardia, unspecified Status: Acute Assessment and Plan: Sinus tachycardiac, Bp stable will consult cardiology, Ddimers are nl. Pt has received hydration. Subjective Date/time seen: 12/22/20 12:05 Interval history: Patient was seen during the morning rounds today. Pt legs are still weak, history of seizures. Pt has been seizure free since admission, pt is not eating much, states she feels depressed. Encouraged to move and walk with PT/OT. Pts LFTs are high pt had recent GB removed, I will follow her lfts. Transition to keppra, topamax and prozac orally. Pt has history of learning disability and seizures. Pt heart rate is high despite fluid hydration. Awaiting cardiology consult. Awaiting transfer to neurology service. Review of Systems Review of Systems: All systems reviewed & are unremarkable except as noted in HPI and below ROS unobtainable: Yes unobtainable due to medical condition ( cognitive impairment) Exam Const: General: ill appearing and other (Chronically ill looking) Nutritional Appearance: thin Orientation/consciousness: oriented to person, oriented to place and oriented to time Eyes: Pupils: Equal, round and reactive pupils present and Pupil accommodation reflex normal Neck: Neck: normal visual inspection, full ROM, no lymphadenopathy, trachea midline, supple and no JVD Chest: Chest palpation & inspection: normal inspection of the chest Resp: Effort & Inspection: normal respiratory effort and able to speak in complete sentences Auscultation: clear to auscultation bilaterally Percussion: percussion normal Cardio: Jugular venous distension: no JVD Palpation: normal PMI Rate: regular rate Rhythm: other (tachycardic ) Heart sounds: S1 normal heart sound present and S2 normal heart sound present Skin: General skin exam: normal color Lesions: no lesions Rashes: no rashes Trauma: no lacerations or abrasions Wounds: no wounds Hair: normal Nails: normal Neuro: General: oriented to person, oriented to place, oriented to time, no foca
--- NOTE | 2020-12-22 13:16 | WPDNEUROPN ---
Progress Note: A&P Additional Plan cervical myelopathy will need the stat MRI of the cervical spine and further recommendation according Review of Systems Review of Systems: All systems reviewed & are unremarkable except as noted in HPI and below Exam Const: General: cooperative, comfortable, alert and awake Nutritional Appearance: average body habitus Orientation/consciousness: oriented to person, oriented to place and oriented to time HENMT: Head: normocephalic Ears: hearing grossly normal bilaterally General nose exam: Normal external nose present Face and sinus: normal facial exam Mouth: Yes Normal oral and palatal mucosa present Eyes: General: appearance normal, both eyes and all related structures Resp: Effort & Inspection: able to speak in complete sentences and abnormal respiratory pattern Auscultation: clear to auscultation bilaterally Cardio: Rate: regular rate Rhythm: regular rhythm GI: Auscultation: normal bowel sounds Neuro: General: patient oriented x3 Cranial nerves: Yes CN's II-XII intact bilaterally Cognition (Neuro): normal cognition Gait exam (Neuro): Unable to assess gait Motor exam (neuro): Abnormal motor strength present ( quadriparesis) and Abnormal muscle tone present Deep tendon reflexes (DTR's): Right triceps reflex intensity grade: 1+, Left triceps reflex intensity grade: 1+, Rt Biceps (C5, C6): 1+, Left biceps reflex intensity grade: 1+, Right brachioradialis reflex intensity grade: 1+, Left brachioradialis reflex intensity grade: 1+, Right patellar reflex intensity grade: 2+, Left patellar reflex intensity grade: 2+, Right ankle reflex intensity grade: 2+ and Left ankle reflex intensity grade: 2+ Plantar Reflex Responses: equivocal: bilateral Psych: Appearance: grossly normal Objective Data Vital Signs Vital Signs: Vital Signs - 24 hr 12/21/20 14:00 12/21/20 16:00 12/21/20 20:00 Temperature 36.2 C L Pulse Rate 124 H 119 H 127 H Respiratory Rate 18 Blood Pressure 120/88 Pulse Oximetry 96 12/21/20 22:00 12/22/20 00:00 12/22/20 04:00 Temperature 36.3 C L Pulse Rate 124 H 124 H 127 H Respiratory Rate 16 Blood Pressure 125/84 Pulse Oximetry 100 12/22/20 06:00 12/22/20 08:00 Temperature 36.6 C Pulse Rate 126 H 133 H Respiratory Rate 18 Blood Pressure 131/90 Pulse Oximetry 98 Intake/Output Intake/Output: Intake & Output 12/19/20 12/20/20 12/21/20 12/22/20 23:59 23:59 23:59 23:59 Intake Total 2050 535 3720 400 Output Total 300 1550 1250 400 Balance 1750 -1015 2470 0 Meds/Results Medications: Active Medications Generic Name Dose Route Start Last Admin Trade Name Freq PRN Reason Stop Dose Admin Fluoxetine HCl 20 mg 12/14/20 09:00 12/22/20 09:36 Fluoxetine Hcl 20 Mg Capsule PO 20 mg DAILY ANTHONY Administration Heparin Sodium (Porcine) 5,000 units 12/09/20 21:00 12/22/20 09:36 Heparin Sodium 5,000 Units/Ml Vial SUB-Q 5,000 units Q12HR ANTHONY Administration Levetiracetam 500 mg 12/19/20 09:00 12/22/20 09:36 Levetiracetam 500 Mg Tablet PO 500 mg Q12HR ANTHONY Administration Metoclopramide HCl 10 mg 12/10/20 15:43 12/18/20 10:01 Metoclopramide Hcl Inj 10 Mg/2 Ml Vial IV PUSH 10 mg Q8HR PRN Administration Nausea And Vomiting Mirtazapine 15 mg 12/10/20 21:00 12/21/20 20:06 Mirtazapine 15 Mg Tablet PO 15 mg HS ANTHONY Administration Ondansetron HCl 4 mg 12/10/20 09:21 12/22/20 06:49 Ondansetron Inj 4 Mg/2 Ml Vial IV PUSH 4 mg Q6H PRN Administration Nausea And Vomiting Potassium Chloride 10 meq 12/18/20 08:00 12/22/20 09:37 Potassium Chloride 10 Meq Tablet.Er PO 10 meq DAILY@0800 ANTHONY Administration Sucralfate 1,000 mg 12/07/20 21:00 12/22/20 11:22 Sucralfate Susp 100 Mg/Ml 10 Ml Udc PO 1,000 mg ACHS ANTHONY Administration Topiramate 300 mg 12/08/20 09:00 12/22/20 09:36 Topiramate 100 Mg Tablet PO 300 mg QAM ANTHONY Administration Topiramate 400 mg
--- NOTE | 2020-12-22 13:31 | PM.CNCAR ---
Assessment and Plan Assessment and plan (1) Sinus tachycardia: Code(s): R00.0 - Tachycardia, unspecified Status: Acute Assessment and Plan: Sinus tachycardia documented intermittently from December 13 and persistent since December 19 HR 110's-150bpm. This appears to be compensatory, although precise etiology unclear (cannot entirely exclude inappropriate sinus tachycardia). HR variability argues against atrial tachycardia. - Differential includes pain, medications, infection, anemia thyroid/metabolic, dehydration, neuro. Urine is reported as dark, will send urinalysis. No fevers, chills or leukocytosis to suggest sepsis. Patient has received IV fluids but also intermittent nausea and vomiting so volume status remains an issue as she appears slightly dry. -Do not advise empiric AV kacie blocking agents for sinus tachycardia as treatment of underlying cause is recommended management. -CXR to exclude developing pneumonia/infiltrate given SOB, N/V although exam is not suggestive of respiratory pathology. -Discussed with Dr. Bustillo Neurology regarding her progressive weakness in upper and lower extremities. Concern for possible cervical myelopathy, stat MRI cervical spine ordered. This could result in reflex tachycardia, autonomic dysreflexia. -Give additional 500ml NS IVF bolus over 2 hours if MRI negative and UA unremarkable and observe. -Continue telemetry. -Echo 07/2020 unremarkable, exam and history not consistent with LV dysfunction or new valve pathology, however, will repeat 2D Echo to exclude. -Check TSH -Electrolytes stable, mild stable hyponatremia in and of itself would not explain. Patient is otherwise stable from a cardiac perspective with exception of sinus tachycardia. Further workup as above per primary service and Neurology. Will assist in anyway possible. Further recommendations after review of above studies. 75 minutes spent in the care of this patient including at bedside, family discussion with her mother, regional engagement consultant discussions and chart review. (2) SOB (shortness of breath): Code(s): R06.02 - Shortness of breath Status: Acute Assessment and Plan: Etiology unclear. Concerning of secondary to cervical myelopathy as above. Chest x-ray unremarkable. No evidence of decompensated heart failure, pneumonia, diaphragmatic paralysis. She is afebrile. (3) Cervical myelopathy: Code(s): G95.9 - Disease of spinal cord, unspecified Status: Acute Assessment and Plan: As above. Stat MRI cervical spine ordered. Neurology following. MRI brain normal. (4) H/O syncope: Code(s): Z87.898 - Personal history of other specified conditions Status: Acute Assessment and Plan: Outpatient evaluation by my partner Dr. Granado including Echo and Holter monitor were unrevealing despite having 1 episode during monitor reasonably excluding arrhythmic cause. Episodes maybe potentially explained by myelopathy if present. (5) Epilepsy: Code(s): G40.909 - Epilepsy, unspecified, not intractable, without status epilepticus Status: Chronic Assessment and Plan: Per Neurology and primary service. History of Present Illness History of Present Illness Consult date/time: Date of service: 12/22/20 13:31 Cardiology consultation at the request of Dr. Liu of the [facility] service for opinion regarding to sinus tachycardia. Requesting physician: Emani Liu MD Consult reason: Other ( Sinus tachycardia) Reason For Visit: Nausea and vomiting, seizure, weakness Narrative: Patient is a pleasant yet unfortunate 30-year-old female with a complex past medical history including upper lobe sick, IBS, mental disability who was originally admitted 11/08/2020 for nausea, vomiting, and dehydration. Patient had recently been hospitalized at [facility] for similar symptoms. She was started on Rocephin for possible UTI presentation. On
[2020-12-22 15:06] LABS: Add Urine Microscopic? YES; Appearance Urine Cloudy (Clear); Bilirubin Urine 1+ (Negative); Blood Urine 3+ (Negative); Color Urine Amber (Yellow); Glucose Urine UA Negative (Negative); Ketones Urine Negative (Negative); Leukocyte Esterase Ur 2+ LEU/UL (Negative); Mucus Urine Rare /lpf; Nitrate Urine Negative (Negative); Protein Urine 2+ mg/dL (Negative); RBC Urine >75 /hpf (0-2); Specific Grav Ur 1.021 (1.001-1.035); Squamous Epithelial Cell Urine Few /hpf (Few)
[2020-12-22] MEDS: TOPIRAMATE 100 MG TABLET 400 MG PO (20:06)
[2020-12-22] MEDS: MIRTAZAPINE 15 MG TABLET PO (20:06)
[2020-12-23] VITALS (11 sets, daily range): BP systolic 122–140; BP diastolic 78–100; PULSE 110–128; RESP 16–24; TEMP 36.2–36.7; O2SAT 96–100
[2020-12-23] MEDS: SUCRALFATE SUSP 100 MG/ML 10 ML UDC 1000 MG PO ×4 (06:19→20:21)
[2020-12-23 06:39] LABS: Mean Platelet Volume 8.8 fl (7.4-10.4); Platelet Count Result 219 k/mm3 (150-375)
[2020-12-23 06:51] LABS: INR 1.2; Prothrombin Time 16.1 Seconds (11.1-14.7)
[2020-12-23 06:52] LABS: Partial Thromboplastin Time 32.8 SECONDS (22.3-36.8)
--- NOTE | 2020-12-23 09:18 | PCPTNOTE ---
The patient treatment was not able to be completed due to patient out of room for testing. Will plan to continue treatment per plan of care.
[2020-12-23 10:21] LABS: Glucose CSF 85 mg/dL (40-70); Total Protein CSF 65 mg/dL (12-60)
[2020-12-23 10:36] LABS: Appearance CSF Clear (Clear); CSF source CSF; Color CSF Colorless (Colorless); Nucleated Cell CSF 34 /uL (0-5); Red Blood Cell CSF 26 (0-2)
[2020-12-23 10:40] LABS: Lymphocytes CSF 69 % (40-80); Monocytes CSF 31 % (15-45)
--- NOTE | 2020-12-23 11:17 | PM.IMPN ---
Progress Note: A&P Assessment and Plan (1) Hyponatremia: Code(s): E87.1 - Hypo-osmolality and hyponatremia Status: Resolved Assessment and Plan: Stop Iv fluids sodium is 132 (2) Ataxia: Code(s): R27.0 - Ataxia, unspecified Status: Acute Assessment and Plan: Legs are weak still as per physical theraphy. MRI is normal. EEG is abnl MRI cspine negative, LP results awaiting (3) Urinary frequency: Code(s): R35.0 - Frequency of micturition Status: Acute Assessment and Plan: Urinalysis is abnormal urine was dark rpt ua was sent yesteday, can start IV abx (4) Depression: Code(s): F32.9 - Major depressive disorder, single episode, unspecified Status: Acute Assessment and Plan: Started on Prozac, pt feels depressed not SI (5) Breakthrough seizure: Code(s): G40.919 - Epilepsy, unspecified, intractable, without status epilepticus Status: Acute Assessment and Plan: Continue anti seizure medication (6) Acute hypokalemia: Code(s): E87.6 - Hypokalemia Status: Resolved Assessment and Plan: potassium is corrected (7) Nausea and vomiting: Code(s): R11.2 - Nausea with vomiting, unspecified Status: Acute Assessment and Plan: Diet has been liberalized On Megace and Remeron (8) Weakness: Code(s): R53.1 - Weakness Status: Acute Assessment and Plan: PT OT continue with Physical theraphy (9) Physical deconditioning: Code(s): R53.81 - Other malaise Status: Acute Assessment and Plan: Likely secondary to prolonged hospitalization, consider PT/ OT weak legs weak handgrips (10) Nonalcoholic steatohepatitis (MEDINA): Code(s): K75.81 - Nonalcoholic steatohepatitis (MEDINA) Status: Acute Assessment and Plan: Continue to monitor, LFTs remain high continue to watch, GI is consulted. likely secondary to MEDINA, medications or recent GB removal (11) Tachycardia: Code(s): R00.0 - Tachycardia, unspecified Status: Acute Assessment and Plan: Sinus tachycardiac, Bp stable will consult cardiology, Ddimers are nl. Pt has received hydration. ? anxiety ? infection Subjective Date/time seen: 12/23/20 11:17 Interval history: Patient was seen during the morning rounds today. Pt legs are still weak, history of seizures. Pt has been seizure free since admission, pt is not eating much, states she feels depressed. Encouraged to move and walk with PT/OT. Pts LFTs are high pt had recent GB removed, I will follow her lfts. Transition to keppra, topamax and prozac orally. Pt has history of learning disability and seizures. 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 Pt had mri brain csine and LP today. Pts heart rate remains high despite fluid hydration ? anxiety element. Cardiology and neurology rounding. Hold transfer until all results are back. Review of Systems Review of Systems: All systems reviewed & are unremarkable except as noted in HPI and below Exam Narrative: Exam Narrative: Chronically ill looking. Const: General: ill appearing Nutritional Appearance: thin Orientation/consciousness: oriented to person, oriented to place and oriented to time HENMT: Ears: hearing grossly normal bilaterally and external ears normal General nose exam: Normal external nose present, Normal nares present and No nasal polyps present Face and sinus: normal facial exam Eyes: General: appearance normal, both eyes and all related structures Eyelids: eyelids normal Conjunctivae: conjunctivae normal Sclera: sclerae normal Cornea: corneas normal Pupils: Equal, round and reactive pupils present and Pupil accommodation reflex normal EOM: EOMs intact bilaterally Chest: Chest palpation & inspection: normal inspection of the chest Resp: Effort & Inspection: normal respiratory effort and able to speak in complete sentences Auscultation: clear
--- NOTE | 2020-12-23 12:44 | WPDNEUROPN ---
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 treatment started will need long-term physical therapy, all the pros and cons discussed with the mother he would like to stay here Review of Systems Review of Systems: All systems reviewed & are unremarkable except as noted in HPI and below Exam Const: General: cooperative, comfortable, alert and awake Nutritional Appearance: thin Orientation/consciousness: patient oriented x3 Limitations: physical limitations HENMT: Head: normal to inspection and normocephalic Ears: hearing grossly normal bilaterally General nose exam: Normal external nose present Face and sinus: normal facial exam Mouth: Yes dry mucous membranes Eyes: General: appearance normal, both eyes and all related structures Visual Napoles: normal visual napoles by confrontation Alignment and Position: alignment normal Periorbital: periorbital findings normal Eyelids: eyelids normal Conjunctivae: conjunctivae normal Sclera: sclerae normal Cornea: corneas normal Pupils: Equal, round and reactive pupils present EOM: EOMs intact bilaterally Direct Ophthalmoscopy: normal light reflex Neck: Neck: full ROM, no lymphadenopathy, no meningeal signs and supple Thyroid: thyroid normal Lymphatic: no lymphadenopathy noted Resp: Effort & Inspection: able to speak in complete sentences Auscultation: clear to auscultation bilaterally Cardio: Rate: regular rate Rhythm: regular rhythm GI: Auscultation: normal bowel sounds Skin: General skin exam: no rashes or lesions noted Lesions: no lesions Wounds: no wounds Nails: normal Neuro: General: oriented to person, oriented to place, oriented to time and CN's II-XI intact bilaterally Cranial nerves: Yes CN's II-XII intact bilaterally Cognition (Neuro): normal cognition Speech: normal speech Gait exam (Neuro): Unable to assess gait Motor exam (neuro): Abnormal motor strength present ( quadriparetic) and Abnormal muscle tone present ( decreased) Sensory Exam: Sensory deficit (Neuro) Deep tendon reflexes (DTR's): Right triceps reflex intensity grade: 0, Left triceps reflex intensity grade: 0, Rt Biceps (C5, C6): 0, Left biceps reflex intensity grade: 0, Right brachioradialis reflex intensity grade: 0, Left brachioradialis reflex intensity grade: 0, Right patellar reflex intensity grade: 0, Left patellar reflex intensity grade: 0, Right ankle reflex intensity grade: 0 and Left ankle reflex intensity grade: 0 Plantar Reflex Responses: equivocal: bilateral Extrem: General: normal to inspection and full ROM Right upper extremity: normal to inspection and full ROM Left upper extremity: normal to inspection and full ROM Right lower extremity: normal to inspection and full ROM Left lower extremity: normal to inspection and full ROM Psych: Appearance: grossly normal Speech and movement: Normal speech and movement present Affect: Labile affect present Attitude: cooperative Thought process: Normal thought process present Thought content: Yes Normal thought content present Insight: Limited insight present (Psych) Judgement: Limited judgement present (Psych) Objective Data Vital Signs Vital Signs: Vital Signs - 24 hr 12/22/20 14:00 12/22/20 16:00 12/22/20 20:00 Temperature 36.7 C Pulse Rate 120 H 119 H 119 H Respiratory Rate 22 H Blood Pressure 126/78 Pulse Oximetry 100 12/22/20 22:00 12/23/20 00:00 12/23/20 04:00 Temperature 36.2 C L Pulse Rate 113 H 121 H 110 H Respiratory Rate 18 Blood Pressure 122/80 Pulse Oximetry 100 12/23/20 06:00 12/23/20 08:00 12/23/20 09:18 Temperature 36.2 C L Pulse Rate 119 H 115 H 118 H Respiratory Rate 16 24 H 20 Blood Pressure 126/85 124/93 H Pulse Oximetry 100 98 96 12/23/20 10:12 Temperature Pulse Rate 115 H Respiratory Rate 24 H Blood Pressure 140/100 H Pulse Oximetry 98 Intake/Output Intake/Output: Intake & Output 12/20/20 12/21/20 12/22/20 04
[2020-12-23] MEDS: POTASSIUM CHLORIDE 10 MEQ TABLET.ER PO (13:33)
[2020-12-23] MEDS: AZITHROMYCIN 250 MG TABLET 500 MG PO (13:33)
[2020-12-23] MEDS: TOPIRAMATE 100 MG TABLET 300 MG PO (13:33)
[2020-12-23] MEDS: FLUoxetine HCL 20 MG CAPSULE PO (13:34)
[2020-12-23] MEDS: levETIRAcetam 500 MG TABLET PO ×2 (13:34→20:22)
[2020-12-23 13:53] LABS: Ammonia < 9 umol/L (9-30)
[2020-12-23 14:45] LABS: Hepatitis B Surface Antigen Negative (Negative)
[2020-12-23 14:50] LABS: HAV RESULT Negative (Negative); Hepatitis B Core IgM Result Negative (Negative)
[2020-12-23 15:02] LABS: Hepatitis C Virus Antibody Negative (Negative)
--- NOTE | 2020-12-23 15:51 | PM.PNCARD ---
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 Continue therapy per Neurology and primary service. No additional cardiovascular pathology identified at this time. Will sign off. Please do not hesitate to contact with any questions or concerns. Anticipate heart rate to improve with therapy as she moves along. (2) SOB (shortness of breath): Code(s): R06.02 - Shortness of breath Status: Acute Assessment and Plan: Etiology unclear. Chest x-ray unremarkable. No hypoxia. As above. (3) H/O syncope: Code(s): Z87.898 - Personal history of other specified conditions Status: Acute Assessment and Plan: Outpatient evaluation by my partner Dr. Granado including Echo and Holter monitor were unrevealing despite having 1 episode during monitor reasonably excluding arrhythmic cause. Episodes maybe potentially explained by myelopathy if present. (4) Epilepsy: Code(s): G40.909 - Epilepsy, unspecified, not intractable, without status epilepticus Status: Chronic Assessment and Plan: Per Neurology and primary service. 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 Management as above per Neurology. PT OT. Subjective Date/time seen: Date of service: 12/23/20 15:52 Follow-up for tachycardia. Patient feeling better. Lumbar puncture performed, elevated protein level concerning for Guillain-Tony syndrome. IVIG initiated. UA consistent with urinary tract infection. Ceftriaxone started. Less tachycardic today, heart rate generally in the 110's. No palpitations, chest pain. Less short of breath. Review of Systems Review of Systems: All systems reviewed & are unremarkable except as noted in HPI and below Constitutional: Constitutional: Reports as per HPI, Reports no additional constitutional complaints and Reports weakness Eyes: Eyes: Reports as per HPI and Reports no additional eye complaints ENT: Reports system reviewed and no additional complaints, except as documented, Reports as per HPI and Denies neck pain Cardiovascular: Cardiovascular: Reports as per HPI, Reports no additional cardiovascular complaints, Denies chest pain, Denies diaphoresis, Reports palpitations and Reports dyspnea Respiratory: Respiratory: Reports as per HPI, Reports no additional respiratory complaints, Denies cough and Reports dyspnea Gastrointestinal: Gastrointestinal: Reports as per HPI and Reports no additional gastrointestinal complaints Genitourinary: Genitourinary: Reports as per HPI Musculoskeletal: Musculoskeletal: Reports no additional musculoskeletal complaints, Reports as per HPI, Denies back pain, Denies neck pain and Reports numbness Integumentary/Breasts: Skin/Breast: Reports system reviewed and no additional complaints, except as docu and Reports as per HPI Neurologic: Reports system reviewed and no additional complaints, except as documented, Reports as per HPI, Reports numbness and Reports weakness Psychiatric: Psychiatric: Reports no additional psychiatric complaints and Reports as per HPI Endocrine: Endocrine: Reports no additional endocrine complaints, Reports as per HPI and Reports palpitations Hematologic/Lymphatic: Hematologic/Lymphatic: Reports no additional hematologic/lymphatic complaints and Reports as per HPI Allergic/Immunologic: Allergic/Immunologic: Reports no additional allergic/immunologic complaints and Reports as per HPI Exam Narrative: Exam Narrative: General: WF lying in bed eyes open flat facies not moving upper or lower extremities minimal head turning with conversation. Awake, alert A&Ox3. No apparent distress, but appears comfort
[2020-12-23] MEDS: TOPIRAMATE 100 MG TABLET 400 MG PO (20:21)
[2020-12-23] MEDS: MIRTAZAPINE 15 MG TABLET PO (20:22)
[2020-12-24] VITALS (9 sets, daily range): BP systolic 118–121; BP diastolic 73–74; PULSE 90–129; RESP 16–20; TEMP 36.4–36.5; O2SAT 95–98
--- NOTE | 2020-12-24 | ECHO_ITS ---
Patient Info Name: Leah Andrade Age: 30 years : 1990 Gender: Female Ht: 63 in Wt: 132 lbs BSA: 1.64 m2 HR: 114 bpm BP: 122 / 78 mmHg Heart Rhythm: Sinus Rhythm, Tachycardia Technical Quality: Good Exam Date: 12/24/2020 1:20 PM Exam Location: [facility] Pulmonary Exam Room: 320 Patient Status: Inpatient Admit Date: 12/09/2020 Staff Ordering Physician: Piotr Aguirre MD School Vocational Educator: Shruthi Esposito RDCS Attending Provider: Sonny Manley MD Referring Physician: Timothy HUERTA; Exam Type: CA echo doppler color flow Study Info Indications - tachycardia Complete two-dimensional, color flow and Doppler transthoracic echocardiogram is performed. Summary 1. Complete two-dimensional, color flow and Doppler transthoracic echocardiogram is performed. 2. Hyperdynamic LV function. 3. Otherwise normal exam. Left Ventricle Left ventricular chamber dimension is normal. Left ventricular systolic function is hyperdynamic, estimated at Empty. The left ventricular diastolic function is normal. Right Ventricle Right ventricular chamber dimension is normal. Left Atria Left atrial chamber dimension is normal. Right Atria Right atrial chamber dimension is normal. Aortic Valve The aortic valve is normal. Pulmonic Valve The pulmonic valve is normal. Mitral Valve The mitral valve has normal leaflets. Tricuspid Valve The tricuspid valve leaflets are normal. Pericardium/Pleural The pericardium appears normal. Aorta The aortic root size at the sinus of Valsalva is normal. Left Ventricular Outflow Tract Name Value Normal LVOT 2D LVOT Diameter 2.0 cm LVOT Doppler LVOT Peak Gradient 5 mmHg LVOT Mean Gradient 3 mmHg LVOT VTI 18 cm LVOT VTI/AV VTI Ratio 1.0 LVOT Stroke Volume 55 ml LVOT CO 14.2 l/min LVOT CI 8.6 l/min/m2 Pulmonic Valve Name Value Normal PV Doppler PV Peak Gradient 4 mmHg Mitral Valve Name Value Normal MV Doppler MV Decel [place] 514 cm/s2 MV PHT 41 ms MV Area (PHT) 5.4 cm2 4.0-5.0 MV Diastolic Function MV E Peak Velocity 73 cm/s MV A Peak Velocity 91 cm/s MV E/A 0.8
[2020-12-24] MEDS: SUCRALFATE SUSP 100 MG/ML 10 ML UDC 1000 MG PO ×4 (06:04→21:25)
[2020-12-24] MEDS: TOPIRAMATE 100 MG TABLET 300 MG PO (09:02)
[2020-12-24] MEDS: levETIRAcetam 500 MG TABLET PO ×2 (09:03→21:25)
[2020-12-24] MEDS: POTASSIUM CHLORIDE 10 MEQ TABLET.ER PO (09:03)
[2020-12-24] MEDS: AZITHROMYCIN 250 MG TABLET 500 MG PO (09:03)
[2020-12-24] MEDS: FLUoxetine HCL 20 MG CAPSULE PO (09:03)
--- NOTE | 2020-12-24 12:32 | PM.IMPN ---
Progress Note: A&P Assessment and Plan (1) Hyponatremia: Code(s): E87.1 - Hypo-osmolality and hyponatremia Status: Resolved Assessment and Plan: Sodium is 132 (2) Ataxia: Code(s): R27.0 - Ataxia, unspecified Status: Acute Assessment and Plan: Legs are weak still as per physical theraphy. MRI is normal. EEG is abnl MRI cspine negative, LP positive with protein and no cells. likley GBS immunoglobulins started. (3) Urinary frequency: Code(s): R35.0 - Frequency of micturition Status: Acute Assessment and Plan: Urinalysis is abnormal urine was dark rpt ua was sent yesteday, can start IV abx (4) Depression: Code(s): F32.9 - Major depressive disorder, single episode, unspecified Status: Acute Assessment and Plan: Started on Prozac, pt feels depressed not SI (5) Breakthrough seizure: Code(s): G40.919 - Epilepsy, unspecified, intractable, without status epilepticus Status: Acute Assessment and Plan: Continue anti seizure medication (6) Acute hypokalemia: Code(s): E87.6 - Hypokalemia Status: Resolved Assessment and Plan: potassium is corrected (7) Nausea and vomiting: Code(s): R11.2 - Nausea with vomiting, unspecified Status: Acute Assessment and Plan: Diet is better tolerated On Remeron (8) Weakness: Code(s): R53.1 - Weakness Status: Acute Assessment and Plan: PT OT continue with Physical theraphy (9) Physical deconditioning: Code(s): R53.81 - Other malaise Status: Acute Assessment and Plan: ongoing PT/ OT weak legs weak handgrips (10) Nonalcoholic steatohepatitis (MEDINA): Code(s): K75.81 - Nonalcoholic steatohepatitis (MEDINA) Status: Acute Assessment and Plan: Continue to monitor, LFTs remain high continue to watch, GI is consulted. likely secondary to MEDINA, medications or recent GB removal (11) Tachycardia: Code(s): R00.0 - Tachycardia, unspecified Status: Acute Assessment and Plan: Sinus tachycardiac, Bp stable will consult cardiology, Ddimers are nl. Pt has received hydration. ? anxiety ? infection (12) GBS (Guillain-[place] syndrome): Code(s): G61.0 - Guillain-[place] syndrome Status: Acute Assessment and Plan: Pt had ascending paralysis hands and legs, with abnormal LP, handgrips improving since starting immunoglobulin Subjective Date/time seen: 12/24/20 12:32 Interval history: Patient was seen during the morning rounds today. Pt legs are still weak, history of seizures. Pt has been seizure free since admission, pt is not eating much, states she feels depressed. Encouraged to move and walk with PT/OT. Pts LFTs are high pt had recent GB removed, I will follow her lfts. Transition to keppra, topamax and prozac orally. Pt has history of learning disability and seizures. 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 Pt had mri brain csine and LP today. Pt appears to have GBS. long discussion with her mother yesterday, was told that the pt had a covid vaccination on November singl dose of guille and guille. No other new medications mentioned prior to admission. Pt was started on immunoglobulin on the weekend. 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 Review of Systems Review of Systems: All systems reviewed & are unremarkable except as noted in HPI and below Exam Narrative: Exam Narrative: Chronically ill looking. Const: General: ill appearing Nutritional Appearance: thin Orientation/consciousness: oriented to person, oriented to place and oriented to time HENMT: Head: normocephalic Neck: Neck: no lymphadenopathy and no JVD Chest: Chest palpation & inspection: normal inspection of the chest Resp: Effort & Inspection: normal respiratory effort and able to speak in complete sentences Auscultation: clear to auscultation bilaterally Percussion: percussion norm
--- NOTE | 2020-12-24 13:15 | WPDNEUROPN ---
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 Status: Acute (2) SOB (shortness of breath): Code(s): R06.02 - Shortness of breath Status: Acute (3) Sinus tachycardia: Code(s): R00.0 - Tachycardia, unspecified Status: Acute (4) Breakthrough seizure: Code(s): G40.919 - Epilepsy, unspecified, intractable, without status epilepticus Status: Acute Additional Plan stable with quadriparesis receiving immunoglobulin and feeling better as compared to yesterday Review of Systems Review of Systems: All systems reviewed & are unremarkable except as noted in HPI and below Exam Const: General: cooperative, comfortable and no acute distress Nutritional Appearance: average body habitus Orientation/consciousness: oriented to person, oriented to place and oriented to time HENMT: Head: normocephalic Ears: hearing grossly normal bilaterally General nose exam: Normal external nose present Face and sinus: normal facial exam and face symmetric ( lips dry) Mouth: Yes Normal oral and palatal mucosa present and Yes lip normal ( lips are dry) Eyes: General: appearance normal, both eyes and all related structures Visual Napoles: normal visual napoles by confrontation Alignment and Position: alignment normal Periorbital: periorbital findings normal Eyelids: eyelids normal Conjunctivae: conjunctivae normal Sclera: sclerae normal Cornea: corneas normal Pupils: Equal, round and reactive pupils present EOM: EOMs intact bilaterally Neck: Neck: full ROM, no lymphadenopathy and no meningeal signs Resp: Effort & Inspection: able to speak in complete sentences Auscultation: clear to auscultation bilaterally Cardio: Rate: regular rate Rhythm: regular rhythm GI: Auscultation: normal bowel sounds Skin: General skin exam: no rashes or lesions noted and turgor normal Neuro: General: patient oriented x3 Cranial nerves: Yes CN's II-XII intact bilaterally Speech: normal speech Gait exam (Neuro): Unable to assess gait Motor exam (neuro): No tremor noted, Abnormal motor strength present ( quadriparesis with more involvement of the lower extremities as compared u) and Abnormal muscle tone present Sensory Exam: Sensory deficit (Neuro) Deep tendon reflexes (DTR's): Right triceps reflex intensity grade: 0, Left triceps reflex intensity grade: 0, Rt Biceps (C5, C6): 0, Left biceps reflex intensity grade: 0, Right brachioradialis reflex intensity grade: 0, Left brachioradialis reflex intensity grade: 0, Right patellar reflex intensity grade: 0, Left patellar reflex intensity grade: 0, Right ankle reflex intensity grade: 0 and Left ankle reflex intensity grade: 0 Plantar Reflex Responses: downgoing: bilateral Coordination: [id number] test normal ( cannot perform) and [id number] test normal ( can not perform) Psych: Appearance: grossly normal Speech and movement: Normal speech and movement present Affect: Animated affect present Attitude: cooperative Thought process: Normal thought process present Thought content: Yes Normal thought content present Insight: Fair insight present (Psych) Judgement: Fair judgement present (Psych) Objective Data Vital Signs Vital Signs: Vital Signs - 24 hr 12/23/20 14:00 12/23/20 16:00 12/23/20 20:00 Temperature 36.7 C Pulse Rate 121 H 121 H 126 H Respiratory Rate 24 H Blood Pressure 134/90 Pulse Oximetry 100 12/23/20 22:00 12/24/20 00:00 12/24/20 04:00 Temperature 36.3 C L Pulse Rate 128 H 129 H 120 H Respiratory Rate 22 H Blood Pressure 122/78 Pulse Oximetry 97 12/24/20 08:00 12/24/20 12:00 Temperature Pulse Rate 114 H 119 H Respiratory Rate Blood Pressure Pulse Oximetry Intake/Output Intake/Output: Intake & Output 12/21/20 12/22/20 12/23/20 12/24/20 23:59 23:59 23:59 23:59 Intake Total 3720 760 860 120 Output Total 1250 1000 1100 Balance 2470 -2
[2020-12-24] MEDS: TOPIRAMATE 100 MG TABLET 400 MG PO (21:25)
[2020-12-24] MEDS: MIRTAZAPINE 15 MG TABLET PO (21:26)
[2020-12-24] MEDS: ALPRAZolam (*CRX) 0.125 MG TABLET PO (22:06)
[2020-12-25] VITALS (9 sets, daily range): BP systolic 116–124; BP diastolic 74–84; PULSE 118–126; RESP 18–20; TEMP 36.1–36.7; O2SAT 96–100
[2020-12-25] MEDS: SUCRALFATE SUSP 100 MG/ML 10 ML UDC 1000 MG PO ×4 (06:13→20:45)
[2020-12-25 06:27] LABS: Hematocrit 25.9 % (37.0-47.0); Mean Corpuscular HGB Conc 34.7 g/dl (32-36); Mean Corpuscular Volume 97.7 fl (80-100); Mean Platelet Volume 8.8 fl (7.4-10.4); Platelet Count Result 244 k/mm3 (150-375); Red Blood Count 2.65 M/mm3 (4.2-5.4); Red Cell Distribution Width 13.2 % (11.5-14.5); White Blood Count 5.6 K/mm3 (4.5-10.0)
[2020-12-25 06:39] LABS: Anion Gap 5 mmol/L (8-16); Blood Urea Nitrogen 9 mg/dL (7-17); Calcium 8.4 mg/dL (8.4-10.2); Carbon Dioxide 20 mmol/L (22-30); Chloride 109 mmol/L (98-107); Estimated CRCL calculation 82 ml/min; Estimated Glomerular Filt Rate > 60; Glucose 117 mg/dL (65-105); Potassium 2.9 mmol/L (3.4-5.0); Sodium 134 mmol/L (137-145)
[2020-12-25] MEDS: TOPIRAMATE 100 MG TABLET 300 MG PO (09:09)
[2020-12-25] MEDS: AZITHROMYCIN 250 MG TABLET 500 MG PO (09:09)
[2020-12-25] MEDS: levETIRAcetam 500 MG TABLET PO ×2 (09:09→20:45)
[2020-12-25] MEDS: POTASSIUM CHLORIDE 10 MEQ TABLET.ER PO (09:09)
[2020-12-25] MEDS: FLUoxetine HCL 20 MG CAPSULE PO (09:10)
--- NOTE | 2020-12-25 10:24 | WPDNEUROPN ---
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 Status: Acute Additional Plan definitely improving, paresis is not progressing, she is starting to move both upper extremities at the shoulder level and also she is able to flex the lower extremities at the hip and knees, deep tendon reflexes are sluggish to absent and particularly there is no evidence of difficulties in breathing she will receive the physical therapy and occupational therapy hopefully will be transferred to [facility] Review of Systems Review of Systems: All systems reviewed & are unremarkable except as noted in HPI and below Exam Const: General: cooperative, comfortable, no acute distress, alert and awake Nutritional Appearance: average body habitus Orientation/consciousness: oriented to person, oriented to place and oriented to time Limitations: physical limitations HENMT: Ears: hearing grossly normal bilaterally General nose exam: Normal external nose present Face and sinus: normal facial exam Mouth: Yes tongue normal and Yes dry mucous membranes Eyes: General: appearance normal, both eyes and all related structures Visual Napoles: normal visual napoles by confrontation Alignment and Position: alignment normal Periorbital: periorbital findings normal Eyelids: eyelids normal Sclera: sclerae normal Cornea: corneas normal Pupils: Equal, round and reactive pupils present EOM: EOMs intact bilaterally Direct Ophthalmoscopy: normal light reflex Neck: Neck: full ROM Resp: Effort & Inspection: normal respiratory effort Auscultation: clear to auscultation bilaterally Cardio: Rate: regular rate Rhythm: regular rhythm GI: Auscultation: normal bowel sounds Neuro: General: patient oriented x3 Cranial nerves: Yes CN's II-XII intact bilaterally Cognition (Neuro): normal cognition Speech: normal speech Gait exam (Neuro): Unable to assess gait Motor exam (neuro): Abnormal motor strength present Sensory Exam: Sensory deficit (Neuro) Deep tendon reflexes (DTR's): Right triceps reflex intensity grade: 0, Left triceps reflex intensity grade: 0, Rt Biceps (C5, C6): 0, Left biceps reflex intensity grade: 0, Right brachioradialis reflex intensity grade: 0, Left brachioradialis reflex intensity grade: 0, Right patellar reflex intensity grade: 0, Left patellar reflex intensity grade: 0, Right ankle reflex intensity grade: 0 and Left ankle reflex intensity grade: 0 Psych: Appearance: grossly normal Objective Data Vital Signs Vital Signs: Vital Signs - 24 hr 12/24/20 12:00 12/24/20 14:00 12/24/20 16:00 Temperature 36.4 C Pulse Rate 119 H 90 119 H Respiratory Rate 20 Blood Pressure 121/74 Pulse Oximetry 98 12/24/20 20:00 12/24/20 20:45 12/24/20 22:00 Temperature 36.5 C Pulse Rate 124 H 126 H 121 H Respiratory Rate 16 16 Blood Pressure 118/73 Pulse Oximetry 95 95 12/25/20 00:00 12/25/20 04:00 12/25/20 06:00 Temperature 36.1 C L Pulse Rate 126 H 120 H 119 H Respiratory Rate 18 Blood Pressure 124/84 Pulse Oximetry 100 12/25/20 08:00 Temperature Pulse Rate 118 H Respiratory Rate Blood Pressure Pulse Oximetry Intake/Output Intake/Output: Intake & Output 12/22/20 12/23/20 12/24/20 12/25/20 23:59 23:59 23:59 23:59 Intake Total 760 860 650 60 Output Total 1000 1100 300 100 Balance -240 -240 350 -40 Meds/Results Medications: Active Medications Generic Name Dose Route Start Last Admin Trade Name Freq PRN Reason Stop Dose Admin Alprazolam 0.125 mg 12/23/20 11:23 12/24/20 22:06 Alprazolam (*Crx) 0.125 Mg Tablet PO 0.125 mg TID PRN Administration Anxiety Azithromycin 500 mg 12/23/20 12:00 12/25/20 09:09 Azithromycin 250 Mg Tablet PO 500 mg DAILY ANTHONY Administration Fluoxetine HCl 20 mg 12/14/20 09:00 12/25/20 09:10 Fluoxetine Hcl 20 Mg Capsule PO 20 mg DAILY ANTHONY Administration Heparin Sodium
--- NOTE | 2020-12-25 12:23 | PCNFU ---
Nutrition Follow-Up Complete: Inadequate oral intake related to nausea/vomiting/seizure as evidenced by clear liquid diet. Goal: Patient to meet estimated nutritional needs. We will continue current goal. Pt current nutrition is Regular. Last recorded weight is 60.1 kg, 61.1 kg on admit. Bowel Motility:+BM reported 12/24 Labs Reviewed:Glu 134,Hct 25.9,Hgb 9.0,BUN 5 Meds Noted:Remeron,Reglan,Keppra,Zofran,Carafate,Topamax. Additional Notes: Patient seen today for nutrition follow up. Oral Intake has been fair 25-75%. I asked patient for her food likes today, diet office is aware. PO encourages was encouraged, that was discussed with patient today. New dx of Maureen Carlson. Therapy is working with patient daily. Plans fo Rehab when discharged. Monitoring: Follow up in 5 days.
--- NOTE | 2020-12-25 12:53 | PM.IMPN ---
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(s): G61.0 - Guillain-[place]annis syndrome Status: Acute Assessment and Plan: Patient with some bilateral lower extremity weight patient is still able to flex but she is not able to lift yet bilateral upper extremities she is able to lift them Not worsening IVIG as per neurology Appreciate neurology note (2) Nausea and vomiting: Code(s): R11.2 - Nausea with vomiting, unspecified Status: Acute Assessment and Plan: Continue supportive care Patient states that she was able to eat today for breakfast (3) Breakthrough seizure: Code(s): G40.919 - Epilepsy, unspecified, intractable, without status epilepticus Status: Acute Assessment and Plan: Has been seizure-free since admission Her medications are oral now (4) Physical deconditioning: Code(s): R53.81 - Other malaise Status: Acute Assessment and Plan: Have PT OT (5) Intellectual disability: Code(s): F79 - Unspecified intellectual disabilities Status: Chronic Assessment and Plan: Supportive care Unchanged (6) Mentally disabled: Code(s): F79 - Unspecified intellectual disabilities Status: Acute Assessment and Plan: Supportive care Unchanged Subjective Date/time seen: 12/25/20 12:53 I feel well Review of Systems Review of Systems: Narrative: Patient denies any issues currently Constitutional: Comments: No fevers no rigors no chills Cardiovascular: Comments: No chest pain no PND no orthopnea Respiratory: Comments: No shortness of breath no cough no sputum Gastrointestinal: Comments: No nausea no vomiting Musculoskeletal: Comments: Denies any issues Integumentary/Breasts: Comments: No rashes Exam Narrative: Exam Narrative: Patient is sitting in bed Const: General: comfortable, no acute distress, well developed, alert, awake, ill appearing and tired appearing Nutritional Appearance: other (Emaciated) Orientation/consciousness: patient oriented x3 HENMT: Head: normal to inspection, normocephalic and atraumatic Ears: hearing grossly normal bilaterally Face and sinus: normal facial exam Eyes: General: appearance normal, both eyes and all related structures Pupils: Equal, round and reactive pupils present EOM: EOMs intact bilaterally Neck: Neck: full ROM, no lymphadenopathy and no JVD Thyroid: thyroid normal Lymphatic: no lymphadenopathy noted Resp: Effort & Inspection: normal respiratory effort and able to speak in complete sentences Auscultation: clear to auscultation bilaterally Cardio: Jugular venous distension: no JVD Rate: regular rate Rhythm: regular rhythm Heart sounds: S1 normal heart sound present and S2 normal heart sound present GI: GI Palp: Yes Soft to palpation and Yes No hepatosplenomegaly present : General: Yes deferred Skin: Rashes: no rashes Wounds: no wounds Neuro: General: patient oriented x3 and CN's II-XI intact bilaterally Cranial nerves: Yes CN's II-XII intact bilaterally and Yes Equal, round and reactive pupils present Cognition (Neuro): normal cognition Speech: normal speech Gait exam (Neuro): Normal gait present Motor exam (neuro): Other motor observations present (Bilateral lower extremity muscle strength is 3/5, upper extremity is 4/5 b/) Extrem: General: normal to inspection, full ROM, no joint enlargement and no pedal edema Objective Data Vital Signs Vital Signs: Vital Signs - 24 hr 12/24/20 14:00 12/24/20 16:00 12/24/20 20:00 Temperature 97.6 F Pulse Rate 90 119 H 124 H Respiratory Rate 20 Blood Pressure 121/74 Pulse Oximetry 98 12/24/20 20:45 12/24/20 22:00 12/25/20 00:00 Temperature 97.7 F Pulse Rate 126 H 121 H 126 H Respiratory Rate 16 16 Blood Pressure 118/73 Pulse Oximetry 95 95 12/25/20 04:00 12/25/20 06:00 12/25/20 08:00 Temperature 96.9 F L Pulse Rate 120 H 119 H 118 H Respi
[2020-12-25] MEDS: TOPIRAMATE 100 MG TABLET 400 MG PO (20:46)
[2020-12-25] MEDS: MIRTAZAPINE 15 MG TABLET PO (20:46)
[2020-12-26] MEDS: SUCRALFATE SUSP 100 MG/ML 10 ML UDC 1000 MG PO ×4 (05:56→20:46)
[2020-12-26 06:00] VITALS: BP 124/80; PULSE 118; RESP 22; TEMP 36.3; O2SAT 99
[2020-12-26 08:11] VITALS: O2SAT 94
[2020-12-26] MEDS: levETIRAcetam 500 MG TABLET PO ×2 (09:15→20:46)
[2020-12-26] MEDS: FLUoxetine HCL 20 MG CAPSULE PO (09:17)
[2020-12-26] MEDS: POTASSIUM CHLORIDE 10 MEQ TABLET.ER PO (09:17)
[2020-12-26] MEDS: AZITHROMYCIN 250 MG TABLET 500 MG PO (09:17)
[2020-12-26] MEDS: TOPIRAMATE 100 MG TABLET 300 MG PO (09:19)
--- NOTE | 2020-12-26 11:24 | WPDNEUROPN ---
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 Status: Acute Additional Plan improving, able to move both upper and lower extremities better but definitely upper more than the lower right now and there is no evidence of any cranial nerve deficit Renee the disease is not progressing she will need to have the continual therapy and continuation of all her other medication for the intractable epilepsy Review of Systems Review of Systems: All systems reviewed & are unremarkable except as noted in HPI and below Exam Const: General: cooperative, comfortable and no acute distress Nutritional Appearance: thin Orientation/consciousness: oriented to person and oriented to place Limitations: physical limitations HENMT: Head: normal to inspection Ears: hearing grossly normal bilaterally General nose exam: Normal external nose present Face and sinus: normal facial exam Mouth: Yes Normal oral and palatal mucosa present Eyes: General: appearance normal, both eyes and all related structures Neck: Neck: full ROM Resp: Effort & Inspection: normal respiratory effort Auscultation: clear to auscultation bilaterally Cardio: Rate: regular rate Rhythm: regular rhythm GI: Auscultation: normal bowel sounds Neuro: General: oriented to person and oriented to place Cranial nerves: Yes CN's II-XII intact bilaterally Cognition (Neuro): normal cognition Speech: normal speech Motor exam (neuro): Abnormal motor strength present Sensory Exam: Sensory deficit (Neuro) Deep tendon reflexes (DTR's): Right triceps reflex intensity grade: 0, Left triceps reflex intensity grade: 0, Rt Biceps (C5, C6): 0, Left biceps reflex intensity grade: 0, Right brachioradialis reflex intensity grade: 0, Left brachioradialis reflex intensity grade: 0, Right patellar reflex intensity grade: 0, Left patellar reflex intensity grade: 0, Right ankle reflex intensity grade: 0 and Left ankle reflex intensity grade: 0 Plantar Reflex Responses: downgoing: bilateral Objective Data Vital Signs Vital Signs: Vital Signs - 24 hr 12/25/20 12:00 12/25/20 14:00 12/25/20 20:00 Temperature 36.7 C Pulse Rate 123 H 122 H 124 H Respiratory Rate 20 20 Blood Pressure 116/77 Pulse Oximetry 96 98 12/25/20 22:00 12/25/20 22:56 12/26/20 06:00 Temperature 36.6 C 36.3 C L Pulse Rate 124 H 121 H 118 H Respiratory Rate 20 22 H Blood Pressure 123/74 124/80 Pulse Oximetry 98 97 99 12/26/20 08:11 Temperature Pulse Rate Respiratory Rate Blood Pressure Pulse Oximetry 94 Intake/Output Intake/Output: Intake & Output 12/23/20 12/24/20 12/25/20 12/26/20 23:59 23:59 23:59 23:59 Intake Total 860 650 730 140 Output Total 1100 300 100 Balance -240 350 630 140 Meds/Results Medications: Active Medications Generic Name Dose Route Start Last Admin Trade Name Freq PRN Reason Stop Dose Admin Alprazolam 0.125 mg 12/23/20 11:23 12/24/20 22:06 Alprazolam (*Crx) 0.125 Mg Tablet PO 0.125 mg TID PRN Administration Anxiety Azithromycin 500 mg 12/23/20 12:00 12/26/20 09:17 Azithromycin 250 Mg Tablet PO 500 mg DAILY ANTHONY Administration Fluoxetine HCl 20 mg 12/14/20 09:00 12/26/20 09:17 Fluoxetine Hcl 20 Mg Capsule PO 20 mg DAILY ANTHONY Administration Heparin Sodium (Porcine) 5,000 units 12/09/20 21:00 12/22/20 09:36 Heparin Sodium 5,000 Units/Ml Vial SUB-Q 5,000 units Q12HR ANTHONY Administration Ceftriaxone Sodium/Dextrose 1 gm in 50 mls @ 100 mls/hr 12/23/20 12:00 12/26/20 11:11 Rocephin 1 Gm/D5w 50 Ml IVPB 100 mls/hr Q24H ANTHONY Administration Levetiracetam 500 mg 12/19/20 09:00 12/26/20 09:15 Levetiracetam 500 Mg Tablet PO 500 mg Q12HR ANTHONY Administration Metoclopramide HCl 10 mg 12/10/20 15:43 12/18/20 10:01 Metoclopramide Hcl Inj 10 Mg/2 Ml Vial IV PUSH 10 mg Q8HR PRN Administration Nausea And Vomiting Mirtaz
[2020-12-26 14:06] VITALS: BP 115/74; PULSE 127; RESP 28; TEMP 36.3; O2SAT 98
--- NOTE | 2020-12-26 14:14 | PC.NURSE ---
On 12/26/20, the student, [ Olinda Anglin], provided care and completed [facility] documentation on this patient. I have reviewed the student's documentation and agree with the findings.
--- NOTE | 2020-12-26 14:43 | PM.IMPN ---
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 Status: Acute Assessment and Plan: Does not seem to be progressing Will require fpc (2) Ataxia: Code(s): R27.0 - Ataxia, unspecified Status: Acute Assessment and Plan: Likely secondary to Guillain-[place] onset (3) Breakthrough seizure: Code(s): G40.919 - Epilepsy, unspecified, intractable, without status epilepticus Status: Acute Assessment and Plan: Has been seizure-free since admission (4) Acute hypokalemia: Code(s): E87.6 - Hypokalemia Status: Resolved Assessment and Plan: Replaced as needed (5) Nausea and vomiting: Code(s): R11.2 - Nausea with vomiting, unspecified Status: Acute Assessment and Plan: Since to be doing better tolerating her meals (6) Weakness: Code(s): R53.1 - Weakness Status: Acute Assessment and Plan: Continue to work with PT OT (7) Physical deconditioning: Code(s): R53.81 - Other malaise Status: Acute Assessment and Plan: Prolonged hospitalization (8) Nonalcoholic steatohepatitis ([facility]): Code(s): K75.81 - Nonalcoholic steatohepatitis ([facility]) Status: Acute Assessment and Plan: Continue to monitor Subjective Date/time seen: 12/26/20 14:43 I feel fine Review of Systems Review of Systems: Narrative: States that was able to eat breakfast and went well she denies any complaints at this time Exam Narrative: Exam Narrative: Laying in bed Const: General: comfortable, no acute distress, well developed, alert, awake and ill appearing chronically Nutritional Appearance: other (Emaciated) Orientation/consciousness: patient oriented x3 HENMT: Head: normal to inspection, normocephalic and atraumatic Ears: hearing grossly normal bilaterally Face and sinus: normal facial exam Eyes: General: appearance normal, both eyes and all related structures Pupils: Equal, round and reactive pupils present EOM: EOMs intact bilaterally Neck: Neck: full ROM, no lymphadenopathy and no JVD Thyroid: thyroid normal Lymphatic: no lymphadenopathy noted Resp: Effort & Inspection: normal respiratory effort and able to speak in complete sentences Auscultation: clear to auscultation bilaterally Cardio: Jugular venous distension: no JVD Rate: regular rate Rhythm: regular rhythm Heart sounds: S1 normal heart sound present and S2 normal heart sound present GI: GI Palp: Yes Soft to palpation and Yes No hepatosplenomegaly present : General: Yes deferred Skin: Rashes: no rashes Wounds: no wounds Neuro: General: oriented to person, oriented to place and CN's II-XI intact bilaterally Cranial nerves: Yes CN's II-XII intact bilaterally and Yes Equal, round and reactive pupils present Cognition (Neuro): abnormal cognition (Learning disability) Speech: normal speech Gait exam (Neuro): Normal gait present Motor exam (neuro): Motor fasciculations not present and Abnormal motor strength present (Bilateral lower extremity and bilateral upper extremity) Extrem: General: normal to inspection, full ROM, no joint enlargement and no pedal edema Objective Data Vital Signs Vital Signs: Vital Signs - 24 hr 12/25/20 20:00 12/25/20 22:00 12/25/20 22:56 Temperature 97.9 F Pulse Rate 124 H 124 H 121 H Respiratory Rate 20 20 Blood Pressure 123/74 Pulse Oximetry 98 98 97 12/26/20 06:00 12/26/20 08:11 12/26/20 14:06 Temperature 97.4 F L 97.3 F L Pulse Rate 118 H 127 H Respiratory Rate 22 H 28 H Blood Pressure 124/80 115/74 Pulse Oximetry 99 94 98 Intake/Output Intake/Output: Intake & Output 12/23/20 12/24/20 12/25/20 12/26/20 23:59 23:59 23:59 23:59 Intake Total 860 650 730 240 Output Total 1100 300 100 Balance -240 350 630 240 Meds/Results Medications: Active Medications Generic Name Dose Route Start Last Admin
[2020-12-26 20:00] VITALS: PULSE 127; RESP 28; O2SAT 98
[2020-12-26 20:40] LABS: HIV 1/2 Ab P24 Ag Result Negative (Negative)
[2020-12-26] MEDS: TOPIRAMATE 100 MG TABLET 400 MG PO (20:47)
[2020-12-26] MEDS: MIRTAZAPINE 15 MG TABLET PO (20:47)
[2020-12-26 22:00] VITALS: BP 134/97; PULSE 114; RESP 20; TEMP 36.7; O2SAT 99
[2020-12-27 06:00] VITALS: BP 138/100; PULSE 122; RESP 20; TEMP 36.6; O2SAT 97
[2020-12-27] MEDS: SUCRALFATE SUSP 100 MG/ML 10 ML UDC 1000 MG PO ×4 (06:01→20:55)
[2020-12-27] MEDS: TOPIRAMATE 100 MG TABLET 300 MG PO (09:00)
[2020-12-27] MEDS: levETIRAcetam 500 MG TABLET PO ×2 (09:00→20:55)
[2020-12-27] MEDS: POTASSIUM CHLORIDE 10 MEQ TABLET.ER PO (09:00)
[2020-12-27] MEDS: AZITHROMYCIN 250 MG TABLET 500 MG PO (09:00)
[2020-12-27] MEDS: FLUoxetine HCL 20 MG CAPSULE PO (09:00)
[2020-12-27 14:00] VITALS: BP 132/78; PULSE 118; RESP 20; TEMP 36.3; O2SAT 97
--- NOTE | 2020-12-27 17:35 | PM.IMPN ---
Progress Note: A&P Assessment and Plan (1) GBS (Guillain-[place]phiem syndrome): Code(s): G61.0 - Guillain-Ophiem syndrome Status: Acute Assessment and Plan: not progressing supportive care continue PT OT going to a longterm facility (2) Breakthrough seizure: Code(s): G40.919 - Epilepsy, unspecified, intractable, without status epilepticus Status: Acute Assessment and Plan: seizure-free since admission (3) Nausea and vomiting: Code(s): R11.2 - Nausea with vomiting, unspecified Status: Acute Assessment and Plan: resolved patient tolerating all her meals (4) Weakness: Code(s): R53.1 - Weakness Status: Acute Assessment and Plan: likely compounded by Guillain-Ophiem but also prolonged hospitalization (5) Physical deconditioning: Code(s): R53.81 - Other malaise Status: Acute Assessment and Plan: continue PT OT (6) Mentally disabled: Code(s): F79 - Unspecified intellectual disabilities Status: Acute Assessment and Plan: supportive care Subjective Date/time seen: 12/27/20 17:35 I feel fine Review of Systems Review of Systems: Narrative: patient denies any issues at this time Exam Narrative: Exam Narrative: laying in bed Const: General: comfortable, no acute distress, well developed, alert, awake and ill appearing chronically Nutritional Appearance: other ( emaciated) Orientation/consciousness: patient oriented x3 HENMT: Head: normal to inspection, normocephalic and atraumatic Ears: hearing grossly normal bilaterally Face and sinus: normal facial exam Eyes: General: appearance normal, both eyes and all related structures Pupils: Equal, round and reactive pupils present EOM: EOMs intact bilaterally Neck: Neck: full ROM, no lymphadenopathy and no JVD Thyroid: thyroid normal Lymphatic: no lymphadenopathy noted Resp: Effort & Inspection: normal respiratory effort and able to speak in complete sentences Auscultation: clear to auscultation bilaterally Cardio: Jugular venous distension: no JVD Rate: regular rate Rhythm: regular rhythm Heart sounds: S1 normal heart sound present and S2 normal heart sound present GI: GI Palp: Yes Soft to palpation and Yes No hepatosplenomegaly present : General: Yes deferred Skin: Rashes: no rashes Wounds: no wounds Neuro: General: patient oriented x3 and CN's II-XI intact bilaterally Cranial nerves: Yes CN's II-XII intact bilaterally and Yes Equal, round and reactive pupils present Cognition (Neuro): normal cognition ( learning disability) Speech: normal speech Gait exam (Neuro): Unable to assess gait Motor exam (neuro): Other motor observations present ( bilateral lower extremity ms 1/5 bilateral upper extremity is 4/5) Extrem: General: normal to inspection, full ROM, no joint enlargement and no pedal edema Objective Data Vital Signs Vital Signs: Vital Signs - 24 hr 12/26/20 20:00 12/26/20 22:00 12/27/20 06:00 Temperature 98.1 F 97.8 F Pulse Rate 127 H 114 H 122 H Respiratory Rate 28 H 20 20 Blood Pressure 134/97 H 138/100 H Pulse Oximetry 98 99 97 12/27/20 14:00 Temperature 97.4 F L Pulse Rate 118 H Respiratory Rate 20 Blood Pressure 132/78 Pulse Oximetry 97 Intake/Output Intake/Output: Intake & Output 12/24/20 12/25/20 12/26/20 12/27/20 23:59 23:59 23:59 23:59 Intake Total 650 028 333 4501 Output Total 300 100 50 Balance 350 733 813 0504 Meds/Results Medications: Active Medications Generic Name Dose Route Start Last Admin Trade Name Freq PRN Reason Stop Dose Admin Alprazolam 0.125 mg 12/23/20 11:23 12/24/20 22:06 Alprazolam (*Crx) 0.125 Mg Tablet PO 0.125 mg TID PRN Administration Anxiety Azithromycin 500 mg 12/23/20 12:00 12/27/20 09:00 Azithromycin 250 Mg Tablet PO 500 mg DAILY ANTHONY Administration Fluoxetine HCl 20 mg 12/14/20 09:00 12/27/20 09:00 Fluoxetine
[2020-12-27 17:42] LABS: SARS-CoV-2 RNA PCR Negative
[2020-12-27] MEDS: TOPIRAMATE 100 MG TABLET 400 MG PO (20:54)
[2020-12-27] MEDS: MIRTAZAPINE 15 MG TABLET PO (20:55)
[2020-12-27 22:00] VITALS: BP 152/53; PULSE 120; RESP 16; TEMP 36.6; O2SAT 97
[2020-12-28] MEDS: SUCRALFATE SUSP 100 MG/ML 10 ML UDC 1000 MG PO ×3 (05:47→20:03)
[2020-12-28 06:00] VITALS: BP 128/84; PULSE 124; RESP 24; TEMP 36.4; O2SAT 97
[2020-12-28] MEDS: FLUoxetine HCL 20 MG CAPSULE PO (08:46)
[2020-12-28] MEDS: POTASSIUM CHLORIDE 10 MEQ TABLET.ER PO (08:46)
[2020-12-28] MEDS: AZITHROMYCIN 250 MG TABLET 500 MG PO (08:46)
[2020-12-28] MEDS: levETIRAcetam 500 MG TABLET PO ×2 (08:46→20:04)
[2020-12-28] MEDS: TOPIRAMATE 100 MG TABLET 300 MG PO (08:46)
--- NOTE | 2020-12-28 11:21 | PCNFU ---
Nutrition Follow-Up Complete: Inadequate oral intake related to nausea/vomiting/seizure as evidenced by clear liquid diet. Goal: Patient to meet estimated nutritional needs. We will continue current goal. No new goal. Pt current nutrition is Regular with Frozen Nutritional Treat. Last recorded weight is 60.1 kg-reported 12/20/20. Bowel Motility:+BM reported 12/27 Labs Reviewed:no new labs to report. Meds Noted:Topamax,KCL tab, Remeron,Keppra,Prozac,Carafate. Additional Notes: Patient seen today for nutrition follow up. She states to eating 1 sausage gale and 1/2 banana. Orders continue for the Frozen Nutritional Treat BID providing an additional 300 kcals and 9 gms protein, patient is eating the ice cream. Agree with diet orders. Monitoring: Follow up in every 5 days.
[2020-12-28 14:00] VITALS: BP 135/94; PULSE 125; RESP 22; TEMP 36.7; O2SAT 97
--- NOTE | 2020-12-28 15:41 | PM.DS ---
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 Status: Acute Assessment and Plan: PATIENT RECEIVED IV IG NO PROGRESSION CONTINUE TO MONITOR PT OT (2) Sinus tachycardia: Code(s): R00.0 - Tachycardia, unspecified Status: Acute Assessment and Plan: LIKELY SECONDARY TO PHYSICAL DECONDITION PATIENT HAS HAD OUTPATIENT WORKUP FOR HEART DISEASE NO ARRHYTHMIAS WERE RECORDED (3) Hyponatremia: Code(s): E87.1 - Hypo-osmolality and hyponatremia Status: Resolved Assessment and Plan: LIKELY SECONDARY TO POOR ORAL INTAKE RESOLVED (4) Urinary frequency: Code(s): R35.0 - Frequency of micturition Status: Acute Assessment and Plan: URINE ANALYSIS WITH NO INFECTION (5) Depression: Code(s): F32.9 - Major depressive disorder, single episode, unspecified Status: Acute Assessment and Plan: RESTARTED PROZAC (6) Anorexia: Code(s): R63.0 - Anorexia Status: Acute Assessment and Plan: STARTED ON REMERON (7) Breakthrough seizure: Code(s): G40.919 - Epilepsy, unspecified, intractable, without status epilepticus Status: Acute Assessment and Plan: SEIZURE FREE CONTINUE KEPPRA AND TOPAMAX (8) Acute hypokalemia: Code(s): E87.6 - Hypokalemia Status: Resolved Assessment and Plan: REPLACED NEEDED (9) Nausea and vomiting: Code(s): R11.2 - Nausea with vomiting, unspecified Status: Acute Assessment and Plan: RESOLVED (10) Gastritis: Code(s): K29.70 - Gastritis, unspecified, without bleeding Status: Acute Assessment and Plan: CONTINUE SUCRALFATE (11) Physical deconditioning: Code(s): R53.81 - Other malaise Status: Acute Assessment and Plan: PT OT LIKELY IN THE SETTING OF PROLONGED HOSPITALIZATION AND GUILLAIN BARRE (12) Nonalcoholic steatohepatitis (MEDINA): Code(s): K75.81 - Nonalcoholic steatohepatitis (MEDINA) Status: Acute Assessment and Plan: CONTINUE TO MONITOR (13) Mentally disabled: Code(s): F79 - Unspecified intellectual disabilities Status: Acute Assessment and Plan: SUPPORTIVE CARE (14) Seizures: Code(s): R56.9 - Unspecified convulsions Status: Chronic Assessment and Plan: ON TOPAMAX AND KEPPRA (15) Epilepsy: Code(s): G40.909 - Epilepsy, unspecified, not intractable, without status epilepticus Status: Chronic Assessment and Plan: ON TOPAMAX AND KEPPRA DS: Summary Hospital Course Reason for hospitalization: NAUSEA AND VOMITING Hospital Course: THIS IS A 30-YEAR-OLD FEMALE WITH PAST MEDICAL HISTORY SIGNIFICANT FOR EPILEPSY LEARNING DISABILITY PATIENT PRESENTED TO THE HOSPITAL DUE TO INTRACTABLE NAUSEA AND VOMITING SHE WAS FOUND TO HAVE SOME ELECTROLYTE ABNORMALITIES FOR WHICH SHE WAS ADMITTED TO THE GENERAL MEDICAL FLOOR. PATIENT WAS PLACED ON CLEAR LIQUID DIET BUT CONTINUED TO HAVE NAUSEA AND VOMITING PATIENT WITH EXTENSIVE GI WORKUP IN THE PAST AND RECENT CHOLECYSTECTOMY. IT WAS SUGGESTED THAT A GASTRIC EMPTYING EXAM TO BE DONE, HOWEVER PATIENT WAS UNABLE TO COMPLETE STUDY DUE TO VOMITING. WE PROCEEDED TO RESTART HER ANTIDEPRESSANT AND STARTED HER ON REMERON AND DIET WAS LIBERALIZED PATIENT WAS NOTED THAT HER INTAKE WAS INCREASED AFTER DISEASE AND HER NAUSEA AND VOMITING EVENTUALLY SUBSIDED. SHE WAS NOTED TO PROGRESSIVELY INCREASINGLY GETTING IN BILATERAL LOWER EXTREMITY WEAKNESS FOR WHICH SHE UNDERWENT LP WHICH WAS CONSISTENT WITH GUILLAIN BARRE FOR WHICH SHE RECEIVED IVIG THERE WAS NO FURTHER PROGRESSION OF THE D
--- NOTE | 2020-12-28 15:43 | PC.NURSE ---
Report called to Sue at [facility].
[2020-12-28 19:45] VITALS: BP 130/91; PULSE 117; RESP 2; TEMP 36.8; O2SAT 96
[2020-12-28] MEDS: MIRTAZAPINE 15 MG TABLET PO (20:03)
[2020-12-28] MEDS: TOPIRAMATE 100 MG TABLET 400 MG PO (20:04)
--- NOTE | 2020-12-28 21:57 | PC.NURSE ---
patient was transported at 20:35via [facility] to [facility]. Discharge instructions were discussed with her mother who was at the bedside at the time of discharge .
[2021-01-04 04:54] LABS: Albumin, CSF 23.1 mg/dL (8.0-42.0); Albumin, Serum 2.8 g/dL (3.5-5.2); IgG Index, CSF 0.59 (<0.66); IgG, CSF 3.9 mg/dL (0.8-7.7); Immunoglobulin G, Serum 800 mg/dL (600-1640); Myelin Basic Protein, CSF <2.0 mcg/L (2.0-4.0)
[2021-01-10 13:31] LABS: Epstein Barr Virus DNA PCR Not Detected
[2021-01-10 13:32] LABS: Source Epstein Barr Virus Serum
== END 2020-12-28 20:35 | DRG 95 ==
LOC: ANHED 08:47 → ANH3MEDSUR 14:28
PROVIDERS: Family Medicine; Internal Medicine; Internal Medicine Cardiovascular Disease; Nurse Practitioner; Psychiatry & Neurology Neurology; Admitting Provider Internal Medicine; Emergency Provider Emergency Medicine; PCP Internal Medicine; Visit Provider Internal Medicine
DX: G61.0 Guillain-Barre syndrome (principal); E87.1 Hypo-osmolality and hyponatremia; G40.919 Epilepsy, unspecified, intractable, without status epilepticus; Z20.822 Contact with and (suspected) exposure to COVID-19; R00.0 Tachycardia, unspecified; R35.0 Frequency of micturition; E87.6 Hypokalemia; R11.2 Nausea with vomiting, unspecified; K29.70 Gastritis, unspecified, without bleeding; R53.81 Other malaise; K75.81 Nonalcoholic steatohepatitis (NASH); F79 Unspecified intellectual disabilities; R63.0 Anorexia; R27.0 Ataxia, unspecified; F32.9 Major depressive disorder, single episode, unspecified; R74.01 Elevation of levels of liver transaminase levels; Z90.49 Acquired absence of other specified parts of digestive tract; Z79.899 Other long term (current) drug therapy
CPT/HCPCS: 36415; 62328; 70551; 71045; 72141; 76705; 78264; 80048; 80053; 80074; 80177; 80201; 81001; 81025; 82040; 82042; 82140; 82747; 82784; 82945; 83690; 83735; 83873; 83916; 83921; 84132; 84157; 84443; 85025; 85027; 85049; 85380; 85610; 85730; 86703; 87040; 87070; 87077; 87086; 87088; 87186; 87536; 87798; 88108; 89051; 93005; 93306; 95816; 96361; 96374; 97110; 97116; 97161; 97165; 97530; 97535; 99285; A9270; A9541; C9113; C9803; G0378; G0432; J0696; J1459; J1644; J1953; J2405; J2765; J3475; J3480; J7030; J7042; J7060; U0003; U0005

== ENCOUNTER 2020-12-31 08:39 | Emergency (ER) | payer MEDICARE, MEDICAID, SELFPAY ==
[2020-12-31] VITALS (14 sets, daily range): BP systolic 89–113; BP diastolic 55–82; PULSE 101–144; RESP 24–33; TEMP 37.8–40.8; O2SAT 80–100
--- NOTE | ~2020-12-31 | CT_ITS ---
EXAMINATION: CT brain wo con DATE: 12/31/2020 10:43 INDICATION: Altered mental status. Fever. TECHNIQUE: Computed tomography (CT) of the head was performed without intravenous contrast. The mA wa s adjusted according to patient size. Iterative reconstruction technique was employed. The dose-lengt h product was 605.33 mGy-cm. COMPARISON: Head CT 04/13/2020 FINDINGS: There is no intracranial hemorrhage, acute infarction, or abnormal intracranial mass lesion . The ventricles are normal in size. The orbits are normal. There is mild mucosal thickening in the e thmoid sinuses. There are changes of right mastoidectomy. IMPRESSION: 1. Normal brain. Reviewed, dictated and finalized at location B. IMPRESSION: 1. Normal brain.
--- NOTE | ~2020-12-31 | XR_ITS ---
EXAMINATION: XR chest 1V portable DATE: 12/31/2020 09:30 INDICATION: Altered mental status. Sepsis. Fever. TECHNIQUE: A single frontal view of the chest was obtained. COMPARISON: Chest single view 12/23/2020, CT abdomen and pelvis 11/24/2020 FINDINGS: There are airspace opacities in the lower lung zones, right worse than left. No pleural eff usion or pneumothorax. The heart size is normal. Surgical clips in the right upper quadrant are likel y from cholecystectomy. IMPRESSION: 1. Worsened airspace opacities in the lower lung zones, consistent with atelectasis versus pneumonia. Reviewed, dictated and finalized at location B. IMPRESSION: 1. Worsened airspace opacities in the lower lung zones, consistent with atelect asis versus pneumonia.
--- NOTE | ~2020-12-31 | CT_ITS ---
EXAMINATION: CTA chest PE abdomen pel DATE: 12/31/2020 10:44 INDICATION: Fever. Septic shock. TECHNIQUE: Computed tomography angiography (CTA) of the chest was performed with 100 mL Omnipaque-350 intravenous contrast timed to evaluate the pulmonary arteries. Coronal maximum intensity projection 3D-reconstructions were created by the technologist. Computed tomography (CT) of the abdomen and pelv is was performed with intravenous contrast. Automated exposure control and iterative reconstruction t echnique were employed. The dose-length product was 684.94 mGy-cm. COMPARISON: CT abdomen and pelvis 11/24/2020 FINDINGS: CTA chest: There are airspace opacities in the lower lobes and right middle lobe with volume loss, wo rst in right lower lobe. There is material in the trachea, right main stem bronchus, and right middle lobe and right lower lobe bronchi. There is no pulmonary embolus. CT abdomen and pelvis: The liver is normal. There are changes of cholecystectomy. The spleen, pancrea s, adrenal glands are normal. There is an 8 mm cyst in right kidney. There is a 4 mm stone in right k idney. There are 2 stones in left kidney with the larger measuring 11 mm. The bladder is decompressed by a Lowe catheter. There is an intrauterine device in expected position. There are no dilated loop s of bowel. There is a moderate volume of stool in the colon. The appendix is normal. There are no pa thologically enlarged lymph nodes. There is no free intraperitoneal fluid. There is mild thoracolumba r spondylosis. IMPRESSION: 1. No pulmonary embolus. 2. Material in the airway, which may be mucous plugging or aspirated material. 3. Airspace opacities in the lower lobes and right middle lobe with volume loss, worst in right lower lobe, likely at least predominantly atelectasis. Pneumonia cannot be excluded. Reviewed, dictated and finalized at location B. IMPRESSION: 1. No pulmonary embolus. 2. Material in the airway, which may be mucous plugging or aspirated material. 3. Airspace opacities in the lower lobes and right middle lobe with volume loss , worst in right lower lobe, likely at least predominantly atelectasis. Pneumon ia cannot be excluded.
--- NOTE | 2020-12-31 08:45 | ECG_ITS ---
Measurements Intervals [place] Rate: 146 P: 64 CT: 127 QRS: 77 QRSD: 74 T: 14 QT: 294 QTc: 459 Interpretive Statements SINUS TACHYCARDIA MINIMAL Q WAVES- INFERIOR LEADS BORDERLINE ST ABNORMALITY- INFERIOR LEADS ABNORMAL ECG Electronically Signed On 12-31-2020 12:15:30 CDT by Reymundo Martínez D.O.
--- NOTE | 2020-12-31 08:46 | ED.FEVER ---
HPI - Fever General Chief Complaint: Fever Stated Complaint: fever, slow to respond Time Seen by Provider: 12/31/20 08:46 Source: EMS Mode of arrival: EMS Limitations: clinical condition History of Present Illness HPI Narrative: The patient is a 30-year-old female with a past medical history of epilepsy, learning disability, recent Guillain-Crowder? discharged from this facility December 28, who presents for evaluation of fever, difficulty breathing. Due to patient's Guillain-Crowder? syndrome, she is unable to provide much history. She is able to nod yes/no to answer questions. She denies head pain, chest pain or abdominal pain. She nods yes to shortness of breath and fever. She nods no to nausea and vomiting. Additional history unable to be obtained due to patient limitation. Per EMS report, patient was found febrile, hypoxic to 80% with increased work of breathing by staff at nursing facility this morning. Patient with recent admission treated for Guillain-Crowder? syndrome in setting of urinary tract infection, did receive IVIG and was discharged to facility on the in stable condition. Related Data Home Medications Medication Instructions Recorded Confirmed omeprazole 40 mg PO BID 12/07/20 12/31/20 levetiracetam [Keppra] 1,000 mg PO BID 12/31/20 12/31/20 Allergies Allergy/AdvReac Type Severity Reaction Status Date / Time No Known Allergies Allergy Verified 12/31/20 09:11 Review of Systems Review of Systems: Narrative: Unable to obtain, secondary to acuity of condition PMFSH Past Medical History Medical History Abnormal CT of the abdomen Abnormal CT scan, colon Anorexia Bipolar affective disorder Dehydration Depression Epilepsy H/O thyroid cyst That was excised Intractable nausea and vomiting Irritable bowel syndrome (IBS) Left wrist fracture Mentally disabled Nausea and vomiting Pancreatitis Seizures Sludge in gallbladder Dysfunctional gallbladder Surgical History Surgical History S/P cholecystectomy 11/12/20 S/P middle ear reconstruction Family History Family History Mother Depression Family history of cataracts Hypertension Father Hypertension Social History Social History Social History: The patient lives with her parents. She has a fiance whom she has not seen in 1 year. She used to live in a [facility] but lives with her parents now. She has never smoked are use drugs. She does not use alcohol. Her mother is her guardian. She is a full code. Smoking status: Never smoker Second hand tobacco smoke exposure: No Alcohol intake: never Substance use: never Gender identity (if verbalized by the patient): Female Spiritual care concerns: No Exam Narrative: Exam Narrative: GENERAL: Awake, alert HEAD: Normocephalic, atraumatic. EYES: 2+ PERRLA and EOMI. ENT: Nares clear, no rhinorrhea or epistaxis. Mucous membranes dry NECK: Supple. CHEST: Increased work of breathing, respiratory distress with use of accessory muscles, coarse breath sounds bilaterally HEART: Tachycardic rate, sinus rhythm ABDOMEN:Non distended, no guarding or grimace on palpation, nonrigid EXTREMITIES: Decreased range of motion in the bilateral lower extremities, no effort against gravity. Bilateral upper extremities are some effort against gravity, patient cannot raise her arms though. She is able to slightly database tester fingers with bilateral hand strength. Intact sensation distally. SKIN: Warm, dry, no rash. NEURO: Awake, alert, spontaneous movement in upper extremities, able to verbalize minimally Course Vital Signs Vital signs: Vital Signs Temperature 40.8 C H 12/31/20 08:39 Pulse Rate 144 H 12/31/20 08:39 Respiratory Rate 32 H 12/31/20 08:39 Blood Pressure 89/55 L 12/31/20
[2020-12-31] MEDS: SODIUM CHLORIDE 0.9% IV 1,800 ML/1,800 ML ML 999 ML IV CONT (09:07)
[2020-12-31 09:09] LABS: Alveolar/Arterial O2 Gradient 12.2 mmHg; Base Excess ABG -3.3 mEq/l (+/-2.0); Carboxyhemoglobin 0.3 % THb (0-2.0); Fractional Inspired Oxygen 36 %; HCO3 ABG 23.8 mEq/l (22.0-26.0); Methemoglobin ABG 0.5 %THb (0-1.5); Oxygen Content ABG 11.4 %vol (16.0-22.0); Oxyhemoglobin 97.1 % THb (90.0-100.0); PCO2 ABG 54.6 mmHg (35.0-45.0); PO2 ABG 181.1 mmHg (80.0-100.0); PO2 FiO2 Ratio Arterial Blood 5.03 %; Reduced Hemoglobin 2.1 %THb (0-5.0)
[2020-12-31 09:11] LABS: pH ABG 7.257 (7.350-7.450)
[2020-12-31 09:12] LABS: Device NASAL CANNULA; Modified Allen's Test Pass; Site Drawn LEFT RADIAL
[2020-12-31 09:33] LABS: Basophils Absolute Auto 0.1 K/mm3 (0.0-0.1); Basophils Percent Auto 0.8 % (0.2-1.2); Hematocrit 24.5 % (37.0-47.0); Hemoglobin 7.9 g/dL (12.0-15.0); Immature Granulocyte Absolute 0.11 K/mm3 (0.00-0.031); Immature Granulocyte Percent A 1.7 % (0-0.5); Lymphocytes Absolute Auto 1.07 K/mm3 (0.9-3.2); Lymphocytes Percent Auto 16.7 % (18.3-44.2); Mean Corpuscular HGB Conc 32.2 g/dl (32-36); Mean Corpuscular Hemoglobin 33.5 pg (26-34); Mean Corpuscular Volume 103.8 fl (80-100); Mean Platelet Volume 9.1 fl (7.4-10.4); Monocytes Absolute Auto 0.6 K/mm3 (0.1-0.6); Monocytes Percent Auto 9.8 % (2.6-8.5); Neutrophils Absolute Auto 4.6 K/mm3 (1.3-6.7); Nucleated Red Blood Cells Perc 0.5 % (0.0-0.2); Platelet Count Result 341 k/mm3 (150-375); Red Blood Count 2.36 M/mm3 (4.2-5.4); Red Cell Distribution Width 13.3 % (11.5-14.5); White Blood Count 6.4 K/mm3 (4.5-10.0)
[2020-12-31 09:48] LABS: Add Urine Microscopic? YES; Appearance Urine Cloudy (Clear); Bacteria Urine Trace /hpf; Bilirubin Urine Negative (Negative); Blood Urine 1+ (Negative); Color Urine Yellow (Yellow); Glucose Urine UA Negative (Negative); Ketones Urine Negative (Negative); Leukocyte Esterase Ur Negative LEU/UL (Negative); Mucus Urine Heavy /lpf; Nitrate Urine Negative (Negative); Protein Urine 1+ mg/dL (Negative); Squamous Epithelial Cell Urine Rare /hpf (Few); Urobilinogen Urine Negative mg/dL (<2.0)
[2020-12-31 09:57] LABS: Lactic Acid Reflex 0.8 mmol/L (0.7-2.1)
[2020-12-31 09:57] LABS: INR 1.1
[2020-12-31 09:58] LABS: Partial Thromboplastin Time 25.6 SECONDS (22.3-36.8)
[2020-12-31 09:58] LABS: Alanine Aminotransferase 82 U/L (4-35); Albumin Level 3.2 g/dL (3.5-5.1); Alkaline Phosphatase 101 U/L (38-126); Anion Gap 3 mmol/L (8-16); Aspartate Amino Transferase 99 U/L (14-36); Bilirubin,Total 0.5 mg/dL (0.2-1.3); Blood Urea Nitrogen 22 mg/dL (7-17); Calcium 8.7 mg/dL (8.4-10.2); Carbon Dioxide 27 mmol/L (22-30); Chloride 106 mmol/L (98-107); Estimated Glomerular Filt Rate > 60; Glucose 130 mg/dL (65-105); Potassium 3.7 mmol/L (3.4-5.0); Sodium 136 mmol/L (137-145)
--- NOTE | 2020-12-31 10:05 | PC.NURSE ---
asked Carlos to call lab again for the CRP, he spoke to Nilda and she said she would take care of it. [id number]
[2020-12-31 10:11] LABS: Troponin I 0.062 ng/mL (0.000-0.034)
[2020-12-31 10:16] LABS: CRP < 0.5 mg/dL (<1.0)
[2020-12-31] MEDS: SODIUM CHLORIDE 0.9% IV 1,000 ML 250 ML IV CONT (10:53)
[2020-12-31 12:12] LABS: Alveolar/Arterial O2 Gradient 56.2 mmHg; Base Excess ABG -7.1 mEq/l (+/-2.0); Carboxyhemoglobin 0.3 % THb (0-2.0); Fractional Inspired Oxygen 30 %; HCO3 ABG 18.2 mEq/l (22.0-26.0); Methemoglobin ABG 0.3 %THb (0-1.5); Oxygen Content ABG 10.5 %vol (16.0-22.0); Oxyhemoglobin 96.4 % THb (90.0-100.0); PCO2 ABG 35.3 mmHg (35.0-45.0); PO2 ABG 116.2 mmHg (80.0-100.0); PO2 FiO2 Ratio Arterial Blood 3.87 %; pH ABG 7.329 (7.350-7.450)
[2020-12-31 12:14] LABS: Device NON-INVASIVE VENT; Modified Allen's Test Pass; Site Drawn LEFT RADIAL; Total Hemoglobin 7.6 g/dL (12.0-18.0)
[2020-12-31 12:15] LABS: Non-Invasive Expiratory Pressure 5 CMH2O; Non-Invasive Inspiratory Pressure 12 CMH2O; Non-Invasive Vent Rate 4 /MIN
--- NOTE | 2020-12-31 12:20 | PC.NURSE ---
CALL RECEIVED FROM CARLITO WITH [facility] ACCESS LINE. TRIAGE INFORMATION GIVEN. BED GIVEN ROOM 690 AT [facility]. REPORT TO BE CALLED TO [phone]
--- NOTE | 2020-12-31 12:30 | PC.NURSE ---
made contact with [facility] to transfer patient to [facility] both companies stated it would be hours before either of the companies would be able to transfer her. I contacted [facility] to transfer patient to [facility] [employer] gave an eta of [id number]
--- NOTE | 2020-12-31 12:33 | PC.NURSE ---
CALLED REPORT TO FAINA KEMP AT [facility]. REPORT GIVEN. ALL QUESTIONS ANSWERED. NO FURTHER QUESTIONS.
--- NOTE | 2020-12-31 13:54 | PC.NURSE ---
made contact with [employer] for a new eta 1600. called [facility] and they are being dispatched out now.
--- NOTE | 2020-12-31 14:32 | PC.NURSE ---
[facility] has arrived and they are aware that pt is going to [facility]
[2020-12-31 19:04] LABS: SARS-CoV-2 RNA PCR Negative
== END 2020-12-31 14:50 | disposition short-term general hospital (02) ==
PROVIDERS: Emergency Provider Emergency Medicine; PCP Internal Medicine
DX: G61.0 Guillain-Barre syndrome (principal); J18.9 Pneumonia, unspecified organism; Y95 Nosocomial condition; G40.909 Epilepsy, unspecified, not intractable, without status epilepticus; F81.9 Developmental disorder of scholastic skills, unspecified; F31.9 Bipolar disorder, unspecified; K58.9 Irritable bowel syndrome, unspecified; Z20.822 Contact with and (suspected) exposure to COVID-19; R00.0 Tachycardia, unspecified; R94.31 Abnormal electrocardiogram [ECG] [EKG]; R06.02 Shortness of breath
CPT/HCPCS: 36415; 36600; 70450; 71045; 71275; 74177; 80053; 81001; 82375; 82805; 83050; 83605; 84484; 85025; 85610; 85730; 86140; 86850; 86900; 86901; 87040; 87077; 87147; 87181; 87186; 87804; 93005; 94002; 96361; 96365; 96367; 99285; C9803; J0131; J0692; J3370; J7030; Q9967; U0003; U0005

== ENCOUNTER → 2021-09-26 08:50 | Outpatient (CLI) | payer MEDICARE, MEDICAID, SELFPAY ==
[2021-09-26 14:01] LABS: Influenza A QL RT-PCR Negative (Negative); Influenza B QL RT-PCR Negative (Negative); SARS-CoV-2 RNA PCR Positive
== END ==
PROVIDERS: PCP Internal Medicine; Visit Provider Internal Medicine
DX: U07.1 COVID-19 (principal); R68.89 Other general symptoms and signs
CPT/HCPCS: 87502; C9803; U0003; U0005